=== PATIENT | male | born 1945 | race Caucasian/White ===

== ENCOUNTER 2017-06-06 18:05 | Inpatient (IN) | payer OTHER, MEDICARE ==
[~2017-06-06] VITALS: Ht 177.8 cm; Wt 64.0 kg
[2017-06-06 18:06] VITALS: BP 140/82; PULSE 131; RESP 16; TEMP 97.4; O2SAT 94
[2017-06-06] MEDS ORDERED: SODIUM CHLOR 0.9% 1000 ML INJ 1,000 ML IV SCH (19:36)
--- NOTE | 2017-06-06 19:38 | PD ---
HPI Chief Complaint: Abdominal Pain Time Seen by Provider: 19:36 Travel History International Travel<30 days: No Contact w/Intl Traveler<30days: No Traveled to known affect area: No History of Present Illness HPI 71 year old male with history of diabetes, htn, afib on coumadin, SC with stent placement presents to the ED for evaluation of RUQ and R flank pain worsening since yesterday with associated nausea, intermittent shortness of breath only associated with nausea, and cough productive of a white frothy sputum. He denies fever or chills. No definite chest pain. His pain does not radiate anywhere. It is constant, 8/10. Denies any injury. He has history of cholecystectomy. His primary care is Dr. Vázquez. He has no other symptoms to report. PFSH Past Medical History Hx Anticoagulant Therapy: Yes Diabetes: Yes Social History Tobacco Use: No Allergies-Medications (Allergen,Severity, Reaction): Coded Allergies: No Known Allergies (Unverified , 06/06/17) Reported Meds & Prescriptions Reported Meds & Active Scripts Active Reported Lisinopril 40 Mg Tab 40 Mg PO DAILY Atorvastatin (Atorvastatin Calcium) 40 Mg Tab 40 Mg PO HS Potassium Chloride ER (Potassium Chloride) 10 Meq Cap 10 Meq PO BID Isosorbide Mononitrate 20 Mg Tab 30 Mg PO DAILY Take 2 doses 7 hours apart. Glipizide 10 Mg Tab 10 Mg PO DAILY Take 30 minutes before a meal Pioglitazone (Pioglitazone HCl) 45 Mg Tab 45 Mg PO DAILY Hydrochlorothiazide 25 Mg Tab 25 Mg PO DAILY Metoprolol Tartrate 100 Mg Tab 100 Mg PO BID Hydralazine HCl 25 Mg Tablet 50 Mg PO TID Vitamin B-12 (Cyanocobalamin) 500 Mcg Tab 500 Mcg PO DAILY Warfarin 2.5 Mg Tab 2.5 Mg PO DAILY Ferrous Sulfate 325 Mg (65 Mg Iron) Tablet 325 Mg PO DAILY Terazosin (Terazosin HCl) 1 Mg Cap 1 Mg PO HS Amlodipine (Amlodipine Besylate) 10 Mg Tab 10 Mg PO DAILY Review of Systems Except as stated in HPI: all other systems reviewed are Neg Physical Exam Narrative GENERAL: Well-nourished male patient, in no acute distress SKIN: Focused skin assessment warm/dry. HEAD: Atraumatic. Normocephalic. EYES: Pupils equal and round. No scleral icterus. No injection or drainage. ENT: No nasal bleeding or discharge. Mucous membranes pink and moist. NECK: Trachea midline. No JVD. CARDIOVASCULAR: Tachycardic rate with irregular rhythm. RESPIRATORY: No accessory muscle use. Diminished throughout. Breath sounds equal bilaterally. GASTROINTESTINAL: Abdomen soft, nondistended. Epigastric and right upper quadrant tenderness to deep palpation. No guarding or rebound tenderness.. Hepatic and splenic margins not palpable. MUSCULOSKELETAL: No obvious deformities. No clubbing. No cyanosis. No edema. NEUROLOGICAL: Awake and alert. No obvious cranial nerve deficits. Motor grossly within normal limits. Normal speech. PSYCHIATRIC: Appropriate mood and affect; insight and judgment normal. Data Data Last Documented VS Vital Signs Date Time Temp Pulse Resp B/P (MAP) Pulse Ox O2 Delivery O2 Flow Rate FiO2 06/06/17 20:50 91 20 142/81 (101) 97 Nasal Cannula 2.00 06/06/17 18:06 97.4 Orders Orders Complete Blood Count With Diff (06/06/17 19:36) Comprehensive Metabolic Panel (06/06/17 19:36) Lipase (06/06/17 19:36) Lactic Acid (06/06/17 19:36) Prothrombin Time / Inr (Pt) (06/06/17 19:36) Act Partial Throm Time (Ptt) (06/06/17 19:36) Urinalysis - C+S If Indicated (06/06/17 19:36) Ct Abd/Pel W Iv Contrast(Rout) (06/06/17 19:36) Iv Access Insert/Monitor (06/06/17 19:36) Ecg Monitoring (06/06/17 19:36) Oximetry (06/06/17 19:36) Morphine Inj (Morphine Inj) (06/06/17 19:45) Ondansetron Inj (Zofran Inj) (06/06/17 19:45) Sodium Chlor 0.9% 1000 Ml Inj (Ns 1000 M (06/06/17 19:36) Sodium Chloride 0.9% Flush (Ns Flush) (06/06/17 19:45) Electrocardiogram (06/06/17 19:36) Abdomen, Upright Only (06/06/17 19:36) B-Type Natriuretic Peptide (06/06/17 19:36) Ckmb (Isoenzyme) Profile (06/06/17 19:36) Troponin I (06/06/17 19:36) Diltiazem Inj (Cardizem Inj) (06/06/17 19:45) Chest, Single Ap (06/06/17 ) Iodixanol 320 Inj (Rad Ct) (Visipaque 32 (06/06/17 21:20) Lactic Acid (06/06/17 21:30) Furosemide Inj (Lasix Inj) (06/06/17 22:30) Labs Laboratory Tests Test 06/06/17 19:45 White Blood Count 10.0 TH/MM3 Red Blood Count 3.59 MIL/MM3 Hemoglobin 10.5 GM/DL Hematocrit 33.5 % Mean Corpuscular Volume 93.4 FL Mean Corpuscular Hemoglobin 29.3 PG Mean Corpuscular Hemoglobin Concent 31.3 % Red Cell Distribution Width 16.7 % Platelet Count 188 TH/MM3 Mean Platelet Volume 9.3 FL Neutrophils (%) (Auto) 82.8 % Lymphocytes (%) (Auto) 10.3 % Monocytes (%) (Auto) 6.1 % Eosinophils (%) (Auto) 0.2 % Basophils (%) (Auto) 0.6 % Neutrophils # (Auto) 8.3 TH/MM3 Lymphocytes # (Auto) 1.0 TH/MM3 Monocytes # (Auto) 0.6 TH/MM3 Eosinophils # (Auto) 0.0 TH/MM3 Basophils # (Auto) 0.1 TH/MM3 CBC Comment DIFF FINAL Differential Comment Prothrombin Time 22.8 SEC Prothromb Time International Ratio 2.0 RATIO Activated Partial Thromboplast Time 27.5 SEC Urine Color YELLOW Urine Turbidity CLEAR Urine pH 5.5 Urine Specific [place] 1.019 Urine Protein 30 mg/dL Urine Glucose (UA) NEG mg/dL Urine Ketones TRACE mg/dL Urine Occult Blood TRACE Urine Nitrite NEG Urine Bilirubin NEG Urine Urobilinogen LESS THAN 2.0 MG/DL Urine Leukocyte Esterase NEG Urine RBC 2 /hpf Urine WBC 2 /hpf Urine Hyaline Casts 7 /lpf Urine Mucus FEW /lpf Microscopic Urinalysis Comment CULT NOT INDICATED Blood Urea Nitrogen 30 MG/DL Creatinine 1.66 MG/DL Random Glucose 170 MG/DL Total Protein 7.6 GM/DL Albumin 4.1 GM/DL Calcium Level 9.6 MG/DL Alkaline Phosphatase 155 U/L Aspartate Amino Transf (AST/SGOT) 57 U/L Alanine Aminotransferase (ALT/SGPT) 61 U/L Total Bilirubin 0.7 MG/DL Sodium Level 139 MEQ/L Potassium Level 4.9 MEQ/L Chloride Level 108 MEQ/L Carbon Dioxide Level 19.8 MEQ/L Anion Gap 11 MEQ/L Estimat Glomerular Filtration Rate 41 ML/MIN Lactic Acid Level 4.2 mmol/L Total Creatine Kinase 69 U/L Troponin I 0.14 NG/ML B-Type Natriuretic Peptide 1446 PG/ML Lipase 108 U/L MDM Medical Decision Making Medical Screen Exam Complete: Yes Emergency Medical Condition: Yes Medical Record Reviewed: Yes Differential Diagnosis biliary colic versus renal calculi vs uti vs cardiac etiology vs pneumonia vs gastritis vs neoplasm vs sepsis Narrative Course 71-year-old male presents to the emergency department for evaluation. Patient appears distressed. However upon arrival in the ER he is in A. fib with RVR. He is given Cardizem 10 mg IV which normalizes his rate, he remains in A. fib. Patient does have a history of this. Abdominal exam reveals some epigastric and right upper quadrant tenderness with deep palpation. Patient lung sounds are diminished in the bases. His oxygen saturations 94% on room air and he is placed on 2 L nasal cannula. Laboratory Tests Test 06/06/17 19:45 White Blood Count 10.0 TH/MM3 Red Blood Count 3.59 MIL/MM3 Hemoglobin 10.5 GM/DL Hematocrit 33.5 % Mean Corpuscular Volume 93.4 FL Mean Corpuscular Hemoglobin 29.3 PG Mean Corpuscular Hemoglobin Concent 31.3 % Red Cell Distribution Width 16.7 % Platelet Count 188 TH/MM3 Mean Platelet Volume 9.3 FL Neutrophils (%) (Auto) 82.8 % Lymphocytes (%) (Auto) 10.3 % Monocytes (%) (Auto) 6.1 % Eosinophils (%) (Auto) 0.2 % Basophils (%) (Auto) 0.6 % Neutrophils # (Auto) 8.3 TH/MM3 Lymphocytes # (Auto) 1.0 TH/MM3 Monocytes # (Auto) 0.6 TH/MM3 Eosinophils # (Auto) 0.0 TH/MM3 Basophils # (Auto) 0.1 TH/MM3 CBC Comment DIFF FINAL Differential Comment Prothrombin Time 22.8 SEC Prothromb Time International Ratio 2.0 RATIO Activated Partial Thromboplast Time 27.5 SEC Urine Color YELLOW Urine Turbidity CLEAR Urine pH 5.5 Urine Specific [place] 1.019 Urine Protein 30 mg/dL Urine Glucose (UA) NEG mg/dL Urine Ketones TRACE mg/dL Urine Occult Blood TRACE Urine Nitrite NEG Urine Bilirubin NEG Urine Urobilinogen LESS THAN 2.0 MG/DL Urine Leukocyte Esterase NEG Urine RBC 2 /hpf Urine WBC 2 /hpf Urine Hyaline Casts 7 /lpf Urine Mucus FEW /lpf Microscopic Urinalysis Comment CULT NOT INDICATED Blood Urea Nitrogen 30 MG/DL Creatinine 1.66 MG/DL Random Glucose 170 MG/DL Total Protein 7.6 GM/DL Albumin 4.1 GM/DL Calcium Level 9.6 MG/DL Alkaline Phosphatase 155 U/L Aspartate Amino Transf (AST/SGOT) 57 U/L Alanine Aminotransferase (ALT/SGPT) 61 U/L Total Bilirubin 0.7 MG/DL Sodium Level 139 MEQ/L Potassium Level 4.9 MEQ/L Chloride Level 108 MEQ/L Carbon Dioxide Level 19.8 MEQ/L Anion Gap 11 MEQ/L Estimat Glomerular Filtration Rate 41 ML/MIN Lactic Acid Level 4.2 mmol/L Total Creatine Kinase 69 U/L Troponin I 0.14 NG/ML B-Type Natriuretic Peptide 1446 PG/ML Lipase 108 U/L Patient has renal insufficiency. I have nothing to compare this to the past. BNP is 1446. Patient denies any history of CHF. Troponin is elevated at 0.14. Patient's lactic acid is 4.2. Last Impressions Abdomen/Pelvis CT 06/06/171935 Signed Impressions: Service Date/Time: Tuesday, June 06, 2017 21:13 - CONCLUSION: 1. Trace ascites, nonspecific but there are bilateral pleural effusions and pain chamber enlargement of the heart also noted. Also mild body wall edema/anasarca. 2. No stones or obstruction of either kidney. Normal appendix. 3. Atherosclerotic abdominal aorta. No aneurysm. 4. Possible mild cystitis in the proper clinical setting. Mild enlargement of the prostate. John Gallagher MD Abdomen X-Ray 06/06/171935 Signed Impressions: Service Date/Time: Tuesday, June 06, 2017 20:04 - CONCLUSION: Benign-appearing abdomen. John Gallagher MD Chest X-Ray 06/06/17 0000 Signed Impressions: Service Date/Time: Tuesday, June 06, 2017 20:02 - CONCLUSION: Mild bibasilar consolidation and small effusions. John Gallagher MD I have discussed the patient with my attending physician who has also reviewed the findings and assess the patient. Patient will be admitted for further evaluation and observation. At this time with no white count or fever, this is likely infectious in the patient has not been given any IV antibiotic. He has been given 1 dose of IV Lasix. Findings are discussed with the patient and his at bedside. They are in agreement with this plan of care. Diagnosis Primary Impression: RUQ abdominal pain Additional Impressions: Pleural effusion Elevated troponin New onset of congestive heart failure Renal insufficiency Atrial fibrillation with RVR Admitting Information Admitting Physician Requests: Observation Condition: Stable Neha Rosales Jun 06, 2017 19:38
[2017-06-06 19:45] VITALS: BP 150/78
[2017-06-06] MEDS ORDERED: DILTIAZEM HCL 25 MG/5 ML VIAL IV ONE (19:45)
[2017-06-06] MEDS ORDERED: SODIUM CHLORIDE 0.9% FLUSH 10 ML FLUSH IV FLUSH PRN ×2 (19:45→22:45)
[2017-06-06] MEDS ORDERED: ONDANSETRON HCL 4 MG/2 ML VIAL IVP ONE (19:45)
[2017-06-06] MEDS ORDERED: MORPHINE SULFATE 4 MG/ML INJ IV PUSH ONE (19:45)
[2017-06-06 20:03] VITALS: BP 132/72; PULSE 90; RESP 20; O2SAT 98
[2017-06-06 20:04] VITALS: RESP 20
[2017-06-06 20:06] LABS: BLOOD, URINE TRACE (NEG); COMMENT (UR) CULT NOT INDICATED; CULTURE IF INDICATED CULT NOT INDICATED; GLUCOSE,URINE NEG (NEG); HYALINE CAST, URINE 7 /lpf (RARE); KETONE, URINE TRACE mg/dL (NEG); MUCUS URINE FEW /lpf (OCC); NITRITE,URINE NEG (NEG); PH, URINE 5.5 (5.0-8.5); URINE COLOR YELLOW (YELLW/STRAW)
[2017-06-06 20:09] LABS: AUTOMATED NEUTROPHIL # 8.3 TH/MM3 (1.8-7.7); BASOPHIL # 0.1 TH/MM3 (0-0.2); BASOPHIL % 0.6 % (0.0-2.0); EOSINOPHIL % 0.2 % (0.0-4.0); HEMATOCRIT 33.5 % (39.0-51.0); HEMO FLAGS DIFF FINAL; LYMPH % 10.3 % (9.0-44.0); MEAN CELL VOLUME 93.4 FL (80.0-100.0); MEAN CORPUSCULAR HEMOGLOBIN 29.3 PG (27.0-34.0); MEAN CORPUSCULAR HGB CONC 31.3 % (32.0-36.0); MONO % 6.1 % (0.0-8.0); NEUT % 82.8 % (16.0-70.0); PLATELET COUNT 188 TH/MM3 (150-450); RED BLOOD COUNT 3.59 MIL/MM3 (4.50-5.90); RED CELL DISTRIBUTION WIDTH 16.7 % (11.6-17.2)
[2017-06-06 20:20] LABS: ANION GAP 11 MEQ/L (5-15); APTT (PATIENT) 27.5 SEC (24.3-30.1); AST (GOT) 57 U/L (15-37); BICARBONATE 19.8 MEQ/L (21.0-32.0); BLOOD UREA NITROGEN 30 MG/DL (7-18); CHLORIDE 108 MEQ/L (98-107); GLOMERULAR FILTRATION RATE 41 ML/MIN (>89); POTASSIUM 4.9 MEQ/L (3.5-5.1); PROTHROMBIN TIME - PATIENT 22.8 SEC (9.8-11.6); SODIUM (NA) 139 MEQ/L (136-145)
[2017-06-06 20:21] LABS: ALT (GPT) 61 U/L (12-78)
[2017-06-06 20:25] LABS: ALKALINE PHOSPHATASE 155 U/L (45-117); TOTAL BILIRUBIN ADULT 0.7 MG/DL (0.2-1.0)
[2017-06-06 20:26] LABS: CREATINE KINASE 69 U/L (39-308)
--- NOTE | 2017-06-06 20:37 | RADRPT ---
EXAM DATE/TIME: 06/06/2017 20:04 [facility] COMPARISON: No previous studies available for comparison. INDICATIONS : Pain MEDICAL HISTORY : None. SURGICAL HISTORY : None. ENCOUNTER: Initial ACUITY: 1 day PAIN SCORE: 3/10 LOCATION: Bilateral Abdomen FINDINGS: No free air seen. Visualized portions of the bowel gas pattern are nonobstructive. CONCLUSION: Benign-appearing abdomen. John Gallagher MD on June 06, 2017 at 20:35 Board Certified Radiologist. This report was verified electronically.
[2017-06-06] MEDS ORDERED: WARF-18 PO (20:38)
[2017-06-06] MEDS ORDERED: GLIP10TA6 PO (20:38)
[2017-06-06] MEDS ORDERED: LISI40TA PO (20:38)
[2017-06-06] MEDS ORDERED: HYDR25TA5 PO (20:38)
[2017-06-06] MEDS ORDERED: TERA1CAP3 PO (20:38)
[2017-06-06] MEDS ORDERED: POTA10CA PO (20:38)
[2017-06-06] MEDS ORDERED: AMLO10TA2 PO (20:38)
[2017-06-06] MEDS ORDERED: ATOR40TA16 PO (20:38)
[2017-06-06] MEDS ORDERED: ISOS20TA PO (20:38)
[2017-06-06] MEDS ORDERED: HYDR-3799 PO (20:38)
[2017-06-06] MEDS ORDERED: METO100T PO (20:38)
[2017-06-06] MEDS ORDERED: FERR325T8 PO (20:38)
[2017-06-06] MEDS ORDERED: PIOG45TA3 PO (20:38)
[2017-06-06] MEDS ORDERED: VITA500T4 PO (20:38)
--- NOTE | 2017-06-06 20:39 | RADRPT ---
EXAM DATE/TIME: 06/06/2017 20:02 [facility] COMPARISON: No previous studies available for comparison. INDICATIONS : Abdominal pain. MEDICAL HISTORY : None. SURGICAL HISTORY : None. ENCOUNTER: Initial ACUITY: 1 day PAIN SCORE: 0/10 LOCATION: Bilateral chest FINDINGS: Mild bibasilar atelectasis and small pleural effusions are noted. Mild cardiomegaly. No acute failure seen. No pneumothorax. CONCLUSION: Mild bibasilar consolidation and small effusions. John Gallagher MD on June 06, 2017 at 20:37 Board Certified Radiologist. This report was verified electronically.
[2017-06-06 20:50] VITALS: BP 142/81; PULSE 91; RESP 20; O2SAT 97
[2017-06-06] MEDS ORDERED: IODIXANOL 320 MG/ML 10 ML VIAL (for Rad CT) IV ONE (21:20)
--- NOTE | 2017-06-06 21:40 | RADRPT ---
EXAM DATE/TIME: 06/06/2017 21:13 [facility] COMPARISON: No previous studies available for comparison. INDICATIONS : Right lower quadrant and right flank pain. IV CONTRAST: 45 cc Visipaque (iodixanol) IV ORAL CONTRAST: No oral contrast ingested. RADIATION DOSE: 8.35 CTDIvol (mGy) MEDICAL HISTORY : Diabetes mellitus type 2. Cardiovascular disease cardiac stent SURGICAL HISTORY : None. ENCOUNTER: Initial ACUITY: 1 day PAIN SCALE: 7/10 LOCATION: abdomen TECHNIQUE: Volumetric scanning of the abdomen and pelvis was performed. Using automated exposure control and ad justment of the mA and/or kV according to patient size, radiation dose was kept as low as reasonably achievable to obtain optimal diagnostic quality images. DICOM format image data is available electro nically for review and comparison. FINDINGS: Small ascites present within the pelvic cavity. There is slight, diffuse mesenteric edema. No organiz ed or drainable fluid. Nonobstructed bowel. No acute inflammatory changes are seen. The appendix is n ormal. Liver is within normal limits. Scattered tiny calcified granulomata seen in the spleen. No acute sple en abnormality. Pancreas and adrenal glands are within normal limits. No stones or obstruction seen o f either kidney. Mild prostate enlargement. There is associated mild impression on the bladder base. Bladder wall appe ars slightly thickened. There is atherosclerosis and tortuosity of the abdominal aorta and branch vessels. No aneurysm. Moderate right and small left pleural effusions are noted. There is also rede chamber enlargement of t he heart, especially the right atrium. Mild body wall edema/anasarca. Previous cholecystectomy. CONCLUSION: 1. Trace ascites, nonspecific but there are bilateral pleural effusions and pain chamber enlargement of the heart also noted. Also mild body wall edema/anasarca. 2. No stones or obstruction of either kidney. Normal appendix. 3. Atherosclerotic abdominal aorta. No aneurysm. 4. Possible mild cystitis in the proper clinical setting. Mild enlargement of the prostate. John Gallagher MD on June 06, 2017 at 21:32 Board Certified Radiologist. This report was verified electronically.
--- NOTE | 2017-06-06 21:41 | EKG ---
Date Performed: 06/06/2017 Time Performed: 19:35:47 PTAGE: 71 years EKG: ATRIAL FIBRILLATION WITH RAPID VENTRICULAR RESPONSE BORDERLINE RIGHT AXIS DEVIATION NONSPEC IFIC INTRAVENTRICULAR CONDUCTION DELAY ST /T-WAVE ABNORMALITY, CONSIDER LATERAL ISCHEMIA ABNORMAL ECG NO PREVIOUS TRACING DOCTOR: Vijay Tapia Interpretating Date/Time 06/06/2017 21:40:54
[2017-06-06] MEDS ORDERED: FUROSEMIDE 20 MG/2 ML VIAL IV PUSH ONE (22:30)
[2017-06-06] MEDS ORDERED: SENNOSIDES 8.6 MG TAB PO PRN (22:45)
[2017-06-06] MEDS ORDERED: ONDANSETRON HCL 4 MG/2 ML VIAL IVP PRN (22:45)
[2017-06-06] MEDS ORDERED: MORPHINE SULFATE 4 MG/ML INJ IV PUSH PRN (22:45)
[2017-06-06] MEDS ORDERED: DEXTROSE 50% IN WATER 50 ML VIAL(D50) IV PRN (22:45)
[2017-06-06] MEDS ORDERED: ACETAMINOPHEN 325 MG TAB PO PRN (22:45)
[2017-06-06] MEDS ORDERED: BISACODYL 10 MG SUPP RECTAL PRN (22:45)
[2017-06-06] MEDS ORDERED: GLUCAGON 1 MG/ML VIAL OTHER PRN (22:45)
[2017-06-07] VITALS (24 sets, daily range): BP systolic 114–140; BP diastolic 59–100; PULSE 61–130; RESP 18–22; TEMP 97.6–98.4; O2SAT 90–98
--- NOTE | 2017-06-07 01:44 | HHI.HP ---
[facility] Rayshawn Vázquez MD Admission Diagnosis RUQ pain; pleural effusions; elevated trop; renal insufficiency; CHF Diagnoses: (1) CHF (congestive heart failure) Diagnosis: Principal (2) Elevated troponin Diagnosis: Principal (3) Renal insufficiency Diagnosis: Principal (4) A-fib Diagnosis: Principal (5) Lactic acidosis Diagnosis: Principal (6) RUQ abdominal pain Diagnosis: Principal (7) DM (diabetes mellitus) Diagnosis: Principal Travel History International Travel<30 Days: No Contact w/Intl Traveler <30 Da: No Traveled to Known Affected Are: No History of Present Illness This is a 71-year-old male with a PMH of HTN, A. fib on Coumadin and DM who presented to the ER with complaints of abdominal pain with associated nausea and vomiting x1 day. Denies fever or chills. Does note episodes of SOB and intermittent cough. No c/o chest pain. On arrival, found to be in A. fib with RVR, BP 140/82, HR 131, O2 sat 94% on RA, Afebrile. S/p Cardizem x1 in ER, HR now 90's. Hemoglobin 10.5. Creatinine 1.66, no previous labs for comparison. Lactic Acid 4.2, repeat 2.6. Troponin 0.14. BNP 1446. INR 2.0. UA negative. CXR with mild basilar consolidation and small effusions. Abdomen X-ray essentially negative. CT Abd/Pelvis w/ trace ascites, bilateral pleural effusions, mild edema/anasarca. No h/o CHF per patient. S/p Lasix in ER. Review of Systems Except as stated in HPI: all other systems reviewed are Neg ROS: 14 point review of systems otherwise negative. Past Family Social History Past Medical History PMH: HTN, A. fib on Coumadin and DM Past Surgical History PAST SURGICAL HISTORY: Cardiac Stent Allergies: Coded Allergies: No Known Allergies (Unverified , 06/06/17) Family History PAST FAMILY HISTORY: Reviewed. No h/o DM or CAD Social History PAST SOCIAL HISTORY: Negative for alcohol, tobacco or drugs. Physical Exam Vital Signs Vital Signs Date Time Temp Pulse Resp B/P (MAP) Pulse Ox O2 Delivery O2 Flow Rate FiO2 06/06/17 23:09 06/06/17 20:50 91 20 142/81 (101) 97 Nasal Cannula 2.00 06/06/17 20:12 20 06/06/17 20:04 20 06/06/17 20:03 90 20 132/72 (92) 98 Nasal Cannula 2.00 06/06/17 19:45 150/78 (102) 06/06/17 18:06 97.4 131 16 140/82 (101) 94 Physical Exam PE: GENERAL: Elderly male in no acute distress. HEENT: PERRLA, EOMI. No scleral icterus or conjunctival pallor. No lid lag or facial droop. CARDIOVASCULAR: Regular rate and rhythm. No obvious murmurs to auscultation. No chest tenderness to palpation. RESPIRATORY: No obvious rhonchi or wheezing. Clear to auscultation. Breath sounds equal bilaterally. GASTROINTESTINAL: Abdomen soft, mild tenderness to palpation RUQ, nondistended. BS normal. MUSCULOSKELETAL: Extremities without clubbing, cyanosis, or edema. No obvious deformities. NEUROLOGICAL: Awake, alert and oriented x4. No focal neurologic deficits. Moving both upper and lower extremities spontaneously. Laboratory Laboratory Tests Test 06/06/17 19:45 06/06/17 22:30 White Blood Count 10.0 Red Blood Count 3.59 Hemoglobin 10.5 Hematocrit 33.5 Mean Corpuscular Volume 93.4 Mean Corpuscular Hemoglobin 29.3 Mean Corpuscular Hemoglobin Concent 31.3 Red Cell Distribution Width 16.7 Platelet Count 188 Mean Platelet Volume 9.3 Neutrophils (%) (Auto) 82.8 Lymphocytes (%) (Auto) 10.3 Monocytes (%) (Auto) 6.1 Eosinophils (%) (Auto) 0.2 Basophils (%) (Auto) 0.6 Neutrophils # (Auto) 8.3 Lymphocytes # (Auto) 1.0 Monocytes # (Auto) 0.6 Eosinophils # (Auto) 0.0 Basophils # (Auto) 0.1 CBC Comment DIFF FINAL Differential Comment Prothrombin Time 22.8 Prothromb Time International Ratio 2.0 Activated Partial Thromboplast Time 27.5 Urine Color YELLOW Urine Turbidity CLEAR Urine pH 5.5 Urine Specific [place] 1.019 Urine Protein 30 Urine Glucose (UA) NEG Urine Ketones TRACE Urine Occult Blood TRACE Urine Nitrite NEG Urine Bilirubin NEG Urine Urobilinogen LESS THAN 2.0 Urine Leukocyte Esterase NEG Urine RBC 2 Urine WBC 2 Urine Hyaline Casts 7 Urine Mucus FEW Microscopic Urinalysis Comment CULT NOT INDICATED Blood Urea Nitrogen 30 Creatinine 1.66 Random Glucose 170 Total Protein 7.6 Albumin 4.1 Calcium Level 9.6 Alkaline Phosphatase 155 Aspartate Amino Transf (AST/SGOT) 57 Alanine Aminotransferase (ALT/SGPT) 61 Total Bilirubin 0.7 Sodium Level 139 Potassium Level 4.9 Chloride Level 108 Carbon Dioxide Level 19.8 Anion Gap 11 Estimat Glomerular Filtration Rate 41 Lactic Acid Level 4.2 2.6 Total Creatine Kinase 69 Troponin I 0.14 B-Type Natriuretic Peptide 1446 Lipase 108 Result Diagram: 06/06/17194406/06/171944 Sara VTE Risk Assessment Sara VTE Risk Assessment: Mod/High Risk (score >= 2) Silvianorini Risk Assessment Model Point Value = 1 Point Value = 2 Point Value = 3 Point Value = 5 Age 41-60 Minor surgery BMI > 25 kg/m2 Swollen legs Varicose veins or History of unexplained or recurrent spontaneous Oral contraceptives or hormone replacement Sepsis (< 1 month) Serious lung disease, including pneumonia (< 1 month) Abnormal pulmonary function Acute myocardial infarction Congestive heart failure (< 1 month) History of inflammatory bowel disease Medical patient at bed rest Age 61-74 Arthroscopic surgery Major open surgery (> 45 min) Laparoscopic surgery (> 45 min) Malignancy Confined to bed (> 72 hours) Immobilizing plaster cast Central venous access Age >= 75 History of VTE Family history of VTE Factor V Leiden Prothrombin [id number] Lupus anticoagulant Anticardiolipin antibodies Elevated serum homocysteine Heparin-induced thrombocytopenia Other congenital or acquired thrombophilia Stroke (< 1 month) Elective arthroplasty Hip, pelvis, or leg fracture Acute spinal cord injury (< 1 month) Prophylaxis Regimen Total Risk Factor Score Risk Level Prophylaxis Regimen 0-1 Low Early ambulation 2 Moderate Order ONE of the following: *Sequential Compression Device (SCD) *Heparin 5000 units SQ BID 3-4 Higher Order ONE of the following medications: *Heparin 5000 units SQ TID *Enoxaparin/Lovenox 40 mg SQ daily (WT < 150 kg, CrCl > 30 mL/min) *Enoxaparin/Lovenox 30 mg SQ daily (WT < 150 kg, CrCl > 10-29 mL/min) *Enoxaparin/Lovenox 30 mg SQ BID (WT < 150 kg, CrCl > 30 mL/min) AND/OR *Sequential Compression Device (SCD) 5 or more Highest Order ONE of the following medications: *Heparin 5000 units SQ TID (Preferred with Epidurals) *Enoxaparin/Lovenox 40 mg SQ daily (WT < 150 kg, CrCl > 30 mL/min) *Enoxaparin/Lovenox 30 mg SQ daily (WT < 150 kg, CrCl > 10-29 mL/min) *Enoxaparin/Lovenox 30 mg SQ BID (WT < 150 kg, CrCl > 30 mL/min) AND *Sequential Compression Device (SCD) Assessment and Plan Problem List: (1) CHF (congestive heart failure) ICD Code: I50.9 - Heart failure, unspecified (2) A-fib ICD Code: I48.91 - Unspecified atrial fibrillation (3) RUQ abdominal pain ICD Code: R10.11 - Right upper quadrant pain Status: Acute (4) Elevated troponin ICD Code: R74.8 - Abnormal levels of other serum enzymes Status: Acute (5) Lactic acidosis ICD Code: E87.2 - Acidosis (6) Renal insufficiency ICD Code: N28.9 - Disorder of kidney and ureter, unspecified Status: Acute (7) DM (diabetes mellitus) ICD Code: E11.9 - Type 2 diabetes mellitus without complications Assessment and Plan A/P: 1. CHF: New Onset. BNP 1446, CXR w/ pleural effusions, also noted on CT Abd/ Pelvis, s/p Lasix IV in ER. Continue w/ diuresis, Monitor I/O, check Echo. Hold CHERIE in light of renal insufficiency. 2. Elevated Trop: 0.14, possibly secondary to episode of A-fib w/ RVR and new onset CHF. No c/o chest pain. Check serial cardiac enzymes, ASA, B-syed, resume home Statin. NTG/Morphine prn. Cardiology consult for further evaluation. 3. A-fib: on Coumadin. Episode of A-fib w/ RVR, HR 130's upon arrival, s/p Cardizem x1 IV, now resolved. Resume home medications. 4. RUQ Pain: c/o abdominal pain w/ intermittent nausea/vomiting, now resolved. LFTs mildly elevated, check Gallbladder US, analgesics as needed. 5. Renal Insufficiency: Creatinine 1.66, no previous labs for comparison, U/a negative for UTI. IVF-caution w/ CHF, repeat labs in am. 6. Lactic Acidosis: Lactate 4.2, repeat 2.6, unclear etiology, no evidence of sepsis, possibly related to dehydration. Caution w/ IVF in light of acute CHF. Repeat Lactate in am. 7. DM: Sliding scale w/ Accu-Cheks. Hold antihyperglycemics in light of decreased PO intake from nausea/vomiting. Monitor BS. 8. DVT Prophylaxis: On Coumadin. Therapeutic INR at 2.0. 9. Social work for d/c planning as needed. 10. Case discussed w/ ER physician at length. Tania Parker MD Jun 07, 2017 01:44
[2017-06-07] MEDS ORDERED: DEXTROSE 5% IN WATE 500 ML INJ 500 ML IV ONE (01:45)
[2017-06-07 02:45] LABS: ALKALINE PHOSPHATASE 134 U/L (45-117); ALT (GPT) 125 U/L (12-78); ANION GAP 11 MEQ/L (5-15); AST (GOT) 112 U/L (15-37); BICARBONATE 21.7 MEQ/L (21.0-32.0); BLOOD UREA NITROGEN 30 MG/DL (7-18); CHLORIDE 111 MEQ/L (98-107); GLOMERULAR FILTRATION RATE 46 ML/MIN (>89); POTASSIUM 5.1 MEQ/L (3.5-5.1); SODIUM (NA) 144 MEQ/L (136-145); TOTAL BILIRUBIN ADULT 0.6 MG/DL (0.2-1.0)
[2017-06-07] MEDS: ACETAMINOPHEN/HYDROcodone 325 MG/5 MG TAB PO PRN ×2 (02:47→22:49)
[2017-06-07] MEDS: INSULIN ASPART SUPPLEMENTAL SCALE SQ SCH ×4 (08:00→21:00)
--- NOTE | 2017-06-07 08:18 | RADRPT ---
EXAM DATE/TIME: 06/07/2017 07:36 [facility] COMPARISON: CT ABDOMEN & PELVIS W CONTRAST, June 06, 2017, 21:13. INDICATIONS : Right upper quadrant pain. MEDICAL HISTORY : Myocardial infarction. Hypercholesterolemia. Cardiovascular disease Diabetes. Skin cancer. Anticoagul ant therapy. Afib SURGICAL HISTORY : Cholecystectomy. Coronary artery stent. ENCOUNTER: Initial ACUITY: 2 days PAIN SCORE: 3/10 LOCATION: Right upper quadrant MEASUREMENTS: LIVER: 18.3 cm length COMMON DUCT: 8 mm RIGHT KIDNEY: 11.3 x 5.1 x 5.4 cm FINDINGS: LIVER: There is heterogeneous, increased echotexture of liver suggesting fatty infiltration. No focal masses seen. No intrahepatic biliary ductal dilation is present. COMMON DUCT: No intraluminal mass or stone visualized. GALLBLADDER: Surgically absent. PANCREAS: The pancreas is quite difficult to visualize. There are questionable edematous changes within the reed creas the RIGHT KIDNEY: No evidence of hydronephrosis, stone, or mass. There is mild cortical thinning. Incidental note is made of a large right pleural effusion. CONCLUSION: 1. Heterogeneous echotexture of the liver suggesting fatty infiltration. 2. Questionable edematous changes within the pancreas. The pancreas was difficult to visualize. 3. The patient is post cholecystectomy. 4. Large right pleural effusion. Shalom Salinas MD on June 07, 2017 at 8:13 Board Certified Radiologist. This report was verified electronically.
[2017-06-07] MEDS ORDERED: METOPROLOL TARTRATE 25 MG TAB PO SCH (09:00)
[2017-06-07] MEDS ORDERED: FUROSEMIDE 40 MG TAB PO SCH (09:00)
[2017-06-07] MEDS: DOCUSATE SODIUM 50 MG/SENNA 8.6 MG TAB PO SCH ×2 (09:00→21:25)
[2017-06-07 09:13] LABS: AUTOMATED NEUTROPHIL # 6.4 TH/MM3 (1.8-7.7); BASOPHIL # 0.1 TH/MM3 (0-0.2); BASOPHIL % 0.6 % (0.0-2.0); EOSINOPHIL % 0.1 % (0.0-4.0); HEMO FLAGS DIFF FINAL; LYMPH % 16.3 % (9.0-44.0); LYMPHOCYTE # 1.5 TH/MM3 (1.0-4.8); MEAN CELL VOLUME 92.1 FL (80.0-100.0); MEAN CORPUSCULAR HEMOGLOBIN 29.8 PG (27.0-34.0); MEAN CORPUSCULAR HGB CONC 32.3 % (32.0-36.0); MONO % 11.9 % (0.0-8.0); NEUT % 71.1 % (16.0-70.0); PLATELET COUNT 149 TH/MM3 (150-450); RED BLOOD COUNT 3.04 MIL/MM3 (4.50-5.90); RED CELL DISTRIBUTION WIDTH 16.1 % (11.6-17.2)
[2017-06-07] MEDS: ASPIRIN EC 81 MG TABEC PO SCH (09:13)
[2017-06-07] MEDS: SODIUM CHLORIDE 0.9% FLUSH 10 ML FLUSH IV FLUSH SCH ×2 (09:13→21:26)
[2017-06-07 09:17] LABS: INTERNATIONAL NORMALIZED RATIO 2.2 RATIO
[2017-06-07] MEDS ORDERED: DILTIAZEM HCL 25 MG/5 ML VIAL IV PUSH ONE (10:30)
[2017-06-07] MEDS ORDERED: DILTIAZEM INJ 125 MG in SODIUM CHLORIDE 0.9% INJ 100 ML IV PRN (11:00)
[2017-06-07] MEDS ORDERED: DILTIAZEM HCL 25 MG/5 ML VIAL IV PUSH PRN (11:00)
[2017-06-07] MEDS: FUROSEMIDE 40 MG/4 ML VIAL IV PUSH SCH ×2 (11:16→17:09)
[2017-06-07] MEDS: METOPROLOL TARTRATE 25 MG TAB PO SCH ×3 (11:16→21:26)
[2017-06-08] VITALS (28 sets, daily range): BP systolic 119–135; BP diastolic 66–90; PULSE 76–142; RESP 17–18; TEMP 97.9–98.4; O2SAT 91–97
[2017-06-08] MEDS: METOPROLOL TARTRATE 25 MG TAB PO SCH ×3 (05:42→20:48)
[2017-06-08] MEDS: ACETAMINOPHEN/HYDROcodone 325 MG/5 MG TAB PO PRN ×4 (05:48→22:39)
[2017-06-08 06:55] LABS: PROTHROMBIN TIME - PATIENT 22.4 SEC (9.8-11.6)
[2017-06-08 07:09] LABS: ALKALINE PHOSPHATASE 129 U/L (45-117); ALT (GPT) 657 U/L (12-78); ANION GAP 10 MEQ/L (5-15); AST (GOT) 654 U/L (15-37); BLOOD UREA NITROGEN 31 MG/DL (7-18); CHLORIDE 105 MEQ/L (98-107); GLOMERULAR FILTRATION RATE 41 ML/MIN (>89); MAGNESIUM 1.7 MG/DL (1.5-2.5); POTASSIUM 3.5 MEQ/L (3.5-5.1); SODIUM (NA) 141 MEQ/L (136-145); TOTAL BILIRUBIN ADULT 0.8 MG/DL (0.2-1.0)
[2017-06-08] MEDS: INSULIN ASPART SUPPLEMENTAL SCALE SQ SCH ×4 (08:00→20:49)
[2017-06-08] MEDS: DOCUSATE SODIUM 50 MG/SENNA 8.6 MG TAB PO SCH ×2 (09:00→20:48)
[2017-06-08] MEDS ORDERED: DIGOXIN 0.5 MG/2 ML VIAL IV PUSH ONE ×3 (09:00→23:00)
--- NOTE | 2017-06-08 09:05 | PD.CARD.PN ---
Subjective Subjective Remarks Still SOB. No angina Objective Medications Current Medications Medications (Trade) Dose Ordered Sig/Trinity Route Start Time Stop Time Status Last Admin (D50w (Vial) Inj) 50 ml UNSCH PRN IV 06/06/17 22:45 (Glucagon Inj) 1 mg UNSCH PRN OTHER 06/06/17 22:45 (NovoLOG SUPPLEMENTAL SCALE) 1 ACHS SLIDING SCALE SQ 06/07/17 08:00 06/07/17 21:00 (NS Flush) 2 ml UNSCH PRN IV FLUSH 06/06/17 22:45 (NS Flush) 2 ml BID IV FLUSH 06/07/17 09:00 06/07/17 21:26 (Zofran Inj) 4 mg Q6H PRN IVP 06/06/17 22:45 (Tylenol) 650 mg Q6H PRN PO 06/06/17 22:45 ([place]on 5-325 Mg) 1 tab Q4H PRN PO 06/06/17 22:45 06/08/17 05:48 (Morphine Inj) 2 mg Q3H PRN IV PUSH 06/06/17 22:45 06/07/17 21:26 (Maria Ines-Colace) 1 tab BID PO 06/07/17 09:00 06/07/17 21:25 (Milk Of Magnesia Liq) 30 ml Q12H PRN PO 06/06/17 22:45 (Senokot) 17.2 mg Q12H PRN PO 06/06/17 22:45 (Dulcolax Supp) 10 mg DAILY PRN RECTAL 06/06/17 22:45 (Lactulose Liq) 30 ml DAILY PRN PO 06/06/17 22:45 (Ecotrin Ec) 81 mg DAILY PO 06/07/17 09:00 06/07/17 09:13 (Lopressor) 50 mg Q8HR PO 06/07/17 11:00 06/08/17 05:42 Diltiazem HCl 125 mg/Sodium Chloride 125 ml @ 10 mls/hr TITRATE PRN IV 06/07/17 11:00 06/07/17 10:52 (Lasix Inj) 40 mg BID@,18 IV PUSH 06/07/17 11:00 06/07/17 17:09 (Lanoxin Inj) 0.25 mg ONCE ONCE IV PUSH 06/08/17 09:00 06/08/17 09:01 (Lanoxin Inj) 0.25 mg ONCE ONCE IV PUSH 06/08/17 15:00 06/08/17 15:01 (Lanoxin Inj) 0.25 mg ONCE ONCE IV PUSH 06/08/17 23:00 06/08/17 23:01 (Lanoxin) 0.25 mg ONCE ONCE PO 06/09/17 09:00 06/09/17 09:01 (KCl) 20 meq TID PO 06/08/17 09:00 Magnesium Sulfate/ Dextrose 100 ml @ 100 mls/hr Q1H IV 06/08/17 09:00 06/08/17 10:59 UNV Vital Signs / I&O Vital Signs Date Time Temp Pulse Resp B/P (MAP) Pulse Ox O2 Delivery O2 Flow Rate FiO2 06/08/17 07:00 106 06/08/17 06:00 114 06/08/17 05:00 96 06/08/17 04:38 110 06/08/17 04:00 112 06/08/17 03:00 100 06/08/17 03:00 98.1 110 18 127/83 (98) 91 06/08/17 02:00 96 06/08/17 01:00 92 06/08/17 00:00 98 06/07/17 23:00 126 06/07/17 23:00 98.3 118 18 125/82 (96) 90 06/07/17 22:00 122 06/07/17 21:00 118 06/07/17 20:00 114 06/07/17 19:00 97.6 124 20 131/94 (106) 95 06/07/17 19:00 90 06/07/17 18:00 114 06/07/17 17:48 115 06/07/17 16:03 109 06/07/17 15:28 98.2 77 18 127/75 (92) 94 06/07/17 15:28 71 06/07/17 14:01 72 06/07/17 13:13 61 114/65 06/07/17 13:00 61 06/07/17 12:02 69 06/07/17 11:00 98.0 81 18 114/63 (80) 98 06/07/17 11:00 72 06/07/17 10:52 73 125/70 06/07/17 10:00 130 9/18/17 09:00 104 I/O 06/07/17 06/07/17 06/07/17 06/08/17 06/08/17 06/08/17 07:00 15:00 23:00 07:00 15:00 23:00 Intake Total 740 ml 495 ml 480 ml Output Total 300 ml 900 ml 1825 ml Balance 440 ml -405 ml -1345 ml Intake Oral 240 ml 480 ml 480 ml IV Total 500 ml 15 ml Output Urine Total 300 ml 900 ml 1825 ml # Bowel Movements 0 0 Physical Exam Alert +JVD Chest: absent BS at bases (effusions) CV: S1S2 irreg irreg, tachy No edema Echo: prelim severe reduced LV fn with inferoposterior scar (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) Laboratory Laboratory Tests Test 06/07/17 10:20 06/08/17 06:00 Lactic Acid Level 2.0 mmol/L Prothrombin Time 22.4 SEC Prothromb Time International Ratio 2.0 RATIO Blood Urea Nitrogen 31 MG/DL Creatinine 1.67 MG/DL Random Glucose 106 MG/DL Total Protein 7.2 GM/DL Albumin 3.9 GM/DL Calcium Level 9.0 MG/DL Magnesium Level 1.7 MG/DL Alkaline Phosphatase 129 U/L Aspartate Amino Transf (AST/SGOT) 654 U/L Alanine Aminotransferase (ALT/SGPT) 657 U/L Total Bilirubin 0.8 MG/DL Sodium Level 141 MEQ/L Potassium Level 3.5 MEQ/L Chloride Level 105 MEQ/L Carbon Dioxide Level 26.0 MEQ/L Anion Gap 10 MEQ/L Estimat Glomerular Filtration Rate 41 ML/MIN Troponin I 0.37 NG/ML Imaging Last 48 hours Impressions Gall Bladder Ultrasound 06/07/17 0000 Signed Impressions: Service Date/Time: Wednesday, June 07, 2017 07:36 - CONCLUSION: 1. Heterogeneous echotexture of the liver suggesting fatty infiltration. 2. Questionable edematous changes within the pancreas. The pancreas was difficult to visualize. 3. The patient is post cholecystectomy. 4. Large right pleural effusion. Shalom Salinas MD Abdomen/Pelvis CT 06/06/17 1936 Signed Impressions: Service Date/Time: Tuesday, June 06, 2017 21:13 - CONCLUSION: 1. Trace ascites, nonspecific but there are bilateral pleural effusions and pain chamber enlargement of the heart also noted. Also mild body wall edema/anasarca. 2. No stones or obstruction of either kidney. Normal appendix. 3. Atherosclerotic abdominal aorta. No aneurysm. 4. Possible mild cystitis in the proper clinical setting. Mild enlargement of the prostate. John Gallagher MD Abdomen X-Ray 06/06/171935 Signed Impressions: Service Date/Time: Tuesday, June 06, 2017 20:04 - CONCLUSION: Benign-appearing abdomen. John Gallagher MD Assessment and Plan Problem List: (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 ICD Codes: I25.2 - Old myocardial infarction (2) Acute systolic CHF (congestive heart failure) ICD Codes: I50.21 - Acute systolic (congestive) heart failure Plan: Cont IV lasix (3) Elevated troponin ICD Codes: R74.8 - Abnormal levels of other serum enzymes Status: Acute Plan: no angina. No sx's of recent MA (4) Atrial fibrillation with RVR ICD Codes: I48.91 - Unspecified atrial fibrillation Status: Acute Plan: add digoxin. Might need to up metoprolol to 100mg bid (5) Pleural effusion ICD Codes: J90 - Pleural effusion, not elsewhere classified Status: Acute Plan: cont Lasix. Might need tap (6) Elevated liver enzymes ICD Codes: R74.8 - Abnormal levels of other serum enzymes Plan: suspect due to CHF/ poor output (7) Renal insufficiency ICD Codes: N28.9 - Disorder of kidney and ureter, unspecified Status: Acute Plan: needs ACEI but will wait to make sure creat stabilizes Assessment and Plan I will be out of state - one of my partners will cover in my absence Discussed Condition With Polo Bullock MD Jun 08, 2017 09:05
[2017-06-08] MEDS: SODIUM CHLORIDE 0.9% FLUSH 10 ML FLUSH IV FLUSH SCH ×2 (09:25→20:49)
[2017-06-08] MEDS: MAGNESIUM SULFATE 1 GM PREMIX 100 ML IV SCH ×2 (09:25→11:43)
[2017-06-08] MEDS: ASPIRIN EC 81 MG TABEC PO SCH (09:26)
[2017-06-08] MEDS: POTASSIUM CHLORIDE 20 MEQ CONTROLLED RELEASE TAB PO SCH ×3 (09:26→17:30)
[2017-06-08] MEDS: FUROSEMIDE 40 MG/4 ML VIAL IV PUSH SCH ×2 (09:27→17:30)
--- NOTE | 2017-06-08 12:12 | ECHRPT ---
Indication: CARDIOMYOPATHY CONCLUSIONS Moderately dilated left ventricle. Wall thickness is normal. The left ventricular systolic function is severely reduced with an estimated ejection fraction in th e range of 20%. There is diffuse global hypokinesis with distinct regional wall motion abnormalities. This study was not technically sufficient to allow for evaluation of left ventricular diastolic func tion. The right ventricle is moderately dilated. The right ventricular systoilc function is severely decreased. The left atrial size is qsvfssuo-vw-rlcbfuor dilated. The right atrial size is moderately dilated. No atrial level shunt is demonstrated by color flow Doppler interrogation. Moderate mitral valve regurgitation. Mild thickening of the mitral valve leaflets. No aortic valve regurgitation. No aortic valve stenosis. Annular dilatation of the tricuspid valve. There is moderate tricuspid regurgitation. There is estimated bobhbhao-jh-rniqhd pulmonary hypertension present (range 60-70 mmHg). Trivial pulmonary valve regurgitation. The inferior vena cava is dilated. There is less than 50% respiratory change in dimension of the inferior vena cava (abnormal). A large left sided pleural effusion is noted. BP: 115 / 59 HR: Rhythm: Atrial fibrillation, Atrial flut ter, PVCs MEASUREMENTS (Male / Female) Normal Values Technical Quality:Fair 2D ECHO LV Diastolic Diameter PLAX 6.4 cm 4.2 - 5.9 / 3.9 - 5.3 cm LV Systolic Diameter PLAX 5.9 cm IVS Diastolic Thickness 0.8 cm 0.6 - 1.0 / 0.6 - 0.9 cm LVPW Diastolic Thickness 0.8 cm 0.6 - 1.0 / 0.6 - 0.9 cm LV Relative Wall Thickness 0.2 LVOT Diameter 2.0 cm Aortic Root Diameter 2.7 cm LA Systolic Diameter LX 4.1 cm 3.0 - 4.0 / 2.7 - 3.8 cm M-MODE AV Cusp Separation MM 1.7 cm DOPPLER AV Peak Velocity 105.2 cm/s AV Peak Gradient 4.4 mmHg AV Mean Gradient 2.0 mmHg AV Velocity Time Integral 14.3 cm LVOT Peak Velocity 41.6 cm/s LVOT Peak Gradient 0.7 mmHg LVOT Velocity Time Integral 7.1 cm AV Area Cont Eq vti 1.6 cm AV Area Cont Eq pk 1.2 cm Mitral E Point Velocity 107.7 cm/s LV E' Lateral Velocity 6.9 cm/s Mitral E to LV E' Lateral Ratio 15.7 LV E' Septal Velocity 7.7 cm/s Mitral E to LV E' Septal Ratio 13.9 TR Peak Velocity 366.0 cm/s TR Peak Gradient 53.6 mmHg Right Atrial Pressure 10.0 mmHg Pulmonary Artery Systolic Pressu 63.6 mmHg Right Ventricular Systolic Press 63.6 mmHg PV Peak Velocity 52.9 cm/s PV Peak Gradient 1.1 mmHg FINDINGS LEFT VENTRICLE Moderately dilated left ventricle. Wall thickness is normal. The left ventricular systolic function is severely reduced with an estimated ejection fraction in th e range of 20-25%. There is diffuse global hypokinesis with distinct regional wall motion abnormalities. This study was not technically sufficient to allow for evaluation of left ventricular diastolic func tion. RIGHT VENTRICLE The right ventricle is moderately dilated. The right ventricular systoilc function is severely decreased. LEFT ATRIUM The left atrial size is ilkemxcu-lr-jcsiownu dilated. RIGHT ATRIUM The right atrial size is moderately dilated. ATRIAL SEPTUM No atrial level shunt is demonstrated by color flow Doppler interrogation. AORTA The aortic root and proximal ascending aorta are normal in size on limited imaging. MITRAL VALVE Moderate mitral valve regurgitation. Mild thickening of the mitral valve leaflets. AORTIC VALVE Trileaflet aortic valve. No aortic valve regurgitation. No aortic valve stenosis. TRICUSPID VALVE Annular dilatation of the tricuspid valve. There is moderate tricuspid regurgitation. There is estimated yrmafinu-za-nezbsc pulmonary hypertension present (range 60-70 mmHg). PULMONARY VALVE Trivial pulmonary valve regurgitation. VESSELS The inferior vena cava is dilated. There is less than 50% respiratory change in dimension of the inferior vena cava (abnormal). PERICARDIUM No pericardial effusion. A large left sided pleural effusion is noted. Olayinka Cox MD (Electronically Signed) Final Date:08 June 2017 12:11
[2017-06-08] MEDS: MAGNESIUM HYDROXIDE SUSP 30 ML CUP PO PRN (12:45)
--- NOTE | 2017-06-08 14:02 | HHI.PR ---
Subjective Remarks Patient reports shortness of breath is about the same. No chest pain. States he is urinating a lot. Objective Vitals Vital Signs Date Time Temp Pulse Resp B/P (MAP) Pulse Ox O2 Delivery O2 Flow Rate FiO2 06/08/17 13:06 142 06/08/17 12:16 137 06/08/17 11:40 18 06/08/17 11:37 98.2 121 18 120/90 (100) 93 06/08/17 11:00 111 06/08/17 10:00 110 06/08/17 09:00 110 06/08/17 08:00 98 06/08/17 07:00 98.2 96 17 119/70 (86) 93 06/08/17 07:00 106 06/08/17 06:00 114 06/08/17 05:00 96 06/08/17 04:38 110 06/08/17 04:00 112 06/08/17 03:00 100 06/08/17 03:00 98.1 110 18 127/83 (98) 91 06/08/17 02:00 96 06/08/17 01:00 92 06/08/17 00:00 98 06/07/17 23:00 126 06/07/17 23:00 98.3 118 18 125/82 (96) 90 06/07/17 22:00 122 06/07/17 21:00 118 06/07/17 20:00 114 06/07/17 19:00 97.6 124 20 131/94 (106) 95 06/07/17 19:00 90 06/07/17 18:00 114 06/07/17 17:48 115 06/07/17 16:03 109 06/07/17 15:28 98.2 77 18 127/75 (92) 94 06/07/17 15:28 71 I/O 06/07/17 06/07/17 06/07/17 06/08/17 06/08/17 06/08/17 07:00 15:00 23:00 07:00 15:00 23:00 Intake Total 740 ml 495 ml 480 ml 220 ml Output Total 300 ml 900 ml 1825 ml 120 ml Balance 440 ml -405 ml -1345 ml 100 ml Intake Oral 240 ml 480 ml 480 ml 120 ml IV Total 500 ml 15 ml 100 ml Output Urine Total 300 ml 900 ml 1825 ml 120 ml # Voids 2 # Bowel Movements 0 0 0 Result Diagram: 06/07/17 0807 06/08/17 0600 Imaging Last Impressions Gall Bladder Ultrasound 06/07/17 0000 Signed Impressions: Service Date/Time: Wednesday, June 07, 2017 07:36 - CONCLUSION: 1. Heterogeneous echotexture of the liver suggesting fatty infiltration. 2. Questionable edematous changes within the pancreas. The pancreas was difficult to visualize. 3. The patient is post cholecystectomy. 4. Large right pleural effusion. Shalom Salinas MD Abdomen/Pelvis CT 06/06/171935 Signed Impressions: Service Date/Time: Tuesday, June 06, 2017 21:13 - CONCLUSION: 1. Trace ascites, nonspecific but there are bilateral pleural effusions and pain chamber enlargement of the heart also noted. Also mild body wall edema/anasarca. 2. No stones or obstruction of either kidney. Normal appendix. 3. Atherosclerotic abdominal aorta. No aneurysm. 4. Possible mild cystitis in the proper clinical setting. Mild enlargement of the prostate. John Gallagher MD Abdomen X-Ray 06/06/171935 Signed Impressions: Service Date/Time: Tuesday, June 06, 2017 20:04 - CONCLUSION: Benign-appearing abdomen. John Gallagher MD Chest X-Ray 06/06/17 0000 Signed Impressions: Service Date/Time: Tuesday, June 06, 2017 20:02 - CONCLUSION: Mild bibasilar consolidation and small effusions. John Gallagher MD Objective Remarks GENERAL: This is a well-nourished, well-developed patient, in no apparent distress. CARDIOVASCULAR: Normal rate and regular rhythm without murmurs, gallops, or rubs. RESPIRATORY: Air movement is fair. Markedly diminished breath sounds on the left base. Otherwise clear to auscultation. No wheezing. GASTROINTESTINAL: Abdomen soft, non-tender, non-distended. Normal active bowel sounds MUSCULOSKELETAL: Extremities without cyanosis, or edema. NEURO: Alert & Oriented x4 to person, place, time, situation. Moves all ext x4 PSYCH: Appropriate mood and affect. A/P Problem List: (1) CHF (congestive heart failure) ICD Code: I50.9 - Heart failure, unspecified (2) A-fib ICD Code: I48.91 - Unspecified atrial fibrillation (3) RUQ abdominal pain ICD Code: R10.11 - Right upper quadrant pain Status: Acute (4) Elevated troponin ICD Code: R74.8 - Abnormal levels of other serum enzymes Status: Acute (5) Lactic acidosis ICD Code: E87.2 - Acidosis (6) Renal insufficiency ICD Code: N28.9 - Disorder of kidney and ureter, unspecified Status: Acute (7) DM (diabetes mellitus) ICD Code: E11.9 - Type 2 diabetes mellitus without complications Assessment and Plan In summary, this is a 71-year-old male admitted with acute onset congestive heart failure. The patient also has a history of A. fib which was uncontrolled on presentation, likely contributed to his heart failure. CHF: Acute systolic CHF, new onset. BNP 1400 on admission with pleural effusions. 2-D echocardiogram revealed LVEF of 20% - Cardiology following. Continue metoprolol, digoxin, Lasix. CHERIE inhibitor when renal function stabilized. - Patient has pleural effusions, may need thoracentesis if no significant improvement in the next couple of days. Atrial fibrillation with RVR on presentation/elevated cardiac enzymes. - Patient is status post Cardizem drip per cardiology. - Digoxin added. Continue metoprolol. May need to increase metoprolol to 100 mg twice a day. Continue to monitor. Resume Coumadin. Follow INR Elevated LFT: Likely shock liver from CHF. Continue to monitor. DM: Sliding scale w/ Accu-Cheks. Hold oral hypoglycemic agents. Monitor BS. DVT Prophylaxis: On Coumadin. Therapeutic INR at 2.0. Piotr Meyers MD Jun 08, 2017 14:02
[2017-06-08] MEDS: WARFARIN SOD 2.5 MG TAB PO SCH (17:30)
[2017-06-08] MEDS: TERAZOSIN HCL 1 MG CAP PO SCH (20:48)
[2017-06-08] MEDS: ATORVASTATIN 40 MG TAB PO SCH (20:48)
[2017-06-09] VITALS (29 sets, daily range): BP systolic 124–150; BP diastolic 71–85; PULSE 67–115; RESP 18; TEMP 98–98.2; O2SAT 93–97
[2017-06-09] MEDS: ACETAMINOPHEN/HYDROcodone 325 MG/5 MG TAB PO PRN ×3 (03:22→20:42)
[2017-06-09 07:46] LABS: HEMATOCRIT 31.1 % (39.0-51.0); MEAN CELL VOLUME 91.7 FL (80.0-100.0); MEAN CORPUSCULAR HEMOGLOBIN 30.3 PG (27.0-34.0); MEAN CORPUSCULAR HGB CONC 33.1 % (32.0-36.0); PLATELET COUNT 175 TH/MM3 (150-450); RED BLOOD COUNT 3.39 MIL/MM3 (4.50-5.90); RED CELL DISTRIBUTION WIDTH 16.5 % (11.6-17.2); REVIEW FLAG FINAL; WHITE BLOOD COUNT 7.8 TH/MM3 (4.0-11.0)
[2017-06-09 07:57] LABS: INTERNATIONAL NORMALIZED RATIO 1.6 RATIO; PROTHROMBIN TIME - PATIENT 17.9 SEC (9.8-11.6)
[2017-06-09] MEDS: INSULIN ASPART SUPPLEMENTAL SCALE SQ SCH ×4 (08:00→20:43)
[2017-06-09 08:13] LABS: BICARBONATE 28.7 MEQ/L (21.0-32.0); MAGNESIUM 2.1 MG/DL (1.5-2.5); POTASSIUM 3.8 MEQ/L (3.5-5.1)
[2017-06-09 08:15] LABS: INDIRECT BILIRUBIN 0.5 MG/DL (0.0-0.8); TOTAL BILIRUBIN ADULT 0.7 MG/DL (0.2-1.0)
[2017-06-09] MEDS: ASPIRIN EC 81 MG TABEC PO SCH (08:36)
[2017-06-09] MEDS: LACTULOSE SYRUP 20 GM/30 ML CUP PO PRN (08:36)
[2017-06-09] MEDS: POTASSIUM CHLORIDE 20 MEQ CONTROLLED RELEASE TAB PO SCH ×3 (08:37→16:56)
[2017-06-09] MEDS: DOCUSATE SODIUM 50 MG/SENNA 8.6 MG TAB PO SCH ×2 (08:37→20:43)
[2017-06-09] MEDS: FERROUS SULFATE 325 MG (65 MG ELEMENTAL IRON) TAB PO SCH (08:37)
[2017-06-09] MEDS: FUROSEMIDE 40 MG/4 ML VIAL IV PUSH SCH ×2 (08:38→16:56)
[2017-06-09] MEDS: METOPROLOL TARTRATE 25 MG TAB PO SCH ×2 (08:39→20:42)
[2017-06-09] MEDS: CYANOCOBALAMIN 1,000 MCG TAB PO SCH (08:39)
[2017-06-09] MEDS: SODIUM CHLORIDE 0.9% FLUSH 10 ML FLUSH IV FLUSH SCH ×2 (08:40→20:43)
[2017-06-09] MEDS ORDERED: DIGOXIN 0.25 MG TAB PO ONE (09:00)
--- NOTE | 2017-06-09 15:41 | HHI.PR ---
Subjective Remarks Patient still feels short of breath but this slightly better compared to previous days denies fevers or chills Objective Vitals Vital Signs Date Time Temp Pulse Resp B/P (MAP) Pulse Ox O2 Delivery O2 Flow Rate FiO2 06/09/17 14:10 71 06/09/17 13:13 89 06/09/17 12:01 81 06/09/17 11:09 98.2 80 18 150/85 (106) 97 06/09/17 11:00 101 06/09/17 10:10 75 06/09/17 09:49 18 06/09/17 09:00 84 06/09/17 08:05 98.0 81 18 145/76 (99) 95 06/09/17 08:00 67 06/09/17 07:00 71 06/09/17 06:00 78 06/09/17 05:00 69 06/09/17 04:00 81 06/09/17 03:20 98.0 71 18 134/71 (92) 93 06/09/17 03:00 80 06/09/17 02:00 80 06/09/17 01:00 88 06/09/17 00:00 91 06/08/17 23:00 77 06/08/17 23:00 98.1 90 18 135/78 (97) 97 06/08/17 22:00 76 06/08/17 21:00 88 06/08/17 20:20 97.9 81 18 129/66 (87) 96 06/08/17 20:00 86 06/08/17 19:00 123 06/08/17 18:00 121 06/08/17 17:09 110 06/08/17 16:40 114 I/O 06/08/17 06/08/17 06/08/17 06/09/17 06/09/17 06/09/17 07:00 15:00 23:00 07:00 15:00 23:00 Intake Total 480 ml 320 ml 620 ml 720 ml Output Total 1825 ml 120 ml 1100 ml 950 ml Balance -1345 ml 200 ml -480 ml -230 ml Intake Oral 480 ml 120 ml 620 ml 720 ml IV Total 200 ml Output Urine Total 1825 ml 120 ml 1100 ml 950 ml # Voids 2 # Bowel Movements 0 0 Result Diagram: 06/09/17 0706/09/17 0706 Imaging Last Impressions Gall Bladder Ultrasound 06/07/17 0000 Signed Impressions: Service Date/Time: Wednesday, June 07, 2017 07:36 - CONCLUSION: 1. Heterogeneous echotexture of the liver suggesting fatty infiltration. 2. Questionable edematous changes within the pancreas. The pancreas was difficult to visualize. 3. The patient is post cholecystectomy. 4. Large right pleural effusion. Shalom Salinas MD Abdomen/Pelvis CT 06/06/17 1936 Signed Impressions: Service Date/Time: Tuesday, June 06, 2017 21:13 - CONCLUSION: 1. Trace ascites, nonspecific but there are bilateral pleural effusions and pain chamber enlargement of the heart also noted. Also mild body wall edema/anasarca. 2. No stones or obstruction of either kidney. Normal appendix. 3. Atherosclerotic abdominal aorta. No aneurysm. 4. Possible mild cystitis in the proper clinical setting. Mild enlargement of the prostate. John Gallagher MD Abdomen X-Ray 06/06/17 1936 Signed Impressions: Service Date/Time: Tuesday, June 06, 2017 20:04 - CONCLUSION: Benign-appearing abdomen. John Gallagher MD Chest X-Ray 06/06/17 0000 Signed Impressions: Service Date/Time: Tuesday, June 06, 2017 20:02 - CONCLUSION: Mild bibasilar consolidation and small effusions. John Gallagher MD Objective Remarks GENERAL: Elderly male in no acute distress. HEENT: PERRLA, EOMI. No scleral icterus or conjunctival pallor. No lid lag or facial droop. CARDIOVASCULAR: Regular rate and rhythm. No obvious murmurs to auscultation. No chest tenderness to palpation. RESPIRATORY: No obvious rhonchi or wheezing. Clear to auscultation. Decreased breath sounds in right lower lung field. GASTROINTESTINAL: Abdomen soft, mild tenderness to palpation RUQ, nondistended. BS normal. MUSCULOSKELETAL: Extremities without clubbing, cyanosis, or edema. No obvious deformities. NEUROLOGICAL: Awake, alert and oriented x4. No focal neurologic deficits. Moving both upper and lower extremities spontaneously. Medications and IVs Current Medications Medications (Trade) Dose Ordered Sig/Trinity Route Start Time Stop Time Status Last Admin (D50w (Vial) Inj) 50 ml UNSCH PRN IV 06/06/17 22:45 (Glucagon Inj) 1 mg UNSCH PRN OTHER 06/06/17 22:45 (NovoLOG SUPPLEMENTAL SCALE) 1 ACHS SLIDING SCALE SQ 06/07/17 08:00 06/09/17 12:00 (NS Flush) 2 ml UNSCH PRN IV FLUSH 06/06/17 22:45 (NS Flush) 2 ml BID IV FLUSH 06/07/17 09:00 06/09/17 08:40 (Zofran Inj) 4 mg Q6H PRN IVP 06/06/17 22:45 (Tylenol) 650 mg Q6H PRN PO 06/06/17 22:45 ([place] 5-325 Mg) 1 tab Q4H PRN PO 06/06/17 22:45 06/09/17 08:37 (Morphine Inj) 2 mg Q3H PRN IV PUSH 06/06/17 22:45 06/07/17 21:26 (Maria Ines-Colace) 1 tab BID PO 06/07/17 09:00 06/09/17 08:37 (Milk Of Magnesia Liq) 30 ml Q12H PRN PO 06/06/17 22:45 06/08/17 12:45 (Senokot) 17.2 mg Q12H PRN PO 06/06/17 22:45 06/09/17 12:11 (Dulcolax Supp) 10 mg DAILY PRN RECTAL 06/06/17 22:45 (Lactulose Liq) 30 ml DAILY PRN PO 06/06/17 22:45 06/09/17 08:36 (Ecotrin Ec) 81 mg DAILY PO 06/07/17 09:00 06/09/17 08:36 (Lasix Inj) 40 mg BID@ IV PUSH 06/07/17 11:00 06/09/17 08:38 (KCl) 20 meq TID PO 06/08/17 09:00 06/09/17 12:11 (Lipitor) 40 mg HS PO 06/08/17 21:00 06/08/17 20:48 (Vitamin B12) 500 mcg DAILY PO 06/09/17 09:00 06/09/17 08:39 (Ferrous Sulfate) 325 mg DAILY PO 06/09/17 09:00 06/09/17 08:37 (Hytrin) 1 mg HS PO 06/08/17 21:00 06/08/17 20:48 (Coumadin) 2.5 mg DAILY@1600 PO 06/08/17 18:00 06/08/17 17:30 Pharmacy Profile Note 0 ml @ 0 mls/hr UNSCH OTHER 06/08/17 15:30 (Lopressor) 100 mg BID PO 06/08/17 21:00 06/09/17 08:39 A/P Problem List: (1) CHF (congestive heart failure) ICD Code: I50.9 - Heart failure, unspecified (2) A-fib ICD Code: I48.91 - Unspecified atrial fibrillation (3) RUQ abdominal pain ICD Code: R10.11 - Right upper quadrant pain Status: Acute (4) Elevated troponin ICD Code: R74.8 - Abnormal levels of other serum enzymes Status: Acute (5) Lactic acidosis ICD Code: E87.2 - Acidosis (6) Renal insufficiency ICD Code: N28.9 - Disorder of kidney and ureter, unspecified Status: Acute (7) DM (diabetes mellitus) ICD Code: E11.9 - Type 2 diabetes mellitus without complications Assessment and Plan In summary, this is a 71-year-old male admitted with acute onset congestive heart failure. The patient also has a history of A. fib which was uncontrolled on presentation, likely contributed to his heart failure. CHF: Acute systolic CHF, new onset. BNP 1400 on admission with pleural effusions. 2-D echocardiogram revealed LVEF of 20% - Cardiology following. Continue metoprolol, digoxin, Lasix. CHERIE inhibitor when renal function stabilized. 06/09 CT abdomen and pelvis showed trace ascites, bilateral pleural effusions and cardiomegaly. Anasarca. Gallbladder Us Atrial fibrillation with RVR on presentation/elevated cardiac enzymes. - Patient is status post Cardizem drip per cardiology. - Digoxin added. Continue metoprolol. May need to increase metoprolol to 100 mg twice a day. Continue to monitor. Resume Coumadin. Follow IN 06/09 INR subtherapeutic at 1.6. Hold Coumadin for now and start on IV heparin while awaiting for US guided thoracentesis. Elevated LFT: Likely due to CHF. LFT's trending down. AST 654 ---> 289; ALT 657 ---> 549. Continue to monitor LFT's DM: Sliding scale w/ Accu-Cheks. Hold oral hypoglycemic agents. Monitor BS. 06/09 Blood sugars with good control. KATHY: Creatinine 1.66 on admission, no previous labs for comparison, Creatinine slowly trending down. Today 1.5. Elevated troponin: Likely demand ischemia. Cardiology following. Troponin level peaked at 0.4, now trending down at 0.37. DVT Prophylaxis: Hold Coumadin, Start heparin drip. Zuhair Agudelo MD Jun 09, 2017 15:41
[2017-06-09 16:32] LABS: HEMATOCRIT 33.2 % (39.0-51.0); MEAN CORPUSCULAR HEMOGLOBIN 29.4 PG (27.0-34.0); MEAN CORPUSCULAR HGB CONC 31.9 % (32.0-36.0); PLATELET COUNT 190 TH/MM3 (150-450); RED BLOOD COUNT 3.61 MIL/MM3 (4.50-5.90); RED CELL DISTRIBUTION WIDTH 16.1 % (11.6-17.2); REVIEW FLAG FINAL; WHITE BLOOD COUNT 7.9 TH/MM3 (4.0-11.0)
[2017-06-09 16:46] LABS: APTT (PATIENT) 26.4 SEC (24.3-30.1); INTERNATIONAL NORMALIZED RATIO 1.6 RATIO; PROTHROMBIN TIME - PATIENT 18.4 SEC (9.8-11.6)
[2017-06-09] MEDS: HEPARIN-D5W 25,000 U/250 ML 250 ML IV PRN (17:13)
[2017-06-09] MEDS: ATORVASTATIN 40 MG TAB PO SCH (20:42)
[2017-06-09] MEDS: TERAZOSIN HCL 1 MG CAP PO SCH (20:43)
--- NOTE | 2017-06-09 21:32 | PD.CARD.PN ---
Subjective Subjective Remarks No events overnight Patient sitting up in the chair Mild SOB, no chest pain Objective Medications Current Medications Medications (Trade) Dose Ordered Sig/Trinity Route Start Time Stop Time Status Last Admin (D50w (Vial) Inj) 50 ml UNSCH PRN IV 06/06/17 22:45 (Glucagon Inj) 1 mg UNSCH PRN OTHER 06/06/17 22:45 (NovoLOG SUPPLEMENTAL SCALE) 1 ACHS SLIDING SCALE SQ 06/07/17 08:00 06/09/17 20:43 (NS Flush) 2 ml UNSCH PRN IV FLUSH 06/06/17 22:45 (NS Flush) 2 ml BID IV FLUSH 06/07/17 09:00 06/09/17 08:40 (Zofran Inj) 4 mg Q6H PRN IVP 06/06/17 22:45 (Tylenol) 650 mg Q6H PRN PO 06/06/17 22:45 ([place] 5-325 Mg) 1 tab Q4H PRN PO 06/06/17 22:45 06/09/17 20:42 (Morphine Inj) 2 mg Q3H PRN IV PUSH 06/06/17 22:45 06/07/17 21:26 (Maria Ines-Colace) 1 tab BID PO 06/07/17 09:00 06/09/17 08:37 (Milk Of Magnesia Liq) 30 ml Q12H PRN PO 06/06/17 22:45 06/08/17 12:45 (Senokot) 17.2 mg Q12H PRN PO 06/06/17 22:45 06/09/17 12:11 (Dulcolax Supp) 10 mg DAILY PRN RECTAL 06/06/17 22:45 (Lactulose Liq) 30 ml DAILY PRN PO 06/06/17 22:45 06/09/17 08:36 (Ecotrin Ec) 81 mg DAILY PO 06/07/17 09:00 06/09/17 08:36 (Lasix Inj) 40 mg BID@18 IV PUSH 06/07/17 11:00 06/09/17 16:56 (KCl) 20 meq TID PO 06/08/17 09:00 06/09/17 16:56 (Lipitor) 40 mg HS PO 06/08/17 21:00 06/09/17 20:42 (Vitamin B12) 500 mcg DAILY PO 06/09/17 09:00 06/09/17 08:39 (Ferrous Sulfate) 325 mg DAILY PO 06/09/17 09:00 06/09/17 08:37 (Hytrin) 1 mg HS PO 06/08/17 21:00 06/09/17 20:43 (Coumadin) 2.5 mg DAILY@1600 PO 06/08/17 18:00 Future Hold 06/08/17 17:30 Pharmacy Profile Note 0 ml @ 0 mls/hr UNSCH OTHER 06/08/17 15:30 (Lopressor) 100 mg BID PO 06/08/17 21:00 06/09/17 20:42 Heparin Sodium/ Dextrose 250 ml @ 8.28 mls/hr TITRATE PRN IV 06/09/17 16:15 06/09/17 17:13 Vital Signs / I&O Vital Signs Date Time Temp Pulse Resp B/P (MAP) Pulse Ox O2 Delivery O2 Flow Rate FiO2 06/09/17 18:00 80 06/09/17 17:00 115 06/09/17 16:00 98 06/09/17 15:00 98.2 79 18 147/73 (97) 97 06/09/17 15:00 97 06/09/17 14:10 71 06/09/17 13:13 89 06/09/17 12:01 81 06/09/17 11:09 98.2 80 18 150/85 (106) 97 06/09/17 11:00 101 06/09/17 10:10 75 06/09/17 09:49 18 06/09/17 09:00 84 06/09/17 08:05 98.0 81 18 145/76 (99) 95 06/09/17 08:00 67 06/09/17 07:00 71 06/09/17 06:00 78 06/09/17 05:00 69 06/09/17 04:00 81 06/09/17 03:20 98.0 71 18 134/71 (92) 93 06/09/17 03:00 80 06/09/17 02:00 80 06/09/17 01:00 88 06/09/17 00:00 91 06/08/17 23:00 77 06/08/17 23:00 98.1 90 18 135/78 (97) 97 06/08/17 22:00 76 I/O 06/08/17 06/08/17 06/08/17 06/09/17 06/09/17 06/09/17 07:00 15:00 23:00 07:00 15:00 23:00 Intake Total 480 ml 320 ml 620 ml 720 ml 240 ml Output Total 1825 ml 120 ml 1100 ml 950 ml 1100 ml Balance -1345 ml 200 ml -480 ml -230 ml -860 ml Intake Oral 480 ml 120 ml 620 ml 720 ml 240 ml IV Total 200 ml Output Urine Total 1825 ml 120 ml 1100 ml 950 ml 1100 ml # Voids 2 # Bowel Movements 0 0 Physical Exam GENERAL: NAD, AAOx3 SKIN: Warm and dry. HEAD: Atraumatic. Normocephalic. EYES: Pupils equal and round. No scleral icterus. No injection or drainage. ENT: No nasal bleeding or discharge. Mucous membranes pink and moist. NECK: Trachea midline. No JVD. CARDIOVASCULAR: Irregularly irregular RESPIRATORY: No accessory muscle use. Decreased breath sounds bilaterally GASTROINTESTINAL: Abdomen soft, non-tender, nondistended. Hepatic and splenic margins not palpable. MUSCULOSKELETAL: Extremities without clubbing, cyanosis, or edema. No obvious deformities. NEUROLOGICAL: Awake and alert. No obvious cranial nerve deficits. Motor grossly within normal limits. Five out of 5 muscle strength in the arms and legs. Normal speech. PSYCHIATRIC: Appropriate mood and affect; insight and judgment normal. Laboratory Laboratory Tests Test 06/09/17 07:06 06/09/17 16:15 White Blood Count 7.8 TH/MM3 7.9 TH/MM3 Red Blood Count 3.39 MIL/MM3 3.61 MIL/MM3 Hemoglobin 10.3 GM/DL 10.6 GM/DL Hematocrit 31.1 % 33.2 % Mean Corpuscular Volume 91.7 FL 92.0 FL Mean Corpuscular Hemoglobin 30.3 PG 29.4 PG Mean Corpuscular Hemoglobin Concent 33.1 % 31.9 % Red Cell Distribution Width 16.5 % 16.1 % Platelet Count 175 TH/MM3 190 TH/MM3 Mean Platelet Volume 8.8 FL 8.5 FL Prothrombin Time 17.9 SEC 18.4 SEC Prothromb Time International Ratio 1.6 RATIO 1.6 RATIO Blood Urea Nitrogen 33 MG/DL Creatinine 1.52 MG/DL Random Glucose 122 MG/DL Total Protein 7.0 GM/DL Albumin 3.8 GM/DL Calcium Level 9.6 MG/DL Magnesium Level 2.1 MG/DL Alkaline Phosphatase 132 U/L Aspartate Amino Transf (AST/SGOT) 289 U/L Alanine Aminotransferase (ALT/SGPT) 549 U/L Total Bilirubin 0.7 MG/DL Direct Bilirubin 0.2 MG/DL Sodium Level 138 MEQ/L Potassium Level 3.8 MEQ/L Chloride Level 102 MEQ/L Carbon Dioxide Level 28.7 MEQ/L Anion Gap 7 MEQ/L Estimat Glomerular Filtration Rate 45 ML/MIN Indirect Bilirubin 0.5 MG/DL Activated Partial Thromboplast Time 26.4 SEC Assessment and Plan Problem List: (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 ICD Codes: I25.2 - Old myocardial infarction (2) Acute systolic CHF (congestive heart failure) ICD Codes: I50.21 - Acute systolic (congestive) heart failure (3) Elevated troponin ICD Codes: R74.8 - Abnormal levels of other serum enzymes Status: Acute (4) Atrial fibrillation with RVR ICD Codes: I48.91 - Unspecified atrial fibrillation Status: Acute (5) Pleural effusion ICD Codes: J90 - Pleural effusion, not elsewhere classified Status: Acute (6) Elevated liver enzymes ICD Codes: R74.8 - Abnormal levels of other serum enzymes (7) Renal insufficiency ICD Codes: N28.9 - Disorder of kidney and ureter, unspecified Status: Acute Assessment and Plan 1) New onset CHF EF 20-25%, moderate MR/TR 2) Elevated troponin Possible Type 1 vs Type 2, no angina noted 3) AFib with RVR on presentation Loaded with digoxin Con't Lopressor 4) Plan for thoracentesis tomorrow 5) Would consider ischemic evaluation before discharge Will discuss with the patient further before deciding on stress test vs. catheterization Kar Gillis DO Jun 09, 2017 21:32
[2017-06-10] VITALS (27 sets, daily range): BP systolic 114–152; BP diastolic 69–79; PULSE 65–134; RESP 14–18; TEMP 97.9–98.1; O2SAT 95–98
[2017-06-10] MEDS: ACETAMINOPHEN/HYDROcodone 325 MG/5 MG TAB PO PRN (02:53)
[2017-06-10 06:04] LABS: AUTOMATED NEUTROPHIL # 4.5 TH/MM3 (1.8-7.7); BASOPHIL # 0.1 TH/MM3 (0-0.2); EOSINOPHIL # 0.2 TH/MM3 (0-0.4); EOSINOPHIL % 3.4 % (0.0-4.0); HEMATOCRIT 32.4 % (39.0-51.0); HEMO FLAGS DIFF FINAL; LYMPH % 15.7 % (9.0-44.0); LYMPHOCYTE # 1.1 TH/MM3 (1.0-4.8); MEAN CELL VOLUME 91.5 FL (80.0-100.0); MEAN CORPUSCULAR HEMOGLOBIN 29.6 PG (27.0-34.0); MEAN CORPUSCULAR HGB CONC 32.3 % (32.0-36.0); MONO % 12.5 % (0.0-8.0); NEUT % 67.4 % (16.0-70.0); PLATELET COUNT 192 TH/MM3 (150-450); RED BLOOD COUNT 3.54 MIL/MM3 (4.50-5.90); RED CELL DISTRIBUTION WIDTH 16.7 % (11.6-17.2); WHITE BLOOD COUNT 6.7 TH/MM3 (4.0-11.0)
[2017-06-10 06:14] LABS: APTT (PATIENT) 42.1 SEC (24.3-30.1); INTERNATIONAL NORMALIZED RATIO 1.5 RATIO; PROTHROMBIN TIME - PATIENT 17.1 SEC (9.8-11.6)
[2017-06-10 06:35] LABS: ANION GAP 8 MEQ/L (5-15); AST (GOT) 272 U/L (15-37); BICARBONATE 27.8 MEQ/L (21.0-32.0); BLOOD UREA NITROGEN 38 MG/DL (7-18); CHLORIDE 102 MEQ/L (98-107); GLOMERULAR FILTRATION RATE 40 ML/MIN (>89); MAGNESIUM 2.1 MG/DL (1.5-2.5); POTASSIUM 4.2 MEQ/L (3.5-5.1); SODIUM (NA) 138 MEQ/L (136-145)
[2017-06-10 06:38] LABS: ALKALINE PHOSPHATASE 129 U/L (45-117); ALT (GPT) 610 U/L (12-78); TOTAL BILIRUBIN ADULT 0.6 MG/DL (0.2-1.0)
[2017-06-10] MEDS: INSULIN ASPART SUPPLEMENTAL SCALE SQ SCH ×4 (08:00→21:15)
[2017-06-10] MEDS: ASPIRIN EC 81 MG TABEC PO SCH (08:42)
[2017-06-10] MEDS: CYANOCOBALAMIN 1,000 MCG TAB PO SCH (08:42)
[2017-06-10] MEDS: FERROUS SULFATE 325 MG (65 MG ELEMENTAL IRON) TAB PO SCH (08:42)
[2017-06-10] MEDS: DOCUSATE SODIUM 50 MG/SENNA 8.6 MG TAB PO SCH ×2 (08:42→21:05)
[2017-06-10] MEDS: POTASSIUM CHLORIDE 20 MEQ CONTROLLED RELEASE TAB PO SCH ×3 (08:42→17:25)
[2017-06-10] MEDS: METOPROLOL TARTRATE 25 MG TAB PO SCH ×2 (08:42→21:05)
[2017-06-10] MEDS: SODIUM CHLORIDE 0.9% FLUSH 10 ML FLUSH IV FLUSH SCH ×2 (08:43→21:16)
[2017-06-10] MEDS: FUROSEMIDE 40 MG/4 ML VIAL IV PUSH SCH ×2 (08:43→17:25)
[2017-06-10 14:40] LABS: APTT (PATIENT) 40.8 SEC (24.3-30.1)
--- NOTE | 2017-06-10 16:23 | HHI.PR ---
Subjective Remarks Patient states breathing is the same, he still feels short of breath which gets worst upon lying down. denies fevers or chills c/o some pain in the back of the right lower chest. Objective Vitals Vital Signs Date Time Temp Pulse Resp B/P (MAP) Pulse Ox O2 Delivery O2 Flow Rate FiO2 06/10/17 11:45 98.1 83 16 152/74 (100) 96 06/10/17 07:20 98.0 77 16 145/79 (101) 96 06/10/17 06:00 70 06/10/17 05:00 65 06/10/17 04:03 72 06/10/17 04:00 86 06/10/17 03:00 98.0 86 18 124/71 (88) 95 06/10/17 03:00 73 06/10/17 02:00 86 06/10/17 01:00 81 06/10/17 00:00 95 06/09/17 23:20 98.2 79 18 124/71 (88) 95 06/09/17 23:00 98 06/09/17 22:00 85 06/09/17 21:00 78 06/09/17 20:30 98.0 68 18 138/75 (96) 96 06/09/17 20:00 88 06/09/17 19:00 97 06/09/17 18:00 80 06/09/17 17:00 115 I/O 06/09/17 06/09/17 06/09/17 06/10/17 06/10/17 06/10/17 07:00 15:00 23:00 07:00 15:00 23:00 Intake Total 720 ml 240 ml 336 ml Output Total 950 ml 1100 ml 600 ml Balance -230 ml -860 ml -264 ml Intake Oral 720 ml 240 ml 240 ml IV Total 96 ml Output Urine Total 950 ml 1100 ml 600 ml # Voids 1 # Bowel Movements 0 0 Result Diagram: 06/10/17 0435 06/10/17 0435 Imaging Last Impressions Gall Bladder Ultrasound 06/07/17 0000 Signed Impressions: Service Date/Time: Wednesday, June 07, 2017 07:36 - CONCLUSION: 1. Heterogeneous echotexture of the liver suggesting fatty infiltration. 2. Questionable edematous changes within the pancreas. The pancreas was difficult to visualize. 3. The patient is post cholecystectomy. 4. Large right pleural effusion. Shalom Salinas MD Abdomen/Pelvis CT 06/06/171935 Signed Impressions: Service Date/Time: Tuesday, June 06, 2017 21:13 - CONCLUSION: 1. Trace ascites, nonspecific but there are bilateral pleural effusions and pain chamber enlargement of the heart also noted. Also mild body wall edema/anasarca. 2. No stones or obstruction of either kidney. Normal appendix. 3. Atherosclerotic abdominal aorta. No aneurysm. 4. Possible mild cystitis in the proper clinical setting. Mild enlargement of the prostate. John Gallagher MD Abdomen X-Ray 06/06/171935 Signed Impressions: Service Date/Time: Tuesday, June 06, 2017 20:04 - CONCLUSION: Benign-appearing abdomen. John Gallagher MD Chest X-Ray 06/06/17 0000 Signed Impressions: Service Date/Time: Tuesday, June 06, 2017 20:02 - CONCLUSION: Mild bibasilar consolidation and small effusions. John Gallagher MD Objective Remarks GENERAL: Elderly male in no acute distress. HEENT: PERRLA, EOMI. No scleral icterus or conjunctival pallor. No lid lag or facial droop. CARDIOVASCULAR: Regular rate and rhythm. No obvious murmurs to auscultation. No chest tenderness to palpation. RESPIRATORY: No obvious rhonchi or wheezing. Clear to auscultation. Decreased breath sounds in right lower lung field. GASTROINTESTINAL: Abdomen soft, mild tenderness to palpation RUQ, nondistended. BS normal. MUSCULOSKELETAL: Extremities without clubbing, cyanosis, or edema. No obvious deformities. NEUROLOGICAL: Awake, alert and oriented x4. No focal neurologic deficits. Moving both upper and lower extremities spontaneously. Medications and IVs Current Medications Medications (Trade) Dose Ordered Sig/Trinity Route Start Time Stop Time Status Last Admin (D50w (Vial) Inj) 50 ml UNSCH PRN IV 06/06/17 22:45 (Glucagon Inj) 1 mg UNSCH PRN OTHER 06/06/17 22:45 (NovoLOG SUPPLEMENTAL SCALE) 1 ACHS SLIDING SCALE SQ 06/07/17 08:00 06/10/17 11:58 (NS Flush) 2 ml UNSCH PRN IV FLUSH 06/06/17 22:45 (NS Flush) 2 ml BID IV FLUSH 06/07/17 09:00 06/10/17 08:43 (Zofran Inj) 4 mg Q6H PRN IVP 06/06/17 22:45 (Tylenol) 650 mg Q6H PRN PO 06/06/17 22:45 ([place] 5-325 Mg) 1 tab Q4H PRN PO 06/06/17 22:45 06/10/17 02:53 (Morphine Inj) 2 mg Q3H PRN IV PUSH 06/06/17 22:45 06/07/17 21:26 (Maria Ines-Colace) 1 tab BID PO 06/07/17 09:00 06/10/17 08:42 (Milk Of Magnesia Liq) 30 ml Q12H PRN PO 06/06/17 22:45 06/08/17 12:45 (Senokot) 17.2 mg Q12H PRN PO 06/06/17 22:45 06/09/17 12:11 (Dulcolax Supp) 10 mg DAILY PRN RECTAL 06/06/17 22:45 (Lactulose Liq) 30 ml DAILY PRN PO 06/06/17 22:45 06/09/17 08:36 (Ecotrin Ec) 81 mg DAILY PO 06/07/17 09:00 06/10/17 08:42 (Lasix Inj) 40 mg BID@,18 IV PUSH 06/07/17 11:00 06/10/17 08:43 (KCl) 20 meq TID PO 06/08/17 09:00 06/10/17 11:58 (Lipitor) 40 mg HS PO 06/08/17 21:00 06/09/17 20:42 (Vitamin B12) 500 mcg DAILY PO 06/09/17 09:00 06/10/17 08:42 (Ferrous Sulfate) 325 mg DAILY PO 06/09/17 09:00 06/10/17 08:42 (Hytrin) 1 mg HS PO 06/08/17 21:00 06/09/17 20:43 (Coumadin) 2.5 mg DAILY@1600 PO 06/08/17 18:00 Future Hold 06/08/17 17:30 Pharmacy Profile Note 0 ml @ 0 mls/hr UNSCH OTHER 06/08/17 15:30 (Lopressor) 100 mg BID PO 06/08/17 21:00 06/10/17 08:42 Heparin Sodium/ Dextrose 250 ml @ 8.28 mls/hr TITRATE PRN IV 06/09/17 16:15 06/09/17 17:13 (Xanax) 0.25 mg Q8H PRN PO 06/10/17 16:00 Urinary Catheter: No Vascular Central Line Catheter: No A/P Problem List: (1) CHF (congestive heart failure) ICD Code: I50.9 - Heart failure, unspecified (2) A-fib ICD Code: I48.91 - Unspecified atrial fibrillation (3) RUQ abdominal pain ICD Code: R10.11 - Right upper quadrant pain Status: Acute (4) Elevated troponin ICD Code: R74.8 - Abnormal levels of other serum enzymes Status: Acute (5) Lactic acidosis ICD Code: E87.2 - Acidosis (6) Renal insufficiency ICD Code: N28.9 - Disorder of kidney and ureter, unspecified Status: Acute (7) DM (diabetes mellitus) ICD Code: E11.9 - Type 2 diabetes mellitus without complications Assessment and Plan In summary, this is a 71-year-old male admitted with acute onset congestive heart failure. The patient also has a history of A. fib which was uncontrolled on presentation, likely contributed to his heart failure. CHF: Acute systolic CHF, new onset. BNP 1400 on admission with pleural effusions. 2-D echocardiogram revealed LVEF of 20% - Cardiology following. Continue metoprolol, digoxin, Lasix. CHERIE inhibitor when renal function stabilized. CT abdomen and pelvis showed trace ascites, bilateral pleural effusions and cardiomegaly. Anasarca. Gallbladder Us Atrial fibrillation with RVR on presentation/elevated cardiac enzymes. - Patient is status post Cardizem drip per cardiology. - Digoxin added. Continue metoprolol. May need to increase metoprolol to 100 mg twice a day. Continue to monitor. Resume Coumadin. Follow IN 06/09 INR subtherapeutic at 1.6. Hold Coumadin for now and start on IV heparin while awaiting for US guided thoracentesis. 06/10 Rate controlled. Continue heparin bridge for thoracentesis. INR 1.5 today. Thoracentesis will be performed in am due to elevated INR. check TSH. Elevated LFT: Likely due to CHF. LFT's trending down. AST 654 ---> 289 ; ALT 657 ---> 549. Continue to monitor LFT's 06/10 AST is slightly lower at 272, 8 LT slightly elevated at 610. Continue to monitor. DM: Sliding scale w/ Accu-Cheks. Hold oral hypoglycemic agents. Monitor BS. Blood sugars stable. KATHY: Creatinine 1.66 on admission, no previous labs for comparison, Creatinine slowly trending down. Today 1.5. Elevated troponin: Likely demand ischemia. Cardiology following. Troponin level peaked at 0.4, now trending down at 0.37. 06/10 Continue to monitor cardiac enzymes. DVT Prophylaxis: Hold Coumadin, Start heparin drip. Zuhair Agudelo MD Jun 10, 2017 16:23
[2017-06-10] MEDS: ALPRAZolam 0.25 MG TAB PO PRN (16:47)
--- NOTE | 2017-06-10 17:42 | PD.CARD.PN ---
Subjective Subjective Remarks No events overnight No chest pain Still with some shortness of breath Objective Medications Current Medications Medications (Trade) Dose Ordered Sig/Trinity Route Start Time Stop Time Status Last Admin (D50w (Vial) Inj) 50 ml UNSCH PRN IV 06/06/17 22:45 (Glucagon Inj) 1 mg UNSCH PRN OTHER 06/06/17 22:45 (NovoLOG SUPPLEMENTAL SCALE) 1 ACHS SLIDING SCALE SQ 06/07/17 08:00 06/10/17 17:00 (NS Flush) 2 ml UNSCH PRN IV FLUSH 06/06/17 22:45 (NS Flush) 2 ml BID IV FLUSH 06/07/17 09:00 06/10/17 08:43 (Zofran Inj) 4 mg Q6H PRN IVP 06/06/17 22:45 (Tylenol) 650 mg Q6H PRN PO 06/06/17 22:45 ([place] 5-325 Mg) 1 tab Q4H PRN PO 06/06/17 22:45 06/10/17 02:53 (Morphine Inj) 2 mg Q3H PRN IV PUSH 06/06/17 22:45 06/07/17 21:26 (Maria Ines-Colace) 1 tab BID PO 06/07/17 09:00 06/10/17 08:42 (Milk Of Magnesia Liq) 30 ml Q12H PRN PO 06/06/17 22:45 06/08/17 12:45 (Senokot) 17.2 mg Q12H PRN PO 06/06/17 22:45 06/09/17 12:11 (Dulcolax Supp) 10 mg DAILY PRN RECTAL 06/06/17 22:45 (Lactulose Liq) 30 ml DAILY PRN PO 06/06/17 22:45 06/09/17 08:36 (Ecotrin Ec) 81 mg DAILY PO 06/07/17 09:00 06/10/17 08:42 (Lasix Inj) 40 mg BID@18 IV PUSH 06/07/17 11:00 06/10/17 17:25 (KCl) 20 meq TID PO 06/08/17 09:00 06/10/17 17:25 (Lipitor) 40 mg HS PO 06/08/17 21:00 06/09/17 20:42 (Vitamin B12) 500 mcg DAILY PO 06/09/17 09:00 06/10/17 08:42 (Ferrous Sulfate) 325 mg DAILY PO 06/09/17 09:00 06/10/17 08:42 (Hytrin) 1 mg HS PO 06/08/17 21:00 06/09/17 20:43 (Coumadin) 2.5 mg DAILY@1600 PO 06/08/17 18:00 Future Hold 06/08/17 17:30 Pharmacy Profile Note 0 ml @ 0 mls/hr UNSCH OTHER 06/08/17 15:30 (Lopressor) 100 mg BID PO 06/08/17 21:00 06/10/17 08:42 Heparin Sodium/ Dextrose 250 ml @ 8.28 mls/hr TITRATE PRN IV 06/09/17 16:15 06/09/17 17:13 (Xanax) 0.25 mg Q8H PRN PO 06/10/17 16:00 06/10/17 16:47 Vital Signs / I&O Vital Signs Date Time Temp Pulse Resp B/P (MAP) Pulse Ox O2 Delivery O2 Flow Rate FiO2 06/10/17 16:00 86 06/10/17 15:00 82 06/10/17 15:00 98.0 80 18 133/69 (90) 98 06/10/17 14:00 90 06/10/17 13:00 104 06/10/17 12:00 80 06/10/17 11:45 98.1 83 16 152/74 (100) 96 06/10/17 11:00 68 06/10/17 10:00 96 06/10/17 09:00 76 06/10/17 08:00 80 06/10/17 07:20 98.0 77 16 145/79 (101) 96 06/10/17 07:00 71 06/10/17 06:00 70 06/10/17 05:00 65 06/10/17 04:03 72 06/10/17 04:00 86 06/10/17 03:00 98.0 86 18 124/71 (88) 95 06/10/17 03:00 73 06/10/17 02:00 86 06/10/17 01:00 81 06/10/17 00:00 95 06/09/17 23:20 98.2 79 18 124/71 (88) 95 06/09/17 23:00 98 06/09/17 22:00 85 06/09/17 21:00 78 06/09/17 20:30 98.0 68 18 138/75 (96) 96 06/09/17 20:00 88 06/09/17 19:00 97 06/09/17 18:00 80 I/O 06/09/17 06/09/17 06/09/17 06/10/17 06/10/17 06/10/17 07:00 15:00 23:00 07:00 15:00 23:00 Intake Total 720 ml 240 ml 336 ml Output Total 950 ml 1100 ml 600 ml Balance -230 ml -860 ml -264 ml Intake Oral 720 ml 240 ml 240 ml IV Total 96 ml Output Urine Total 950 ml 1100 ml 600 ml # Voids 1 # Bowel Movements 0 0 Physical Exam GENERAL: NAD, AAOx3 SKIN: Warm and dry. HEAD: Atraumatic. Normocephalic. EYES: Pupils equal and round. No scleral icterus. No injection or drainage. ENT: No nasal bleeding or discharge. Mucous membranes pink and moist. NECK: Trachea midline. No JVD. CARDIOVASCULAR: Irregularly irregular RESPIRATORY: No accessory muscle use. Decreased breath sounds bilaterally GASTROINTESTINAL: Abdomen soft, non-tender, nondistended. Hepatic and splenic margins not palpable. MUSCULOSKELETAL: Extremities without clubbing, cyanosis, or edema. No obvious deformities. NEUROLOGICAL: Awake and alert. No obvious cranial nerve deficits. Motor grossly within normal limits. Five out of 5 muscle strength in the arms and legs. Normal speech. PSYCHIATRIC: Appropriate mood and affect; insight and judgment normal. Laboratory Laboratory Tests Test 06/09/17 23:14 06/10/17 04:35 06/10/17 14:13 Activated Partial Thromboplast Time 33.0 SEC 42.1 SEC 40.8 SEC White Blood Count 6.7 TH/MM3 Red Blood Count 3.54 MIL/MM3 Hemoglobin 10.5 GM/DL Hematocrit 32.4 % Mean Corpuscular Volume 91.5 FL Mean Corpuscular Hemoglobin 29.6 PG Mean Corpuscular Hemoglobin Concent 32.3 % Red Cell Distribution Width 16.7 % Platelet Count 192 TH/MM3 Mean Platelet Volume 9.0 FL Neutrophils (%) (Auto) 67.4 % Lymphocytes (%) (Auto) 15.7 % Monocytes (%) (Auto) 12.5 % Eosinophils (%) (Auto) 3.4 % Basophils (%) (Auto) 1.0 % Neutrophils # (Auto) 4.5 TH/MM3 Lymphocytes # (Auto) 1.1 TH/MM3 Monocytes # (Auto) 0.8 TH/MM3 Eosinophils # (Auto) 0.2 TH/MM3 Basophils # (Auto) 0.1 TH/MM3 CBC Comment DIFF FINAL Differential Comment Prothrombin Time 17.1 SEC Prothromb Time International Ratio 1.5 RATIO Blood Urea Nitrogen 38 MG/DL Creatinine 1.69 MG/DL Random Glucose 152 MG/DL Total Protein 7.3 GM/DL Albumin 3.8 GM/DL Calcium Level 9.3 MG/DL Phosphorus Level 3.8 MG/DL Magnesium Level 2.1 MG/DL Alkaline Phosphatase 129 U/L Aspartate Amino Transf (AST/SGOT) 272 U/L Alanine Aminotransferase (ALT/SGPT) 610 U/L Total Bilirubin 0.6 MG/DL Sodium Level 138 MEQ/L Potassium Level 4.2 MEQ/L Chloride Level 102 MEQ/L Carbon Dioxide Level 27.8 MEQ/L Anion Gap 8 MEQ/L Estimat Glomerular Filtration Rate 40 ML/MIN Assessment and Plan Problem List: (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 ICD Codes: I25.2 - Old myocardial infarction (2) Acute systolic CHF (congestive heart failure) ICD Codes: I50.21 - Acute systolic (congestive) heart failure (3) Elevated troponin ICD Codes: R74.8 - Abnormal levels of other serum enzymes Status: Acute (4) Atrial fibrillation with RVR ICD Codes: I48.91 - Unspecified atrial fibrillation Status: Acute (5) Pleural effusion ICD Codes: J90 - Pleural effusion, not elsewhere classified Status: Acute (6) Elevated liver enzymes ICD Codes: R74.8 - Abnormal levels of other serum enzymes (7) Renal insufficiency ICD Codes: N28.9 - Disorder of kidney and ureter, unspecified Status: Acute Assessment and Plan 1) New onset CHF EF 20-25%, moderate MR/TR Discussed with the patient, appears he knew his EF was low before, but unsure of true number 2) Elevated troponin Possible Type 1 vs Type 2, no angina noted 3) AFib with RVR on presentation Loaded with digoxin Con't Lopressor 4) Plan for thoracentesis tomorrow Unable to do today due to INR 5) Would consider ischemic evaluation before discharge Will discuss with the patient further before deciding on stress test vs. catheterization Most likely stress testing will be planned this weekend Kar Gillis DO Jun 10, 2017 17:42
[2017-06-10] MEDS: TERAZOSIN HCL 1 MG CAP PO SCH (21:05)
[2017-06-10] MEDS: ATORVASTATIN 40 MG TAB PO SCH (21:05)
[2017-06-11] VITALS (28 sets, daily range): BP systolic 110–142; BP diastolic 74–93; PULSE 75–134; RESP 16–18; TEMP 97.7–98.5; O2SAT 94–99
[2017-06-11] MEDS: ACETAMINOPHEN/HYDROcodone 325 MG/5 MG TAB PO PRN ×2 (00:18→23:51)
[2017-06-11] MEDS ORDERED: METOPROLOL TARTRATE 5 MG/5 ML VIAL IV PUSH PRN (04:00)
[2017-06-11 06:25] LABS: AUTOMATED NEUTROPHIL # 5.4 TH/MM3 (1.8-7.7); BASOPHIL # 0.1 TH/MM3 (0-0.2); BASOPHIL % 0.7 % (0.0-2.0); EOSINOPHIL # 0.2 TH/MM3 (0-0.4); EOSINOPHIL % 2.6 % (0.0-4.0); HEMATOCRIT 32.3 % (39.0-51.0); HEMO FLAGS DIFF FINAL; LYMPH % 16.3 % (9.0-44.0); LYMPHOCYTE # 1.3 TH/MM3 (1.0-4.8); MEAN CORPUSCULAR HEMOGLOBIN 30.3 PG (27.0-34.0); MEAN CORPUSCULAR HGB CONC 33.3 % (32.0-36.0); MONO % 12.5 % (0.0-8.0); NEUT % 67.9 % (16.0-70.0); PLATELET COUNT 206 TH/MM3 (150-450); RED BLOOD COUNT 3.55 MIL/MM3 (4.50-5.90); RED CELL DISTRIBUTION WIDTH 16.6 % (11.6-17.2)
[2017-06-11 06:37] LABS: APTT (PATIENT) 45.8 SEC (24.3-30.1); INTERNATIONAL NORMALIZED RATIO 1.2 RATIO; PROTHROMBIN TIME - PATIENT 13.7 SEC (9.8-11.6)
[2017-06-11 06:59] LABS: ALKALINE PHOSPHATASE 132 U/L (45-117); ALT (GPT) 660 U/L (12-78); ANION GAP 9 MEQ/L (5-15); AST (GOT) 265 U/L (15-37); BICARBONATE 28.1 MEQ/L (21.0-32.0); BLOOD UREA NITROGEN 51 MG/DL (7-18); CHLORIDE 101 MEQ/L (98-107); GLOMERULAR FILTRATION RATE 36 ML/MIN (>89); MAGNESIUM 2.2 MG/DL (1.5-2.5); POTASSIUM 4.2 MEQ/L (3.5-5.1); SODIUM (NA) 138 MEQ/L (136-145); TOTAL BILIRUBIN ADULT 0.6 MG/DL (0.2-1.0)
[2017-06-11] MEDS: INSULIN ASPART SUPPLEMENTAL SCALE SQ SCH ×4 (08:00→21:26)
[2017-06-11] MEDS: POTASSIUM CHLORIDE 20 MEQ CONTROLLED RELEASE TAB PO SCH ×3 (08:25→17:15)
[2017-06-11] MEDS: FERROUS SULFATE 325 MG (65 MG ELEMENTAL IRON) TAB PO SCH (08:25)
[2017-06-11] MEDS: DOCUSATE SODIUM 50 MG/SENNA 8.6 MG TAB PO SCH ×2 (08:25→21:21)
[2017-06-11] MEDS: SODIUM CHLORIDE 0.9% FLUSH 10 ML FLUSH IV FLUSH SCH ×2 (08:26→21:00)
[2017-06-11] MEDS: ASPIRIN EC 81 MG TABEC PO SCH (08:26)
[2017-06-11] MEDS: METOPROLOL TARTRATE 25 MG TAB PO SCH ×2 (08:26→21:22)
[2017-06-11] MEDS: CYANOCOBALAMIN 1,000 MCG TAB PO SCH (08:26)
[2017-06-11] MEDS: FUROSEMIDE 40 MG/4 ML VIAL IV PUSH SCH ×2 (08:26→17:16)
[2017-06-11] MEDS ORDERED: ATROPINE SULFATE 1 MG/10 ML SYRINGE ONE (10:52)
[2017-06-11] MEDS ORDERED: EPINEPHrine HCL (1:10,000) 1 MG/10 ML SYRINGE ONE (10:53)
[2017-06-11] MEDS ORDERED: LIDOCAINE HCL 2% 100 MG/5 ML SYRINGE ONE (10:53)
[2017-06-11] MEDS ORDERED: REGADENOSON INJ 0.4 MG/5 ML SYR ONE (14:11)
--- NOTE | 2017-06-11 14:33 | PD.CARD.PN ---
Subjective Subjective Remarks No events overnight SOB mildly better Objective Medications Current Medications Medications (Trade) Dose Ordered Sig/Trinity Route Start Time Stop Time Status Last Admin (D50w (Vial) Inj) 50 ml UNSCH PRN IV 06/06/17 22:45 (Glucagon Inj) 1 mg UNSCH PRN OTHER 06/06/17 22:45 (NovoLOG SUPPLEMENTAL SCALE) 1 ACHS SLIDING SCALE SQ 06/07/17 08:00 06/11/17 08:00 (NS Flush) 2 ml UNSCH PRN IV FLUSH 06/06/17 22:45 (NS Flush) 2 ml BID IV FLUSH 06/07/17 09:00 06/11/17 08:26 (Zofran Inj) 4 mg Q6H PRN IVP 06/06/17 22:45 (Tylenol) 650 mg Q6H PRN PO 06/06/17 22:45 ([place] 5-325 Mg) 1 tab Q4H PRN PO 06/06/17 22:45 06/11/17 00:18 (Morphine Inj) 2 mg Q3H PRN IV PUSH 06/06/17 22:45 06/07/17 21:26 (Maria Ines-Colace) 1 tab BID PO 06/07/17 09:00 06/11/17 08:25 (Milk Of Magnesia Liq) 30 ml Q12H PRN PO 06/06/17 22:45 06/08/17 12:45 (Senokot) 17.2 mg Q12H PRN PO 06/06/17 22:45 06/09/17 12:11 (Dulcolax Supp) 10 mg DAILY PRN RECTAL 06/06/17 22:45 (Lactulose Liq) 30 ml DAILY PRN PO 06/06/17 22:45 06/09/17 08:36 (Ecotrin Ec) 81 mg DAILY PO 06/07/17 09:00 06/11/17 08:26 (Lasix Inj) 40 mg BID@18 IV PUSH 06/07/17 11:00 06/11/17 08:26 (KCl) 20 meq TID PO 06/08/17 09:00 06/11/17 08:25 (Lipitor) 40 mg HS PO 06/08/17 21:00 06/10/17 21:05 (Vitamin B12) 500 mcg DAILY PO 06/09/17 09:00 06/11/17 08:26 (Ferrous Sulfate) 325 mg DAILY PO 06/09/17 09:00 06/11/17 08:25 (Hytrin) 1 mg HS PO 06/08/17 21:00 06/10/17 21:05 (Coumadin) 2.5 mg DAILY@1600 PO 06/08/17 18:00 Future Hold 06/08/17 17:30 Pharmacy Profile Note 0 ml @ 0 mls/hr UNSCH OTHER 06/08/17 15:30 (Lopressor) 100 mg BID PO 06/08/17 21:00 06/11/17 08:26 Heparin Sodium/ Dextrose 250 ml @ 8.28 mls/hr TITRATE PRN IV 06/09/17 16:15 06/09/17 17:13 (Xanax) 0.25 mg Q8H PRN PO 06/10/17 16:00 06/10/17 16:47 (Lopressor Inj) 2.5 mg Q5M PRN IV PUSH 06/11/17 04:00 Vital Signs / I&O Vital Signs Date Time Temp Pulse Resp B/P (MAP) Pulse Ox O2 Delivery O2 Flow Rate FiO2 06/11/17 11:39 97.8 89 16 116/74 (88) 98 06/11/17 10:00 92 06/11/17 09:00 90 06/11/17 08:00 86 06/11/17 07:44 98.5 82 16 142/80 (100) 94 06/11/17 07:00 75 06/11/17 06:00 84 06/11/17 05:00 88 06/11/17 04:00 100 06/11/17 03:00 97.8 83 16 115/74 (88) 95 06/11/17 03:00 88 06/11/17 02:00 88 06/11/17 01:30 14 06/11/17 01:00 94 06/11/17 00:00 96 06/10/17 23:00 94 14 114/78 (90) 97 06/10/17 23:00 96 06/10/17 22:00 92 06/10/17 21:00 116 06/10/17 20:00 134 06/10/17 20:00 97.9 120 16 119/79 (92) 98 06/10/17 19:00 106 06/10/17 18:17 98 06/10/17 17:00 98 06/10/17 16:00 86 06/10/17 15:00 82 06/10/17 15:00 98.0 80 18 133/69 (90) 98 I/O 06/10/17 06/10/17 06/10/17 06/11/17 06/11/17 06/11/17 07:00 15:00 23:00 07:00 15:00 23:00 Intake Total 336 ml 720 ml 240 ml Output Total 600 ml 350 ml 900 ml Balance -264 ml 370 ml -660 ml Intake Oral 240 ml 720 ml 240 ml IV Total 96 ml Output Urine Total 600 ml 350 ml 900 ml # Voids 1 3 # Bowel Movements 0 Physical Exam GENERAL: NAD, AAOx3 SKIN: Warm and dry. HEAD: Atraumatic. Normocephalic. EYES: Pupils equal and round. No scleral icterus. No injection or drainage. ENT: No nasal bleeding or discharge. Mucous membranes pink and moist. NECK: Trachea midline. No JVD. CARDIOVASCULAR: Irregularly irregular RESPIRATORY: No accessory muscle use. Decreased breath sounds bilaterally GASTROINTESTINAL: Abdomen soft, non-tender, nondistended. Hepatic and splenic margins not palpable. MUSCULOSKELETAL: Extremities without clubbing, cyanosis, or edema. No obvious deformities. NEUROLOGICAL: Awake and alert. No obvious cranial nerve deficits. Motor grossly within normal limits. Five out of 5 muscle strength in the arms and legs. Normal speech. PSYCHIATRIC: Appropriate mood and affect; insight and judgment normal. Laboratory Laboratory Tests Test 06/11/17 04:40 White Blood Count 8.0 TH/MM3 Red Blood Count 3.55 MIL/MM3 Hemoglobin 10.7 GM/DL Hematocrit 32.3 % Mean Corpuscular Volume 91.0 FL Mean Corpuscular Hemoglobin 30.3 PG Mean Corpuscular Hemoglobin Concent 33.3 % Red Cell Distribution Width 16.6 % Platelet Count 206 TH/MM3 Mean Platelet Volume 9.2 FL Neutrophils (%) (Auto) 67.9 % Lymphocytes (%) (Auto) 16.3 % Monocytes (%) (Auto) 12.5 % Eosinophils (%) (Auto) 2.6 % Basophils (%) (Auto) 0.7 % Neutrophils # (Auto) 5.4 TH/MM3 Lymphocytes # (Auto) 1.3 TH/MM3 Monocytes # (Auto) 1.0 TH/MM3 Eosinophils # (Auto) 0.2 TH/MM3 Basophils # (Auto) 0.1 TH/MM3 CBC Comment DIFF FINAL Differential Comment Prothrombin Time 13.7 SEC Prothromb Time International Ratio 1.2 RATIO Activated Partial Thromboplast Time 45.8 SEC Blood Urea Nitrogen 51 MG/DL Creatinine 1.83 MG/DL Random Glucose 176 MG/DL Total Protein 7.6 GM/DL Albumin 4.1 GM/DL Calcium Level 9.8 MG/DL Phosphorus Level 4.2 MG/DL Magnesium Level 2.2 MG/DL Alkaline Phosphatase 132 U/L Aspartate Amino Transf (AST/SGOT) 265 U/L Alanine Aminotransferase (ALT/SGPT) 660 U/L Total Bilirubin 0.6 MG/DL Sodium Level 138 MEQ/L Potassium Level 4.2 MEQ/L Chloride Level 101 MEQ/L Carbon Dioxide Level 28.1 MEQ/L Anion Gap 9 MEQ/L Estimat Glomerular Filtration Rate 36 ML/MIN Thyroid Stimulating Hormone 3rd Gen 0.891 uIU/ML Assessment and Plan Problem List: (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 ICD Codes: I25.2 - Old myocardial infarction (2) Acute systolic CHF (congestive heart failure) ICD Codes: I50.21 - Acute systolic (congestive) heart failure (3) Elevated troponin ICD Codes: R74.8 - Abnormal levels of other serum enzymes Status: Acute (4) Atrial fibrillation with RVR ICD Codes: I48.91 - Unspecified atrial fibrillation Status: Acute (5) Pleural effusion ICD Codes: J90 - Pleural effusion, not elsewhere classified Status: Acute (6) Elevated liver enzymes ICD Codes: R74.8 - Abnormal levels of other serum enzymes (7) Renal insufficiency ICD Codes: N28.9 - Disorder of kidney and ureter, unspecified Status: Acute Assessment and Plan 1) New onset CHF EF 20-25%, moderate MR/TR Discussed with the patient, appears he knew his EF was low before, but unsure of true number 2) Elevated troponin Possible Type 1 vs Type 2, no angina noted 3) AFib with RVR on presentation Loaded with digoxin Con't Lopressor 4) Unable to do thoracentesis, not enough fluid 5) Since no thoracentesis, will plan for nuclear stress test today If positive then will plan on cardiac cath on Wednesday 6) Eventually will need to be placed back on anti-coagulation for his Afib Kar Gillis DO Jun 11, 2017 14:33
--- NOTE | 2017-06-11 15:37 | HHI.PR ---
Subjective Remarks HAD NUCLEAR STRESS TEST DONE TODAY DW PT AND CARDIOLOGY Discussed with patient and RN and . A.m. labs Objective Vitals Vital Signs Date Time Temp Pulse Resp B/P (MAP) Pulse Ox O2 Delivery O2 Flow Rate FiO2 06/11/17 11:39 97.8 89 16 116/74 (88) 98 06/11/17 10:00 92 06/11/17 09:00 90 06/11/17 08:00 86 06/11/17 07:44 98.5 82 16 142/80 (100) 94 06/11/17 07:00 75 06/11/17 06:00 84 06/11/17 05:00 88 06/11/17 04:00 100 06/11/17 03:00 97.8 83 16 115/74 (88) 95 06/11/17 03:00 88 06/11/17 02:00 88 06/11/17 01:30 14 06/11/17 01:00 94 06/11/17 00:00 96 06/10/17 23:00 94 14 114/78 (90) 97 06/10/17 23:00 96 06/10/17 22:00 92 06/10/17 21:00 116 06/10/17 20:00 134 06/10/17 20:00 97.9 120 16 119/79 (92) 98 06/10/17 19:00 106 06/10/17 18:17 98 06/10/17 17:00 98 06/10/17 16:00 86 I/O 06/10/17 06/10/17 06/10/17 06/11/17 06/11/17 06/11/17 07:00 15:00 23:00 07:00 15:00 23:00 Intake Total 336 ml 720 ml 240 ml Output Total 600 ml 350 ml 900 ml Balance -264 ml 370 ml -660 ml Intake Oral 240 ml 720 ml 240 ml IV Total 96 ml Output Urine Total 600 ml 350 ml 900 ml # Voids 1 3 # Bowel Movements 0 Result Diagram: 06/11/17 0440 06/11/17 0440 Other Results Laboratory Tests Test 06/09/17 07:06 06/09/17 16:15 06/09/17 23:14 06/10/17 04:35 White Blood Count 7.8 TH/MM3 7.9 TH/MM3 6.7 TH/MM3 Red Blood Count 3.39 MIL/MM3 3.61 MIL/MM3 3.54 MIL/MM3 Hemoglobin 10.3 GM/DL 10.6 GM/DL 10.5 GM/DL Hematocrit 31.1 % 33.2 % 32.4 % Mean Corpuscular Volume 91.7 FL 92.0 FL 91.5 FL Mean Corpuscular Hemoglobin 30.3 PG 29.4 PG 29.6 PG Mean Corpuscular Hemoglobin Concent 33.1 % 31.9 % 32.3 % Red Cell Distribution Width 16.5 % 16.1 % 16.7 % Platelet Count 175 TH/MM3 190 TH/MM3 192 TH/MM3 Mean Platelet Volume 8.8 FL 8.5 FL 9.0 FL Prothrombin Time 17.9 SEC 18.4 SEC 17.1 SEC Prothromb Time International Ratio 1.6 RATIO 1.6 RATIO 1.5 RATIO Blood Urea Nitrogen 33 MG/DL 38 MG/DL Creatinine 1.52 MG/DL 1.69 MG/DL Random Glucose 122 MG/DL 152 MG/DL Total Protein 7.0 GM/DL 7.3 GM/DL Albumin 3.8 GM/DL 3.8 GM/DL Calcium Level 9.6 MG/DL 9.3 MG/DL Magnesium Level 2.1 MG/DL 2.1 MG/DL Alkaline Phosphatase 132 U/L 129 U/L Aspartate Amino Transf (AST/SGOT) 289 U/L 272 U/L Alanine Aminotransferase (ALT/SGPT) 549 U/L 610 U/L Total Bilirubin 0.7 MG/DL 0.6 MG/DL Direct Bilirubin 0.2 MG/DL Sodium Level 138 MEQ/L 138 MEQ/L Potassium Level 3.8 MEQ/L 4.2 MEQ/L Chloride Level 102 MEQ/L 102 MEQ/L Carbon Dioxide Level 28.7 MEQ/L 27.8 MEQ/L Anion Gap 7 MEQ/L 8 MEQ/L Estimat Glomerular Filtration Rate 45 ML/MIN 40 ML/MIN Indirect Bilirubin 0.5 MG/DL Activated Partial Thromboplast Time 26.4 SEC 33.0 SEC 42.1 SEC Neutrophils (%) (Auto) 67.4 % Lymphocytes (%) (Auto) 15.7 % Monocytes (%) (Auto) 12.5 % Eosinophils (%) (Auto) 3.4 % Basophils (%) (Auto) 1.0 % Neutrophils # (Auto) 4.5 TH/MM3 Lymphocytes # (Auto) 1.1 TH/MM3 Monocytes # (Auto) 0.8 TH/MM3 Eosinophils # (Auto) 0.2 TH/MM3 Basophils # (Auto) 0.1 TH/MM3 CBC Comment DIFF FINAL Differential Comment Phosphorus Level 3.8 MG/DL Test 06/10/17 14:13 06/11/17 04:40 Activated Partial Thromboplast Time 40.8 SEC 45.8 SEC White Blood Count 8.0 TH/MM3 Red Blood Count 3.55 MIL/MM3 Hemoglobin 10.7 GM/DL Hematocrit 32.3 % Mean Corpuscular Volume 91.0 FL Mean Corpuscular Hemoglobin 30.3 PG Mean Corpuscular Hemoglobin Concent 33.3 % Red Cell Distribution Width 16.6 % Platelet Count 206 TH/MM3 Mean Platelet Volume 9.2 FL Neutrophils (%) (Auto) 67.9 % Lymphocytes (%) (Auto) 16.3 % Monocytes (%) (Auto) 12.5 % Eosinophils (%) (Auto) 2.6 % Basophils (%) (Auto) 0.7 % Neutrophils # (Auto) 5.4 TH/MM3 Lymphocytes # (Auto) 1.3 TH/MM3 Monocytes # (Auto) 1.0 TH/MM3 Eosinophils # (Auto) 0.2 TH/MM3 Basophils # (Auto) 0.1 TH/MM3 CBC Comment DIFF FINAL Differential Comment Prothrombin Time 13.7 SEC Prothromb Time International Ratio 1.2 RATIO Blood Urea Nitrogen 51 MG/DL Creatinine 1.83 MG/DL Random Glucose 176 MG/DL Total Protein 7.6 GM/DL Albumin 4.1 GM/DL Calcium Level 9.8 MG/DL Phosphorus Level 4.2 MG/DL Magnesium Level 2.2 MG/DL Alkaline Phosphatase 132 U/L Aspartate Amino Transf (AST/SGOT) 265 U/L Alanine Aminotransferase (ALT/SGPT) 660 U/L Total Bilirubin 0.6 MG/DL Sodium Level 138 MEQ/L Potassium Level 4.2 MEQ/L Chloride Level 101 MEQ/L Carbon Dioxide Level 28.1 MEQ/L Anion Gap 9 MEQ/L Estimat Glomerular Filtration Rate 36 ML/MIN Thyroid Stimulating Hormone 3rd Gen 0.891 uIU/ML Imaging Last Impressions Gall Bladder Ultrasound 06/07/17 0000 Signed Impressions: Service Date/Time: Wednesday, June 07, 2017 07:36 - CONCLUSION: 1. Heterogeneous echotexture of the liver suggesting fatty infiltration. 2. Questionable edematous changes within the pancreas. The pancreas was difficult to visualize. 3. The patient is post cholecystectomy. 4. Large right pleural effusion. Shalom Salinas MD Abdomen/Pelvis CT [id number]/06/[id number] Signed Impressions: Service Date/Time: Tuesday, June 06, 2017 21:13 - CONCLUSION: 1. Trace ascites, nonspecific but there are bilateral pleural effusions and pain chamber enlargement of the heart also noted. Also mild body wall edema/anasarca. 2. No stones or obstruction of either kidney. Normal appendix. 3. Atherosclerotic abdominal aorta. No aneurysm. 4. Possible mild cystitis in the proper clinical setting. Mild enlargement of the prostate. John Gallagher MD Abdomen X-Ray [id number]/06/[id number] Signed Impressions: Service Date/Time: Tuesday, June 06, 2017 20:04 - CONCLUSION: Benign-appearing abdomen. John Gallagher MD Chest X-Ray 06/06/17 0000 Signed Impressions: Service Date/Time: Tuesday, June 06, 2017 20:02 - CONCLUSION: Mild bibasilar consolidation and small effusions. John Gallagher MD Objective Remarks GENERAL: Alert oriented talkative and cooperative SKIN: Warm and dry. HEAD: Atraumatic. Normocephalic. EYES: Pupils equal and round. No scleral icterus. No injection or drainage. Extraocular muscles are intact ENT: No nasal bleeding or discharge. Mucous membranes pink and moist. Tongue is midline NECK: Trachea midline. No JVD. Supple CARDIOVASCULAR: Regular rate and rhythm. S1-S2 no S3 or S4 no heave or thrill or rub RESPIRATORY: No accessory muscle use. Clear to auscultation. Breath sounds equal bilaterally. Decreased breath sounds bilaterally GASTROINTESTINAL: Abdomen soft, non-tender, nondistended. Hepatic and splenic margins not palpable. MUSCULOSKELETAL: Extremities without clubbing, cyanosis, or edema. No obvious deformities. NEUROLOGICAL: Awake and alert. No obvious cranial nerve deficits. Motor grossly within normal limits. 4 out of 5 muscle strength in the arms and legs. Normal speech. PSYCHIATRIC: Appropriate mood and affect; insight and judgment normal. Procedures STRESS TEST 06-11 Medications and IVs Current Medications Morphine Sulfate (Morphine Inj) 2 mg ONCE ONCE IV PUSH Last administered on 20:02; Start 06/06/17 at 19:45; Stop 06/06/17 at 19:46; Status DC Ondansetron HCl (Zofran Inj) 4 mg ONCE ONCE IVP Last administered on 20:00; Start 06/06/17 at 19:45; Stop 06/06/17 at 19:46; Status DC Sodium Chloride 1,000 ml @ 1,000 mls/hr Q1H IV Last administered on 06/06/17 20:01; Start 06/06/17 at 19:36; Stop 06/06/17 at 20:35; Status DC Sodium Chloride (NS Flush) 2 ml UNSCH PRN IV FLUSH FLUSH AFTER USING IV ACCESS ; Start 06/06/17 at 19:45; Status Cancel Diltiazem HCl (Cardizem Inj) 10 mg ONCE ONCE IV Last administered on 20:01; Start 06/06/17 at 19:45; Stop 06/06/17 at 19:46; Status DC Iodixanol (VISIPAQUE 320 INJ (Rad CT)) 45 ml STK-MED ONCE IV Last administered on 06/06/17 21:20; Start 06/06/17 at 21:20; Stop 06/06/17 at 21:21; Status DC Furosemide (Lasix Inj) 20 mg ONCE ONCE IV PUSH Last administered on 06/06/17 22:42; Start 06/06/17 at 22:30; Stop 06/06/17 at 22:31; Status DC Dextrose (D50w (Vial) Inj) 50 ml UNSCH PRN IV HYPOGLYCEMIA-SEE COMMENTS; Start 06/06/17 at 22:45 Glucagon (Glucagon Inj) 1 mg UNSCH PRN OTHER HYPOGLYCEMIA-SEE COMMENTS; Start 06/06/17 at 22:45 Insulin Aspart (NovoLOG SUPPLEMENTAL SCALE) 1 ACHS SLIDING SCALE SQ Last administered on 06/11/17 08:00; Start 06/07/17 at 08:00 Sodium Chloride (NS Flush) 2 ml UNSCH PRN IV FLUSH FLUSH AFTER USING IV ACCESS ; Start 06/06/17 at 22:45 Sodium Chloride (NS Flush) 2 ml BID IV FLUSH Last administered on 06/11/17 08: 26; Start 06/07/17 at 09:00 Ondansetron HCl (Zofran Inj) 4 mg Q6H PRN IVP NAUSEA OR VOMITING; Start at 22:45 Acetaminophen (Tylenol) 650 mg Q6H PRN PO FEVER/PAIN SCALE 1 TO 2; Start at 22:45 Acetaminophen/ Hydrocodone Bitart ([place] 5-325 Mg) 1 tab Q4H PRN PO PAIN SCALE 3 TO 5 Last administered on 06/11/17 00:18; Start 06/06/17 at 22:45 Morphine Sulfate (Morphine Inj) 2 mg Q3H PRN IV PUSH Pain 6-10 Last administered on 06/07/17 21:26; Start 06/06/17 at 22:45 Senna/Docusate Sodium (Maria Ines-Colace) 1 tab BID PO Last administered on 08:25; Start 06/07/17 at 09:00 Magnesium Hydroxide (Milk Of Magnesia Liq) 30 ml Q12H PRN PO MILD - MODERATE CONSTIPATION Last administered on 06/08/17 12:45; Start 06/06/17 at 22:45 Sennosides (Senokot) 17.2 mg Q12H PRN PO MODERATE - SEVERE CONSTIPATION Last administered on 06/09/17 12:11; Start 06/06/17 at 22:45 Bisacodyl (Dulcolax Supp) 10 mg DAILY PRN RECTAL SEVERE CONSITIPATION; Start at 22:45 Lactulose (Lactulose Liq) 30 ml DAILY PRN PO SEVERE CONSITIPATION Last administered on 06/09/17 08:36; Start 06/06/17 at 22:45 Furosemide (Lasix) 40 mg BID@,18 PO Last administered on 06/07/17 09:13; Start 06/07/17 at 09:00; Stop 06/07/17 at 10:16; Status DC Aspirin (Ecotrin Ec) 81 mg DAILY PO Last administered on 06/11/17 08:26; Start 06/07/17 at 09:00 Metoprolol Tartrate (Lopressor) 12.5 mg Q12HR PO Last administered on 09:13; Start 06/07/17 at 09:00; Stop 06/07/17 at 10:16; Status DC Dextrose 500 ml @ 500 mls/hr BOLUS ONCE IV Last administered on 06/07/17 01: 45; Start 06/07/17 at 01:45; Stop 06/07/17 at 02:44; Status DC Metoprolol Tartrate (Lopressor) 50 mg Q8HR PO Last administered on 06/08/17 12 :44; Start 06/07/17 at 11:00; Stop 06/08/17 at 17:59; Status DC Diltiazem HCl (Cardizem Inj) 15 mg ONCE ONCE IV PUSH Last administered on 06/07 10:36; Start 06/07/17 at 10:30; Stop 06/07/17 at 10:31; Status DC Diltiazem HCl 125 mg/Sodium Chloride 125 ml @ 10 mls/hr TITRATE PRN IV Tachycardia Last administered on 06/07/17 10:52; Start 06/07/17 at 11:00; Stop 06/08/17 at 13:58; Status DC Diltiazem HCl (Cardizem Inj) 15 mg UNSCH X1 PRN IV PUSH SEE LABEL COMMENTS; Start 06/07/17 at 11:00; Stop 06/07/17 at 23:59; Status DC Furosemide (Lasix Inj) 40 mg BID@09,18 IV PUSH Last administered on 06/11/17 08:26; Start 06/07/17 at 11:00 Digoxin (Lanoxin Inj) 0.25 mg ONCE ONCE IV PUSH Last administered on 09:28; Start 06/08/17 at 09:00; Stop 06/08/17 at 09:01; Status DC Digoxin (Lanoxin Inj) 0.25 mg ONCE ONCE IV PUSH Last administered on 15:04; Start 06/08/17 at 15:00; Stop 06/08/17 at 15:01; Status DC Digoxin (Lanoxin Inj) 0.25 mg ONCE ONCE IV PUSH Last administered on 22:38; Start 06/08/17 at 23:00; Stop 06/08/17 at 23:01; Status DC Digoxin (Lanoxin) 0.25 mg ONCE ONCE PO Last administered on 06/09/17 08:37; Start 06/09/17 at 09:00; Stop 06/09/17 at 09:01; Status DC Potassium Chloride (KCl) 20 meq TID PO Last administered on 06/11/17 08:25; Start 06/08/17 at 09:00 Magnesium Sulfate/ Dextrose 100 ml @ 100 mls/hr Q1H IV Last administered on 11:43; Start 06/08/17 at 09:00; Stop 06/08/17 at 10:59; Status DC Atorvastatin Calcium (Lipitor) 40 mg HS PO Last administered on 06/10/17 21:05 ; Start 06/08/17 at 21:00 Cyanocobalamin (Vitamin B12) 500 mcg DAILY PO Last administered on 06/11/17 08 :26; Start 06/09/17 at 09:00 Ferrous Sulfate (Ferrous Sulfate) 325 mg DAILY PO Last administered on 08:25; Start 06/09/17 at 09:00 Terazosin HCl (Hytrin) 1 mg HS PO Last administered on 06/10/17 21:05; Start 06/08/17 at 21:00 Warfarin Sodium (Coumadin) 2.5 mg DAILY@1600 PO Last administered on 06/08/17 17:30; Start 06/08/17 at 18:00; Status Future Hold Pharmacy Profile Note 0 ml @ 0 mls/hr UNSCH OTHER ; Start 06/08/17 at 15:30 Patient Medication Teaching (Coumadin Booklet) 1 ONCE ONCE OTHER Last administered on 06/08/17 17:31; Start 06/08/17 at 16:00; Stop 06/08/17 at 17:13 ; Status DC Metoprolol Tartrate (Lopressor) 100 mg BID PO Last administered on 06/11/17 08 :26; Start 06/08/17 at 21:00 Heparin Sodium/ Dextrose 250 ml @ 8.28 mls/hr TITRATE PRN IV Coagulation management Last administered on 06/09/17 17:13; Start 06/09/17 at 16:15 Alprazolam (Xanax) 0.25 mg Q8H PRN PO ANXIETY Last administered on 06/10/17 16 :47; Start 06/10/17 at 16:00 Metoprolol Tartrate (Lopressor Inj) 2.5 mg Q5M PRN IV PUSH SUSTAINED HR > 130'S ; Start 06/11/17 at 04:00 Atropine Sulfate (Atropine Inj) 1 mg STK-MED ONCE .ROUTE ; Start 06/11/17 at 10: 52; Stop 06/11/17 at 10:53; Status DC Lidocaine HCl (Xylocaine 2% Inj) 100 mg STK-MED ONCE .ROUTE ; Start 06/11/17 at 10:53; Stop 06/11/17 at 10:54; Status DC Epinephrine HCl (EPINEPHrine (1:10,000) INJ) 1 mg STK-MED ONCE .ROUTE ; Start at 10:53; Stop 06/11/17 at 10:54; Status DC Regadenoson (Lexiscan Inj) 0.4 mg STK-MED ONCE .ROUTE Last administered on 06/11t 14:11; Start 06/11/17 at 14:11; Stop 06/11/17 at 14:12; Status DC Urinary Catheter: No Vascular Central Line Catheter: No A/P Problem List: (1) CHF (congestive heart failure) ICD Code: I50.9 - Heart failure, unspecified (2) A-fib ICD Code: I48.91 - Unspecified atrial fibrillation (3) RUQ abdominal pain ICD Code: R10.11 - Right upper quadrant pain Status: Acute (4) Elevated troponin ICD Code: R74.8 - Abnormal levels of other serum enzymes Status: Acute (5) Lactic acidosis ICD Code: E87.2 - Acidosis (6) Renal insufficiency ICD Code: N28.9 - Disorder of kidney and ureter, unspecified Status: Acute (7) DM (diabetes mellitus) ICD Code: E11.9 - Type 2 diabetes mellitus without complications Assessment and Plan In summary, this is a 71-year-old male admitted with acute onset congestive heart failure. The patient also has a history of A. fib which was uncontrolled on presentation, likely contributed to his heart failure. CHF: Acute systolic CHF, new onset. BNP 1400 on admission with pleural effusions. 2-D echocardiogram revealed LVEF of 20% - Cardiology following. Continue metoprolol, digoxin, Lasix. CHERIE inhibitor when renal function stabilized. CT abdomen and pelvis showed trace ascites, bilateral pleural effusions and cardiomegaly. Anasarca. Gallbladder Us Atrial fibrillation with RVR on presentation/elevated cardiac enzymes. - Patient is status post Cardizem drip per cardiology. - Digoxin added. Continue metoprolol. May need to increase metoprolol to 100 mg twice a day. Continue to monitor. Resume Coumadin. Follow IN 06/09 INR subtherapeutic at 1.6. Hold Coumadin for now and start on IV heparin while awaiting for US guided thoracentesis. 06/10 Rate controlled. Continue heparin bridge for thoracentesis. INR 1.5 today. Thoracentesis will be performed in am due to elevated INR. check TSH. NOT ENOUGH FLUID FOR THORACENTESIS Elevated LFT: Likely due to CHF. LFT's trending down. AST 654 ---> 289 ; ALT 657 ---> 549. Continue to monitor LFT's 06/10 AST is slightly lower at 272, 8 LT slightly elevated at 610. Continue to monitor. DM: Sliding scale w/ Accu-Cheks. Hold oral hypoglycemic agents. Monitor BS. Blood sugars stable. KATHY: Creatinine 1.66 on admission, no previous labs for comparison, Creatinine slowly trending down. Today 1.5. Elevated troponin: Likely demand ischemia. Cardiology following. Troponin level peaked at 0.4, now trending down at 0.37. 06/10 Continue to monitor cardiac enzymes. DVT Prophylaxis: Hold Coumadin, Start heparin drip. Need to be reloaded on Coumadin prior to discharge HAD STRESS TEST TODAY -RESULTS PENDING IF NEEDS CATH THEN ON WEDNESDAY A.m. labs We'll need to have his Coumadin reloaded prior to discharge Heri Hill DO Jun 11, 2017 15:37
--- NOTE | 2017-06-11 15:39 | RADRPT ---
EXAM DATE/TIME: 06/11/2017 11:17 [facility] COMPARISON: CHEST SINGLE AP, June 06, 2017, 20:02. INDICATIONS : Evaluate for right pleural effusion. MEDICAL HISTORY : AL. Hypercholesterol. Afib. Diabetic. SURGICAL HISTORY : Cardiac stent. ENCOUNTER: Initial ACUITY: 1 day PAIN SCORE: 0/10 LOCATION: Right chest MEASUREMENTS: SKIN TO PARIETAL PLEURA: Inadequate fluid SKIN TO MAX SAFE DEPTH: Inadequate fluid ESTIMATED FLUID VOLUME: FLUID COMPOSITION: Inadequate fluid FINDINGS: No marking was performed. No pleural fluid. CONCLUSION: No pleural fluid seen on the right. Isidoro Cassidy MD on June 11, 2017 at 15:37 Board Certified Radiologist. This report was verified electronically.
--- NOTE | 2017-06-11 16:25 | RADRPT ---
EXAM DATE/TIME: 06/11/2017 13:23 [place] COMPARISON: No previous studies available for comparison. INDICATIONS : Atrial fibrillation. Congestive heart failure. DOSE: 25.4 mCi Tc99m Myoview at stress. 8.2 mCi Tc99m Myoview at rest. 0.4 mg Lexiscan STRESS SYMPTOMS: Lightheaded. EJECTION FRACTION: 21% MEDICAL HISTORY : Myocardial infarction. Diabetes mellitus type 2. Carcinoma, basal cell. SURGICAL HISTORY : Coronary artery stent. ENCOUNTER: Initial ACUITY: 1 day PAIN SCALE: 2/10 LOCATION: Bilateral chest TECHNIQUE: The patient underwent pharmacologic stress with infusion of prescribed dose. Continuous ECG tracing was monitored during stress. Gated SPECT imaging was performed after stress and conventional SPECT i maging was performed at rest. The examination was performed on a SPECT/CT scanner, both attenuation and non-corrected datasets were reviewed. FINDINGS: DISTRIBUTION: The maximum perfused segment at stress is in the septal wall. PERFUSION STUDY: Probably normal with suggestion of possible perfusion defect in the inferior wall without redistribut ion however this may be secondary to marked amount of radionuclide activity is in the stomach GATED STUDY: Left ventricular dilatation with generalized hypokinesia. CONCLUSION: Left ventricular cardiomegaly with hypokinesia and decreased ejection fraction consistent with cardio myopathy. Marked amount of radionuclide in the stomach yielding a possible artifactual finding of inf erior wall perfusion defect. RISK CATEGORY: Intermediate (1-3% Annual Mortality Rate) Edwin Gomez MD on June 11, 2017 at 16:21 Board Certified Radiologist. This report was verified electronically.
[2017-06-11] MEDS: MAGNESIUM HYDROXIDE SUSP 30 ML CUP PO PRN (17:28)
[2017-06-11] MEDS: ALPRAZolam 0.25 MG TAB PO PRN (18:12)
[2017-06-11] MEDS: ATORVASTATIN 40 MG TAB PO SCH (21:22)
[2017-06-11] MEDS: LACTULOSE SYRUP 20 GM/30 ML CUP PO PRN (21:23)
[2017-06-11] MEDS: TERAZOSIN HCL 1 MG CAP PO SCH (21:26)
[2017-06-12] VITALS (26 sets, daily range): BP systolic 110–130; BP diastolic 60–83; PULSE 80–122; RESP 18–22; TEMP 97.9–98.2; O2SAT 96–99
[2017-06-12 01:36] LABS: APTT (PATIENT) 36.7 SEC (24.3-30.1)
[2017-06-12] MEDS: HEPARIN-D5W 25,000 U/250 ML 250 ML IV PRN (05:52)
[2017-06-12 05:56] LABS: INTERNATIONAL NORMALIZED RATIO 1.1 RATIO; PROTHROMBIN TIME - PATIENT 12.7 SEC (9.8-11.6)
[2017-06-12 06:05] LABS: AUTOMATED NEUTROPHIL # 6.3 TH/MM3 (1.8-7.7); BASOPHIL # 0.1 TH/MM3 (0-0.2); BASOPHIL % 0.7 % (0.0-2.0); EOSINOPHIL # 0.2 TH/MM3 (0-0.4); EOSINOPHIL % 1.7 % (0.0-4.0); HEMATOCRIT 33.3 % (39.0-51.0); HEMO FLAGS DIFF FINAL; LYMPH % 15.2 % (9.0-44.0); LYMPHOCYTE # 1.4 TH/MM3 (1.0-4.8); MEAN CORPUSCULAR HEMOGLOBIN 29.7 PG (27.0-34.0); MEAN CORPUSCULAR HGB CONC 32.7 % (32.0-36.0); MONO % 13.4 % (0.0-8.0); PLATELET COUNT 209 TH/MM3 (150-450); RED BLOOD COUNT 3.66 MIL/MM3 (4.50-5.90); RED CELL DISTRIBUTION WIDTH 16.4 % (11.6-17.2); WHITE BLOOD COUNT 9.1 TH/MM3 (4.0-11.0)
[2017-06-12 07:50] LABS: ANION GAP 10 MEQ/L (5-15); AST (GOT) 139 U/L (15-37); BICARBONATE 27.4 MEQ/L (21.0-32.0); BLOOD UREA NITROGEN 50 MG/DL (7-18); CHLORIDE 101 MEQ/L (98-107); GLOMERULAR FILTRATION RATE 33 ML/MIN (>89); MAGNESIUM 2.5 MG/DL (1.5-2.5); POTASSIUM 4.6 MEQ/L (3.5-5.1); SODIUM (NA) 138 MEQ/L (136-145)
[2017-06-12 07:59] LABS: ALKALINE PHOSPHATASE 137 U/L (45-117); ALT (GPT) 538 U/L (12-78); FREE T4 1.38 NG/DL (0.76-1.46); TOTAL BILIRUBIN ADULT 0.6 MG/DL (0.2-1.0)
[2017-06-12] MEDS: INSULIN ASPART SUPPLEMENTAL SCALE SQ SCH ×4 (08:00→20:39)
[2017-06-12] MEDS: DOCUSATE SODIUM 50 MG/SENNA 8.6 MG TAB PO SCH ×2 (08:18→20:35)
[2017-06-12] MEDS: FUROSEMIDE 40 MG/4 ML VIAL IV PUSH SCH ×2 (08:18→18:30)
[2017-06-12] MEDS: ASPIRIN EC 81 MG TABEC PO SCH (08:19)
[2017-06-12] MEDS: CYANOCOBALAMIN 1,000 MCG TAB PO SCH (08:19)
[2017-06-12] MEDS: POTASSIUM CHLORIDE 20 MEQ CONTROLLED RELEASE TAB PO SCH ×3 (08:19→18:30)
[2017-06-12] MEDS: FERROUS SULFATE 325 MG (65 MG ELEMENTAL IRON) TAB PO SCH (08:19)
[2017-06-12] MEDS: SODIUM CHLORIDE 0.9% FLUSH 10 ML FLUSH IV FLUSH SCH ×2 (08:21→20:35)
[2017-06-12] MEDS: METOPROLOL TARTRATE 25 MG TAB PO SCH ×2 (08:21→20:34)
--- NOTE | 2017-06-12 11:01 | PD.CARD.PN ---
Subjective Subjective Remarks No events overnight Feels ok, still feels tired overall No chest pain, still SOB Objective Medications Current Medications Medications (Trade) Dose Ordered Sig/Trinity Route Start Time Stop Time Status Last Admin (D50w (Vial) Inj) 50 ml UNSCH PRN IV 06/06/17 22:45 (Glucagon Inj) 1 mg UNSCH PRN OTHER 06/06/17 22:45 (NovoLOG SUPPLEMENTAL SCALE) 1 ACHS SLIDING SCALE SQ 06/07/17 08:00 06/12/17 08:00 (NS Flush) 2 ml UNSCH PRN IV FLUSH 06/06/17 22:45 (NS Flush) 2 ml BID IV FLUSH 06/07/17 09:00 06/12/17 08:21 (Zofran Inj) 4 mg Q6H PRN IVP 06/06/17 22:45 (Tylenol) 650 mg Q6H PRN PO 06/06/17 22:45 ([place] 5-325 Mg) 1 tab Q4H PRN PO 06/06/17 22:45 06/11/17 23:51 (Morphine Inj) 2 mg Q3H PRN IV PUSH 06/06/17 22:45 06/07/17 21:26 (Maria Ines-Colace) 1 tab BID PO 06/07/17 09:00 06/12/17 08:18 (Milk Of Magnesia Liq) 30 ml Q12H PRN PO 06/06/17 22:45 06/11/17 17:28 (Senokot) 17.2 mg Q12H PRN PO 06/06/17 22:45 06/09/17 12:11 (Dulcolax Supp) 10 mg DAILY PRN RECTAL 06/06/17 22:45 (Lactulose Liq) 30 ml DAILY PRN PO 06/06/17 22:45 06/11/17 21:23 (Ecotrin Ec) 81 mg DAILY PO 06/07/17 09:00 06/12/17 08:19 (Lasix Inj) 40 mg BID@,18 IV PUSH 06/07/17 11:00 06/12/17 08:18 (KCl) 20 meq TID PO 06/08/17 09:00 06/12/17 08:19 (Lipitor) 40 mg HS PO 06/08/17 21:00 06/11/17 21:22 (Vitamin B12) 500 mcg DAILY PO 06/09/17 09:00 06/12/17 08:19 (Ferrous Sulfate) 325 mg DAILY PO 06/09/17 09:00 06/12/17 08:19 (Hytrin) 1 mg HS PO 06/08/17 21:00 06/11/17 21:26 (Coumadin) 2.5 mg DAILY@1600 PO 06/08/17 18:00 Future Hold 06/08/17 17:30 Pharmacy Profile Note 0 ml @ 0 mls/hr UNSCH OTHER 06/08/17 15:30 (Lopressor) 100 mg BID PO 06/08/17 21:00 06/12/17 08:21 Heparin Sodium/ Dextrose 250 ml @ 8.28 mls/hr TITRATE PRN IV 06/09/17 16:15 06/12/17 05:52 (Xanax) 0.25 mg Q8H PRN PO 06/10/17 16:00 06/11/17 18:12 (Lopressor Inj) 2.5 mg Q5M PRN IV PUSH 06/11/17 04:00 Vital Signs / I&O Vital Signs Date Time Temp Pulse Resp B/P (MAP) Pulse Ox O2 Delivery O2 Flow Rate FiO2 06/12/17 06:00 114 06/12/17 05:00 88 06/12/17 04:00 98 06/12/17 03:28 99 18 112/73 (86) 99 06/12/17 03:00 96 06/12/17 02:00 100 06/12/17 01:00 108 06/12/17 00:00 88 06/11/17 23:00 88 18 125/76 (92) 94 06/11/17 23:00 111 06/11/17 22:00 110 06/11/17 21:00 110 06/11/17 20:30 98.3 109 16 134/93 (107) 99 06/11/17 20:00 134 06/11/17 19:00 83 06/11/17 18:00 94 06/11/17 17:03 109 06/11/17 16:00 101 06/11/17 15:45 97.7 98 16 110/76 (87) 96 06/11/17 15:00 133 06/11/17 14:00 86 06/11/17 13:00 80 06/11/17 12:00 90 06/11/17 11:39 97.8 89 16 116/74 (88) 98 06/11/17 11:00 88 I/O 06/11/17 06/11/17 06/11/17 06/12/17 06/12/17 06/12/17 07:00 15:00 23:00 07:00 15:00 23:00 Intake Total 240 ml 720 ml 730 ml Output Total 900 ml 500 ml Balance -660 ml 720 ml 230 ml Intake Oral 240 ml 720 ml 480 ml IV Total 250 ml Output Urine Total 900 ml 500 ml # Voids 4 # Bowel Movements 1 Physical Exam GENERAL: NAD, AAOx3 SKIN: Warm and dry. HEAD: Atraumatic. Normocephalic. EYES: Pupils equal and round. No scleral icterus. No injection or drainage. ENT: No nasal bleeding or discharge. Mucous membranes pink and moist. NECK: Trachea midline. No JVD. CARDIOVASCULAR: Irregularly irregular RESPIRATORY: No accessory muscle use. Decreased breath sounds bilaterally GASTROINTESTINAL: Abdomen soft, non-tender, nondistended. Hepatic and splenic margins not palpable. MUSCULOSKELETAL: Extremities without clubbing, cyanosis, or edema. No obvious deformities. NEUROLOGICAL: Awake and alert. No obvious cranial nerve deficits. Motor grossly within normal limits. Five out of 5 muscle strength in the arms and legs. Normal speech. PSYCHIATRIC: Appropriate mood and affect; insight and judgment normal. Laboratory Laboratory Tests Test 06/12/17 01:02 06/12/17 05:00 Activated Partial Thromboplast Time 36.7 SEC White Blood Count 9.1 TH/MM3 Red Blood Count 3.66 MIL/MM3 Hemoglobin 10.9 GM/DL Hematocrit 33.3 % Mean Corpuscular Volume 91.0 FL Mean Corpuscular Hemoglobin 29.7 PG Mean Corpuscular Hemoglobin Concent 32.7 % Red Cell Distribution Width 16.4 % Platelet Count 209 TH/MM3 Mean Platelet Volume 8.8 FL Neutrophils (%) (Auto) 69.0 % Lymphocytes (%) (Auto) 15.2 % Monocytes (%) (Auto) 13.4 % Eosinophils (%) (Auto) 1.7 % Basophils (%) (Auto) 0.7 % Neutrophils # (Auto) 6.3 TH/MM3 Lymphocytes # (Auto) 1.4 TH/MM3 Monocytes # (Auto) 1.2 TH/MM3 Eosinophils # (Auto) 0.2 TH/MM3 Basophils # (Auto) 0.1 TH/MM3 CBC Comment DIFF FINAL Differential Comment Prothrombin Time 12.7 SEC Prothromb Time International Ratio 1.1 RATIO Blood Urea Nitrogen 50 MG/DL Creatinine 2.02 MG/DL Random Glucose 171 MG/DL Total Protein 7.8 GM/DL Albumin 4.0 GM/DL Calcium Level 9.6 MG/DL Phosphorus Level 4.4 MG/DL Magnesium Level 2.5 MG/DL Alkaline Phosphatase 137 U/L Aspartate Amino Transf (AST/SGOT) 139 U/L Alanine Aminotransferase (ALT/SGPT) 538 U/L Total Bilirubin 0.6 MG/DL Sodium Level 138 MEQ/L Potassium Level 4.6 MEQ/L Chloride Level 101 MEQ/L Carbon Dioxide Level 27.4 MEQ/L Anion Gap 10 MEQ/L Estimat Glomerular Filtration Rate 33 ML/MIN Free Thyroxine 1.38 NG/DL Thyroid Stimulating Hormone 3rd Gen 1.100 uIU/ML Assessment and Plan Problem List: (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 ICD Codes: I25.2 - Old myocardial infarction (2) Acute systolic CHF (congestive heart failure) ICD Codes: I50.21 - Acute systolic (congestive) heart failure (3) Elevated troponin ICD Codes: R74.8 - Abnormal levels of other serum enzymes Status: Acute (4) Atrial fibrillation with RVR ICD Codes: I48.91 - Unspecified atrial fibrillation Status: Acute (5) Pleural effusion ICD Codes: J90 - Pleural effusion, not elsewhere classified Status: Acute (6) Elevated liver enzymes ICD Codes: R74.8 - Abnormal levels of other serum enzymes (7) Renal insufficiency ICD Codes: N28.9 - Disorder of kidney and ureter, unspecified Status: Acute Assessment and Plan 1) Acute on chronic CHF EF 20-25%, moderate MR/TR Discussed with the patient, appears he knew his EF was low before 2) Elevated troponin Possible Type 1 vs Type 2, no angina noted Stress test showing no ischemia, artifact in the inferior wall Con't medical management, if concern with angina or repeat heart failure consider catheterization 3) AFib with RVR on presentation Loaded with digoxin Con't Lopressor CHADSVASc = 4 4) Unable to do thoracentesis, not enough fluid 5) PT/OT evaluation 6) Will stop heparin (not high risk), restart Coumadin 7) Discussed with primary team and nursing Kar Gillis DO Jun 12, 2017 11:01
--- NOTE | 2017-06-12 11:02 | HHI.PR ---
Subjective Remarks HAD NUCLEAR STRESS TEST DONE TODAY [facility] PT AND CARDIOLOGY Discussed with patient and RN and . A.m. labs 06-12 [facility] CARDIOLOGY AND PT AND RN NEEDS NOTE FOR WORK AM LABS NEEDS PT AND OT WATCH LFTS INCREASE ACTIVITY RELOAD COUMADIN Objective Vitals Vital Signs Date Time Temp Pulse Resp B/P (MAP) Pulse Ox O2 Delivery O2 Flow Rate FiO2 06/12/17 06:00 114 06/12/17 05:00 88 06/12/17 04:00 98 06/12/17 03:28 99 18 112/73 (86) 99 06/12/17 03:00 96 06/12/17 02:00 100 06/12/17 01:00 108 06/12/17 00:00 88 06/11/17 23:00 88 18 125/76 (92) 94 06/11/17 23:00 111 06/11/17 22:00 110 06/11/17 21:00 110 06/11/17 20:30 98.3 109 16 134/93 (107) 99 06/11/17 20:00 134 06/11/17 19:00 83 06/11/17 18:00 94 06/11/17 17:03 109 06/11/17 16:00 101 06/11/17 15:45 97.7 98 16 110/76 (87) 96 06/11/17 15:00 133 06/11/17 14:00 86 06/11/17 13:00 80 06/11/17 12:00 90 06/11/17 11:39 97.8 89 16 116/74 (88) 98 06/11/17 11:00 88 I/O 06/11/17 06/11/17 06/11/17 06/12/17 06/12/17 06/12/17 07:00 15:00 23:00 07:00 15:00 23:00 Intake Total 240 ml 720 ml 730 ml Output Total 900 ml 500 ml Balance -660 ml 720 ml 230 ml Intake Oral 240 ml 720 ml 480 ml IV Total 250 ml Output Urine Total 900 ml 500 ml # Voids 4 # Bowel Movements 1 Result Diagram: 06/12/17 0500 06/12/17 0500 Other Results Laboratory Tests Test 06/09/17 16:15 06/09/17 23:14 06/10/17 04:35 06/10/17 14:13 White Blood Count 7.9 TH/MM3 6.7 TH/MM3 Red Blood Count 3.61 MIL/MM3 3.54 MIL/MM3 Hemoglobin 10.6 GM/DL 10.5 GM/DL Hematocrit 33.2 % 32.4 % Mean Corpuscular Volume 92.0 FL 91.5 FL Mean Corpuscular Hemoglobin 29.4 PG 29.6 PG Mean Corpuscular Hemoglobin Concent 31.9 % 32.3 % Red Cell Distribution Width 16.1 % 16.7 % Platelet Count 190 TH/MM3 192 TH/MM3 Mean Platelet Volume 8.5 FL 9.0 FL Prothrombin Time 18.4 SEC 17.1 SEC Prothromb Time International Ratio 1.6 RATIO 1.5 RATIO Activated Partial Thromboplast Time 26.4 SEC 33.0 SEC 42.1 SEC 40.8 SEC Neutrophils (%) (Auto) 67.4 % Lymphocytes (%) (Auto) 15.7 % Monocytes (%) (Auto) 12.5 % Eosinophils (%) (Auto) 3.4 % Basophils (%) (Auto) 1.0 % Neutrophils # (Auto) 4.5 TH/MM3 Lymphocytes # (Auto) 1.1 TH/MM3 Monocytes # (Auto) 0.8 TH/MM3 Eosinophils # (Auto) 0.2 TH/MM3 Basophils # (Auto) 0.1 TH/MM3 CBC Comment DIFF FINAL Differential Comment Blood Urea Nitrogen 38 MG/DL Creatinine 1.69 MG/DL Random Glucose 152 MG/DL Total Protein 7.3 GM/DL Albumin 3.8 GM/DL Calcium Level 9.3 MG/DL Phosphorus Level 3.8 MG/DL Magnesium Level 2.1 MG/DL Alkaline Phosphatase 129 U/L Aspartate Amino Transf (AST/SGOT) 272 U/L Alanine Aminotransferase (ALT/SGPT) 610 U/L Total Bilirubin 0.6 MG/DL Sodium Level 138 MEQ/L Potassium Level 4.2 MEQ/L Chloride Level 102 MEQ/L Carbon Dioxide Level 27.8 MEQ/L Anion Gap 8 MEQ/L Estimat Glomerular Filtration Rate 40 ML/MIN Test 06/11/17 04:40 06/12/17 01:02 06/12/17 05:00 White Blood Count 8.0 TH/MM3 9.1 TH/MM3 Red Blood Count 3.55 MIL/MM3 3.66 MIL/MM3 Hemoglobin 10.7 GM/DL 10.9 GM/DL Hematocrit 32.3 % 33.3 % Mean Corpuscular Volume 91.0 FL 91.0 FL Mean Corpuscular Hemoglobin 30.3 PG 29.7 PG Mean Corpuscular Hemoglobin Concent 33.3 % 32.7 % Red Cell Distribution Width 16.6 % 16.4 % Platelet Count 206 TH/MM3 209 TH/MM3 Mean Platelet Volume 9.2 FL 8.8 FL Neutrophils (%) (Auto) 67.9 % 69.0 % Lymphocytes (%) (Auto) 16.3 % 15.2 % Monocytes (%) (Auto) 12.5 % 13.4 % Eosinophils (%) (Auto) 2.6 % 1.7 % Basophils (%) (Auto) 0.7 % 0.7 % Neutrophils # (Auto) 5.4 TH/MM3 6.3 TH/MM3 Lymphocytes # (Auto) 1.3 TH/MM3 1.4 TH/MM3 Monocytes # (Auto) 1.0 TH/MM3 1.2 TH/MM3 Eosinophils # (Auto) 0.2 TH/MM3 0.2 TH/MM3 Basophils # (Auto) 0.1 TH/MM3 0.1 TH/MM3 CBC Comment DIFF FINAL DIFF FINAL Differential Comment Prothrombin Time 13.7 SEC 12.7 SEC Prothromb Time International Ratio 1.2 RATIO 1.1 RATIO Activated Partial Thromboplast Time 45.8 SEC 36.7 SEC Blood Urea Nitrogen 51 MG/DL 50 MG/DL Creatinine 1.83 MG/DL 2.02 MG/DL Random Glucose 176 MG/DL 171 MG/DL Total Protein 7.6 GM/DL 7.8 GM/DL Albumin 4.1 GM/DL 4.0 GM/DL Calcium Level 9.8 MG/DL 9.6 MG/DL Phosphorus Level 4.2 MG/DL 4.4 MG/DL Magnesium Level 2.2 MG/DL 2.5 MG/DL Alkaline Phosphatase 132 U/L 137 U/L Aspartate Amino Transf (AST/SGOT) 265 U/L 139 U/L Alanine Aminotransferase (ALT/SGPT) 660 U/L 538 U/L Total Bilirubin 0.6 MG/DL 0.6 MG/DL Sodium Level 138 MEQ/L 138 MEQ/L Potassium Level 4.2 MEQ/L 4.6 MEQ/L Chloride Level 101 MEQ/L 101 MEQ/L Carbon Dioxide Level 28.1 MEQ/L 27.4 MEQ/L Anion Gap 9 MEQ/L 10 MEQ/L Estimat Glomerular Filtration Rate 36 ML/MIN 33 ML/MIN Thyroid Stimulating Hormone 3rd Gen 0.891 uIU/ML 1.100 uIU/ML Free Thyroxine 1.38 NG/DL Imaging Last Impressions Myocardial Perfusion Scan Nuc Med 06/11/17 0000 Signed Impressions: Service Date/Time: Sunday, June 11, 2017 13:23 - CONCLUSION: Left ventricular cardiomegaly with hypokinesia and decreased ejection fraction consistent with cardiomyopathy. Marked amount of radionuclide in the stomach yielding a possible artifactual finding of inferior wall perfusion defect. RISK CATEGORY: Intermediate (1-3%% Annual Mortality Rate) Edwin Gomez MD Chest Ultrasound 06/11/17 0000 Signed Impressions: Service Date/Time: Sunday, June 11, 2017 11:17 - CONCLUSION: No pleural fluid seen on the right. Isidoro Cassidy MD Gall Bladder Ultrasound 06/07/17 0000 Signed Impressions: Service Date/Time: Wednesday, June 07, 2017 07:36 - CONCLUSION: 1. Heterogeneous echotexture of the liver suggesting fatty infiltration. 2. Questionable edematous changes within the pancreas. The pancreas was difficult to visualize. 3. The patient is post cholecystectomy. 4. Large right pleural effusion. Shalom Salinas MD Abdomen/Pelvis CT [id number] Signed Impressions: Service Date/Time: Tuesday, June 06, 2017 21:13 - CONCLUSION: 1. Trace ascites, nonspecific but there are bilateral pleural effusions and pain chamber enlargement of the heart also noted. Also mild body wall edema/anasarca. 2. No stones or obstruction of either kidney. Normal appendix. 3. Atherosclerotic abdominal aorta. No aneurysm. 4. Possible mild cystitis in the proper clinical setting. Mild enlargement of the prostate. John Gallagher MD Abdomen X-Ray [id number] Signed Impressions: Service Date/Time: Tuesday, June 06, 2017 20:04 - CONCLUSION: Benign-appearing abdomen. John Gallagher MD Chest X-Ray 06/06/17 0000 Signed Impressions: Service Date/Time: Tuesday, June 06, 2017 20:02 - CONCLUSION: Mild bibasilar consolidation and small effusions. John Gallagher MD Objective Remarks GENERAL: Alert oriented talkative and cooperative SKIN: Warm and dry. HEAD: Atraumatic. Normocephalic. EYES: Pupils equal and round. No scleral icterus. No injection or drainage. Extraocular muscles are intact ENT: No nasal bleeding or discharge. Mucous membranes pink and moist. Tongue is midline NECK: Trachea midline. No JVD. Supple CARDIOVASCULAR: Regular rate and rhythm. S1-S2 no S3 or S4 no heave or thrill or rub RESPIRATORY: No accessory muscle use. Clear to auscultation. Breath sounds equal bilaterally. Decreased breath sounds bilaterally GASTROINTESTINAL: Abdomen soft, non-tender, nondistended. Hepatic and splenic margins not palpable. MUSCULOSKELETAL: Extremities without clubbing, cyanosis, or edema. No obvious deformities. NEUROLOGICAL: Awake and alert. No obvious cranial nerve deficits. Motor grossly within normal limits. 4 out of 5 muscle strength in the arms and legs. Normal speech. PSYCHIATRIC: Appropriate mood and affect; insight and judgment normal. Procedures STRESS TEST 06-11 Medications and IVs Current Medications Morphine Sulfate (Morphine Inj) 2 mg ONCE ONCE IV PUSH Last administered on 20:02; Start 06/06/17 at 19:45; Stop 06/06/17 at 19:46; Status DC Ondansetron HCl (Zofran Inj) 4 mg ONCE ONCE IVP Last administered on 20:00; Start 06/06/17 at 19:45; Stop 06/06/17 at 19:46; Status DC Sodium Chloride 1,000 ml @ 1,000 mls/hr Q1H IV Last administered on 06/06/17 20:01; Start 06/06/17 at 19:36; Stop 06/06/17 at 20:35; Status DC Sodium Chloride (NS Flush) 2 ml UNSCH PRN IV FLUSH FLUSH AFTER USING IV ACCESS ; Start 06/06/17 at 19:45; Status Cancel Diltiazem HCl (Cardizem Inj) 10 mg ONCE ONCE IV Last administered on 20:01; Start 06/06/17 at 19:45; Stop 06/06/17 at 19:46; Status DC Iodixanol (VISIPAQUE 320 INJ (Rad CT)) 45 ml STK-MED ONCE IV Last administered on 06/06/17 21:20; Start 06/06/17 at 21:20; Stop 06/06/17 at 21:21; Status DC Furosemide (Lasix Inj) 20 mg ONCE ONCE IV PUSH Last administered on 06/06/17 22:42; Start 06/06/17 at 22:30; Stop 06/06/17 at 22:31; Status DC Dextrose (D50w (Vial) Inj) 50 ml UNSCH PRN IV HYPOGLYCEMIA-SEE COMMENTS; Start 06/06/17 at 22:45 Glucagon (Glucagon Inj) 1 mg UNSCH PRN OTHER HYPOGLYCEMIA-SEE COMMENTS; Start 06/06/17 at 22:45 Insulin Aspart (NovoLOG SUPPLEMENTAL SCALE) 1 ACHS SLIDING SCALE SQ Last administered on 06/12/17 08:00; Start 06/07/17 at 08:00 Sodium Chloride (NS Flush) 2 ml UNSCH PRN IV FLUSH FLUSH AFTER USING IV ACCESS ; Start 06/06/17 at 22:45 Sodium Chloride (NS Flush) 2 ml BID IV FLUSH Last administered on 06/12/17 08: 21; Start 06/07/17 at 09:00 Ondansetron HCl (Zofran Inj) 4 mg Q6H PRN IVP NAUSEA OR VOMITING; Start at 22:45 Acetaminophen (Tylenol) 650 mg Q6H PRN PO FEVER/PAIN SCALE 1 TO 2; Start at 22:45 Acetaminophen/ Hydrocodone Bitart ([place] 5-325 Mg) 1 tab Q4H PRN PO PAIN SCALE 3 TO 5 Last administered on 06/11/17 23:51; Start 06/06/17 at 22:45 Morphine Sulfate (Morphine Inj) 2 mg Q3H PRN IV PUSH Pain 6-10 Last administered on 06/07/17 21:26; Start 06/06/17 at 22:45 Senna/Docusate Sodium (Maria Ines-Colace) 1 tab BID PO Last administered on 08:18; Start 06/07/17 at 09:00 Magnesium Hydroxide (Milk Of Magnesia Liq) 30 ml Q12H PRN PO MILD - MODERATE CONSTIPATION Last administered on 06/11/17 17:28; Start 06/06/17 at 22:45 Sennosides (Senokot) 17.2 mg Q12H PRN PO MODERATE - SEVERE CONSTIPATION Last administered on 06/09/17 12:11; Start 06/06/17 at 22:45 Bisacodyl (Dulcolax Supp) 10 mg DAILY PRN RECTAL SEVERE CONSITIPATION; Start at 22:45 Lactulose (Lactulose Liq) 30 ml DAILY PRN PO SEVERE CONSITIPATION Last administered on 06/11/17 21:23; Start 06/06/17 at 22:45 Furosemide (Lasix) 40 mg BID@18 PO Last administered on 06/07/17 09:13; Start 06/07/17 at 09:00; Stop 06/07/17 at 10:16; Status DC Aspirin (Ecotrin Ec) 81 mg DAILY PO Last administered on 06/12/17 08:19; Start 06/07/17 at 09:00 Metoprolol Tartrate (Lopressor) 12.5 mg Q12HR PO Last administered on 09:13; Start 06/07/17 at 09:00; Stop 06/07/17 at 10:16; Status DC Dextrose 500 ml @ 500 mls/hr BOLUS ONCE IV Last administered on 06/07/17 01: 45; Start 06/07/17 at 01:45; Stop 06/07/17 at 02:44; Status DC Metoprolol Tartrate (Lopressor) 50 mg Q8HR PO Last administered on 06/08/17 12 :44; Start 06/07/17 at 11:00; Stop 06/08/17 at 17:59; Status DC Diltiazem HCl (Cardizem Inj) 15 mg ONCE ONCE IV PUSH Last administered on 06/07 10:36; Start 06/07/17 at 10:30; Stop 06/07/17 at 10:31; Status DC Diltiazem HCl 125 mg/Sodium Chloride 125 ml @ 10 mls/hr TITRATE PRN IV Tachycardia Last administered on 06/07/17 10:52; Start 06/07/17 at 11:00; Stop 06/08/17 at 13:58; Status DC Diltiazem HCl (Cardizem Inj) 15 mg UNSCH X1 PRN IV PUSH SEE LABEL COMMENTS; Start 06/07/17 at 11:00; Stop 06/07/17 at 23:59; Status DC Furosemide (Lasix Inj) 40 mg BID@18 IV PUSH Last administered on 06/12/17 08:18; Start 06/07/17 at 11:00 Digoxin (Lanoxin Inj) 0.25 mg ONCE ONCE IV PUSH Last administered on 09:28; Start 06/08/17 at 09:00; Stop 06/08/17 at 09:01; Status DC Digoxin (Lanoxin Inj) 0.25 mg ONCE ONCE IV PUSH Last administered on 15:04; Start 06/08/17 at 15:00; Stop 06/08/17 at 15:01; Status DC Digoxin (Lanoxin Inj) 0.25 mg ONCE ONCE IV PUSH Last administered on 22:38; Start 06/08/17 at 23:00; Stop 06/08/17 at 23:01; Status DC Digoxin (Lanoxin) 0.25 mg ONCE ONCE PO Last administered on 06/09/17 08:37; Start 06/09/17 at 09:00; Stop 06/09/17 at 09:01; Status DC Potassium Chloride (KCl) 20 meq TID PO Last administered on 06/12/17 08:19; Start 06/08/17 at 09:00 Magnesium Sulfate/ Dextrose 100 ml @ 100 mls/hr Q1H IV Last administered on 11:43; Start 06/08/17 at 09:00; Stop 06/08/17 at 10:59; Status DC Atorvastatin Calcium (Lipitor) 40 mg HS PO Last administered on 06/11/17 21:22 ; Start 06/08/17 at 21:00 Cyanocobalamin (Vitamin B12) 500 mcg DAILY PO Last administered on 06/12/17 08 :19; Start 06/09/17 at 09:00 Ferrous Sulfate (Ferrous Sulfate) 325 mg DAILY PO Last administered on 08:19; Start 06/09/17 at 09:00 Terazosin HCl (Hytrin) 1 mg HS PO Last administered on 06/11/17 21:26; Start 06/08/17 at 21:00 Warfarin Sodium (Coumadin) 2.5 mg DAILY@1600 PO Last administered on 06/08/17 17:30; Start 06/08/17 at 18:00; Status Future Hold Pharmacy Profile Note 0 ml @ 0 mls/hr UNSCH OTHER ; Start 06/08/17 at 15:30 Patient Medication Teaching (Coumadin Booklet) 1 ONCE ONCE OTHER Last administered on 06/08/17 17:31; Start 06/08/17 at 16:00; Stop 06/08/17 at 17:13 ; Status DC Metoprolol Tartrate (Lopressor) 100 mg BID PO Last administered on 06/12/17 08 :21; Start 06/08/17 at 21:00 Heparin Sodium/ Dextrose 250 ml @ 8.28 mls/hr TITRATE PRN IV Coagulation management Last administered on 06/12/17 05:52; Start 06/09/17 at 16:15 Alprazolam (Xanax) 0.25 mg Q8H PRN PO ANXIETY Last administered on 06/11/17 18 :12; Start 06/10/17 at 16:00 Metoprolol Tartrate (Lopressor Inj) 2.5 mg Q5M PRN IV PUSH SUSTAINED HR > 130'S ; Start 06/11/17 at 04:00 Atropine Sulfate (Atropine Inj) 1 mg STK-MED ONCE .ROUTE Last administered on 09:00; Start 06/11/17 at 10:52; Stop 06/11/17 at 10:53; Status DC Lidocaine HCl (Xylocaine 2% Inj) 100 mg STK-MED ONCE .ROUTE ; Start 06/11/17 at 10:53; Stop 06/11/17 at 10:54; Status DC Epinephrine HCl (EPINEPHrine (1:10,000) INJ) 1 mg STK-MED ONCE .ROUTE ; Start at 10:53; Stop 06/11/17 at 10:54; Status DC Regadenoson (Lexiscan Inj) 0.4 mg STK-MED ONCE .ROUTE Last administered on 06/11 14:11; Start 06/11/17 at 14:11; Stop 06/11/17 at 14:12; Status DC Urinary Catheter: No Vascular Central Line Catheter: No A/P Problem List: (1) CHF (congestive heart failure) ICD Code: I50.9 - Heart failure, unspecified (2) A-fib ICD Code: I48.91 - Unspecified atrial fibrillation (3) RUQ abdominal pain ICD Code: R10.11 - Right upper quadrant pain Status: Acute (4) Elevated troponin ICD Code: R74.8 - Abnormal levels of other serum enzymes Status: Acute (5) Lactic acidosis ICD Code: E87.2 - Acidosis (6) Renal insufficiency ICD Code: N28.9 - Disorder of kidney and ureter, unspecified Status: Acute (7) DM (diabetes mellitus) ICD Code: E11.9 - Type 2 diabetes mellitus without complications Assessment and Plan In summary, this is a 71-year-old male admitted with acute onset congestive heart failure. The patient also has a history of A. fib which was uncontrolled on presentation, likely contributed to his heart failure. CHF: Acute systolic CHF, new onset. BNP 1400 on admission with pleural effusions. 2-D echocardiogram revealed LVEF of 20% - Cardiology following. Continue metoprolol, digoxin, Lasix. CHERIE inhibitor when renal function stabilized. CT abdomen and pelvis showed trace ascites, bilateral pleural effusions and cardiomegaly. Anasarca. Gallbladder Us Atrial fibrillation with RVR on presentation/elevated cardiac enzymes. - Patient is status post Cardizem drip per cardiology. - Digoxin added. Continue metoprolol. May need to increase metoprolol to 100 mg twice a day. Continue to monitor. Resume Coumadin. Follow IN 06/09 INR subtherapeutic at 1.6. Hold Coumadin for now and start on IV heparin while awaiting for US guided thoracentesis. 06/10 Rate controlled. Continue heparin bridge for thoracentesis. INR 1.5 today. Thoracentesis will be performed in am due to elevated INR. check TSH. NOT ENOUGH FLUID FOR THORACENTESIS Elevated LFT: Likely due to CHF. LFT's trending down. AST 654 ---> 289 ; ALT 657 ---> 549. Continue to monitor LFT's 06/10 AST is slightly lower at 272, 8 LT slightly elevated at 610. Continue to monitor. LFTS STILL BORDERLINE DM: Sliding scale w/ Accu-Cheks. Hold oral hypoglycemic agents. Monitor BS. Blood sugars stable. KATHY: Creatinine 1.66 on admission, no previous labs for comparison, Creatinine slowly trending down. Today 1.5. WORSENING RENAL FUNCTIONS AM LABS- ADJUST LASIX Elevated troponin: Likely demand ischemia. Cardiology following. Troponin level peaked at 0.4, now trending down at 0.37. 06/10 Continue to monitor cardiac enzymes. DVT Prophylaxis: Hold Coumadin, STOP HEPARIN DRIP Need to be reloaded on Coumadin prior to discharge- START RELOADING COUMADIN HAD STRESS TEST TODAY -HAS ARTIFACT- NO CATH THIS ADMISSION A.m. labs We'll need to have his Coumadin reloaded prior to discharge Heri Hill DO Jun 12, 2017 11:02
[2017-06-12 11:35] LABS: APTT (PATIENT) 52.5 SEC (24.3-30.1)
[2017-06-12] MEDS: ACETAMINOPHEN/HYDROcodone 325 MG/5 MG TAB PO PRN ×2 (12:14→20:34)
[2017-06-12] MEDS: WARFARIN SOD 2.5 MG TAB PO SCH (16:36)
[2017-06-12] MEDS: TERAZOSIN HCL 1 MG CAP PO SCH (20:35)
[2017-06-12] MEDS: ATORVASTATIN 40 MG TAB PO SCH (20:35)
[2017-06-12] MEDS ORDERED: BACITRACIN OINT 0.9 GM PKT TOPICAL ONE (23:45)
[2017-06-13] VITALS (26 sets, daily range): BP systolic 99–138; BP diastolic 49–92; PULSE 72–115; RESP 16–18; TEMP 97.5–98.2; O2SAT 96–100
[2017-06-13] MEDS: ACETAMINOPHEN/HYDROcodone 325 MG/5 MG TAB PO PRN ×2 (03:31→20:25)
[2017-06-13] MEDS: INSULIN ASPART SUPPLEMENTAL SCALE SQ SCH ×4 (08:00→21:59)
[2017-06-13 08:04] LABS: AUTOMATED NEUTROPHIL # 5.3 TH/MM3 (1.8-7.7); BASOPHIL # 0.1 TH/MM3 (0-0.2); BASOPHIL % 0.9 % (0.0-2.0); EOSINOPHIL # 0.2 TH/MM3 (0-0.4); EOSINOPHIL % 2.8 % (0.0-4.0); HEMATOCRIT 32.7 % (39.0-51.0); HEMO FLAGS DIFF FINAL; LYMPH % 18.8 % (9.0-44.0); LYMPHOCYTE # 1.5 TH/MM3 (1.0-4.8); MEAN CELL VOLUME 91.5 FL (80.0-100.0); MEAN CORPUSCULAR HEMOGLOBIN 30.1 PG (27.0-34.0); MEAN CORPUSCULAR HGB CONC 32.9 % (32.0-36.0); MONO % 13.4 % (0.0-8.0); NEUT % 64.1 % (16.0-70.0); PLATELET COUNT 209 TH/MM3 (150-450); RED BLOOD COUNT 3.57 MIL/MM3 (4.50-5.90); RED CELL DISTRIBUTION WIDTH 16.6 % (11.6-17.2); WHITE BLOOD COUNT 8.2 TH/MM3 (4.0-11.0)
[2017-06-13 08:07] LABS: INTERNATIONAL NORMALIZED RATIO 1.1 RATIO
[2017-06-13 09:00] LABS: ALKALINE PHOSPHATASE 146 U/L (45-117); ALT (GPT) 401 U/L (12-78); ANION GAP 7 MEQ/L (5-15); AST (GOT) 73 U/L (15-37); BICARBONATE 30.5 MEQ/L (21.0-32.0); BLOOD UREA NITROGEN 61 MG/DL (7-18); CHLORIDE 98 MEQ/L (98-107); GLOMERULAR FILTRATION RATE 31 ML/MIN (>89); MAGNESIUM 2.6 MG/DL (1.5-2.5); POTASSIUM 4.9 MEQ/L (3.5-5.1); SODIUM (NA) 135 MEQ/L (136-145); TOTAL BILIRUBIN ADULT 0.7 MG/DL (0.2-1.0)
[2017-06-13] MEDS: FUROSEMIDE 40 MG TAB PO SCH (09:00)
[2017-06-13] MEDS: ASPIRIN EC 81 MG TABEC PO SCH (09:02)
[2017-06-13] MEDS: SODIUM CHLORIDE 0.9% FLUSH 10 ML FLUSH IV FLUSH SCH ×2 (09:03→20:26)
[2017-06-13] MEDS: METOPROLOL TARTRATE 25 MG TAB PO SCH ×2 (09:03→20:26)
[2017-06-13] MEDS: POTASSIUM CHLORIDE 20 MEQ CONTROLLED RELEASE TAB PO SCH ×3 (09:03→16:46)
[2017-06-13] MEDS: CYANOCOBALAMIN 1,000 MCG TAB PO SCH (09:03)
[2017-06-13] MEDS: DOCUSATE SODIUM 50 MG/SENNA 8.6 MG TAB PO SCH ×2 (09:03→20:26)
[2017-06-13] MEDS: FERROUS SULFATE 325 MG (65 MG ELEMENTAL IRON) TAB PO SCH (09:03)
--- NOTE | 2017-06-13 10:44 | PD.CARD.PN ---
Subjective Subjective Remarks No events overnight Feels slightly better SOB stable Telemetry with mostly controlled heart rates Objective Medications Current Medications Medications (Trade) Dose Ordered Sig/Trinity Route Start Time Stop Time Status Last Admin (D50w (Vial) Inj) 50 ml UNSCH PRN IV 06/06/17 22:45 (Glucagon Inj) 1 mg UNSCH PRN OTHER 06/06/17 22:45 (NovoLOG SUPPLEMENTAL SCALE) 1 ACHS SLIDING SCALE SQ 06/07/17 08:00 06/13/17 08:00 (NS Flush) 2 ml UNSCH PRN IV FLUSH 06/06/17 22:45 (NS Flush) 2 ml BID IV FLUSH 06/07/17 09:00 06/13/17 09:03 (Zofran Inj) 4 mg Q6H PRN IVP 06/06/17 22:45 (Tylenol) 650 mg Q6H PRN PO 06/06/17 22:45 ([place] 5-325 Mg) 1 tab Q4H PRN PO 06/06/17 22:45 06/13/17 03:31 (Morphine Inj) 2 mg Q3H PRN IV PUSH 06/06/17 22:45 06/07/17 21:26 (Maria Ines-Colace) 1 tab BID PO 06/07/17 09:00 06/13/17 09:03 (Milk Of Magnesia Liq) 30 ml Q12H PRN PO 06/06/17 22:45 06/11/17 17:28 (Senokot) 17.2 mg Q12H PRN PO 06/06/17 22:45 06/09/17 12:11 (Dulcolax Supp) 10 mg DAILY PRN RECTAL 06/06/17 22:45 (Lactulose Liq) 30 ml DAILY PRN PO 06/06/17 22:45 06/11/17 21:23 (Ecotrin Ec) 81 mg DAILY PO 06/07/17 09:00 06/13/17 09:02 (KCl) 20 meq TID PO 06/08/17 09:00 06/13/17 09:03 (Lipitor) 40 mg HS PO 06/08/17 21:00 06/12/17 20:35 (Vitamin B12) 500 mcg DAILY PO 06/09/17 09:00 06/13/17 09:03 (Ferrous Sulfate) 325 mg DAILY PO 06/09/17 09:00 06/13/17 09:03 (Hytrin) 1 mg HS PO 06/08/17 21:00 06/12/17 20:35 (Coumadin) 2.5 mg DAILY@1600 PO 06/08/17 18:00 Future hold 06/12/17 16:36 Pharmacy Profile Note 0 ml @ 0 mls/hr UNSCH OTHER 06/08/17 15:30 (Lopressor) 100 mg BID PO 06/08/17 21:00 06/13/17 09:03 (Xanax) 0.25 mg Q8H PRN PO 06/10/17 16:00 06/11/17 18:12 (Lopressor Inj) 2.5 mg Q5M PRN IV PUSH 06/11/17 04:00 (Lasix) 40 mg DAILY PO 06/13/17 09:00 06/13/17 09:00 Vital Signs / I&O Vital Signs Date Time Temp Pulse Resp B/P (MAP) Pulse Ox O2 Delivery O2 Flow Rate FiO2 06/13/17 10:22 87 06/13/17 09:00 86 06/13/17 08:50 92 06/13/17 08:50 98.2 114 16 138/92 (107) 98 06/13/17 06:00 72 06/13/17 05:00 87 06/13/17 04:00 98 06/13/17 03:20 97.8 109 18 101/66 (78) 99 06/13/17 03:00 93 06/13/17 02:00 98 06/13/17 01:00 112 06/13/17 00:00 106 06/12/17 23:10 98.2 84 18 130/75 (93) 96 06/12/17 23:00 84 06/12/17 22:00 86 06/12/17 21:00 122 06/12/17 20:00 97.9 115 18 124/82 (96) 98 06/12/17 20:00 114 06/12/17 19:00 109 06/12/17 18:00 104 06/12/17 17:00 86 06/12/17 16:00 92 06/12/17 15:00 98.1 95 22 110/60 (77) 97 06/12/17 15:00 95 06/12/17 14:00 88 06/12/17 13:00 92 06/12/17 12:00 98 06/12/17 11:00 98.2 88 21 130/77 (94) 98 06/12/17 11:00 88 I/O 06/12/17 06/12/17 06/12/17 06/13/17 06/13/17 06/13/17 07:00 15:00 23:00 07:00 15:00 23:00 Intake Total 730 ml 720 ml 480 ml Output Total 500 ml 300 ml Balance 230 ml 720 ml 180 ml Intake Oral 480 ml 720 ml 480 ml IV Total 250 ml Output Urine Total 500 ml 300 ml # Voids 3 2 # Bowel Movements 1 1 Physical Exam GENERAL: NAD, AAOx3 SKIN: Warm and dry. HEAD: Atraumatic. Normocephalic. EYES: Pupils equal and round. No scleral icterus. No injection or drainage. ENT: No nasal bleeding or discharge. Mucous membranes pink and moist. NECK: Trachea midline. No JVD. CARDIOVASCULAR: Irregularly irregular RESPIRATORY: No accessory muscle use. Decreased breath sounds bilaterally GASTROINTESTINAL: Abdomen soft, non-tender, nondistended. Hepatic and splenic margins not palpable. MUSCULOSKELETAL: Extremities without clubbing, cyanosis, or edema. No obvious deformities. NEUROLOGICAL: Awake and alert. No obvious cranial nerve deficits. Motor grossly within normal limits. Five out of 5 muscle strength in the arms and legs. Normal speech. PSYCHIATRIC: Appropriate mood and affect; insight and judgment normal. Laboratory Laboratory Tests Test 06/13/17 06:42 White Blood Count 8.2 TH/MM3 Red Blood Count 3.57 MIL/MM3 Hemoglobin 10.7 GM/DL Hematocrit 32.7 % Mean Corpuscular Volume 91.5 FL Mean Corpuscular Hemoglobin 30.1 PG Mean Corpuscular Hemoglobin Concent 32.9 % Red Cell Distribution Width 16.6 % Platelet Count 209 TH/MM3 Mean Platelet Volume 8.9 FL Neutrophils (%) (Auto) 64.1 % Lymphocytes (%) (Auto) 18.8 % Monocytes (%) (Auto) 13.4 % Eosinophils (%) (Auto) 2.8 % Basophils (%) (Auto) 0.9 % Neutrophils # (Auto) 5.3 TH/MM3 Lymphocytes # (Auto) 1.5 TH/MM3 Monocytes # (Auto) 1.1 TH/MM3 Eosinophils # (Auto) 0.2 TH/MM3 Basophils # (Auto) 0.1 TH/MM3 CBC Comment DIFF FINAL Differential Comment Prothrombin Time 12.0 SEC Prothromb Time International Ratio 1.1 RATIO Blood Urea Nitrogen 61 MG/DL Creatinine 2.09 MG/DL Random Glucose 166 MG/DL Total Protein 7.8 GM/DL Albumin 4.2 GM/DL Calcium Level 10.0 MG/DL Phosphorus Level 4.1 MG/DL Magnesium Level 2.6 MG/DL Alkaline Phosphatase 146 U/L Aspartate Amino Transf (AST/SGOT) 73 U/L Alanine Aminotransferase (ALT/SGPT) 401 U/L Total Bilirubin 0.7 MG/DL Sodium Level 135 MEQ/L Potassium Level 4.9 MEQ/L Chloride Level 98 MEQ/L Carbon Dioxide Level 30.5 MEQ/L Anion Gap 7 MEQ/L Estimat Glomerular Filtration Rate 31 ML/MIN Assessment and Plan Problem List: (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 ICD Codes: I25.2 - Old myocardial infarction (2) Acute systolic CHF (congestive heart failure) ICD Codes: I50.21 - Acute systolic (congestive) heart failure (3) Elevated troponin ICD Codes: R74.8 - Abnormal levels of other serum enzymes Status: Acute (4) Atrial fibrillation with RVR ICD Codes: I48.91 - Unspecified atrial fibrillation Status: Acute (5) Pleural effusion ICD Codes: J90 - Pleural effusion, not elsewhere classified Status: Acute (6) Elevated liver enzymes ICD Codes: R74.8 - Abnormal levels of other serum enzymes (7) Renal insufficiency ICD Codes: N28.9 - Disorder of kidney and ureter, unspecified Status: Acute Assessment and Plan 1) Acute on chronic CHF EF 20-25%, moderate MR/TR Discussed with the patient, appears he knew his EF was low before Lasix changed to PO 2) Elevated troponin Possible Type 1 vs Type 2, no angina noted Stress test showing no ischemia, artifact in the inferior wall Con't medical management, if concern with angina or repeat heart failure consider catheterization 3) AFib with RVR on presentation Loaded with digoxin Con't Lopressor CHADSVASc = 4 4) Unable to do thoracentesis, not enough fluid 5) PT/OT evaluation 6) Will stop heparin (not high risk), restart Coumadin 7) Discussed with primary team and nursing Kar Gillis DO Jun 13, 2017 10:44
--- NOTE | 2017-06-13 10:45 | HHI.PR ---
Subjective Remarks HAD NUCLEAR STRESS TEST DONE TODAY [facility] PT AND CARDIOLOGY Discussed with patient and RN and . A.m. labs 06-12 [facility] CARDIOLOGY AND PT AND RN NEEDS NOTE FOR WORK AM LABS NEEDS PT AND OT WATCH LFTS INCREASE ACTIVITY RELOAD COUMADIN 06-13 MEDS BEING ADJUSTED BY CARDIOLOGY STILL SOB ON ANY REAL ACTIVITY NEEDS PT AND OT MAY NEED SNF DW RN AND PATIENT AND CARDIOLOGY AM LABS Objective Vitals Vital Signs Date Time Temp Pulse Resp B/P (MAP) Pulse Ox O2 Delivery O2 Flow Rate FiO2 06/13/17 10:22 87 06/13/17 09:00 86 06/13/17 08:50 92 06/13/17 08:50 98.2 114 16 138/92 (107) 98 06/13/17 06:00 72 06/13/17 05:00 87 06/13/17 04:00 98 06/13/17 03:20 97.8 109 18 101/66 (78) 99 06/13/17 03:00 93 06/13/17 02:00 98 06/13/17 01:00 112 06/13/17 00:00 106 06/12/17 23:10 98.2 84 18 130/75 (93) 96 06/12/17 23:00 84 06/12/17 22:00 86 06/12/17 21:00 122 06/12/17 20:00 97.9 115 18 124/82 (96) 98 06/12/17 20:00 114 06/12/17 19:00 109 06/12/17 18:00 104 06/12/17 17:00 86 06/12/17 16:00 92 06/12/17 15:00 98.1 95 22 110/60 (77) 97 06/12/17 15:00 95 06/12/17 14:00 88 06/12/17 13:00 92 06/12/17 12:00 98 06/12/17 11:00 98.2 88 21 130/77 (94) 98 06/12/17 11:00 88 I/O 06/12/17 06/12/17 06/12/17 06/13/17 06/13/17 06/13/17 07:00 15:00 23:00 07:00 15:00 23:00 Intake Total 730 ml 720 ml 480 ml Output Total 500 ml 300 ml Balance 230 ml 720 ml 180 ml Intake Oral 480 ml 720 ml 480 ml IV Total 250 ml Output Urine Total 500 ml 300 ml # Voids 3 2 # Bowel Movements 1 1 Result Diagram: 06/13/17 0642 06/13/17 0642 Other Results Laboratory Tests Test 06/10/17 14:13 06/11/17 04:40 06/12/17 01:02 06/12/17 05:00 Activated Partial Thromboplast Time 40.8 SEC 45.8 SEC 36.7 SEC White Blood Count 8.0 TH/MM3 9.1 TH/MM3 Red Blood Count 3.55 MIL/MM3 3.66 MIL/MM3 Hemoglobin 10.7 GM/DL 10.9 GM/DL Hematocrit 32.3 % 33.3 % Mean Corpuscular Volume 91.0 FL 91.0 FL Mean Corpuscular Hemoglobin 30.3 PG 29.7 PG Mean Corpuscular Hemoglobin Concent 33.3 % 32.7 % Red Cell Distribution Width 16.6 % 16.4 % Platelet Count 206 TH/MM3 209 TH/MM3 Mean Platelet Volume 9.2 FL 8.8 FL Neutrophils (%) (Auto) 67.9 % 69.0 % Lymphocytes (%) (Auto) 16.3 % 15.2 % Monocytes (%) (Auto) 12.5 % 13.4 % Eosinophils (%) (Auto) 2.6 % 1.7 % Basophils (%) (Auto) 0.7 % 0.7 % Neutrophils # (Auto) 5.4 TH/MM3 6.3 TH/MM3 Lymphocytes # (Auto) 1.3 TH/MM3 1.4 TH/MM3 Monocytes # (Auto) 1.0 TH/MM3 1.2 TH/MM3 Eosinophils # (Auto) 0.2 TH/MM3 0.2 TH/MM3 Basophils # (Auto) 0.1 TH/MM3 0.1 TH/MM3 CBC Comment DIFF FINAL DIFF FINAL Differential Comment Prothrombin Time 13.7 SEC 12.7 SEC Prothromb Time International Ratio 1.2 RATIO 1.1 RATIO Blood Urea Nitrogen 51 MG/DL 50 MG/DL Creatinine 1.83 MG/DL 2.02 MG/DL Random Glucose 176 MG/DL 171 MG/DL Total Protein 7.6 GM/DL 7.8 GM/DL Albumin 4.1 GM/DL 4.0 GM/DL Calcium Level 9.8 MG/DL 9.6 MG/DL Phosphorus Level 4.2 MG/DL 4.4 MG/DL Magnesium Level 2.2 MG/DL 2.5 MG/DL Alkaline Phosphatase 132 U/L 137 U/L Aspartate Amino Transf (AST/SGOT) 265 U/L 139 U/L Alanine Aminotransferase (ALT/SGPT) 660 U/L 538 U/L Total Bilirubin 0.6 MG/DL 0.6 MG/DL Sodium Level 138 MEQ/L 138 MEQ/L Potassium Level 4.2 MEQ/L 4.6 MEQ/L Chloride Level 101 MEQ/L 101 MEQ/L Carbon Dioxide Level 28.1 MEQ/L 27.4 MEQ/L Anion Gap 9 MEQ/L 10 MEQ/L Estimat Glomerular Filtration Rate 36 ML/MIN 33 ML/MIN Thyroid Stimulating Hormone 3rd Gen 0.891 uIU/ML 1.100 uIU/ML Free Thyroxine 1.38 NG/DL Test 06/12/17 10:05 06/13/17 06:42 Activated Partial Thromboplast Time 52.5 SEC White Blood Count 8.2 TH/MM3 Red Blood Count 3.57 MIL/MM3 Hemoglobin 10.7 GM/DL Hematocrit 32.7 % Mean Corpuscular Volume 91.5 FL Mean Corpuscular Hemoglobin 30.1 PG Mean Corpuscular Hemoglobin Concent 32.9 % Red Cell Distribution Width 16.6 % Platelet Count 209 TH/MM3 Mean Platelet Volume 8.9 FL Neutrophils (%) (Auto) 64.1 % Lymphocytes (%) (Auto) 18.8 % Monocytes (%) (Auto) 13.4 % Eosinophils (%) (Auto) 2.8 % Basophils (%) (Auto) 0.9 % Neutrophils # (Auto) 5.3 TH/MM3 Lymphocytes # (Auto) 1.5 TH/MM3 Monocytes # (Auto) 1.1 TH/MM3 Eosinophils # (Auto) 0.2 TH/MM3 Basophils # (Auto) 0.1 TH/MM3 CBC Comment DIFF FINAL Differential Comment Prothrombin Time 12.0 SEC Prothromb Time International Ratio 1.1 RATIO Blood Urea Nitrogen 61 MG/DL Creatinine 2.09 MG/DL Random Glucose 166 MG/DL Total Protein 7.8 GM/DL Albumin 4.2 GM/DL Calcium Level 10.0 MG/DL Phosphorus Level 4.1 MG/DL Magnesium Level 2.6 MG/DL Alkaline Phosphatase 146 U/L Aspartate Amino Transf (AST/SGOT) 73 U/L Alanine Aminotransferase (ALT/SGPT) 401 U/L Total Bilirubin 0.7 MG/DL Sodium Level 135 MEQ/L Potassium Level 4.9 MEQ/L Chloride Level 98 MEQ/L Carbon Dioxide Level 30.5 MEQ/L Anion Gap 7 MEQ/L Estimat Glomerular Filtration Rate 31 ML/MIN Imaging Last Impressions Myocardial Perfusion Scan Nuc Med 06/11/17 0000 Signed Impressions: Service Date/Time: Sunday, June 11, 2017 13:23 - CONCLUSION: Left ventricular cardiomegaly with hypokinesia and decreased ejection fraction consistent with cardiomyopathy. Marked amount of radionuclide in the stomach yielding a possible artifactual finding of inferior wall perfusion defect. RISK CATEGORY: Intermediate (1-3%% Annual Mortality Rate) Edwin Gomez MD Chest Ultrasound 06/11/17 0000 Signed Impressions: Service Date/Time: Sunday, June 11, 2017 11:17 - CONCLUSION: No pleural fluid seen on the right. Isidoro Cassidy MD Gall Bladder Ultrasound 06/07/17 0000 Signed Impressions: Service Date/Time: Wednesday, June 07, 2017 07:36 - CONCLUSION: 1. Heterogeneous echotexture of the liver suggesting fatty infiltration. 2. Questionable edematous changes within the pancreas. The pancreas was difficult to visualize. 3. The patient is post cholecystectomy. 4. Large right pleural effusion. Shalom Salinas MD Abdomen/Pelvis CT [id number]/06/[id number] Signed Impressions: Service Date/Time: Tuesday, June 06, 2017 21:13 - CONCLUSION: 1. Trace ascites, nonspecific but there are bilateral pleural effusions and pain chamber enlargement of the heart also noted. Also mild body wall edema/anasarca. 2. No stones or obstruction of either kidney. Normal appendix. 3. Atherosclerotic abdominal aorta. No aneurysm. 4. Possible mild cystitis in the proper clinical setting. Mild enlargement of the prostate. John Gallagher MD Abdomen X-Ray [id number] Signed Impressions: Service Date/Time: Tuesday, June 06, 2017 20:04 - CONCLUSION: Benign-appearing abdomen. John Gallagher MD Chest X-Ray 06/06/17 0000 Signed Impressions: Service Date/Time: Tuesday, June 06, 2017 20:02 - CONCLUSION: Mild bibasilar consolidation and small effusions. John Gallagher MD Objective Remarks GENERAL: Alert oriented talkative and cooperative SKIN: Warm and dry. HEAD: Atraumatic. Normocephalic. EYES: Pupils equal and round. No scleral icterus. No injection or drainage. Extraocular muscles are intact ENT: No nasal bleeding or discharge. Mucous membranes pink and moist. Tongue is midline NECK: Trachea midline. No JVD. Supple CARDIOVASCULAR: Regular rate and rhythm. S1-S2 no S3 or S4 no heave or thrill or rub RESPIRATORY: No accessory muscle use. Clear to auscultation. Breath sounds equal bilaterally. Decreased breath sounds bilaterally GASTROINTESTINAL: Abdomen soft, non-tender, nondistended. Hepatic and splenic margins not palpable. MUSCULOSKELETAL: Extremities without clubbing, cyanosis, or edema. No obvious deformities. NEUROLOGICAL: Awake and alert. No obvious cranial nerve deficits. Motor grossly within normal limits. 4 out of 5 muscle strength in the arms and legs. Normal speech. PSYCHIATRIC: Appropriate mood and affect; insight and judgment normal. Procedures STRESS TEST 06-11 Medications and IVs Current Medications Morphine Sulfate (Morphine Inj) 2 mg ONCE ONCE IV PUSH Last administered on 20:02; Start 06/06/17 at 19:45; Stop 06/06/17 at 19:46; Status DC Ondansetron HCl (Zofran Inj) 4 mg ONCE ONCE IVP Last administered on 20:00; Start 06/06/17 at 19:45; Stop 06/06/17 at 19:46; Status DC Sodium Chloride 1,000 ml @ 1,000 mls/hr Q1H IV Last administered on 06/06/17 20:01; Start 06/06/17 at 19:36; Stop 06/06/17 at 20:35; Status DC Sodium Chloride (NS Flush) 2 ml UNSCH PRN IV FLUSH FLUSH AFTER USING IV ACCESS ; Start 06/06/17 at 19:45; Status Cancel Diltiazem HCl (Cardizem Inj) 10 mg ONCE ONCE IV Last administered on 20:01; Start 06/06/17 at 19:45; Stop 06/06/17 at 19:46; Status DC Iodixanol (VISIPAQUE 320 INJ (Rad CT)) 45 ml STK-MED ONCE IV Last administered on 06/06/17 21:20; Start 06/06/17 at 21:20; Stop 06/06/17 at 21:21; Status DC Furosemide (Lasix Inj) 20 mg ONCE ONCE IV PUSH Last administered on 06/06/17 22:42; Start 06/06/17 at 22:30; Stop 06/06/17 at 22:31; Status DC Dextrose (D50w (Vial) Inj) 50 ml UNSCH PRN IV HYPOGLYCEMIA-SEE COMMENTS; Start 06/06/17 at 22:45 Glucagon (Glucagon Inj) 1 mg UNSCH PRN OTHER HYPOGLYCEMIA-SEE COMMENTS; Start 06/06/17 at 22:45 Insulin Aspart (NovoLOG SUPPLEMENTAL SCALE) 1 ACHS SLIDING SCALE SQ Last administered on 06/13/17 08:00; Start 06/07/17 at 08:00 Sodium Chloride (NS Flush) 2 ml UNSCH PRN IV FLUSH FLUSH AFTER USING IV ACCESS ; Start 06/06/17 at 22:45 Sodium Chloride (NS Flush) 2 ml BID IV FLUSH Last administered on 06/13/17 09: 03; Start 06/07/17 at 09:00 Ondansetron HCl (Zofran Inj) 4 mg Q6H PRN IVP NAUSEA OR VOMITING; Start at 22:45 Acetaminophen (Tylenol) 650 mg Q6H PRN PO FEVER/PAIN SCALE 1 TO 2; Start at 22:45 Acetaminophen/ Hydrocodone Bitart ([place] 5-325 Mg) 1 tab Q4H PRN PO PAIN SCALE 3 TO 5 Last administered on 06/13/17 03:31; Start 06/06/17 at 22:45 Morphine Sulfate (Morphine Inj) 2 mg Q3H PRN IV PUSH Pain 6-10 Last administered on 06/07/17 21:26; Start 06/06/17 at 22:45 Senna/Docusate Sodium (Maria Ines-Colace) 1 tab BID PO Last administered on 09:03; Start 06/07/17 at 09:00 Magnesium Hydroxide (Milk Of Magnesia Liq) 30 ml Q12H PRN PO MILD - MODERATE CONSTIPATION Last administered on 06/11/17 17:28; Start 06/06/17 at 22:45 Sennosides (Senokot) 17.2 mg Q12H PRN PO MODERATE - SEVERE CONSTIPATION Last administered on 06/09/17 12:11; Start 06/06/17 at 22:45 Bisacodyl (Dulcolax Supp) 10 mg DAILY PRN RECTAL SEVERE CONSITIPATION; Start at 22:45 Lactulose (Lactulose Liq) 30 ml DAILY PRN PO SEVERE CONSITIPATION Last administered on 06/11/17 21:23; Start 06/06/17 at 22:45 Furosemide (Lasix) 40 mg BID@,18 PO Last administered on 06/07/17 09:13; Start 06/07/17 at 09:00; Stop 06/07/17 at 10:16; Status DC Aspirin (Ecotrin Ec) 81 mg DAILY PO Last administered on 06/13/17 09:02; Start 06/07/17 at 09:00 Metoprolol Tartrate (Lopressor) 12.5 mg Q12HR PO Last administered on 09:13; Start 06/07/17 at 09:00; Stop 06/07/17 at 10:16; Status DC Dextrose 500 ml @ 500 mls/hr BOLUS ONCE IV Last administered on 06/07/17 01: 45; Start 06/07/17 at 01:45; Stop 06/07/17 at 02:44; Status DC Metoprolol Tartrate (Lopressor) 50 mg Q8HR PO Last administered on 06/08/17 12 :44; Start 06/07/17 at 11:00; Stop 06/08/17 at 17:59; Status DC Diltiazem HCl (Cardizem Inj) 15 mg ONCE ONCE IV PUSH Last administered on 06/07 10:36; Start 06/07/17 at 10:30; Stop 06/07/17 at 10:31; Status DC Diltiazem HCl 125 mg/Sodium Chloride 125 ml @ 10 mls/hr TITRATE PRN IV Tachycardia Last administered on 06/07/17 10:52; Start 06/07/17 at 11:00; Stop 06/08/17 at 13:58; Status DC Diltiazem HCl (Cardizem Inj) 15 mg UNSCH X1 PRN IV PUSH SEE LABEL COMMENTS; Start 06/07/17 at 11:00; Stop 06/07/17 at 23:59; Status DC Furosemide (Lasix Inj) 40 mg BID@09,18 IV PUSH Last administered on 06/12/17 18:30; Start 06/07/17 at 11:00; Stop 06/13/17 at 08:54; Status DC Digoxin (Lanoxin Inj) 0.25 mg ONCE ONCE IV PUSH Last administered on 09:28; Start 06/08/17 at 09:00; Stop 06/08/17 at 09:01; Status DC Digoxin (Lanoxin Inj) 0.25 mg ONCE ONCE IV PUSH Last administered on 15:04; Start 06/08/17 at 15:00; Stop 06/08/17 at 15:01; Status DC Digoxin (Lanoxin Inj) 0.25 mg ONCE ONCE IV PUSH Last administered on 22:38; Start 06/08/17 at 23:00; Stop 06/08/17 at 23:01; Status DC Digoxin (Lanoxin) 0.25 mg ONCE ONCE PO Last administered on 06/09/17 08:37; Start 06/09/17 at 09:00; Stop 06/09/17 at 09:01; Status DC Potassium Chloride (KCl) 20 meq TID PO Last administered on 06/13/17 09:03; Start 06/08/17 at 09:00 Magnesium Sulfate/ Dextrose 100 ml @ 100 mls/hr Q1H IV Last administered on 11:43; Start 06/08/17 at 09:00; Stop 06/08/17 at 10:59; Status DC Atorvastatin Calcium (Lipitor) 40 mg HS PO Last administered on 06/12/17 20:35 ; Start 06/08/17 at 21:00 Cyanocobalamin (Vitamin B12) 500 mcg DAILY PO Last administered on 06/13/17 09 :03; Start 06/09/17 at 09:00 Ferrous Sulfate (Ferrous Sulfate) 325 mg DAILY PO Last administered on 09:03; Start 06/09/17 at 09:00 Terazosin HCl (Hytrin) 1 mg HS PO Last administered on 06/12/17 20:35; Start 06/08/17 at 21:00 Warfarin Sodium (Coumadin) 2.5 mg DAILY@1600 PO Last administered on 06/12/17 16:36; Start 06/08/17 at 18:00; Status Future hold Pharmacy Profile Note 0 ml @ 0 mls/hr UNSCH OTHER ; Start 06/08/17 at 15:30 Patient Medication Teaching (Coumadin Booklet) 1 ONCE ONCE OTHER Last administered on 06/08/17 17:31; Start 06/08/17 at 16:00; Stop 06/08/17 at 17:13 ; Status DC Metoprolol Tartrate (Lopressor) 100 mg BID PO Last administered on 06/13/17 09 :03; Start 06/08/17 at 21:00 Heparin Sodium/ Dextrose 250 ml @ 8.28 mls/hr TITRATE PRN IV Coagulation management Last administered on 06/12/17 05:52; Start 06/09/17 at 16:15; Stop 06/12/17 at 11:03; Status DC Alprazolam (Xanax) 0.25 mg Q8H PRN PO ANXIETY Last administered on 06/11/17 18 :12; Start 06/10/17 at 16:00 Metoprolol Tartrate (Lopressor Inj) 2.5 mg Q5M PRN IV PUSH SUSTAINED HR > 130'S ; Start 06/11/17 at 04:00 Atropine Sulfate (Atropine Inj) 1 mg STK-MED ONCE .ROUTE Last administered on 09:00; Start 06/11/17 at 10:52; Stop 06/11/17 at 10:53; Status DC Lidocaine HCl (Xylocaine 2% Inj) 100 mg STK-MED ONCE .ROUTE ; Start 06/11/17 at 10:53; Stop 06/11/17 at 10:54; Status DC Epinephrine HCl (EPINEPHrine (1:10,000) INJ) 1 mg STK-MED ONCE .ROUTE ; Start at 10:53; Stop 06/11/17 at 10:54; Status DC Regadenoson (Lexiscan Inj) 0.4 mg STK-MED ONCE .ROUTE Last administered on 06/11 14:11; Start 06/11/17 at 14:11; Stop 06/11/17 at 14:12; Status DC Bacitracin (Bacitracin Oint Packet) 0.9 gm ONCE ONCE TOPICAL Last administered on 9/23/17at 23:45; Start 06/12/17 at 23:45; Stop 06/12/17 at 23:48 ; Status DC Furosemide (Lasix) 40 mg DAILY PO Last administered on 06/13/17t 09:00; Start 06/13/17 at 09:00 Urinary Catheter: No Vascular Central Line Catheter: No A/P Problem List: (1) CHF (congestive heart failure) ICD Code: I50.9 - Heart failure, unspecified (2) A-fib ICD Code: I48.91 - Unspecified atrial fibrillation (3) RUQ abdominal pain ICD Code: R10.11 - Right upper quadrant pain Status: Acute (4) Elevated troponin ICD Code: R74.8 - Abnormal levels of other serum enzymes Status: Acute (5) Lactic acidosis ICD Code: E87.2 - Acidosis (6) Renal insufficiency ICD Code: N28.9 - Disorder of kidney and ureter, unspecified Status: Acute (7) DM (diabetes mellitus) ICD Code: E11.9 - Type 2 diabetes mellitus without complications Assessment and Plan In summary, this is a 71-year-old male admitted with acute onset congestive heart failure. The patient also has a history of A. fib which was uncontrolled on presentation, likely contributed to his heart failure. CHF: Acute systolic CHF, new onset. BNP 1400 on admission with pleural effusions. 2-D echocardiogram revealed LVEF of 20% - Cardiology following. Continue metoprolol, digoxin, Lasix. CHERIE inhibitor when renal function stabilized. CT abdomen and pelvis showed trace ascites, bilateral pleural effusions and cardiomegaly. Anasarca. Gallbladder Us Atrial fibrillation with RVR on presentation/elevated cardiac enzymes. - Patient is status post Cardizem drip per cardiology. - Digoxin added. Continue metoprolol. May need to increase metoprolol to 100 mg twice a day. Continue to monitor. Resume Coumadin. Follow IN 06/09 INR subtherapeutic at 1.6. Hold Coumadin for now and start on IV heparin while awaiting for US guided thoracentesis. 06/10 Rate controlled. Continue heparin bridge for thoracentesis. . Thoracentesis WAS NOT PERFORMED. check TSH. NOT ENOUGH FLUID FOR THORACENTESIS INR ONLY 1.1 WILL INCREASE WARFARIN TO 5MG PO DAILY Elevated LFT: Likely due to CHF. LFT's trending down. AST 654 ---> 289 ; ALT 657 ---> 549. Continue to monitor LFT's 06/10 AST is slightly lower at 272, 8 LT slightly elevated at 610. Continue to monitor. LFTS STILL BORDERLINE DM: Sliding scale w/ Accu-Cheks. Hold oral hypoglycemic agents. Monitor BS. Blood sugars stable. KATHY: Creatinine 1.66 on admission, no previous labs for comparison, Creatinine slowly trending down. Today 1.5. WORSENING RENAL FUNCTIONS AM LABS- ADJUST LASIX Elevated troponin: Likely demand ischemia. Cardiology following. Troponin level peaked at 0.4, now trending down at 0.37. 06/10 Continue to monitor cardiac enzymes. DVT Prophylaxis: Hold Coumadin, STOP HEPARIN DRIP Need to be reloaded on Coumadin prior to discharge- START RELOADING COUMADIN HAD STRESS TEST 06-11 -HAS ARTIFACT- NO CATH THIS ADMISSION A.m. labs We'll need to have his Coumadin reloaded prior to discharge INCREASE TO 5MG PO DAILY [facility] AND RN Heri Hill DO Jun 13, 2017 10:44
[2017-06-13 11:32] LABS: HEMOGLOBIN A1a 1.4 %; HEMOGLOBIN Ao 82.6 %; HEMOGLOBIN LA1C 2.5 %; HEMOGLOBIN P3 6.1 %
[2017-06-13] MEDS ORDERED: WARFARIN SOD 5 MG TAB PO SCH (16:00)
[2017-06-13] MEDS: TERAZOSIN HCL 1 MG CAP PO SCH (20:25)
[2017-06-13] MEDS: ATORVASTATIN 40 MG TAB PO SCH (20:26)
[2017-06-14] VITALS (24 sets, daily range): BP systolic 114–144; BP diastolic 62–84; PULSE 63–113; RESP 18–20; TEMP 97.4–98.1; O2SAT 97–100
[2017-06-14] MEDS: ACETAMINOPHEN/HYDROcodone 325 MG/5 MG TAB PO PRN ×2 (02:47→21:42)
[2017-06-14] MEDS: ALPRAZolam 0.25 MG TAB PO PRN ×2 (02:52→22:02)
[2017-06-14 06:42] LABS: BASOPHIL # 0.1 TH/MM3 (0-0.2); BASOPHIL % 0.7 % (0.0-2.0); EOSINOPHIL # 0.2 TH/MM3 (0-0.4); EOSINOPHIL % 3.1 % (0.0-4.0); HEMATOCRIT 31.9 % (39.0-51.0); HEMO FLAGS DIFF FINAL; LYMPH % 16.3 % (9.0-44.0); LYMPHOCYTE # 1.2 TH/MM3 (1.0-4.8); MEAN CELL VOLUME 91.7 FL (80.0-100.0); MEAN CORPUSCULAR HGB CONC 32.7 % (32.0-36.0); MONO % 13.9 % (0.0-8.0); PLATELET COUNT 194 TH/MM3 (150-450); RED BLOOD COUNT 3.48 MIL/MM3 (4.50-5.90); RED CELL DISTRIBUTION WIDTH 16.3 % (11.6-17.2); WHITE BLOOD COUNT 7.6 TH/MM3 (4.0-11.0)
[2017-06-14 06:48] LABS: INTERNATIONAL NORMALIZED RATIO 1.1 RATIO; PROTHROMBIN TIME - PATIENT 12.3 SEC (9.8-11.6)
[2017-06-14 08:01] LABS: ALKALINE PHOSPHATASE 135 U/L (45-117); ALT (GPT) 297 U/L (12-78); ANION GAP 6 MEQ/L (5-15); AST (GOT) 41 U/L (15-37); BICARBONATE 28.3 MEQ/L (21.0-32.0); BLOOD UREA NITROGEN 66 MG/DL (7-18); CHLORIDE 100 MEQ/L (98-107); GLOMERULAR FILTRATION RATE 31 ML/MIN (>89); MAGNESIUM 2.8 MG/DL (1.5-2.5); POTASSIUM 6.5 MEQ/L (3.5-5.1); SODIUM (NA) 134 MEQ/L (136-145); TOTAL BILIRUBIN ADULT 0.5 MG/DL (0.2-1.0)
[2017-06-14] MEDS: POTASSIUM CHLORIDE 20 MEQ CONTROLLED RELEASE TAB PO SCH (09:00)
[2017-06-14] MEDS: INSULIN ASPART SUPPLEMENTAL SCALE SQ SCH ×4 (09:49→21:00)
[2017-06-14] MEDS: ASPIRIN EC 81 MG TABEC PO SCH (09:49)
[2017-06-14] MEDS: CYANOCOBALAMIN 1,000 MCG TAB PO SCH (09:50)
[2017-06-14] MEDS: FERROUS SULFATE 325 MG (65 MG ELEMENTAL IRON) TAB PO SCH (09:50)
[2017-06-14] MEDS: DOCUSATE SODIUM 50 MG/SENNA 8.6 MG TAB PO SCH ×2 (09:50→21:42)
[2017-06-14] MEDS: FUROSEMIDE 40 MG TAB PO SCH (09:51)
[2017-06-14] MEDS: METOPROLOL TARTRATE 25 MG TAB PO SCH ×2 (09:51→21:47)
[2017-06-14] MEDS: SODIUM CHLORIDE 0.9% FLUSH 10 ML FLUSH IV FLUSH SCH ×2 (09:53→21:43)
--- NOTE | 2017-06-14 10:20 | HHI.PR ---
Subjective Remarks HAD NUCLEAR STRESS TEST DONE TODAY DW PT AND CARDIOLOGY Discussed with patient and RN and . A.m. labs 06-12 DW CARDIOLOGY AND PT AND RN NEEDS NOTE FOR WORK AM LABS NEEDS PT AND OT WATCH LFTS INCREASE ACTIVITY RELOAD COUMADIN 06-13 MEDS BEING ADJUSTED BY CARDIOLOGY STILL SOB ON ANY REAL ACTIVITY NEEDS PT AND OT MAY NEED SNF DW RN AND PATIENT AND CARDIOLOGY AM LABS 06-14 not very mobile yet ABNORMAL LABS REPEAT TODAY LOAD COUMADIN DW RN AND PT AND CM Objective Vitals Vital Signs Date Time Temp Pulse Resp B/P (MAP) Pulse Ox O2 Delivery O2 Flow Rate FiO2 06/14/17 07:32 97.4 72 18 123/81 (95) 98 06/14/17 07:00 84 06/14/17 06:00 63 06/14/17 05:00 78 06/14/17 04:00 96 06/14/17 03:00 101 06/14/17 03:00 97.8 106 18 114/84 (94) 97 06/14/17 02:00 90 06/14/17 01:00 93 06/14/17 00:00 80 06/13/17 23:10 98.2 97 18 99/49 (66) 96 06/13/17 23:00 89 06/13/17 22:00 100 06/13/17 21:00 100 06/13/17 20:00 114 06/13/17 19:45 97.5 102 18 130/83 (99) 100 06/13/17 19:00 115 06/13/17 18:02 111 06/13/17 17:02 92 06/13/17 16:19 102 06/13/17 15:55 72 06/13/17 15:55 98.0 72 16 130/74 (92) 100 06/13/17 14:06 93 06/13/17 13:02 94 06/13/17 12:01 81 06/13/17 11:51 98.0 79 16 116/65 (82) 98 06/13/17 11:51 72 06/13/17 10:22 87 I/O 06/13/17 06/13/17 06/13/17 06/14/17 06/14/17 06/14/17 07:00 15:00 23:00 07:00 15:00 23:00 Intake Total 480 ml 600 ml 480 ml Output Total 300 ml 425 ml Balance 180 ml 600 ml 55 ml Intake Oral 480 ml 600 ml 480 ml Output Urine Total 300 ml 425 ml # Voids 2 4 # Bowel Movements 1 1 0 Result Diagram: 06/14/175 06/14/175 Other Results Laboratory Tests Test 06/12/17 01:02 06/12/17 05:00 06/12/17 10:05 06/13/17 06:42 Activated Partial Thromboplast Time 36.7 SEC 52.5 SEC White Blood Count 9.1 TH/MM3 8.2 TH/MM3 Red Blood Count 3.66 MIL/MM3 3.57 MIL/MM3 Hemoglobin 10.9 GM/DL 10.7 GM/DL Hematocrit 33.3 % 32.7 % Mean Corpuscular Volume 91.0 FL 91.5 FL Mean Corpuscular Hemoglobin 29.7 PG 30.1 PG Mean Corpuscular Hemoglobin Concent 32.7 % 32.9 % Red Cell Distribution Width 16.4 % 16.6 % Platelet Count 209 TH/MM3 209 TH/MM3 Mean Platelet Volume 8.8 FL 8.9 FL Neutrophils (%) (Auto) 69.0 % 64.1 % Lymphocytes (%) (Auto) 15.2 % 18.8 % Monocytes (%) (Auto) 13.4 % 13.4 % Eosinophils (%) (Auto) 1.7 % 2.8 % Basophils (%) (Auto) 0.7 % 0.9 % Neutrophils # (Auto) 6.3 TH/MM3 5.3 TH/MM3 Lymphocytes # (Auto) 1.4 TH/MM3 1.5 TH/MM3 Monocytes # (Auto) 1.2 TH/MM3 1.1 TH/MM3 Eosinophils # (Auto) 0.2 TH/MM3 0.2 TH/MM3 Basophils # (Auto) 0.1 TH/MM3 0.1 TH/MM3 CBC Comment DIFF FINAL DIFF FINAL Differential Comment Prothrombin Time 12.7 SEC 12.0 SEC Prothromb Time International Ratio 1.1 RATIO 1.1 RATIO Blood Urea Nitrogen 50 MG/DL 61 MG/DL Creatinine 2.02 MG/DL 2.09 MG/DL Random Glucose 171 MG/DL 166 MG/DL Total Protein 7.8 GM/DL 7.8 GM/DL Albumin 4.0 GM/DL 4.2 GM/DL Calcium Level 9.6 MG/DL 10.0 MG/DL Phosphorus Level 4.4 MG/DL 4.1 MG/DL Magnesium Level 2.5 MG/DL 2.6 MG/DL Alkaline Phosphatase 137 U/L 146 U/L Aspartate Amino Transf (AST/SGOT) 139 U/L 73 U/L Alanine Aminotransferase (ALT/SGPT) 538 U/L 401 U/L Total Bilirubin 0.6 MG/DL 0.7 MG/DL Sodium Level 138 MEQ/L 135 MEQ/L Potassium Level 4.6 MEQ/L 4.9 MEQ/L Chloride Level 101 MEQ/L 98 MEQ/L Carbon Dioxide Level 27.4 MEQ/L 30.5 MEQ/L Anion Gap 10 MEQ/L 7 MEQ/L Estimat Glomerular Filtration Rate 33 ML/MIN 31 ML/MIN Hemoglobin A1c 6.5 % Free Thyroxine 1.38 NG/DL Thyroid Stimulating Hormone 3rd Gen 1.100 uIU/ML Test 06/14/17 04:35 White Blood Count 7.6 TH/MM3 Red Blood Count 3.48 MIL/MM3 Hemoglobin 10.4 GM/DL Hematocrit 31.9 % Mean Corpuscular Volume 91.7 FL Mean Corpuscular Hemoglobin 30.0 PG Mean Corpuscular Hemoglobin Concent 32.7 % Red Cell Distribution Width 16.3 % Platelet Count 194 TH/MM3 Mean Platelet Volume 8.8 FL Neutrophils (%) (Auto) 66.0 % Lymphocytes (%) (Auto) 16.3 % Monocytes (%) (Auto) 13.9 % Eosinophils (%) (Auto) 3.1 % Basophils (%) (Auto) 0.7 % Neutrophils # (Auto) 5.0 TH/MM3 Lymphocytes # (Auto) 1.2 TH/MM3 Monocytes # (Auto) 1.1 TH/MM3 Eosinophils # (Auto) 0.2 TH/MM3 Basophils # (Auto) 0.1 TH/MM3 CBC Comment DIFF FINAL Differential Comment Prothrombin Time 12.3 SEC Prothromb Time International Ratio 1.1 RATIO Blood Urea Nitrogen 66 MG/DL Creatinine 2.12 MG/DL Random Glucose 169 MG/DL Total Protein 7.6 GM/DL Albumin 3.9 GM/DL Calcium Level 9.6 MG/DL Phosphorus Level 4.3 MG/DL Magnesium Level 2.8 MG/DL Alkaline Phosphatase 135 U/L Aspartate Amino Transf (AST/SGOT) 41 U/L Alanine Aminotransferase (ALT/SGPT) 297 U/L Total Bilirubin 0.5 MG/DL Sodium Level 134 MEQ/L Potassium Level 6.5 MEQ/L Chloride Level 100 MEQ/L Carbon Dioxide Level 28.3 MEQ/L Anion Gap 6 MEQ/L Estimat Glomerular Filtration Rate 31 ML/MIN Imaging Last Impressions Myocardial Perfusion Scan Nuc Med 06/11/17 0000 Signed Impressions: Service Date/Time: Sunday, June 11, 2017 13:23 - CONCLUSION: Left ventricular cardiomegaly with hypokinesia and decreased ejection fraction consistent with cardiomyopathy. Marked amount of radionuclide in the stomach yielding a possible artifactual finding of inferior wall perfusion defect. RISK CATEGORY: Intermediate (1-3%% Annual Mortality Rate) Edwin Gomez MD Chest Ultrasound 06/11/17 0000 Signed Impressions: Service Date/Time: Sunday, June 11, 2017 11:17 - CONCLUSION: No pleural fluid seen on the right. Isidoro Cassidy MD Gall Bladder Ultrasound 06/07/17 0000 Signed Impressions: Service Date/Time: Wednesday, June 07, 2017 07:36 - CONCLUSION: 1. Heterogeneous echotexture of the liver suggesting fatty infiltration. 2. Questionable edematous changes within the pancreas. The pancreas was difficult to visualize. 3. The patient is post cholecystectomy. 4. Large right pleural effusion. Shalom Salinas MD Abdomen/Pelvis CT [id number]/06/[id number] Signed Impressions: Service Date/Time: Tuesday, June 06, 2017 21:13 - CONCLUSION: 1. Trace ascites, nonspecific but there are bilateral pleural effusions and pain chamber enlargement of the heart also noted. Also mild body wall edema/anasarca. 2. No stones or obstruction of either kidney. Normal appendix. 3. Atherosclerotic abdominal aorta. No aneurysm. 4. Possible mild cystitis in the proper clinical setting. Mild enlargement of the prostate. John Gallagher MD Abdomen X-Ray [id number]/[id number] Signed Impressions: Service Date/Time: Tuesday, June 06, 2017 20:04 - CONCLUSION: Benign-appearing abdomen. John Gallagher MD Chest X-Ray 06/06/17 0000 Signed Impressions: Service Date/Time: Tuesday, June 06, 2017 20:02 - CONCLUSION: Mild bibasilar consolidation and small effusions. John Gallagher MD Objective Remarks GENERAL: Alert oriented talkative and cooperative SKIN: Warm and dry. HEAD: Atraumatic. Normocephalic. EYES: Pupils equal and round. No scleral icterus. No injection or drainage. Extraocular muscles are intact ENT: No nasal bleeding or discharge. Mucous membranes pink and moist. Tongue is midline NECK: Trachea midline. No JVD. Supple CARDIOVASCULAR: Regular rate and rhythm. S1-S2 no S3 or S4 no heave or thrill or rub RESPIRATORY: No accessory muscle use. Clear to auscultation. Breath sounds equal bilaterally. Decreased breath sounds bilaterally GASTROINTESTINAL: Abdomen soft, non-tender, nondistended. Hepatic and splenic margins not palpable. MUSCULOSKELETAL: Extremities without clubbing, cyanosis, or edema. No obvious deformities. NEUROLOGICAL: Awake and alert. No obvious cranial nerve deficits. Motor grossly within normal limits. 4 out of 5 muscle strength in the arms and legs. Normal speech. PSYCHIATRIC: Appropriate mood and affect; insight and judgment normal. Procedures STRESS TEST 06-11 Medications and IVs Current Medications Morphine Sulfate (Morphine Inj) 2 mg ONCE ONCE IV PUSH Last administered on 20:02; Start 06/06/17 at 19:45; Stop 06/06/17 at 19:46; Status DC Ondansetron HCl (Zofran Inj) 4 mg ONCE ONCE IVP Last administered on 20:00; Start 06/06/17 at 19:45; Stop 06/06/17 at 19:46; Status DC Sodium Chloride 1,000 ml @ 1,000 mls/hr Q1H IV Last administered on 06/06/17 20:01; Start 06/06/17 at 19:36; Stop 06/06/17 at 20:35; Status DC Sodium Chloride (NS Flush) 2 ml UNSCH PRN IV FLUSH FLUSH AFTER USING IV ACCESS ; Start 06/06/17 at 19:45; Status Cancel Diltiazem HCl (Cardizem Inj) 10 mg ONCE ONCE IV Last administered on 20:01; Start 06/06/17 at 19:45; Stop 06/06/17 at 19:46; Status DC Iodixanol (VISIPAQUE 320 INJ (Rad CT)) 45 ml STK-MED ONCE IV Last administered on 06/06/17 21:20; Start 06/06/17 at 21:20; Stop 06/06/17 at 21:21; Status DC Furosemide (Lasix Inj) 20 mg ONCE ONCE IV PUSH Last administered on 06/06/17 22:42; Start 06/06/17 at 22:30; Stop 06/06/17 at 22:31; Status DC Dextrose (D50w (Vial) Inj) 50 ml UNSCH PRN IV HYPOGLYCEMIA-SEE COMMENTS; Start 06/06/17 at 22:45 Glucagon (Glucagon Inj) 1 mg UNSCH PRN OTHER HYPOGLYCEMIA-SEE COMMENTS; Start 06/06/17 at 22:45 Insulin Aspart (NovoLOG SUPPLEMENTAL SCALE) 1 ACHS SLIDING SCALE SQ Last administered on 06/14/17 09:49; Start 06/07/17 at 08:00 Sodium Chloride (NS Flush) 2 ml UNSCH PRN IV FLUSH FLUSH AFTER USING IV ACCESS ; Start 06/06/17 at 22:45 Sodium Chloride (NS Flush) 2 ml BID IV FLUSH Last administered on 06/14/17 09: 53; Start 06/07/17 at 09:00 Ondansetron HCl (Zofran Inj) 4 mg Q6H PRN IVP NAUSEA OR VOMITING; Start at 22:45 Acetaminophen (Tylenol) 650 mg Q6H PRN PO FEVER/PAIN SCALE 1 TO 2; Start at 22:45 Acetaminophen/ Hydrocodone Bitart ([place] 5-325 Mg) 1 tab Q4H PRN PO PAIN SCALE 3 TO 5 Last administered on 06/14/17 02:47; Start 06/06/17 at 22:45 Morphine Sulfate (Morphine Inj) 2 mg Q3H PRN IV PUSH Pain 6-10 Last administered on 06/07/17 21:26; Start 06/06/17 at 22:45 Senna/Docusate Sodium (Maria Ines-Colace) 1 tab BID PO Last administered on 09:50; Start 06/07/17 at 09:00 Magnesium Hydroxide (Milk Of Magnesia Liq) 30 ml Q12H PRN PO MILD - MODERATE CONSTIPATION Last administered on 06/11/17 17:28; Start 06/06/17 at 22:45 Sennosides (Senokot) 17.2 mg Q12H PRN PO MODERATE - SEVERE CONSTIPATION Last administered on 9/20/17at 12:11; Start 06/06/17 at 22:45 Bisacodyl (Dulcolax Supp) 10 mg DAILY PRN RECTAL SEVERE CONSITIPATION; Start at 22:45 Lactulose (Lactulose Liq) 30 ml DAILY PRN PO SEVERE CONSITIPATION Last administered on 06/11/17 21:23; Start 06/06/17 at 22:45 Furosemide (Lasix) 40 mg BID@18 PO Last administered on 06/07/17 09:13; Start 06/07/17 at 09:00; Stop 06/07/17 at 10:16; Status DC Aspirin (Ecotrin Ec) 81 mg DAILY PO Last administered on 06/14/17 09:49; Start 06/07/17 at 09:00 Metoprolol Tartrate (Lopressor) 12.5 mg Q12HR PO Last administered on 09:13; Start 06/07/17 at 09:00; Stop 06/07/17 at 10:16; Status DC Dextrose 500 ml @ 500 mls/hr BOLUS ONCE IV Last administered on 06/07/17 01: 45; Start 06/07/17 at 01:45; Stop 06/07/17 at 02:44; Status DC Metoprolol Tartrate (Lopressor) 50 mg Q8HR PO Last administered on 06/08/17 12 :44; Start 06/07/17 at 11:00; Stop 06/08/17 at 17:59; Status DC Diltiazem HCl (Cardizem Inj) 15 mg ONCE ONCE IV PUSH Last administered on 06/07 10:36; Start 06/07/17 at 10:30; Stop 06/07/17 at 10:31; Status DC Diltiazem HCl 125 mg/Sodium Chloride 125 ml @ 10 mls/hr TITRATE PRN IV Tachycardia Last administered on 06/07/17 10:52; Start 06/07/17 at 11:00; Stop 06/08/17 at 13:58; Status DC Diltiazem HCl (Cardizem Inj) 15 mg UNSCH X1 PRN IV PUSH SEE LABEL COMMENTS; Start 06/07/17 at 11:00; Stop 06/07/17 at 23:59; Status DC Furosemide (Lasix Inj) 40 mg BID@18 IV PUSH Last administered on 06/12/17 18:30; Start 06/07/17 at 11:00; Stop 06/13/17 at 08:54; Status DC Digoxin (Lanoxin Inj) 0.25 mg ONCE ONCE IV PUSH Last administered on 09:28; Start 06/08/17 at 09:00; Stop 06/08/17 at 09:01; Status DC Digoxin (Lanoxin Inj) 0.25 mg ONCE ONCE IV PUSH Last administered on 15:04; Start 06/08/17 at 15:00; Stop 06/08/17 at 15:01; Status DC Digoxin (Lanoxin Inj) 0.25 mg ONCE ONCE IV PUSH Last administered on 22:38; Start 06/08/17 at 23:00; Stop 06/08/17 at 23:01; Status DC Digoxin (Lanoxin) 0.25 mg ONCE ONCE PO Last administered on 06/09/17 08:37; Start 06/09/17 at 09:00; Stop 06/09/17 at 09:01; Status DC Potassium Chloride (KCl) 20 meq TID PO Last administered on 06/13/17 16:46; Start 06/08/17 at 09:00 Magnesium Sulfate/ Dextrose 100 ml @ 100 mls/hr Q1H IV Last administered on 11:43; Start 06/08/17 at 09:00; Stop 06/08/17 at 10:59; Status DC Atorvastatin Calcium (Lipitor) 40 mg HS PO Last administered on 06/13/17 20:26 ; Start 06/08/17 at 21:00 Cyanocobalamin (Vitamin B12) 500 mcg DAILY PO Last administered on 06/14/17 09 :50; Start 06/09/17 at 09:00 Ferrous Sulfate (Ferrous Sulfate) 325 mg DAILY PO Last administered on 09:50; Start 06/09/17 at 09:00 Terazosin HCl (Hytrin) 1 mg HS PO Last administered on 06/13/17 20:25; Start 06/08/17 at 21:00 Warfarin Sodium (Coumadin) 2.5 mg DAILY@1600 PO Last administered on 06/12/17 16:36; Start 06/08/17 at 18:00; Stop 06/13/17 at 10:44; Status DC Pharmacy Profile Note 0 ml @ 0 mls/hr UNSCH OTHER ; Start 06/08/17 at 15:30 Patient Medication Teaching (Coumadin Booklet) 1 ONCE ONCE OTHER Last administered on 06/08/17 17:31; Start 06/08/17 at 16:00; Stop 06/08/17 at 17:13 ; Status DC Metoprolol Tartrate (Lopressor) 100 mg BID PO Last administered on 06/14/17 09 :51; Start 06/08/17 at 21:00 Heparin Sodium/ Dextrose 250 ml @ 8.28 mls/hr TITRATE PRN IV Coagulation management Last administered on 06/12/17 05:52; Start 06/09/17 at 16:15; Stop 06/12/17 at 11:03; Status DC Alprazolam (Xanax) 0.25 mg Q8H PRN PO ANXIETY Last administered on 06/14/17 02 :52; Start 06/10/17 at 16:00 Metoprolol Tartrate (Lopressor Inj) 2.5 mg Q5M PRN IV PUSH SUSTAINED HR > 130'S ; Start 06/11/17 at 04:00 Atropine Sulfate (Atropine Inj) 1 mg STK-MED ONCE .ROUTE Last administered on 09:00; Start 06/11/17 at 10:52; Stop 06/11/17 at 10:53; Status DC Lidocaine HCl (Xylocaine 2% Inj) 100 mg STK-MED ONCE .ROUTE ; Start 06/11/17 at 10:53; Stop 06/11/17 at 10:54; Status DC Epinephrine HCl (EPINEPHrine (1:10,000) INJ) 1 mg STK-MED ONCE .ROUTE ; Start at 10:53; Stop 06/11/17 at 10:54; Status DC Regadenoson (Lexiscan Inj) 0.4 mg STK-MED ONCE .ROUTE Last administered on 06/11 14:11; Start 06/11/17 at 14:11; Stop 06/11/17 at 14:12; Status DC Bacitracin (Bacitracin Oint Packet) 0.9 gm ONCE ONCE TOPICAL Last administered on 06/12/17 23:45; Start 06/12/17 at 23:45; Stop 06/12/17 at 23:48 ; Status DC Furosemide (Lasix) 40 mg DAILY PO Last administered on 06/14/17 09:51; Start 06/13/17 at 09:00 Warfarin Sodium (Coumadin) 5 mg DAILY@1600 PO Last administered on 06/13/17 16 :47; Start 06/13/17 at 16:00 Urinary Catheter: No Vascular Central Line Catheter: No A/P Problem List: (1) CHF (congestive heart failure) ICD Code: I50.9 - Heart failure, unspecified (2) A-fib ICD Code: I48.91 - Unspecified atrial fibrillation (3) RUQ abdominal pain ICD Code: R10.11 - Right upper quadrant pain Status: Acute (4) Elevated troponin ICD Code: R74.8 - Abnormal levels of other serum enzymes Status: Acute (5) Lactic acidosis ICD Code: E87.2 - Acidosis (6) Renal insufficiency ICD Code: N28.9 - Disorder of kidney and ureter, unspecified Status: Acute (7) DM (diabetes mellitus) ICD Code: E11.9 - Type 2 diabetes mellitus without complications Assessment and Plan In summary, this is a 71-year-old male admitted with acute onset congestive heart failure. The patient also has a history of A. fib which was uncontrolled on presentation, likely contributed to his heart failure. CHF: Acute systolic CHF, new onset. BNP 1400 on admission with pleural effusions. 2-D echocardiogram revealed LVEF of 20% - Cardiology following. Continue metoprolol, digoxin, Lasix. CHERIE inhibitor when renal function stabilized. CT abdomen and pelvis showed trace ascites, bilateral pleural effusions and cardiomegaly. Anasarca. Gallbladder Us Atrial fibrillation with RVR on presentation/elevated cardiac enzymes. - Patient is status post Cardizem drip per cardiology. - Digoxin added. Continue metoprolol. May need to increase metoprolol to 100 mg twice a day. Continue to monitor. Resume Coumadin. Follow IN 06/09 INR subtherapeutic at 1.6. Hold Coumadin for now and start on IV heparin while awaiting for US guided thoracentesis. 06/10 Rate controlled. Continue heparin bridge for thoracentesis. . Thoracentesis WAS NOT PERFORMED. check TSH. NOT ENOUGH FLUID FOR THORACENTESIS INR ONLY 1.1 WILL INCREASE WARFARIN TO 7.5MG PO DAILY Elevated LFT: Likely due to CHF. LFT's trending down. AST 654 ---> 289 ; ALT 657 ---> 549. Continue to monitor LFT's 06/10 AST is slightly lower at 272, 8 LT slightly elevated at 610. Continue to monitor. LFTS STILL BORDERLINE DM: Sliding scale w/ Accu-Cheks. Hold oral hypoglycemic agents. Monitor BS. Blood sugars stable. KATHY: Creatinine 1.66 on admission, no previous labs for comparison, Creatinine slowly trending down. Today 1.5. WORSENING RENAL FUNCTIONS AM LABS- ADJUST LASIX elevated Elevated troponin: Likely demand ischemia. Cardiology following. Troponin level peaked at 0.4, now trending down at 0.37. 06/10 Continue to monitor cardiac enzymes. DVT Prophylaxis: Hold Coumadin, STOP HEPARIN DRIP Need to be reloaded on Coumadin prior to discharge- START RELOADING COUMADIN HAD STRESS TEST 06-11 -HAS ARTIFACT- NO CATH THIS ADMISSION A.m. labs We'll need to have his Coumadin reloaded prior to discharge INCREASE TO 5MG PO DAILY DW CARDIO AND RN HYPERKALEMIA- TREAT IF STILL ABNORMAL DW RN AND PT MAY NEED SNF Discharge Planning CM FOR SNF Heri Hill DO Jun 14, 2017 10:20
--- NOTE | 2017-06-14 11:11 | PD.CARD.PN ---
Subjective Subjective Remarks No orthopnea. +JOSUE Objective Medications Current Medications Medications (Trade) Dose Ordered Sig/Trinity Route Start Time Stop Time Status Last Admin (D50w (Vial) Inj) 50 ml UNSCH PRN IV 06/06/17 22:45 (Glucagon Inj) 1 mg UNSCH PRN OTHER 06/06/17 22:45 (NovoLOG SUPPLEMENTAL SCALE) 1 ACHS SLIDING SCALE SQ 06/07/17 08:00 06/14/17 09:49 (NS Flush) 2 ml UNSCH PRN IV FLUSH 06/06/17 22:45 (NS Flush) 2 ml BID IV FLUSH 06/07/17 09:00 06/14/17 09:53 (Zofran Inj) 4 mg Q6H PRN IVP 06/06/17 22:45 (Tylenol) 650 mg Q6H PRN PO 06/06/17 22:45 ([place] 5-325 Mg) 1 tab Q4H PRN PO 06/06/17 22:45 06/14/17 02:47 (Morphine Inj) 2 mg Q3H PRN IV PUSH 06/06/17 22:45 06/07/17 21:26 (Maria Ines-Colace) 1 tab BID PO 06/07/17 09:00 06/14/17 09:50 (Milk Of Magnesia Liq) 30 ml Q12H PRN PO 06/06/17 22:45 06/11/17 17:28 (Senokot) 17.2 mg Q12H PRN PO 06/06/17 22:45 06/09/17 12:11 (Dulcolax Supp) 10 mg DAILY PRN RECTAL 06/06/17 22:45 (Lactulose Liq) 30 ml DAILY PRN PO 06/06/17 22:45 06/11/17 21:23 (KCl) 20 meq TID PO 06/08/17 09:00 06/13/17 16:46 (Lipitor) 40 mg HS PO 06/08/17 21:00 06/13/17 20:26 (Vitamin B12) 500 mcg DAILY PO 06/09/17 09:00 06/14/17 09:50 (Ferrous Sulfate) 325 mg DAILY PO 06/09/17 09:00 06/14/17 09:50 (Hytrin) 1 mg HS PO 06/08/17 21:00 06/13/17 20:25 Pharmacy Profile Note 0 ml @ 0 mls/hr UNSCH OTHER 06/08/17 15:30 (Lopressor) 100 mg BID PO 06/08/17 21:00 06/14/17 09:51 (Xanax) 0.25 mg Q8H PRN PO 06/10/17 16:00 06/14/17 02:52 (Lopressor Inj) 2.5 mg Q5M PRN IV PUSH 06/11/17 04:00 (Lasix) 40 mg DAILY PO 06/13/17 09:00 06/14/17 09:51 (Eliquis) 5 mg BID PO 06/14/17 21:00 UNV Vital Signs / I&O Vital Signs Date Time Temp Pulse Resp B/P (MAP) Pulse Ox O2 Delivery O2 Flow Rate FiO2 06/14/17 07:32 97.4 72 18 123/81 (95) 98 06/14/17 07:00 84 06/14/17 06:00 63 06/14/17 05:00 78 06/14/17 04:00 96 06/14/17 03:00 101 06/14/17 03:00 97.8 106 18 114/84 (94) 97 06/14/17 02:00 90 06/14/17 01:00 93 06/14/17 00:00 80 06/13/17 23:10 98.2 97 18 99/49 (66) 96 06/13/17 23:00 89 06/13/17 22:00 100 06/13/17 21:00 100 06/13/17 20:00 114 06/13/17 19:45 97.5 102 18 130/83 (99) 100 06/13/17 19:00 115 06/13/17 18:02 111 06/13/17 17:02 92 06/13/17 16:19 102 06/13/17 15:55 72 06/13/17 15:55 98.0 72 16 130/74 (92) 100 06/13/17 14:06 93 06/13/17 13:02 94 06/13/17 12:01 81 06/13/17 11:51 98.0 79 16 116/65 (82) 98 06/13/17 11:51 72 I/O 9/2406/13/17 06/13/17 06/14/17 06/14/17 06/14/17 07:00 15:00 23:00 07:00 15:00 23:00 Intake Total 480 ml 600 ml 480 ml Output Total 300 ml 425 ml Balance 180 ml 600 ml 55 ml Intake Oral 480 ml 600 ml 480 ml Output Urine Total 300 ml 425 ml # Voids 2 4 # Bowel Movements 1 1 0 Physical Exam Alert No JVD Chest: cdreased left base. Check CXR CV: S1S2 irreg irreg No edema Echo and SPECT c/w old IWMI Laboratory Laboratory Tests Test 06/14/17 04:35 White Blood Count 7.6 TH/MM3 Red Blood Count 3.48 MIL/MM3 Hemoglobin 10.4 GM/DL Hematocrit 31.9 % Mean Corpuscular Volume 91.7 FL Mean Corpuscular Hemoglobin 30.0 PG Mean Corpuscular Hemoglobin Concent 32.7 % Red Cell Distribution Width 16.3 % Platelet Count 194 TH/MM3 Mean Platelet Volume 8.8 FL Neutrophils (%) (Auto) 66.0 % Lymphocytes (%) (Auto) 16.3 % Monocytes (%) (Auto) 13.9 % Eosinophils (%) (Auto) 3.1 % Basophils (%) (Auto) 0.7 % Neutrophils # (Auto) 5.0 TH/MM3 Lymphocytes # (Auto) 1.2 TH/MM3 Monocytes # (Auto) 1.1 TH/MM3 Eosinophils # (Auto) 0.2 TH/MM3 Basophils # (Auto) 0.1 TH/MM3 CBC Comment DIFF FINAL Differential Comment Prothrombin Time 12.3 SEC Prothromb Time International Ratio 1.1 RATIO Blood Urea Nitrogen 66 MG/DL Creatinine 2.12 MG/DL Random Glucose 169 MG/DL Total Protein 7.6 GM/DL Albumin 3.9 GM/DL Calcium Level 9.6 MG/DL Phosphorus Level 4.3 MG/DL Magnesium Level 2.8 MG/DL Alkaline Phosphatase 135 U/L Aspartate Amino Transf (AST/SGOT) 41 U/L Alanine Aminotransferase (ALT/SGPT) 297 U/L Total Bilirubin 0.5 MG/DL Sodium Level 134 MEQ/L Potassium Level 6.5 MEQ/L Chloride Level 100 MEQ/L Carbon Dioxide Level 28.3 MEQ/L Anion Gap 6 MEQ/L Estimat Glomerular Filtration Rate 31 ML/MIN Assessment and Plan Problem List: (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 Stop warfarin, initiate Eliquis 5mg bid (5) Pleural effusion ICD Codes: J90 - Pleural effusion, not elsewhere classified Status: Acute Plan: Check CXR (6) Elevated liver enzymes ICD Codes: R74.8 - Abnormal levels of other serum enzymes Plan: Improving (7) Renal insufficiency ICD Codes: N28.9 - Disorder of kidney and ureter, unspecified Status: Acute Plan: Unable to add ACEI or ARB Assessment and Plan Hopefully can plan discharge 1-2 days Discussed Condition With Polo Bullock MD Jun 14, 2017 11:11
[2017-06-14 12:18] LABS: BICARBONATE 28.6 MEQ/L (21.0-32.0); POTASSIUM 5.3 MEQ/L (3.5-5.1)
[2017-06-14] MEDS: DIGOXIN 0.125 MG TAB PO SCH (13:17)
[2017-06-14] MEDS ORDERED: ATROPINE SULFATE 1 MG/10 ML SYRINGE ONE (13:45)
[2017-06-14] MEDS ORDERED: LIDOCAINE HCL 2% 100 MG/5 ML SYRINGE ONE (13:45)
[2017-06-14] MEDS ORDERED: EPINEPHrine HCL (1:10,000) 1 MG/10 ML SYRINGE ONE (13:45)
--- NOTE | 2017-06-14 14:25 | RADRPT ---
EXAM DATE/TIME: 06/14/2017 13:57 [facility] COMPARISON: CHEST SINGLE AP, June 06, 2017, 20:02. ABDOMEN UPRIGHT ONLY, June 06, 2017, 20:04. INDICATIONS : Short of breath since this morning. MEDICAL HISTORY : Diabetes mellitus type 2. Cardiovascular disease cardiac stent SURGICAL HISTORY : None. ENCOUNTER: Subsequent ACUITY: 1 week PAIN SCORE: 0/10 LOCATION: Bilateral chest FINDINGS: The heart is at the upper limits of normal in size. The lungs are clear. The bony structures are gary sly intact. The chest has improved in appearance compared to previous dated 06/06/17. CONCLUSION: 1. No acute abnormality. 2. Resolution of the patient's pleural effusion since prior of 06/06/17. Shalom Salinas MD on June 14, 2017 at 14:23 Board Certified Radiologist. This report was verified electronically.
[2017-06-14] MEDS ORDERED: WARFARIN SOD 7.5 MG TAB PO SCH (16:00)
[2017-06-14] MEDS: TERAZOSIN HCL 1 MG CAP PO SCH (21:42)
[2017-06-14] MEDS: ATORVASTATIN 40 MG TAB PO SCH (21:43)
[2017-06-14] MEDS: APIXABAN 5 MG TABLET PO SCH (21:43)
[2017-06-15] VITALS (23 sets, daily range): BP systolic 102–143; BP diastolic 49–85; PULSE 66–116; RESP 16–20; TEMP 97.4–98.1; O2SAT 97–100
[2017-06-15 06:27] LABS: AUTOMATED NEUTROPHIL # 4.7 TH/MM3 (1.8-7.7); BASOPHIL # 0.1 TH/MM3 (0-0.2); BASOPHIL % 1.1 % (0.0-2.0); EOSINOPHIL # 0.3 TH/MM3 (0-0.4); EOSINOPHIL % 4.1 % (0.0-4.0); HEMATOCRIT 32.5 % (39.0-51.0); HEMO FLAGS DIFF FINAL; LYMPH % 18.5 % (9.0-44.0); LYMPHOCYTE # 1.4 TH/MM3 (1.0-4.8); MEAN CELL VOLUME 91.5 FL (80.0-100.0); MEAN CORPUSCULAR HEMOGLOBIN 30.4 PG (27.0-34.0); MEAN CORPUSCULAR HGB CONC 33.3 % (32.0-36.0); MONO % 13.3 % (0.0-8.0); PLATELET COUNT 214 TH/MM3 (150-450); RED BLOOD COUNT 3.55 MIL/MM3 (4.50-5.90); RED CELL DISTRIBUTION WIDTH 16.1 % (11.6-17.2); WHITE BLOOD COUNT 7.5 TH/MM3 (4.0-11.0)
[2017-06-15 06:59] LABS: ALT (GPT) 230 U/L (12-78); ANION GAP 7 MEQ/L (5-15); AST (GOT) 29 U/L (15-37); BICARBONATE 27.9 MEQ/L (21.0-32.0); BLOOD UREA NITROGEN 67 MG/DL (7-18); CHLORIDE 101 MEQ/L (98-107); GLOMERULAR FILTRATION RATE 33 ML/MIN (>89); MAGNESIUM 2.7 MG/DL (1.5-2.5); SODIUM (NA) 136 MEQ/L (136-145)
[2017-06-15 07:01] LABS: ALKALINE PHOSPHATASE 143 U/L (45-117); TOTAL BILIRUBIN ADULT 0.5 MG/DL (0.2-1.0)
[2017-06-15] MEDS: INSULIN ASPART SUPPLEMENTAL SCALE SQ SCH ×4 (08:00→21:05)
[2017-06-15] MEDS: DOCUSATE SODIUM 50 MG/SENNA 8.6 MG TAB PO SCH ×2 (08:34→21:05)
[2017-06-15] MEDS: SODIUM CHLORIDE 0.9% FLUSH 10 ML FLUSH IV FLUSH SCH ×2 (08:34→21:00)
[2017-06-15] MEDS: DIGOXIN 0.125 MG TAB PO SCH (08:34)
[2017-06-15] MEDS: FERROUS SULFATE 325 MG (65 MG ELEMENTAL IRON) TAB PO SCH (08:34)
[2017-06-15] MEDS: METOPROLOL TARTRATE 25 MG TAB PO SCH ×2 (08:34→21:04)
[2017-06-15] MEDS: APIXABAN 5 MG TABLET PO SCH ×2 (08:34→21:05)
[2017-06-15] MEDS: CYANOCOBALAMIN 1,000 MCG TAB PO SCH (08:35)
[2017-06-15] MEDS: FUROSEMIDE 40 MG TAB PO SCH (08:35)
[2017-06-15] MEDS ORDERED: FURO40TA PO (09:41)
[2017-06-15] MEDS ORDERED: [UNRECOGNIZED DRUG - OTHER] EXTERNAL (09:41)
[2017-06-15] MEDS ORDERED: ATOR40TA16 PO (09:41)
[2017-06-15] MEDS ORDERED: APIX5TAB PO (09:41)
[2017-06-15] MEDS ORDERED: TERA1CAP3 PO (09:41)
[2017-06-15] MEDS ORDERED: BISA10R RECTAL (09:41)
[2017-06-15] MEDS ORDERED: FERR325T8 PO (09:41)
[2017-06-15] MEDS ORDERED: SENN8.6T15 PO (09:41)
[2017-06-15] MEDS ORDERED: METO100T PO (09:41)
--- NOTE | 2017-06-15 09:43 | HHI.PR ---
Subjective Remarks HAD NUCLEAR STRESS TEST DONE TODAY DW PT AND CARDIOLOGY Discussed with patient and RN and . A.m. labs 06-12 DW CARDIOLOGY AND PT AND RN NEEDS NOTE FOR WORK AM LABS NEEDS PT AND OT WATCH LFTS INCREASE ACTIVITY RELOAD COUMADIN 06-13 MEDS BEING ADJUSTED BY CARDIOLOGY STILL SOB ON ANY REAL ACTIVITY NEEDS PT AND OT MAY NEED SNF DW RN AND PATIENT AND CARDIOLOGY AM LABS 06-14 not very mobile yet ABNORMAL LABS REPEAT TODAY LOAD COUMADIN DW RN AND PT AND CM 06-15 SWITCHED OF COUMADIN TO ELIQUIS BID CAN DC TO HOME WITH [facility] BREATHING BETTER DW RN AND PT NEEDS ZOLL LIFEVEST AT DISCHARGE Objective Vitals Vital Signs Date Time Temp Pulse Resp B/P (MAP) Pulse Ox O2 Delivery O2 Flow Rate FiO2 06/15/17 08:00 100 06/15/17 08:00 97.4 82 20 123/62 (82) 99 06/15/17 07:00 88 06/15/17 06:00 107 06/15/17 05:00 108 06/15/17 04:00 97.4 108 20 143/74 (97) 100 06/15/17 03:00 109 06/15/17 02:00 109 06/15/17 00:00 98.1 98 20 102/69 (80) 100 06/15/17 00:00 98 06/14/17 23:00 06/14/17 23:00 113 06/14/17 20:00 101 06/14/17 19:00 98.1 101 20 144/83 (103) 100 06/14/17 18:00 90 06/14/17 17:00 82 06/14/17 16:00 80 06/14/17 15:00 98.1 80 20 116/66 (83) 100 06/14/17 15:00 94 06/14/17 14:00 84 06/14/17 13:00 88 06/14/17 12:00 90 06/14/17 11:24 97.5 97 20 116/62 (80) 99 06/14/17 11:00 96 06/14/17 10:00 80 I/O 06/14/17 06/14/17 06/14/17 06/15/17 06/15/17 06/15/17 07:00 15:00 23:00 07:00 15:00 23:00 Intake Total 480 ml 480 ml 360 ml Output Total 425 ml 700 ml Balance 55 ml 480 ml -340 ml Intake Oral 480 ml 480 ml 360 ml Output Urine Total 425 ml 700 ml # Voids 3 # Bowel Movements 0 Result Diagram: 06/15/17 0615 06/15/17 0615 Other Results Laboratory Tests Test 06/12/17 10:05 06/13/17 06:42 06/14/17 04:35 06/14/17 11:28 Activated Partial Thromboplast Time 52.5 SEC White Blood Count 8.2 TH/MM3 7.6 TH/MM3 Red Blood Count 3.57 MIL/MM3 3.48 MIL/MM3 Hemoglobin 10.7 GM/DL 10.4 GM/DL Hematocrit 32.7 % 31.9 % Mean Corpuscular Volume 91.5 FL 91.7 FL Mean Corpuscular Hemoglobin 30.1 PG 30.0 PG Mean Corpuscular Hemoglobin Concent 32.9 % 32.7 % Red Cell Distribution Width 16.6 % 16.3 % Platelet Count 209 TH/MM3 194 TH/MM3 Mean Platelet Volume 8.9 FL 8.8 FL Neutrophils (%) (Auto) 64.1 % 66.0 % Lymphocytes (%) (Auto) 18.8 % 16.3 % Monocytes (%) (Auto) 13.4 % 13.9 % Eosinophils (%) (Auto) 2.8 % 3.1 % Basophils (%) (Auto) 0.9 % 0.7 % Neutrophils # (Auto) 5.3 TH/MM3 5.0 TH/MM3 Lymphocytes # (Auto) 1.5 TH/MM3 1.2 TH/MM3 Monocytes # (Auto) 1.1 TH/MM3 1.1 TH/MM3 Eosinophils # (Auto) 0.2 TH/MM3 0.2 TH/MM3 Basophils # (Auto) 0.1 TH/MM3 0.1 TH/MM3 CBC Comment DIFF FINAL DIFF FINAL Differential Comment Prothrombin Time 12.0 SEC 12.3 SEC Prothromb Time International Ratio 1.1 RATIO 1.1 RATIO Blood Urea Nitrogen 61 MG/DL 66 MG/DL 64 MG/DL Creatinine 2.09 MG/DL 2.12 MG/DL 2.02 MG/DL Random Glucose 166 MG/DL 169 MG/DL 227 MG/DL Total Protein 7.8 GM/DL 7.6 GM/DL Albumin 4.2 GM/DL 3.9 GM/DL Calcium Level 10.0 MG/DL 9.6 MG/DL 9.7 MG/DL Phosphorus Level 4.1 MG/DL 4.3 MG/DL Magnesium Level 2.6 MG/DL 2.8 MG/DL Alkaline Phosphatase 146 U/L 135 U/L Aspartate Amino Transf (AST/SGOT) 73 U/L 41 U/L Alanine Aminotransferase (ALT/SGPT) 401 U/L 297 U/L Total Bilirubin 0.7 MG/DL 0.5 MG/DL Sodium Level 135 MEQ/L 134 MEQ/L 134 MEQ/L Potassium Level 4.9 MEQ/L 6.5 MEQ/L 5.3 MEQ/L Chloride Level 98 MEQ/L 100 MEQ/L 100 MEQ/L Carbon Dioxide Level 30.5 MEQ/L 28.3 MEQ/L 28.6 MEQ/L Anion Gap 7 MEQ/L 6 MEQ/L 5 MEQ/L Estimat Glomerular Filtration Rate 31 ML/MIN 31 ML/MIN 33 ML/MIN Test 06/15/17 06:15 White Blood Count 7.5 TH/MM3 Red Blood Count 3.55 MIL/MM3 Hemoglobin 10.8 GM/DL Hematocrit 32.5 % Mean Corpuscular Volume 91.5 FL Mean Corpuscular Hemoglobin 30.4 PG Mean Corpuscular Hemoglobin Concent 33.3 % Red Cell Distribution Width 16.1 % Platelet Count 214 TH/MM3 Mean Platelet Volume 8.6 FL Neutrophils (%) (Auto) 63.0 % Lymphocytes (%) (Auto) 18.5 % Monocytes (%) (Auto) 13.3 % Eosinophils (%) (Auto) 4.1 % Basophils (%) (Auto) 1.1 % Neutrophils # (Auto) 4.7 TH/MM3 Lymphocytes # (Auto) 1.4 TH/MM3 Monocytes # (Auto) 1.0 TH/MM3 Eosinophils # (Auto) 0.3 TH/MM3 Basophils # (Auto) 0.1 TH/MM3 CBC Comment DIFF FINAL Differential Comment Blood Urea Nitrogen 67 MG/DL Creatinine 2.02 MG/DL Random Glucose 189 MG/DL Total Protein 7.9 GM/DL Albumin 4.0 GM/DL Calcium Level 9.9 MG/DL Phosphorus Level 5.0 MG/DL Magnesium Level 2.7 MG/DL Alkaline Phosphatase 143 U/L Aspartate Amino Transf (AST/SGOT) 29 U/L Alanine Aminotransferase (ALT/SGPT) 230 U/L Total Bilirubin 0.5 MG/DL Sodium Level 136 MEQ/L Potassium Level 5.0 MEQ/L Chloride Level 101 MEQ/L Carbon Dioxide Level 27.9 MEQ/L Anion Gap 7 MEQ/L Estimat Glomerular Filtration Rate 33 ML/MIN Imaging Last Impressions Chest X-Ray 06/14/17 0000 Signed Impressions: Service Date/Time: Wednesday, June 14, 2017 13:57 - CONCLUSION: 1. No acute abnormality. 2. Resolution of the patient's pleural effusion since prior of 06/06/17. Shalom Salinas MD Myocardial Perfusion Scan Nuc Med 06/11/17 0000 Signed Impressions: Service Date/Time: Sunday, June 11, 2017 13:23 - CONCLUSION: Left ventricular cardiomegaly with hypokinesia and decreased ejection fraction consistent with cardiomyopathy. Marked amount of radionuclide in the stomach yielding a possible artifactual finding of inferior wall perfusion defect. RISK CATEGORY: Intermediate (1-3%% Annual Mortality Rate) Edwin Gomez MD Chest Ultrasound 06/11/17 0000 Signed Impressions: Service Date/Time: Sunday, June 11, 2017 11:17 - CONCLUSION: No pleural fluid seen on the right. Isidoro Cassidy MD Gall Bladder Ultrasound 06/07/17 0000 Signed Impressions: Service Date/Time: Wednesday, June 07, 2017 07:36 - CONCLUSION: 1. Heterogeneous echotexture of the liver suggesting fatty infiltration. 2. Questionable edematous changes within the pancreas. The pancreas was difficult to visualize. 3. The patient is post cholecystectomy. 4. Large right pleural effusion. Shalom Salinas MD Abdomen/Pelvis CT [id number]/06/[id number] Signed Impressions: Service Date/Time: Tuesday, June 06, 2017 21:13 - CONCLUSION: 1. Trace ascites, nonspecific but there are bilateral pleural effusions and pain chamber enlargement of the heart also noted. Also mild body wall edema/anasarca. 2. No stones or obstruction of either kidney. Normal appendix. 3. Atherosclerotic abdominal aorta. No aneurysm. 4. Possible mild cystitis in the proper clinical setting. Mild enlargement of the prostate. John Gallagher MD Abdomen X-Ray [id number]/06/[id number] Signed Impressions: Service Date/Time: Tuesday, June 06, 2017 20:04 - CONCLUSION: Benign-appearing abdomen. John Gallagher MD Objective Remarks GENERAL: Alert oriented talkative and cooperative SKIN: Warm and dry. HEAD: Atraumatic. Normocephalic. EYES: Pupils equal and round. No scleral icterus. No injection or drainage. Extraocular muscles are intact ENT: No nasal bleeding or discharge. Mucous membranes pink and moist. Tongue is midline NECK: Trachea midline. No JVD. Supple CARDIOVASCULAR: Regular rate and rhythm. S1-S2 no S3 or S4 no heave or thrill or rub RESPIRATORY: No accessory muscle use. Clear to auscultation. Breath sounds equal bilaterally. Decreased breath sounds bilaterally GASTROINTESTINAL: Abdomen soft, non-tender, nondistended. Hepatic and splenic margins not palpable. MUSCULOSKELETAL: Extremities without clubbing, cyanosis, or edema. No obvious deformities. NEUROLOGICAL: Awake and alert. No obvious cranial nerve deficits. Motor grossly within normal limits. 4 out of 5 muscle strength in the arms and legs. Normal speech. PSYCHIATRIC: Appropriate mood and affect; insight and judgment normal. Procedures STRESS TEST 06-11 Medications and IVs Current Medications Morphine Sulfate (Morphine Inj) 2 mg ONCE ONCE IV PUSH Last administered on 20:02; Start 06/06/17 at 19:45; Stop 06/06/17 at 19:46; Status DC Ondansetron HCl (Zofran Inj) 4 mg ONCE ONCE IVP Last administered on 20:00; Start 06/06/17 at 19:45; Stop 06/06/17 at 19:46; Status DC Sodium Chloride 1,000 ml @ 1,000 mls/hr Q1H IV Last administered on 06/06/17 20:01; Start 06/06/17 at 19:36; Stop 06/06/17 at 20:35; Status DC Sodium Chloride (NS Flush) 2 ml UNSCH PRN IV FLUSH FLUSH AFTER USING IV ACCESS ; Start 06/06/17 at 19:45; Status Cancel Diltiazem HCl (Cardizem Inj) 10 mg ONCE ONCE IV Last administered on 20:01; Start 06/06/17 at 19:45; Stop 06/06/17 at 19:46; Status DC Iodixanol (VISIPAQUE 320 INJ (Rad CT)) 45 ml STK-MED ONCE IV Last administered on 06/06/17 21:20; Start 06/06/17 at 21:20; Stop 06/06/17 at 21:21; Status DC Furosemide (Lasix Inj) 20 mg ONCE ONCE IV PUSH Last administered on 06/06/17 22:42; Start 06/06/17 at 22:30; Stop 06/06/17 at 22:31; Status DC Dextrose (D50w (Vial) Inj) 50 ml UNSCH PRN IV HYPOGLYCEMIA-SEE COMMENTS; Start 06/06/17 at 22:45 Glucagon (Glucagon Inj) 1 mg UNSCH PRN OTHER HYPOGLYCEMIA-SEE COMMENTS; Start 06/06/17 at 22:45 Insulin Aspart (NovoLOG SUPPLEMENTAL SCALE) 1 ACHS SLIDING SCALE SQ Last administered on 06/15/17 08:00; Start 06/07/17 at 08:00 Sodium Chloride (NS Flush) 2 ml UNSCH PRN IV FLUSH FLUSH AFTER USING IV ACCESS ; Start 06/06/17 at 22:45 Sodium Chloride (NS Flush) 2 ml BID IV FLUSH Last administered on 06/15/17 08: 34; Start 06/07/17 at 09:00 Ondansetron HCl (Zofran Inj) 4 mg Q6H PRN IVP NAUSEA OR VOMITING; Start at 22:45 Acetaminophen (Tylenol) 650 mg Q6H PRN PO FEVER/PAIN SCALE 1 TO 2; Start at 22:45 Acetaminophen/ Hydrocodone Bitart (Basom 5-325 Mg) 1 tab Q4H PRN PO PAIN SCALE 3 TO 5 Last administered on 06/14/17 21:42; Start 06/06/17 at 22:45 Morphine Sulfate (Morphine Inj) 2 mg Q3H PRN IV PUSH Pain 6-10 Last administered on 06/07/17 21:26; Start 06/06/17 at 22:45 Senna/Docusate Sodium (Maria Ines-Colace) 1 tab BID PO Last administered on 08:34; Start 06/07/17 at 09:00 Magnesium Hydroxide (Milk Of Magnesia Liq) 30 ml Q12H PRN PO MILD - MODERATE CONSTIPATION Last administered on 06/11/17 17:28; Start 06/06/17 at 22:45 Sennosides (Senokot) 17.2 mg Q12H PRN PO MODERATE - SEVERE CONSTIPATION Last administered on 06/09/17 12:11; Start 06/06/17 at 22:45 Bisacodyl (Dulcolax Supp) 10 mg DAILY PRN RECTAL SEVERE CONSITIPATION; Start at 22:45 Lactulose (Lactulose Liq) 30 ml DAILY PRN PO SEVERE CONSITIPATION Last administered on 06/11/17 21:23; Start 06/06/17 at 22:45 Furosemide (Lasix) 40 mg BID@,18 PO Last administered on 06/07/17 09:13; Start 06/07/17 at 09:00; Stop 06/07/17 at 10:16; Status DC Aspirin (Ecotrin Ec) 81 mg DAILY PO Last administered on 06/14/17 09:49; Start 06/07/17 at 09:00; Stop 06/14/17 at 11:06; Status DC Metoprolol Tartrate (Lopressor) 12.5 mg Q12HR PO Last administered on 09:13; Start 06/07/17 at 09:00; Stop 06/07/17 at 10:16; Status DC Dextrose 500 ml @ 500 mls/hr BOLUS ONCE IV Last administered on 06/07/17 01: 45; Start 06/07/17 at 01:45; Stop 06/07/17 at 02:44; Status DC Metoprolol Tartrate (Lopressor) 50 mg Q8HR PO Last administered on 06/08/17 12 :44; Start 06/07/17 at 11:00; Stop 06/08/17 at 17:59; Status DC Diltiazem HCl (Cardizem Inj) 15 mg ONCE ONCE IV PUSH Last administered on 06/07 10:36; Start 06/07/17 at 10:30; Stop 06/07/17 at 10:31; Status DC Diltiazem HCl 125 mg/Sodium Chloride 125 ml @ 10 mls/hr TITRATE PRN IV Tachycardia Last administered on 06/07/17 10:52; Start 06/07/17 at 11:00; Stop 06/08/17 at 13:58; Status DC Diltiazem HCl (Cardizem Inj) 15 mg UNSCH X1 PRN IV PUSH SEE LABEL COMMENTS; Start 06/07/17 at 11:00; Stop 06/07/17 at 23:59; Status DC Furosemide (Lasix Inj) 40 mg BID@09,18 IV PUSH Last administered on 06/12/17 18:30; Start 06/07/17 at 11:00; Stop 06/13/17 at 08:54; Status DC Digoxin (Lanoxin Inj) 0.25 mg ONCE ONCE IV PUSH Last administered on 09:28; Start 06/08/17 at 09:00; Stop 06/08/17 at 09:01; Status DC Digoxin (Lanoxin Inj) 0.25 mg ONCE ONCE IV PUSH Last administered on 15:04; Start 06/08/17 at 15:00; Stop 06/08/17 at 15:01; Status DC Digoxin (Lanoxin Inj) 0.25 mg ONCE ONCE IV PUSH Last administered on 22:38; Start 06/08/17 at 23:00; Stop 06/08/17 at 23:01; Status DC Digoxin (Lanoxin) 0.25 mg ONCE ONCE PO Last administered on 06/09/17 08:37; Start 06/09/17 at 09:00; Stop 06/09/17 at 09:01; Status DC Potassium Chloride (KCl) 20 meq TID PO Last administered on 06/13/17 16:46; Start 06/08/17 at 09:00; Stop 06/14/17 at 13:05; Status DC Magnesium Sulfate/ Dextrose 100 ml @ 100 mls/hr Q1H IV Last administered on 11:43; Start 06/08/17 at 09:00; Stop 06/08/17 at 10:59; Status DC Atorvastatin Calcium (Lipitor) 40 mg HS PO Last administered on 06/14/17 21:43 ; Start 06/08/17 at 21:00 Cyanocobalamin (Vitamin B12) 500 mcg DAILY PO Last administered on 06/15/17 08 :35; Start 06/09/17 at 09:00 Ferrous Sulfate (Ferrous Sulfate) 325 mg DAILY PO Last administered on 08:34; Start 06/09/17 at 09:00 Terazosin HCl (Hytrin) 1 mg HS PO Last administered on 06/14/17 21:42; Start 06/08/17 at 21:00 Warfarin Sodium (Coumadin) 2.5 mg DAILY@1600 PO Last administered on 06/12/17 16:36; Start 06/08/17 at 18:00; Stop 06/13/17 at 10:44; Status DC Pharmacy Profile Note 0 ml @ 0 mls/hr UNSCH OTHER ; Start 06/08/17 at 15:30 Patient Medication Teaching (Coumadin Booklet) 1 ONCE ONCE OTHER Last administered on 06/08/17 17:31; Start 06/08/17 at 16:00; Stop 06/08/17 at 17:13 ; Status DC Metoprolol Tartrate (Lopressor) 100 mg BID PO Last administered on 06/15/17 08 :34; Start 06/08/17 at 21:00 Heparin Sodium/ Dextrose 250 ml @ 8.28 mls/hr TITRATE PRN IV Coagulation management Last administered on 06/12/17 05:52; Start 06/09/17 at 16:15; Stop 06/12/17 at 11:03; Status DC Alprazolam (Xanax) 0.25 mg Q8H PRN PO ANXIETY Last administered on 06/14/17 22 :02; Start 06/10/17 at 16:00 Metoprolol Tartrate (Lopressor Inj) 2.5 mg Q5M PRN IV PUSH SUSTAINED HR > 130'S ; Start 06/11/17 at 04:00 Atropine Sulfate (Atropine Inj) 1 mg STK-MED ONCE .ROUTE Last administered on 09:00; Start 06/11/17 at 10:52; Stop 06/11/17 at 10:53; Status DC Lidocaine HCl (Xylocaine 2% Inj) 100 mg STK-MED ONCE .ROUTE ; Start 06/11/17 at 10:53; Stop 06/11/17 at 10:54; Status DC Epinephrine HCl (EPINEPHrine (1:10,000) INJ) 1 mg STK-MED ONCE .ROUTE ; Start at 10:53; Stop 06/11/17 at 10:54; Status DC Regadenoson (Lexiscan Inj) 0.4 mg STK-MED ONCE .ROUTE Last administered on 06/11 14:11; Start 06/11/17 at 14:11; Stop 06/11/17 at 14:12; Status DC Bacitracin (Bacitracin Oint Packet) 0.9 gm ONCE ONCE TOPICAL Last administered on 06/12/17 23:45; Start 06/12/17 at 23:45; Stop 06/12/17 at 23:48 ; Status DC Furosemide (Lasix) 40 mg DAILY PO Last administered on 06/15/17 08:35; Start 06/13/17 at 09:00 Warfarin Sodium (Coumadin) 5 mg DAILY@1600 PO Last administered on 06/13/17 16 :47; Start 06/13/17 at 16:00; Stop 06/14/17 at 10:21; Status DC Warfarin Sodium (Coumadin) 7.5 mg DAILY@1600 PO ; Start 06/14/17 at 16:00; Stop 06/14/17 at 16:00; Status DC Apixaban (Eliquis) 5 mg BID PO Last administered on 06/15/17 08:34; Start at 21:00 Digoxin (Lanoxin) 0.125 mg DAILY PO Last administered on 06/15/17 08:34; Start 06/14/17 at 11:15 Atropine Sulfate (Atropine Inj) 1 mg STK-MED ONCE .ROUTE ; Start 06/14/17 at 13: 45; Stop 06/14/17 at 13:46; Status DC Lidocaine HCl (Xylocaine 2% Inj) 100 mg STK-MED ONCE .ROUTE ; Start 06/14/17 at 13:45; Stop 06/14/17 at 13:46; Status DC Epinephrine HCl (EPINEPHrine (1:10,000) INJ) 1 mg STK-MED ONCE .ROUTE ; Start at 13:45; Stop 06/14/17 at 13:46; Status DC Urinary Catheter: No Vascular Central Line Catheter: No A/P Problem List: (1) CHF (congestive heart failure) ICD Code: I50.9 - Heart failure, unspecified (2) A-fib ICD Code: I48.91 - Unspecified atrial fibrillation (3) RUQ abdominal pain ICD Code: R10.11 - Right upper quadrant pain Status: Acute (4) Elevated troponin ICD Code: R74.8 - Abnormal levels of other serum enzymes Status: Acute (5) Lactic acidosis ICD Code: E87.2 - Acidosis (6) Renal insufficiency ICD Code: N28.9 - Disorder of kidney and ureter, unspecified Status: Acute (7) DM (diabetes mellitus) ICD Code: E11.9 - Type 2 diabetes mellitus without complications Assessment and Plan In summary, this is a 71-year-old male admitted with acute onset congestive heart failure. The patient also has a history of A. fib which was uncontrolled on presentation, likely contributed to his heart failure. CHF: Acute systolic CHF, new onset. BNP 1400 on admission with pleural effusions. 2-D echocardiogram revealed LVEF of 20% - Cardiology following. Continue metoprolol, digoxin, Lasix. CHERIE inhibitor when renal function stabilized. CT abdomen and pelvis showed trace ascites, bilateral pleural effusions and cardiomegaly. Anasarca. Gallbladder Us Atrial fibrillation with RVR on presentation/elevated cardiac enzymes. - Patient is status post Cardizem drip per cardiology. - Digoxin added. Continue metoprolol. May need to increase metoprolol to 100 mg twice a day. Continue to monitor. Resume Coumadin. Follow IN 06/09 INR subtherapeutic at 1.6. Hold Coumadin for now and start on IV heparin while awaiting for US guided thoracentesis. 06/10 Rate controlled. Continue heparin bridge for thoracentesis. . Thoracentesis WAS NOT PERFORMED. check TSH. NOT ENOUGH FLUID FOR THORACENTESIS INR ONLY 1.1 WILL INCREASE WARFARIN TO 7.5MG PO DAILY Elevated LFT: Likely due to CHF. LFT's trending down. AST 654 ---> 289 ; ALT 657 ---> 549. Continue to monitor LFT's 06/10 AST is slightly lower at 272, 8 LT slightly elevated at 610. Continue to monitor. LFTS STILL BORDERLINE DM: Sliding scale w/ Accu-Cheks. Hold oral hypoglycemic agents. Monitor BS. Blood sugars stable. KATHY: Creatinine 1.66 on admission, no previous labs for comparison, Creatinine slowly trending down. Today 1.5. WORSENING RENAL FUNCTIONS AM LABS- ADJUST LASIX elevated Elevated troponin: Likely demand ischemia. Cardiology following. Troponin level peaked at 0.4, now trending down at 0.37. 06/10 Continue to monitor cardiac enzymes. DVT Prophylaxis: Hold Coumadin, STOP HEPARIN DRIP Need to be reloaded on Coumadin prior to discharge- START RELOADING COUMADIN HAD STRESS TEST 9-22 -HAS ARTIFACT- NO CATH THIS ADMISSION A.m. labs We'll need to have his Coumadin reloaded prior to discharge INCREASE TO 5MG PO DAILY DW CARDIO AND RN HYPERKALEMIA- TREAT IF STILL ABNORMAL SWITCHED TO ELIQUIS 5MG PO BID NEEDS ZOLL LIFEVEST PRIOR TO DISCHARGE Discharge Planning CM FOR ZOLL LIFEVEST AT [facility] [place] DO Jun 15, 2017 09:43
--- NOTE | 2017-06-15 09:45 | HHI.DS ---
Discharge Summary Admission Date Jun 07, 2017 at 08:43 Discharge Date: Jun 15, 2017 Admitting Diagnosis RUQ pain; pleural effusions; elevated trop; renal insufficiency; CHF (1) CHF (congestive heart failure) ICD Code: I50.9 - Heart failure, unspecified Diagnosis: Secondary (2) A-fib ICD Code: I48.91 - Unspecified atrial fibrillation Diagnosis: Principal (3) RUQ abdominal pain ICD Code: R10.11 - Right upper quadrant pain Diagnosis: Secondary Status: Acute (4) Elevated troponin ICD Code: R74.8 - Abnormal levels of other serum enzymes Diagnosis: Principal Status: Acute (5) Lactic acidosis ICD Code: E87.2 - Acidosis Diagnosis: Secondary (6) Renal insufficiency ICD Code: N28.9 - Disorder of kidney and ureter, unspecified Diagnosis: Secondary Status: Acute (7) DM (diabetes mellitus) ICD Code: E11.9 - Type 2 diabetes mellitus without complications Diagnosis: Secondary Procedures STRESS TEST 06-11 Brief History - From Admission This is a 71-year-old male with a PMH of HTN, A. fib on Coumadin and DM who presented to the ER with complaints of abdominal pain with associated nausea and vomiting x1 day. Denies fever or chills. Does note episodes of SOB and intermittent cough. No c/o chest pain. On arrival, found to be in A. fib with RVR, BP 140/82, HR 131, O2 sat 94% on RA, Afebrile. S/p Cardizem x1 in ER, HR now 90's. Hemoglobin 10.5. Creatinine 1.66, no previous labs for comparison. Lactic Acid 4.2, repeat 2.6. Troponin 0.14. BNP 1446. INR 2.0. UA negative. CXR with mild basilar consolidation and small effusions. Abdomen X-ray essentially negative. CT Abd/Pelvis w/ trace ascites, bilateral pleural effusions, mild edema/anasarca. No h/o CHF per patient. S/p Lasix in ER. HAD NUCLEAR STRESS TEST DONE TODAY DW PT AND CARDIOLOGY Discussed with patient and RN and . A.m. labs 06-12 DW CARDIOLOGY AND PT AND RN NEEDS NOTE FOR WORK AM LABS NEEDS PT AND OT WATCH LFTS INCREASE ACTIVITY RELOAD COUMADIN 06-13 MEDS BEING ADJUSTED BY CARDIOLOGY STILL SOB ON ANY REAL ACTIVITY NEEDS PT AND OT MAY NEED SNF DW RN AND PATIENT AND CARDIOLOGY AM LABS 06-14 not very mobile yet ABNORMAL LABS REPEAT TODAY LOAD COUMADIN DW RN AND PT AND CM 06-15 SWITCHED OF COUMADIN TO ELIQUIS BID CAN DC TO HOME WITH HHC BREATHING BETTER DW RN AND PT NEEDS ZOLL LIFEVEST AT DISCHARGE CBC/BMP: 06/15/17 0615 06/15/17 0615 Significant Findings Laboratory Tests Test 06/12/17 10:05 06/13/17 06:42 06/14/17 04:35 06/14/17 11:28 Activated Partial Thromboplast Time 52.5 SEC (24.3-30.1) Red Blood Count 3.57 MIL/MM3 (4.50-5.90) 3.48 MIL/MM3 (4.50-5.90) Hemoglobin 10.7 GM/DL (13.0-17.0) 10.4 GM/DL (13.0-17.0) Hematocrit 32.7 % (39.0-51.0) 31.9 % (39.0-51.0) Monocytes (%) (Auto) 13.4 % (0.0-8.0) 13.9 % (0.0-8.0) Monocytes # (Auto) 1.1 TH/MM3 (0-0.9) 1.1 TH/MM3 (0-0.9) Prothrombin Time 12.0 SEC (9.8-11.6) 12.3 SEC (9.8-11.6) Blood Urea Nitrogen 61 MG/DL (7-18) 66 MG/DL (7-18) 64 MG/DL (7-18) Creatinine 2.09 MG/DL (0.60-1.30) 2.12 MG/DL (0.60-1.30) 2.02 MG/DL (0.60-1.30) Random Glucose 166 MG/DL (74-106) 169 MG/DL (74-106) 227 MG/DL (74-106) Magnesium Level 2.6 MG/DL (1.5-2.5) 2.8 MG/DL (1.5-2.5) Alkaline Phosphatase 146 U/L (45-117) 135 U/L (45-117) Aspartate Amino Transf (AST/SGOT) 73 U/L (15-37) 41 U/L (15-37) Alanine Aminotransferase (ALT/SGPT) 401 U/L (12-78) 297 U/L (12-78) Sodium Level 135 MEQ/L (136-145) 134 MEQ/L (136-145) 134 MEQ/L (136-145) Estimat Glomerular Filtration Rate 31 ML/MIN (>89) 31 ML/MIN (>89) 33 ML/MIN (>89) Potassium Level 6.5 MEQ/L (3.5-5.1) 5.3 MEQ/L (3.5-5.1) Test 06/15/17 06:15 Red Blood Count 3.55 MIL/MM3 (4.50-5.90) Hemoglobin 10.8 GM/DL (13.0-17.0) Hematocrit 32.5 % (39.0-51.0) Monocytes (%) (Auto) 13.3 % (0.0-8.0) Eosinophils (%) (Auto) 4.1 % (0.0-4.0) Monocytes # (Auto) 1.0 TH/MM3 (0-0.9) Blood Urea Nitrogen 67 MG/DL (7-18) Creatinine 2.02 MG/DL (0.60-1.30) Random Glucose 189 MG/DL (74-106) Phosphorus Level 5.0 MG/DL (2.5-4.9) Magnesium Level 2.7 MG/DL (1.5-2.5) Alkaline Phosphatase 143 U/L (45-117) Alanine Aminotransferase (ALT/SGPT) 230 U/L (12-78) Estimat Glomerular Filtration Rate 33 ML/MIN (>89) Imaging Last Impressions Chest X-Ray 06/14/17 0000 Signed Impressions: Service Date/Time: Wednesday, June 14, 2017 13:57 - CONCLUSION: 1. No acute abnormality. 2. Resolution of the patient's pleural effusion since prior of 06/06/17. Shalom Salinas MD Myocardial Perfusion Scan Nuc Med 06/11/17 0000 Signed Impressions: Service Date/Time: Sunday, June 11, 2017 13:23 - CONCLUSION: Left ventricular cardiomegaly with hypokinesia and decreased ejection fraction consistent with cardiomyopathy. Marked amount of radionuclide in the stomach yielding a possible artifactual finding of inferior wall perfusion defect. RISK CATEGORY: Intermediate (1-3%% Annual Mortality Rate) Edwin Gomez MD Chest Ultrasound 06/11/17 0000 Signed Impressions: Service Date/Time: Sunday, June 11, 2017 11:17 - CONCLUSION: No pleural fluid seen on the right. Isidoro Cassidy MD Gall Bladder Ultrasound 06/07/17 0000 Signed Impressions: Service Date/Time: Wednesday, June 07, 2017 07:36 - CONCLUSION: 1. Heterogeneous echotexture of the liver suggesting fatty infiltration. 2. Questionable edematous changes within the pancreas. The pancreas was difficult to visualize. 3. The patient is post cholecystectomy. 4. Large right pleural effusion. Shalom Salinas MD Abdomen/Pelvis CT 06/06/171935 Signed Impressions: Service Date/Time: Tuesday, June 06, 2017 21:13 - CONCLUSION: 1. Trace ascites, nonspecific but there are bilateral pleural effusions and pain chamber enlargement of the heart also noted. Also mild body wall edema/anasarca. 2. No stones or obstruction of either kidney. Normal appendix. 3. Atherosclerotic abdominal aorta. No aneurysm. 4. Possible mild cystitis in the proper clinical setting. Mild enlargement of the prostate. John Gallagher MD Abdomen X-Ray [id number]/06/171935 Signed Impressions: Service Date/Time: Tuesday, June 06, 2017 20:04 - CONCLUSION: Benign-appearing abdomen. John Gallagher MD PE at Discharge GENERAL: Alert oriented talkative and cooperative SKIN: Warm and dry. HEAD: Atraumatic. Normocephalic. EYES: Pupils equal and round. No scleral icterus. No injection or drainage. Extraocular muscles are intact ENT: No nasal bleeding or discharge. Mucous membranes pink and moist. Tongue is midline NECK: Trachea midline. No JVD. Supple CARDIOVASCULAR: Regular rate and rhythm. S1-S2 no S3 or S4 no heave or thrill or rub RESPIRATORY: No accessory muscle use. Clear to auscultation. Breath sounds equal bilaterally. Decreased breath sounds bilaterally GASTROINTESTINAL: Abdomen soft, non-tender, nondistended. Hepatic and splenic margins not palpable. MUSCULOSKELETAL: Extremities without clubbing, cyanosis, or edema. No obvious deformities. NEUROLOGICAL: Awake and alert. No obvious cranial nerve deficits. Motor grossly within normal limits. 4 out of 5 muscle strength in the arms and legs. Normal speech. PSYCHIATRIC: Appropriate mood and affect; insight and judgment normal. Hospital Course This is a 71-year-old male with a PMH of HTN, A. fib on Coumadin and DM who presented to the ER with complaints of abdominal pain with associated nausea and vomiting x1 day. Denies fever or chills. Does note episodes of SOB and intermittent cough. No c/o chest pain. On arrival, found to be in A. fib with RVR, BP 140/82, HR 131, O2 sat 94% on RA, Afebrile. S/p Cardizem x1 in ER, HR now 90's. Hemoglobin 10.5. Creatinine 1.66, no previous labs for comparison. Lactic Acid 4.2, repeat 2.6. Troponin 0.14. BNP 1446. INR 2.0. UA negative. CXR with mild basilar consolidation and small effusions. Abdomen X-ray essentially negative. CT Abd/Pelvis w/ trace ascites, bilateral pleural effusions, mild edema/anasarca. No h/o CHF per patient. S/p Lasix in ER. HAD NUCLEAR STRESS TEST DONE TODAY DW PT AND CARDIOLOGY Discussed with patient and RN and . A.m. labs 06-12 DW CARDIOLOGY AND PT AND RN NEEDS NOTE FOR WORK AM LABS NEEDS PT AND OT WATCH LFTS INCREASE ACTIVITY RELOAD COUMADIN 06-13 MEDS BEING ADJUSTED BY CARDIOLOGY STILL SOB ON ANY REAL ACTIVITY NEEDS PT AND OT MAY NEED SNF DW RN AND PATIENT AND CARDIOLOGY AM LABS 06-14 not very mobile yet ABNORMAL LABS REPEAT TODAY LOAD COUMADIN DW RN AND PT AND CM 06-15 SWITCHED OF COUMADIN TO ELIQUIS BID CAN DC TO HOME WITH HHC BREATHING BETTER DW RN AND PT NEEDS ZOLL LIFEVEST AT DISCHARGE Pt Condition on Discharge: Good Discharge Disposition: Disch w/ Home Health Serv Discharge Time: > 30 minutes Discharge Instructions DIET: Follow Instructions for: Heart Healthy Diet, Diabetic Diet Speech Therapy-Diet Recommends: Regular Activities you can perform: Regular-No Restrictions Other Activity Instructions: WEAR LIFEVEST AT ALL TIMES EXCEPT WHEN SHOWERING Follow up Referrals: Cardiology - 1 Week with Polo Bullock MD PCP Follow-up - 1 Week with Rayshawn Vázquez MD New Medications: Walker with Front Wheels (Walker with Front Wheels) 1 Mis Mis EA .ROUTE DIRECTED for GAIT INSTABILITY, #1 0 Refills [Lifevest] () EACH EXTERNAL CONTINUOUS for Regulate Heart Beat, #1 Apixaban (Eliquis) 5 Mg Tab 5 MG PO BID for Blood Clot Prevention, #60 TAB Bisacodyl Supp (Bisac-Evac Supp) 10 Mg Supp 10 MG RECTAL DAILY PRN for SEVERE CONSITIPATION, #31 SUPP Furosemide (Furosemide) 40 Mg Tab 40 MG PO DAILY for Blood Pressure Management, #30 TAB Sennosides (Senna Lax) 8.6 Mg Tab 17.2 MG PO Q12H PRN for MODERATE - SEVERE CONSTIPATION, #120 TAB Continued Medications: Atorvastatin (Atorvastatin) 40 Mg Tab 40 MG PO HS for Cholesterol Management, #30 TAB 0 Refills (This prescription has been renewed) Cyanocobalamin (Vitamin B-12) 500 Mcg Tab 500 MCG PO DAILY for Nutritional Supplement, #1 BOTTLE 0 Refills Ferrous Sulfate (Ferrous Sulfate) 325 Mg (65 Mg Iron) Tablet 325 MG PO DAILY for Nutritional Supplement, #30 TAB 0 Refills (This prescription has been renewed) Glipizide (Glipizide) 10 Mg Tab 10 MG PO DAILY for Blood Sugar Management, #30 TAB 0 Refills Take 30 minutes before a meal Metoprolol Tartrate (Metoprolol Tartrate) 100 Mg Tab 100 MG PO BID for Blood Pressure Management, #60 TAB 0 Refills (This prescription has been renewed) Pioglitazone (Pioglitazone) 45 Mg Tab 45 MG PO DAILY for Blood Sugar Management, #30 TAB 0 Refills Potassium Chloride ER (Potassium Chloride ER) 10 Meq Cap 10 MEQ PO BID for Electrolyte Replacement, #60 CAP 0 Refills Terazosin (Terazosin) 1 Mg Cap 1 MG PO HS for Manage Prostate Problems, #30 CAP 0 Refills (This prescription has been renewed) Discontinued Medications: Amlodipine (Amlodipine) 10 Mg Tab 10 MG PO DAILY for Blood Pressure Management, #30 TAB 0 Refills Hydralazine HCl (Hydralazine HCl) 25 Mg Tablet 50 MG PO TID for Blood Pressure Management, #90 TAB 0 Refills Hydrochlorothiazide (Hydrochlorothiazide) 25 Mg Tab 25 MG PO DAILY, #30 TAB 0 Refills Isosorbide Mononitrate (Isosorbide Mononitrate) 20 Mg Tab 30 MG PO DAILY for Prevent Chest Pain, #60 TAB 0 Refills Take 2 doses 7 hours apart. Lisinopril (Lisinopril) 40 Mg Tab 40 MG PO DAILY for Blood Pressure Management, #30 TAB 0 Refills Warfarin (Warfarin) 2.5 Mg Tab 2.5 MG PO DAILY for Blood Clot Prevention, #30 TAB 0 Refills Heri Hill DO Jun 15, 2017 09:45
[2017-06-15] MEDS ORDERED: WALKER WHEELS/F1 MIS (09:47)
--- NOTE | 2017-06-15 09:49 | HHI.FF ---
Face to Face Verification Diagnosis: (1) Acute systolic CHF (congestive heart failure) (2) Old inferior wall myocardial infarction (3) Elevated liver enzymes (4) DM (diabetes mellitus) (5) A-fib (6) CHF (congestive heart failure) (7) Lactic acidosis (8) Atrial fibrillation with RVR (9) Elevated troponin (10) RUQ abdominal pain (11) Renal insufficiency (12) Pleural effusion Physical Therapy Order: Evaluate and Treat, Improve ambulation, Strength and gait training Occupational Therapy Order: Evaluate and Treat, Improve ADL, Gross motor coordination, Fine motor coordination Home Health Nursing Order: Medical education Signs/symptoms of disease process Diabetic education CHF education Nursing assessment with vital signs Telehealth Home Health Aide Order: To Assist In: Bathing and personal care, book coverer and meal prep I have seen patient Melvin Marin on 06/15/17. My clinical findings support the need for the requested home health care services because: Ltd mobility - disease progression I certify that my clinical findings support that this patient is homebound because: Unsteady gait/balance Heri Hill DO Jun 15, 2017 09:49
--- NOTE | 2017-06-15 10:00 | PD.CARD.PN ---
Subjective Subjective Remarks c/o being cold Objective Medications Current Medications Medications (Trade) Dose Ordered Sig/Trinity Route Start Time Stop Time Status Last Admin (D50w (Vial) Inj) 50 ml UNSCH PRN IV 06/06/17 22:45 (Glucagon Inj) 1 mg UNSCH PRN OTHER 06/06/17 22:45 (NovoLOG SUPPLEMENTAL SCALE) 1 ACHS SLIDING SCALE SQ 06/07/17 08:00 06/15/17 08:00 (NS Flush) 2 ml UNSCH PRN IV FLUSH 06/06/17 22:45 (NS Flush) 2 ml BID IV FLUSH 06/07/17 09:00 06/15/17 08:34 (Zofran Inj) 4 mg Q6H PRN IVP 06/06/17 22:45 (Tylenol) 650 mg Q6H PRN PO 06/06/17 22:45 ([place] 5-325 Mg) 1 tab Q4H PRN PO 06/06/17 22:45 06/14/17 21:42 (Morphine Inj) 2 mg Q3H PRN IV PUSH 06/06/17 22:45 06/07/17 21:26 (Maria Ines-Colace) 1 tab BID PO 06/07/17 09:00 06/15/17 08:34 (Milk Of Magnesia Liq) 30 ml Q12H PRN PO 06/06/17 22:45 06/11/17 17:28 (Senokot) 17.2 mg Q12H PRN PO 06/06/17 22:45 06/09/17 12:11 (Dulcolax Supp) 10 mg DAILY PRN RECTAL 06/06/17 22:45 (Lactulose Liq) 30 ml DAILY PRN PO 06/06/17 22:45 06/11/17 21:23 (Lipitor) 40 mg HS PO 06/08/17 21:00 06/14/17 21:43 (Vitamin B12) 500 mcg DAILY PO 06/09/17 09:00 06/15/17 08:35 (Ferrous Sulfate) 325 mg DAILY PO 06/09/17 09:00 06/15/17 08:34 (Hytrin) 1 mg HS PO 06/08/17 21:00 06/14/17 21:42 Pharmacy Profile Note 0 ml @ 0 mls/hr UNSCH OTHER 06/08/17 15:30 (Lopressor) 100 mg BID PO 06/08/17 21:00 06/15/17 08:34 (Xanax) 0.25 mg Q8H PRN PO 06/10/17 16:00 06/14/17 22:02 (Lopressor Inj) 2.5 mg Q5M PRN IV PUSH 06/11/17 04:00 (Lasix) 40 mg DAILY PO 06/13/17 09:00 06/15/17 08:35 (Eliquis) 5 mg BID PO 06/14/17 21:00 06/15/17 08:34 (Lanoxin) 0.125 mg DAILY PO 06/14/17 11:15 06/15/17 08:34 Vital Signs / I&O Vital Signs Date Time Temp Pulse Resp B/P (MAP) Pulse Ox O2 Delivery O2 Flow Rate FiO2 06/15/17 08:00 100 06/15/17 08:00 97.4 82 20 123/62 (82) 99 06/15/17 07:00 88 06/15/17 06:00 107 06/15/17 05:00 108 06/15/17 04:00 97.4 108 20 143/74 (97) 100 06/15/17 03:00 109 06/15/17 02:00 109 06/15/17 00:00 98.1 98 20 102/69 (80) 100 06/15/17 00:00 98 06/14/17 23:00 06/14/17 23:00 113 06/14/17 20:00 101 06/14/17 19:00 98.1 101 20 144/83 (103) 100 06/14/17 18:00 90 06/14/17 17:00 82 06/14/17 16:00 80 06/14/17 15:00 98.1 80 20 116/66 (83) 100 06/14/17 15:00 94 06/14/17 14:00 84 06/14/17 13:00 88 06/14/17 12:00 90 06/14/17 11:24 97.5 97 20 116/62 (80) 99 06/14/17 11:00 96 06/14/17 10:00 80 I/O 06/14/17 06/14/17 06/14/17 06/15/17 06/15/17 9/26/17 07:00 15:00 23:00 07:00 15:00 23:00 Intake Total 480 ml 480 ml 360 ml Output Total 425 ml 700 ml Balance 55 ml 480 ml -340 ml Intake Oral 480 ml 480 ml 360 ml Output Urine Total 425 ml 700 ml # Voids 3 # Bowel Movements 0 Physical Exam Alert No JVD Chest: clear CV: S1S2 irreg irreg, HR still over 100 No edema Echo and SPECT c/w old IWMI Laboratory Laboratory Tests Test 06/14/17 11:28 06/15/17 06:15 Blood Urea Nitrogen 64 MG/DL 67 MG/DL Creatinine 2.02 MG/DL 2.02 MG/DL Random Glucose 227 MG/DL 189 MG/DL Calcium Level 9.7 MG/DL 9.9 MG/DL Sodium Level 134 MEQ/L 136 MEQ/L Potassium Level 5.3 MEQ/L 5.0 MEQ/L Chloride Level 100 MEQ/L 101 MEQ/L Carbon Dioxide Level 28.6 MEQ/L 27.9 MEQ/L Anion Gap 5 MEQ/L 7 MEQ/L Estimat Glomerular Filtration Rate 33 ML/MIN 33 ML/MIN White Blood Count 7.5 TH/MM3 Red Blood Count 3.55 MIL/MM3 Hemoglobin 10.8 GM/DL Hematocrit 32.5 % Mean Corpuscular Volume 91.5 FL Mean Corpuscular Hemoglobin 30.4 PG Mean Corpuscular Hemoglobin Concent 33.3 % Red Cell Distribution Width 16.1 % Platelet Count 214 TH/MM3 Mean Platelet Volume 8.6 FL Neutrophils (%) (Auto) 63.0 % Lymphocytes (%) (Auto) 18.5 % Monocytes (%) (Auto) 13.3 % Eosinophils (%) (Auto) 4.1 % Basophils (%) (Auto) 1.1 % Neutrophils # (Auto) 4.7 TH/MM3 Lymphocytes # (Auto) 1.4 TH/MM3 Monocytes # (Auto) 1.0 TH/MM3 Eosinophils # (Auto) 0.3 TH/MM3 Basophils # (Auto) 0.1 TH/MM3 CBC Comment DIFF FINAL Differential Comment Total Protein 7.9 GM/DL Albumin 4.0 GM/DL Phosphorus Level 5.0 MG/DL Magnesium Level 2.7 MG/DL Alkaline Phosphatase 143 U/L Aspartate Amino Transf (AST/SGOT) 29 U/L Alanine Aminotransferase (ALT/SGPT) 230 U/L Total Bilirubin 0.5 MG/DL Assessment and Plan Problem List: (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 ICD Codes: I25.2 - Old myocardial infarction (2) Acute systolic CHF (congestive heart failure) ICD Codes: I50.21 - Acute systolic (congestive) heart failure (3) Elevated troponin ICD Codes: R74.8 - Abnormal levels of other serum enzymes Status: Acute (4) Atrial fibrillation with RVR ICD Codes: I48.91 - Unspecified atrial fibrillation Status: Acute Plan: consult Dr. Calle (5) Pleural effusion ICD Codes: J90 - Pleural effusion, not elsewhere classified Status: Acute (6) Elevated liver enzymes ICD Codes: R74.8 - Abnormal levels of other serum enzymes (7) Renal insufficiency ICD Codes: N28.9 - Disorder of kidney and ureter, unspecified Status: Acute Discussed Condition With Polo Bullock MD Jun 15, 2017 10:00
[2017-06-15] MEDS: TERAZOSIN HCL 1 MG CAP PO SCH (21:04)
[2017-06-15] MEDS: ALPRAZolam 0.25 MG TAB PO PRN (21:04)
[2017-06-15] MEDS: ATORVASTATIN 40 MG TAB PO SCH (21:04)
[2017-06-15] MEDS ORDERED: POVIDONE IODINE 5% (ANTISEPSIS KIT) 4 APPLICATIONS EACH NARE PRN (22:45)
[2017-06-15] MEDS ORDERED: SODIUM CHLORID 0.9% 500 ML IV PRN (22:45)
[2017-06-15] MEDS ORDERED: CHLORHEXIDINE GLUCONATE 2 % 1 PACK (2 CLOTHS) TOPICAL PRN (22:45)
[2017-06-15] MEDS ORDERED: LACTATED RINGER'S 1000 ML IV PRN (22:45)
[2017-06-16] VITALS (25 sets, daily range): BP systolic 100–152; BP diastolic 63–88; PULSE 58–110; RESP 16–18; TEMP 97.5–98.3; O2SAT 93–100
--- NOTE | 2017-06-16 00:22 | MB ---
cc: ELHAM LEE M.D. DATE OF CONSULTATION: 06/15/2017 REASON FOR CONSULTATION: Atrial fibrillation with biventricular response. HISTORY OF PRESENT ILLNESS: Mr. Marin is a 72-year-old gentleman with history of congestive heart failure, cardiomyopathy, atrial fibrillation, possible tachycardia. Ejection fraction is around 15%, previously admitted due to pleural effusion and heart failure. The patient has atrial fibrillation with fast ventricular response. Heart rate very difficult to control despite multiple medications. I was consulted for further evaluation and management. The chart was reviewed. The patient was evaluated. I did discuss extensively the case with Dr. Bullock. ALLERGIES None. SOCIAL HISTORY Currently the gentleman denies smoking and drinking. FAMILY HISTORY: Noncontributory to his current medical condition. MEDICATIONS: The gentleman is currently on: 1. Eliquis 5 milligrams twice a day. 2. Lipitor 40 milligrams 3. Ferrous sulfate. 4. Lasix. 5. Metoprolol 100 milligrams twice a day. 6. Zofran. REVIEW OF SYSTEMS Currently the patient refers shortness of breath on activity. No chest pain, no chest discomfort. PHYSICAL EXAMINATION: Alert, fully oriented. VITAL SIGNS: Blood pressure on evaluation was 118/84, pulse around 90 on minimal activity. Respiratory rate 20, ventilated. CARDIOVASCULAR: S1-S2 irregular, tachycardiac. ABDOMEN: Soft, no mass, no bruits. EXTREMITIES: No edema. Electrocardiogram shows atrial fibrillation with a rate of around 130 beats per minute. LABORATORY DATA Hemoglobin 10.8, white blood cell count 8.5, potassium 5.0, creatinine 2.02. INR 1.1. ASSESSMENT AND RECOMMENDATION: Mr. Marin is laying flat, he has atrial fibrillation with fast ventricular response. His ejection fraction is around 15%. The medications need to be modified. The gentleman needs some CHERIE inhibitor when blood pressure is low. He may benefit from . Also at the same time heart rate seems to be controlled. The patient at this point is not a good candidate for long sedation because of his CV heart failure. At this point my recommendation is ILENE and cardioversion. If the ejection fraction can improve a little bit or the heart rate is more stable, then ablation can be considered. I will keep him n.p.o. after breakfast, cardioversion and transesophageal echocardiogram tomorrow afternoon. MD JUDITH Lee /11:36 PM /12:00 AM
[2017-06-16 06:18] LABS: AUTOMATED NEUTROPHIL # 4.9 TH/MM3 (1.8-7.7); BASOPHIL # 0.1 TH/MM3 (0-0.2); EOSINOPHIL # 0.3 TH/MM3 (0-0.4); EOSINOPHIL % 3.6 % (0.0-4.0); HEMATOCRIT 33.6 % (39.0-51.0); HEMO FLAGS DIFF FINAL; LYMPH % 18.9 % (9.0-44.0); LYMPHOCYTE # 1.4 TH/MM3 (1.0-4.8); MEAN CELL VOLUME 91.6 FL (80.0-100.0); MEAN CORPUSCULAR HEMOGLOBIN 29.6 PG (27.0-34.0); MEAN CORPUSCULAR HGB CONC 32.3 % (32.0-36.0); MONO % 12.1 % (0.0-8.0); NEUT % 64.4 % (16.0-70.0); PLATELET COUNT 237 TH/MM3 (150-450); RED BLOOD COUNT 3.66 MIL/MM3 (4.50-5.90); WHITE BLOOD COUNT 7.6 TH/MM3 (4.0-11.0)
[2017-06-16 06:54] LABS: ALT (GPT) 196 U/L (12-78); ANION GAP 8 MEQ/L (5-15); AST (GOT) 30 U/L (15-37); BICARBONATE 26.7 MEQ/L (21.0-32.0); BLOOD UREA NITROGEN 67 MG/DL (7-18); CHLORIDE 102 MEQ/L (98-107); GLOMERULAR FILTRATION RATE 31 ML/MIN (>89); MAGNESIUM 2.8 MG/DL (1.5-2.5); SODIUM (NA) 137 MEQ/L (136-145)
[2017-06-16 06:56] LABS: ALKALINE PHOSPHATASE 136 U/L (45-117); TOTAL BILIRUBIN ADULT 0.5 MG/DL (0.2-1.0)
[2017-06-16] MEDS: INSULIN ASPART SUPPLEMENTAL SCALE SQ SCH ×4 (08:00→21:00)
[2017-06-16] MEDS: METOPROLOL TARTRATE 25 MG TAB PO SCH (08:41)
[2017-06-16] MEDS: FUROSEMIDE 40 MG TAB PO SCH (08:41)
[2017-06-16] MEDS: FERROUS SULFATE 325 MG (65 MG ELEMENTAL IRON) TAB PO SCH (08:41)
[2017-06-16] MEDS: DOCUSATE SODIUM 50 MG/SENNA 8.6 MG TAB PO SCH ×2 (08:42→21:03)
[2017-06-16] MEDS: APIXABAN 5 MG TABLET PO SCH ×2 (08:42→21:03)
[2017-06-16] MEDS: CYANOCOBALAMIN 1,000 MCG TAB PO SCH (08:43)
[2017-06-16] MEDS: SODIUM CHLORIDE 0.9% FLUSH 10 ML FLUSH IV FLUSH SCH ×2 (08:43→21:00)
--- NOTE | 2017-06-16 09:06 | HHI.PR ---
Subjective Remarks HAD NUCLEAR STRESS TEST DONE TODAY DW PT AND CARDIOLOGY Discussed with patient and RN and . A.m. labs 06-12 DW CARDIOLOGY AND PT AND RN NEEDS NOTE FOR WORK AM LABS NEEDS PT AND OT WATCH LFTS INCREASE ACTIVITY RELOAD COUMADIN 06-13 MEDS BEING ADJUSTED BY CARDIOLOGY STILL SOB ON ANY REAL ACTIVITY NEEDS PT AND OT MAY NEED SNF DW RN AND PATIENT AND CARDIOLOGY AM LABS 06-14 not very mobile yet ABNORMAL LABS REPEAT TODAY LOAD COUMADIN DW RN AND PT AND CM 06-15 SWITCHED OF COUMADIN TO ELIQUIS BID DC HELD DR LEE CONSULTED- FOR ILENE 06-16 FOR ILENE AND CARDIOVERSION TODAY DW CARDIOLOGY DW PATIENT AND AND RN A LITTLE SOB Objective Vitals Vital Signs Date Time Temp Pulse Resp B/P (MAP) Pulse Ox O2 Delivery O2 Flow Rate FiO2 06/16/17 06:00 110 06/16/17 05:04 105 06/16/17 04:00 95 06/16/17 03:00 98.3 98 16 100/63 (75) 95 06/16/17 03:00 82 06/16/17 02:00 96 06/16/17 01:00 102 06/16/17 00:00 95 06/15/17 23:00 98.1 96 16 133/49 (77) 97 06/15/17 23:00 91 06/15/17 22:00 98 06/15/17 21:00 112 06/15/17 20:00 104 06/15/17 19:00 98.0 112 18 143/85 (104) 99 06/15/17 19:00 116 06/15/17 18:00 107 06/15/17 17:00 104 06/15/17 16:00 98 06/15/17 16:00 97.6 66 18 118/84 (95) 98 06/15/17 15:00 102 06/15/17 14:00 98 06/15/17 13:00 76 06/15/17 12:00 74 06/15/17 11:00 97.5 75 18 127/64 (85) 99 06/15/17 11:00 80 06/15/17 10:00 88 I/O 06/15/17 06/15/17 06/15/17 06/16/17 06/16/17 06/16/17 07:00 15:00 23:00 07:00 15:00 23:00 Intake Total 360 ml 240 ml Output Total 700 ml 400 ml Balance -340 ml -160 ml Intake Oral 360 ml 240 ml Output Urine Total 700 ml 400 ml # Voids 1 Result Diagram: 06/16/17 0545 06/16/17 0545 Other Results Laboratory Tests Test 06/14/17 04:35 06/14/17 11:28 06/15/17 06:15 06/16/17 05:45 White Blood Count 7.6 TH/MM3 7.5 TH/MM3 7.6 TH/MM3 Red Blood Count 3.48 MIL/MM3 3.55 MIL/MM3 3.66 MIL/MM3 Hemoglobin 10.4 GM/DL 10.8 GM/DL 10.8 GM/DL Hematocrit 31.9 % 32.5 % 33.6 % Mean Corpuscular Volume 91.7 FL 91.5 FL 91.6 FL Mean Corpuscular Hemoglobin 30.0 PG 30.4 PG 29.6 PG Mean Corpuscular Hemoglobin Concent 32.7 % 33.3 % 32.3 % Red Cell Distribution Width 16.3 % 16.1 % 16.0 % Platelet Count 194 TH/MM3 214 TH/MM3 237 TH/MM3 Mean Platelet Volume 8.8 FL 8.6 FL 9.0 FL Neutrophils (%) (Auto) 66.0 % 63.0 % 64.4 % Lymphocytes (%) (Auto) 16.3 % 18.5 % 18.9 % Monocytes (%) (Auto) 13.9 % 13.3 % 12.1 % Eosinophils (%) (Auto) 3.1 % 4.1 % 3.6 % Basophils (%) (Auto) 0.7 % 1.1 % 1.0 % Neutrophils # (Auto) 5.0 TH/MM3 4.7 TH/MM3 4.9 TH/MM3 Lymphocytes # (Auto) 1.2 TH/MM3 1.4 TH/MM3 1.4 TH/MM3 Monocytes # (Auto) 1.1 TH/MM3 1.0 TH/MM3 0.9 TH/MM3 Eosinophils # (Auto) 0.2 TH/MM3 0.3 TH/MM3 0.3 TH/MM3 Basophils # (Auto) 0.1 TH/MM3 0.1 TH/MM3 0.1 TH/MM3 CBC Comment DIFF FINAL DIFF FINAL DIFF FINAL Differential Comment Prothrombin Time 12.3 SEC Prothromb Time International Ratio 1.1 RATIO Blood Urea Nitrogen 66 MG/DL 64 MG/DL 67 MG/DL 67 MG/DL Creatinine 2.12 MG/DL 2.02 MG/DL 2.02 MG/DL 2.13 MG/DL Random Glucose 169 MG/DL 227 MG/DL 189 MG/DL 174 MG/DL Total Protein 7.6 GM/DL 7.9 GM/DL 7.9 GM/DL Albumin 3.9 GM/DL 4.0 GM/DL 3.9 GM/DL Calcium Level 9.6 MG/DL 9.7 MG/DL 9.9 MG/DL 9.9 MG/DL Phosphorus Level 4.3 MG/DL 5.0 MG/DL 5.0 MG/DL Magnesium Level 2.8 MG/DL 2.7 MG/DL 2.8 MG/DL Alkaline Phosphatase 135 U/L 143 U/L 136 U/L Aspartate Amino Transf (AST/SGOT) 41 U/L 29 U/L 30 U/L Alanine Aminotransferase (ALT/SGPT) 297 U/L 230 U/L 196 U/L Total Bilirubin 0.5 MG/DL 0.5 MG/DL 0.5 MG/DL Sodium Level 134 MEQ/L 134 MEQ/L 136 MEQ/L 137 MEQ/L Potassium Level 6.5 MEQ/L 5.3 MEQ/L 5.0 MEQ/L 5.0 MEQ/L Chloride Level 100 MEQ/L 100 MEQ/L 101 MEQ/L 102 MEQ/L Carbon Dioxide Level 28.3 MEQ/L 28.6 MEQ/L 27.9 MEQ/L 26.7 MEQ/L Anion Gap 6 MEQ/L 5 MEQ/L 7 MEQ/L 8 MEQ/L Estimat Glomerular Filtration Rate 31 ML/MIN 33 ML/MIN 33 ML/MIN 31 ML/MIN Imaging Last Impressions Chest X-Ray 06/14/17 0000 Signed Impressions: Service Date/Time: Wednesday, June 14, 2017 13:57 - CONCLUSION: 1. No acute abnormality. 2. Resolution of the patient's pleural effusion since prior of 06/06/17. Shalom Salinas MD Myocardial Perfusion Scan Nuc Med 06/11/17 0000 Signed Impressions: Service Date/Time: Sunday, June 11, 2017 13:23 - CONCLUSION: Left ventricular cardiomegaly with hypokinesia and decreased ejection fraction consistent with cardiomyopathy. Marked amount of radionuclide in the stomach yielding a possible artifactual finding of inferior wall perfusion defect. RISK CATEGORY: Intermediate (1-3%% Annual Mortality Rate) Edwin Gomez MD Chest Ultrasound 06/11/17 0000 Signed Impressions: Service Date/Time: Sunday, June 11, 2017 11:17 - CONCLUSION: No pleural fluid seen on the right. Isidoro Cassidy MD Gall Bladder Ultrasound 06/07/17 0000 Signed Impressions: Service Date/Time: Wednesday, June 07, 2017 07:36 - CONCLUSION: 1. Heterogeneous echotexture of the liver suggesting fatty infiltration. 2. Questionable edematous changes within the pancreas. The pancreas was difficult to visualize. 3. The patient is post cholecystectomy. 4. Large right pleural effusion. Shalom Salinas MD Abdomen/Pelvis CT [id number]/06/[id number] Signed Impressions: Service Date/Time: Tuesday, June 06, 2017 21:13 - CONCLUSION: 1. Trace ascites, nonspecific but there are bilateral pleural effusions and pain chamber enlargement of the heart also noted. Also mild body wall edema/anasarca. 2. No stones or obstruction of either kidney. Normal appendix. 3. Atherosclerotic abdominal aorta. No aneurysm. 4. Possible mild cystitis in the proper clinical setting. Mild enlargement of the prostate. John Gallagher MD Abdomen X-Ray [id number]/06/[id number] Signed Impressions: Service Date/Time: Tuesday, June 06, 2017 20:04 - CONCLUSION: Benign-appearing abdomen. John Gallagher MD Objective Remarks GENERAL: Alert oriented talkative and cooperative SKIN: Warm and dry. HEAD: Atraumatic. Normocephalic. EYES: Pupils equal and round. No scleral icterus. No injection or drainage. Extraocular muscles are intact ENT: No nasal bleeding or discharge. Mucous membranes pink and moist. Tongue is midline NECK: Trachea midline. No JVD. Supple CARDIOVASCULAR: Regular rate and rhythm. S1-S2 no S3 or S4 no heave or thrill or rub RESPIRATORY: No accessory muscle use. Clear to auscultation. Breath sounds equal bilaterally. Decreased breath sounds bilaterally GASTROINTESTINAL: Abdomen soft, non-tender, nondistended. Hepatic and splenic margins not palpable. MUSCULOSKELETAL: Extremities without clubbing, cyanosis, or edema. No obvious deformities. NEUROLOGICAL: Awake and alert. No obvious cranial nerve deficits. Motor grossly within normal limits. 4 out of 5 muscle strength in the arms and legs. Normal speech. PSYCHIATRIC: Appropriate mood and affect; insight and judgment normal. Procedures STRESS TEST 06-11 Medications and IVs Current Medications Morphine Sulfate (Morphine Inj) 2 mg ONCE ONCE IV PUSH Last administered on 20:02; Start 06/06/17 at 19:45; Stop 06/06/17 at 19:46; Status DC Ondansetron HCl (Zofran Inj) 4 mg ONCE ONCE IVP Last administered on 20:00; Start 06/06/17 at 19:45; Stop 06/06/17 at 19:46; Status DC Sodium Chloride 1,000 ml @ 1,000 mls/hr Q1H IV Last administered on 06/06/17 20:01; Start 06/06/17 at 19:36; Stop 06/06/17 at 20:35; Status DC Sodium Chloride (NS Flush) 2 ml UNSCH PRN IV FLUSH FLUSH AFTER USING IV ACCESS ; Start 06/06/17 at 19:45; Status Cancel Diltiazem HCl (Cardizem Inj) 10 mg ONCE ONCE IV Last administered on 20:01; Start 06/06/17 at 19:45; Stop 06/06/17 at 19:46; Status DC Iodixanol (VISIPAQUE 320 INJ (Rad CT)) 45 ml STK-MED ONCE IV Last administered on 06/06/17 21:20; Start 06/06/17 at 21:20; Stop 06/06/17 at 21:21; Status DC Furosemide (Lasix Inj) 20 mg ONCE ONCE IV PUSH Last administered on 06/06/17 22:42; Start 06/06/17 at 22:30; Stop 06/06/17 at 22:31; Status DC Dextrose (D50w (Vial) Inj) 50 ml UNSCH PRN IV HYPOGLYCEMIA-SEE COMMENTS; Start 06/06/17 at 22:45 Glucagon (Glucagon Inj) 1 mg UNSCH PRN OTHER HYPOGLYCEMIA-SEE COMMENTS; Start 06/06/17 at 22:45 Insulin Aspart (NovoLOG SUPPLEMENTAL SCALE) 1 ACHS SLIDING SCALE SQ Last administered on 06/15/17 21:05; Start 06/07/17 at 08:00 Sodium Chloride (NS Flush) 2 ml UNSCH PRN IV FLUSH FLUSH AFTER USING IV ACCESS ; Start 06/06/17 at 22:45 Sodium Chloride (NS Flush) 2 ml BID IV FLUSH Last administered on 06/16/17 08: 43; Start 06/07/17 at 09:00 Ondansetron HCl (Zofran Inj) 4 mg Q6H PRN IVP NAUSEA OR VOMITING; Start at 22:45 Acetaminophen (Tylenol) 650 mg Q6H PRN PO FEVER/PAIN SCALE 1 TO 2; Start at 22:45 Acetaminophen/ Hydrocodone Bitart (Laotto 5-325 Mg) 1 tab Q4H PRN PO PAIN SCALE 3 TO 5 Last administered on 06/14/17 21:42; Start 06/06/17 at 22:45 Morphine Sulfate (Morphine Inj) 2 mg Q3H PRN IV PUSH Pain 6-10 Last administered on 06/07/17 21:26; Start 06/06/17 at 22:45 Senna/Docusate Sodium (Maria Ines-Colace) 1 tab BID PO Last administered on 08:42; Start 06/07/17 at 09:00 Magnesium Hydroxide (Milk Of Magnesia Liq) 30 ml Q12H PRN PO MILD - MODERATE CONSTIPATION Last administered on 06/11/17 17:28; Start 06/06/17 at 22:45 Sennosides (Senokot) 17.2 mg Q12H PRN PO MODERATE - SEVERE CONSTIPATION Last administered on 06/09/17 12:11; Start 06/06/17 at 22:45 Bisacodyl (Dulcolax Supp) 10 mg DAILY PRN RECTAL SEVERE CONSITIPATION; Start at 22:45 Lactulose (Lactulose Liq) 30 ml DAILY PRN PO SEVERE CONSITIPATION Last administered on 06/11/17 21:23; Start 06/06/17 at 22:45 Furosemide (Lasix) 40 mg BID@18 PO Last administered on 06/07/17 09:13; Start 06/07/17 at 09:00; Stop 06/07/17 at 10:16; Status DC Aspirin (Ecotrin Ec) 81 mg DAILY PO Last administered on 06/14/17 09:49; Start 06/07/17 at 09:00; Stop 06/14/17 at 11:06; Status DC Metoprolol Tartrate (Lopressor) 12.5 mg Q12HR PO Last administered on 09:13; Start 06/07/17 at 09:00; Stop 06/07/17 at 10:16; Status DC Dextrose 500 ml @ 500 mls/hr BOLUS ONCE IV Last administered on 06/07/17 01: 45; Start 06/07/17 at 01:45; Stop 06/07/17 at 02:44; Status DC Metoprolol Tartrate (Lopressor) 50 mg Q8HR PO Last administered on 06/08/17 12 :44; Start 06/07/17 at 11:00; Stop 06/08/17 at 17:59; Status DC Diltiazem HCl (Cardizem Inj) 15 mg ONCE ONCE IV PUSH Last administered on 06/07 10:36; Start 06/07/17 at 10:30; Stop 06/07/17 at 10:31; Status DC Diltiazem HCl 125 mg/Sodium Chloride 125 ml @ 10 mls/hr TITRATE PRN IV Tachycardia Last administered on 06/07/17 10:52; Start 06/07/17 at 11:00; Stop 06/08/17 at 13:58; Status DC Diltiazem HCl (Cardizem Inj) 15 mg UNSCH X1 PRN IV PUSH SEE LABEL COMMENTS; Start 06/07/17 at 11:00; Stop 06/07/17 at 23:59; Status DC Furosemide (Lasix Inj) 40 mg BID@09,18 IV PUSH Last administered on 06/12/17 18:30; Start 06/07/17 at 11:00; Stop 06/13/17 at 08:54; Status DC Digoxin (Lanoxin Inj) 0.25 mg ONCE ONCE IV PUSH Last administered on 09:28; Start 06/08/17 at 09:00; Stop 06/08/17 at 09:01; Status DC Digoxin (Lanoxin Inj) 0.25 mg ONCE ONCE IV PUSH Last administered on 15:04; Start 06/08/17 at 15:00; Stop 06/08/17 at 15:01; Status DC Digoxin (Lanoxin Inj) 0.25 mg ONCE ONCE IV PUSH Last administered on 22:38; Start 06/08/17 at 23:00; Stop 06/08/17 at 23:01; Status DC Digoxin (Lanoxin) 0.25 mg ONCE ONCE PO Last administered on 06/09/17 08:37; Start 06/09/17 at 09:00; Stop 06/09/17 at 09:01; Status DC Potassium Chloride (KCl) 20 meq TID PO Last administered on 06/13/17 16:46; Start 06/08/17 at 09:00; Stop 06/14/17 at 13:05; Status DC Magnesium Sulfate/ Dextrose 100 ml @ 100 mls/hr Q1H IV Last administered on 11:43; Start 06/08/17 at 09:00; Stop 06/08/17 at 10:59; Status DC Atorvastatin Calcium (Lipitor) 40 mg HS PO Last administered on 06/15/17 21:04 ; Start 06/08/17 at 21:00 Cyanocobalamin (Vitamin B12) 500 mcg DAILY PO Last administered on 06/16/17 08 :43; Start 06/09/17 at 09:00 Ferrous Sulfate (Ferrous Sulfate) 325 mg DAILY PO Last administered on 08:41; Start 06/09/17 at 09:00 Terazosin HCl (Hytrin) 1 mg HS PO Last administered on 06/15/17 21:04; Start 06/08/17 at 21:00 Warfarin Sodium (Coumadin) 2.5 mg DAILY@1600 PO Last administered on 06/12/17 16:36; Start 06/08/17 at 18:00; Stop 06/13/17 at 10:44; Status DC Pharmacy Profile Note 0 ml @ 0 mls/hr UNSCH OTHER ; Start 06/08/17 at 15:30; Stop 06/15/17 at 14:19; Status DC Patient Medication Teaching (Coumadin Booklet) 1 ONCE ONCE OTHER Last administered on 06/08/17 17:31; Start 06/08/17 at 16:00; Stop 06/08/17 at 17:13 ; Status DC Metoprolol Tartrate (Lopressor) 100 mg BID PO Last administered on 06/16/17 08 :41; Start 06/08/17 at 21:00 Heparin Sodium/ Dextrose 250 ml @ 8.28 mls/hr TITRATE PRN IV Coagulation management Last administered on 06/12/17 05:52; Start 06/09/17 at 16:15; Stop 06/12/17 at 11:03; Status DC Alprazolam (Xanax) 0.25 mg Q8H PRN PO ANXIETY Last administered on 06/15/17 21 :04; Start 06/10/17 at 16:00 Metoprolol Tartrate (Lopressor Inj) 2.5 mg Q5M PRN IV PUSH SUSTAINED HR > 130'S ; Start 06/11/17 at 04:00 Atropine Sulfate (Atropine Inj) 1 mg STK-MED ONCE .ROUTE Last administered on 09:00; Start 06/11/17 at 10:52; Stop 06/11/17 at 10:53; Status DC Lidocaine HCl (Xylocaine 2% Inj) 100 mg STK-MED ONCE .ROUTE ; Start 06/11/17 at 10:53; Stop 06/11/17 at 10:54; Status DC Epinephrine HCl (EPINEPHrine (1:10,000) INJ) 1 mg STK-MED ONCE .ROUTE ; Start at 10:53; Stop 06/11/17 at 10:54; Status DC Regadenoson (Lexiscan Inj) 0.4 mg STK-MED ONCE .ROUTE Last administered on 06/11 14:11; Start 06/11/17 at 14:11; Stop 06/11/17 at 14:12; Status DC Bacitracin (Bacitracin Oint Packet) 0.9 gm ONCE ONCE TOPICAL Last administered on 06/12/17 23:45; Start 06/12/17 at 23:45; Stop 06/12/17 at 23:48 ; Status DC Furosemide (Lasix) 40 mg DAILY PO Last administered on 06/16/17 08:41; Start 06/13/17 at 09:00 Warfarin Sodium (Coumadin) 5 mg DAILY@1600 PO Last administered on 06/13/17 16 :47; Start 06/13/17 at 16:00; Stop 06/14/17 at 10:21; Status DC Warfarin Sodium (Coumadin) 7.5 mg DAILY@1600 PO ; Start 06/14/17 at 16:00; Stop 06/14/17 at 16:00; Status DC Apixaban (Eliquis) 5 mg BID PO Last administered on 06/16/17 08:42; Start at 21:00 Digoxin (Lanoxin) 0.125 mg DAILY PO Last administered on 06/15/17 08:34; Start 06/14/17 at 11:15; Stop 06/15/17 at 10:02; Status DC Atropine Sulfate (Atropine Inj) 1 mg STK-MED ONCE .ROUTE ; Start 06/14/17 at 13: 45; Stop 06/14/17 at 13:46; Status DC Lidocaine HCl (Xylocaine 2% Inj) 100 mg STK-MED ONCE .ROUTE ; Start 06/14/17 at 13:45; Stop 06/14/17 at 13:46; Status DC Epinephrine HCl (EPINEPHrine (1:10,000) INJ) 1 mg STK-MED ONCE .ROUTE ; Start at 13:45; Stop 06/14/17 at 13:46; Status DC Lactated Ringer's 1,000 ml @ 30 mls/hr Q24H PRN IV SEE LABEL COMMENTS; Start at 22:45; Stop 06/18/17 at 22:44 Sodium Chloride 500 ml @ 30 mls/hr [id number] PRN IV SEE LABEL COMMENTS; Start at 22:45; Stop 06/18/17 at 22:44 Povidone Iodine (Betadine 5% Antisepsis Kit) 1 applic HAND LEATHER TRIMMER PRN EACH NARE SEE LABEL COMMENTS; Start 06/15/17 at 22:45; Stop 06/18/17 at 22:44 Chlorhexidine Gluconate (Chlorhexidine 2% Cloth) 3 pack HAND LEATHER TRIMMER PRN TOPICAL SEE LABEL COMMENTS; Start 06/15/17 at 22:45; Stop 06/18/17 at 22:44 Urinary Catheter: No Vascular Central Line Catheter: No A/P Problem List: (1) CHF (congestive heart failure) ICD Code: I50.9 - Heart failure, unspecified (2) A-fib ICD Code: I48.91 - Unspecified atrial fibrillation (3) RUQ abdominal pain ICD Code: R10.11 - Right upper quadrant pain Status: Acute (4) Elevated troponin ICD Code: R74.8 - Abnormal levels of other serum enzymes Status: Acute (5) Lactic acidosis ICD Code: E87.2 - Acidosis (6) Renal insufficiency ICD Code: N28.9 - Disorder of kidney and ureter, unspecified Status: Acute (7) DM (diabetes mellitus) ICD Code: E11.9 - Type 2 diabetes mellitus without complications Assessment and Plan In summary, this is a 71-year-old male admitted with acute onset congestive heart failure. The patient also has a history of A. fib which was uncontrolled on presentation, likely contributed to his heart failure. CHF: Acute systolic CHF, new onset. BNP 1400 on admission with pleural effusions. 2-D echocardiogram revealed LVEF of 20% - Cardiology following. Continue metoprolol, digoxin, Lasix. CHERIE inhibitor when renal function stabilized. CT abdomen and pelvis showed trace ascites, bilateral pleural effusions and cardiomegaly. Anasarca. Gallbladder Us Atrial fibrillation with RVR on presentation/elevated cardiac enzymes. - Patient is status post Cardizem drip per cardiology. - Digoxin added. Continue metoprolol. May need to increase metoprolol to 100 mg twice a day. Continue to monitor. Resume Coumadin. Follow IN 06/09 INR subtherapeutic at 1.6. Hold Coumadin for now and start on IV heparin while awaiting for US guided thoracentesis. 06/10 Rate controlled. Continue heparin bridge for thoracentesis. . Thoracentesis WAS NOT PERFORMED. check TSH. NOT ENOUGH FLUID FOR THORACENTESIS INR ONLY 1.1 WILL INCREASE WARFARIN TO 7.5MG PO DAILY Elevated LFT: Likely due to CHF. LFT's trending down. AST 654 ---> 289 ; ALT 657 ---> 549. Continue to monitor LFT's 06/10 AST is slightly lower at 272, 8 LT slightly elevated at 610. Continue to monitor. LFTS STILL BORDERLINE DM: Sliding scale w/ Accu-Cheks. Hold oral hypoglycemic agents. Monitor BS. Blood sugars stable. KATHY: Creatinine 1.66 on admission, no previous labs for comparison, Creatinine slowly trending down. Today 1.5. WORSENING RENAL FUNCTIONS AM LABS- ADJUST LASIX elevated ACTUALLY WORSE - AM LABS Elevated troponin: Likely demand ischemia. Cardiology following. Troponin level peaked at 0.4, now trending down at 0.37. 06/10 Continue to monitor cardiac enzymes. DVT Prophylaxis ELIQUIS HAD STRESS TEST 06-11 -HAS ARTIFACT- NO CATH THIS ADMISSION A.m. labs DW CARDIO AND RN HYPERKALEMIA- TREAT IF STILL ABNORMAL SWITCHED TO ELIQUIS 5MG PO BID NEEDS [facility] PRIOR TO DISCHARGE FOR CARDIOVERSION AND ILENE 06-16 Discharge Planning CM FOR [facility] [place] Heri Hill DO Jun 16, 2017 09:06
[2017-06-16] MEDS: ATORVASTATIN 40 MG TAB PO SCH (21:03)
[2017-06-16] MEDS: TERAZOSIN HCL 1 MG CAP PO SCH (21:03)
[2017-06-16] MEDS: METOPROLOL TARTRATE 50 MG TAB PO SCH (21:03)
[2017-06-16] MEDS: AMIODARONE 200 MG TAB PO SCH (21:04)
--- NOTE | 2017-06-16 21:06 | MA ---
cc: ELHAM LEE M.D. DATE 06/16/17 CARDIOVERSION HISTORY Mr. Marin is a 72-year-old gentleman with congestive heart failure, cardiomyopathy, atrial fibrillation on anticoagulation. Heart rate difficult to control. EF 15% by esophageal echo. No clot in left atrial appendage, to undergo cardioversion. The risks, the nature and the benefit of the procedure are clearly stated to him. The risks include cardiac arrest, need for intubation, stroke and even . The patient understood and agreed to proceed. PROCEDURE Written informed consent was obtained prior to electrophysiology study, the patient was evaluated by anesthesiologist. Once sedation verified, lateral pad defibrillatory __ pad were placed. Subsequently the patient received 200 sync biphasic joule that converted him into sinus rhythm. No incident report. The patient tolerated the procedure. CONCLUSION Successful cardioversion. COMMENT/RECOMMENDATIONS The patient will be observed. Medication will be modified. When stable, can be discharged home. Ablation will be scheduled as an outpatient. Elham Lee MD HS/EO /6:07 PM /8:56 PM
[2017-06-17] VITALS (23 sets, daily range): BP systolic 122–143; BP diastolic 51–70; PULSE 51–74; RESP 18–20; TEMP 97.5–97.9; O2SAT 96–100
[2017-06-17] MEDS: ACETAMINOPHEN/HYDROcodone 325 MG/5 MG TAB PO PRN (00:27)
[2017-06-17 06:50] LABS: AUTOMATED NEUTROPHIL # 4.4 TH/MM3 (1.8-7.7); BASOPHIL # 0.1 TH/MM3 (0-0.2); EOSINOPHIL # 0.2 TH/MM3 (0-0.4); EOSINOPHIL % 3.2 % (0.0-4.0); HEMO FLAGS DIFF FINAL; LYMPH % 20.1 % (9.0-44.0); LYMPHOCYTE # 1.4 TH/MM3 (1.0-4.8); MEAN CELL VOLUME 91.8 FL (80.0-100.0); MEAN CORPUSCULAR HEMOGLOBIN 29.8 PG (27.0-34.0); MEAN CORPUSCULAR HGB CONC 32.4 % (32.0-36.0); MONO % 13.2 % (0.0-8.0); NEUT % 62.5 % (16.0-70.0); PLATELET COUNT 225 TH/MM3 (150-450); RED BLOOD COUNT 3.48 MIL/MM3 (4.50-5.90); RED CELL DISTRIBUTION WIDTH 16.1 % (11.6-17.2); WHITE BLOOD COUNT 7.1 TH/MM3 (4.0-11.0)
[2017-06-17 07:00] LABS: ANION GAP 8 MEQ/L (5-15); AST (GOT) 26 U/L (15-37); BICARBONATE 28.3 MEQ/L (21.0-32.0); BLOOD UREA NITROGEN 71 MG/DL (7-18); CHLORIDE 100 MEQ/L (98-107); GLOMERULAR FILTRATION RATE 27 ML/MIN (>89); MAGNESIUM 2.6 MG/DL (1.5-2.5); POTASSIUM 4.8 MEQ/L (3.5-5.1); SODIUM (NA) 136 MEQ/L (136-145)
[2017-06-17 07:01] LABS: ALT (GPT) 152 U/L (12-78)
[2017-06-17 07:03] LABS: ALKALINE PHOSPHATASE 145 U/L (45-117); TOTAL BILIRUBIN ADULT 0.6 MG/DL (0.2-1.0)
[2017-06-17] MEDS: INSULIN ASPART SUPPLEMENTAL SCALE SQ SCH ×3 (08:00→17:00)
--- NOTE | 2017-06-17 08:02 | EKG ---
Date Performed: 06/16/2017 Time Performed: 12:32:02 PTAGE: 72 years EKG: Atrial fibrillation. Left ventricular hypertrophy Inferior/lateral ST-T changes are probabl y due to ventricular hypertrophy Abnormal ECG Since PREVIOUS TRACING , no longer in RVR PREVIOUS TRACIN06/06/2017 19.35 DOCTOR: Atiya Juárez Interpretating Date/Time 06/17/2017 08:01:32
--- NOTE | 2017-06-17 09:15 | HHI.PR ---
Subjective Remarks Feeling better Objective Vital Signs Date Time Temp Pulse Resp B/P (MAP) Pulse Ox O2 Delivery O2 Flow Rate FiO2 06/17/17 08:00 60 06/17/17 07:29 97.5 62 20 130/54 (79) 96 06/17/17 07:00 58 06/17/17 06:12 51 06/17/17 05:00 55 06/17/17 04:14 97.9 62 130/51 (77) 100 06/17/17 04:00 55 06/17/17 03:00 54 06/17/17 02:00 54 06/17/17 01:00 70 06/17/17 00:00 74 06/16/17 23:00 97.5 63 152/81 (104) 100 06/16/17 23:00 60 06/16/17 22:00 58 06/16/17 21:00 64 06/16/17 20:00 97.7 64 138/64 (88) 100 06/16/17 20:00 60 06/16/17 19:00 64 06/16/17 18:00 64 06/16/17 17:00 66 06/16/17 16:00 68 06/16/17 15:30 68 18 129/88 (102) 98 06/16/17 15:00 110 06/16/17 14:00 98 06/16/17 13:00 110 06/16/17 12:00 104 06/16/17 12:00 105 06/16/17 11:00 106 06/16/17 11:00 89 06/16/17 11:00 97.5 97 17 116/66 (83) 98 06/16/17 10:00 78 06/16/17 10:00 104 I/O 06/16/17 06/16/17 06/16/17 06/17/17 06/17/17 06/17/17 07:00 15:00 23:00 07:00 15:00 23:00 Intake Total 240 ml 360 ml 240 ml Output Total 400 ml 620 ml 550 ml Balance -160 ml -260 ml -310 ml Intake Oral 240 ml 360 ml 240 ml Output Urine Total 400 ml 620 ml 550 ml # Voids 1 Result Diagram: 06/17/17 0555 06/17/17 0555 Imaging Alert, fully oriented Lungs: ventilated Heart: S1, S2 regular, no gallop Abdomen: soft, no mass Ext: no edema Last Impressions Chest X-Ray 06/14/17 0000 Signed Impressions: Service Date/Time: Wednesday, June 14, 2017 13:57 - CONCLUSION: 1. No acute abnormality. 2. Resolution of the patient's pleural effusion since prior of 06/06/17. Shalom Salinas MD Myocardial Perfusion Scan Nuc Med 06/11/17 0000 Signed Impressions: Service Date/Time: Sunday, June 11, 2017 13:23 - CONCLUSION: Left ventricular cardiomegaly with hypokinesia and decreased ejection fraction consistent with cardiomyopathy. Marked amount of radionuclide in the stomach yielding a possible artifactual finding of inferior wall perfusion defect. RISK CATEGORY: Intermediate (1-3%% Annual Mortality Rate) Edwin Gomez MD Chest Ultrasound 06/11/17 0000 Signed Impressions: Service Date/Time: Sunday, June 11, 2017 11:17 - CONCLUSION: No pleural fluid seen on the right. Isidoro Cassidy MD Gall Bladder Ultrasound 06/07/17 0000 Signed Impressions: Service Date/Time: Wednesday, June 07, 2017 07:36 - CONCLUSION: 1. Heterogeneous echotexture of the liver suggesting fatty infiltration. 2. Questionable edematous changes within the pancreas. The pancreas was difficult to visualize. 3. The patient is post cholecystectomy. 4. Large right pleural effusion. Shalom Salinas MD Abdomen/Pelvis CT [id number]/06/171935 Signed Impressions: Service Date/Time: Tuesday, June 06, 2017 21:13 - CONCLUSION: 1. Trace ascites, nonspecific but there are bilateral pleural effusions and pain chamber enlargement of the heart also noted. Also mild body wall edema/anasarca. 2. No stones or obstruction of either kidney. Normal appendix. 3. Atherosclerotic abdominal aorta. No aneurysm. 4. Possible mild cystitis in the proper clinical setting. Mild enlargement of the prostate. John Gallagher MD Abdomen X-Ray [id number]/06/[id number] Signed Impressions: Service Date/Time: Tuesday, June 06, 2017 20:04 - CONCLUSION: Benign-appearing abdomen. John Gallagher MD Current Medications Medications (Trade) Dose Ordered Sig/Trinity Route Start Time Stop Time Status Last Admin (D50w (Vial) Inj) 50 ml UNSCH PRN IV 06/06/17 22:45 (Glucagon Inj) 1 mg UNSCH PRN OTHER 06/06/17 22:45 (NovoLOG SUPPLEMENTAL SCALE) 1 ACHS SLIDING SCALE SQ 06/07/17 08:00 06/16/17 21:00 (NS Flush) 2 ml UNSCH PRN IV FLUSH 06/06/17 22:45 (NS Flush) 2 ml BID IV FLUSH 06/07/17 09:00 06/16/17 21:00 (Zofran Inj) 4 mg Q6H PRN IVP 06/06/17 22:45 (Tylenol) 650 mg Q6H PRN PO 06/06/17 22:45 (Loco 5-325 Mg) 1 tab Q4H PRN PO 06/06/17 22:45 06/17/17 00:27 (Morphine Inj) 2 mg Q3H PRN IV PUSH 06/06/17 22:45 06/07/17 21:26 (Maria Ines-Colace) 1 tab BID PO 06/07/17 09:00 06/16/17 21:03 (Milk Of Magnesia Liq) 30 ml Q12H PRN PO 06/06/17 22:45 06/11/17 17:28 (Senokot) 17.2 mg Q12H PRN PO 06/06/17 22:45 06/09/17 12:11 (Dulcolax Supp) 10 mg DAILY PRN RECTAL 06/06/17 22:45 (Lactulose Liq) 30 ml DAILY PRN PO 06/06/17 22:45 06/11/17 21:23 (Lipitor) 40 mg HS PO 06/08/17 21:00 06/16/17 21:03 (Vitamin B12) 500 mcg DAILY PO 06/09/17 09:00 06/16/17 08:43 (Ferrous Sulfate) 325 mg DAILY PO 06/09/17 09:00 06/16/17 08:41 (Hytrin) 1 mg HS PO 06/08/17 21:00 06/16/17 21:03 (Xanax) 0.25 mg Q8H PRN PO 06/10/17 16:00 06/15/17 21:04 (Lopressor Inj) 2.5 mg Q5M PRN IV PUSH 06/11/17 04:00 (Lasix) 40 mg DAILY PO 06/13/17 09:00 06/16/17 08:41 (Eliquis) 5 mg BID PO 06/14/17 21:00 06/16/17 21:03 Lactated Ringer's 1,000 ml @ 30 mls/hr Q24H PRN IV 06/15/17 22:45 06/18/17 22:44 Sodium Chloride 500 ml @ 30 mls/hr [id number] PRN IV 06/15/17 22:45 06/18/17 22:44 (Betadine 5% Antisepsis Kit) 1 applic RN IV THERAPY PRN EACH NARE 06/15/17 22:45 06/18/17 22:44 (Chlorhexidine 2% Cloth) 3 pack RN IV THERAPY PRN TOPICAL 06/15/17 22:45 06/18/17 22:44 (Lopressor) 50 mg BID PO 06/16/17 21:00 06/16/17 21:03 (Cordarone) 400 mg BID PO 06/16/17 21:00 06/21/17 20:59 06/16/17 21:04 (Cordarone) 200 mg DAILY PO 06/22/17 09:00 Assessment and Plan Problem List: (1) A-fib ICD Codes: I48.91 - Unspecified atrial fibrillation Plan: In sinus rhythm HR control Can be DH today Follow up with me in 3-4 weeks (2) CHF (congestive heart failure) ICD Codes: I50.9 - Heart failure, unspecified Plan: CHFII-III On optimal medical management Can be DH when ok with managing team Andria Calle MD Jun 17, 2017 09:15
--- NOTE | 2017-06-17 09:24 | HHI.PR ---
Subjective Remarks HAD NUCLEAR STRESS TEST DONE TODAY DW PT AND CARDIOLOGY Discussed with patient and RN and . A.m. labs 06-12 DW CARDIOLOGY AND PT AND RN NEEDS NOTE FOR WORK AM LABS NEEDS PT AND OT WATCH LFTS INCREASE ACTIVITY RELOAD COUMADIN 06-13 MEDS BEING ADJUSTED BY CARDIOLOGY STILL SOB ON ANY REAL ACTIVITY NEEDS PT AND OT MAY NEED SNF DW RN AND PATIENT AND CARDIOLOGY AM LABS 06-14 not very mobile yet ABNORMAL LABS REPEAT TODAY LOAD COUMADIN DW RN AND PT AND CM 06-15 SWITCHED OF COUMADIN TO ELIQUIS BID DC HELD DR LEE CONSULTED- FOR ILENE 06-16 FOR ILENE AND CARDIOVERSION TODAY DW CARDIOLOGY DW PATIENT AND AND RN A LITTLE SOB 06-17 had ILENE WITH CARDIOVERSION 06-16 WAS FITTED AND WEARING ZOLL LIFEVEST RENAL FUNCTIONS A LITTLE WORSE NEPHROLOGY CONSULT POSSIBLE DC TOMORROW Objective Vitals Vital Signs Date Time Temp Pulse Resp B/P (MAP) Pulse Ox O2 Delivery O2 Flow Rate FiO2 06/17/17 08:00 60 06/17/17 07:29 97.5 62 20 130/54 (79) 96 06/17/17 07:00 58 06/17/17 06:12 51 06/17/17 05:00 55 06/17/17 04:14 97.9 62 130/51 (77) 100 06/17/17 04:00 55 06/17/17 03:00 54 06/17/17 02:00 54 06/17/17 01:00 70 06/17/17 00:00 74 06/16/17 23:00 97.5 63 152/81 (104) 100 06/16/17 23:00 60 06/16/17 22:00 58 06/16/17 21:00 64 06/16/17 20:00 97.7 64 138/64 (88) 100 06/16/17 20:00 60 06/16/17 19:00 64 06/16/17 18:00 64 06/16/17 17:00 66 06/16/17 16:00 68 06/16/17 15:30 68 18 129/88 (102) 98 06/16/17 15:00 110 06/16/17 14:00 98 06/16/17 13:00 110 06/16/17 12:00 104 06/16/17 12:00 105 06/16/17 11:00 106 06/16/17 11:00 89 06/16/17 11:00 97.5 97 17 116/66 (83) 98 06/16/17 10:00 78 06/16/17 10:00 104 I/O 06/16/17 06/16/17 06/16/17 06/17/17 06/17/17 06/17/17 07:00 15:00 23:00 07:00 15:00 23:00 Intake Total 240 ml 360 ml 240 ml Output Total 400 ml 620 ml 550 ml Balance -160 ml -260 ml -310 ml Intake Oral 240 ml 360 ml 240 ml Output Urine Total 400 ml 620 ml 550 ml # Voids 1 Result Diagram: 06/17/17 0555 06/17/17 0555 Other Results Laboratory Tests Test 06/14/17 11:28 06/15/17 06:15 06/16/17 05:45 06/17/17 05:55 Blood Urea Nitrogen 64 MG/DL 67 MG/DL 67 MG/DL 71 MG/DL Creatinine 2.02 MG/DL 2.02 MG/DL 2.13 MG/DL 2.34 MG/DL Random Glucose 227 MG/DL 189 MG/DL 174 MG/DL 154 MG/DL Calcium Level 9.7 MG/DL 9.9 MG/DL 9.9 MG/DL 9.7 MG/DL Sodium Level 134 MEQ/L 136 MEQ/L 137 MEQ/L 136 MEQ/L Potassium Level 5.3 MEQ/L 5.0 MEQ/L 5.0 MEQ/L 4.8 MEQ/L Chloride Level 100 MEQ/L 101 MEQ/L 102 MEQ/L 100 MEQ/L Carbon Dioxide Level 28.6 MEQ/L 27.9 MEQ/L 26.7 MEQ/L 28.3 MEQ/L Anion Gap 5 MEQ/L 7 MEQ/L 8 MEQ/L 8 MEQ/L Estimat Glomerular Filtration Rate 33 ML/MIN 33 ML/MIN 31 ML/MIN 27 ML/MIN White Blood Count 7.5 TH/MM3 7.6 TH/MM3 7.1 TH/MM3 Red Blood Count 3.55 MIL/MM3 3.66 MIL/MM3 3.48 MIL/MM3 Hemoglobin 10.8 GM/DL 10.8 GM/DL 10.4 GM/DL Hematocrit 32.5 % 33.6 % 32.0 % Mean Corpuscular Volume 91.5 FL 91.6 FL 91.8 FL Mean Corpuscular Hemoglobin 30.4 PG 29.6 PG 29.8 PG Mean Corpuscular Hemoglobin Concent 33.3 % 32.3 % 32.4 % Red Cell Distribution Width 16.1 % 16.0 % 16.1 % Platelet Count 214 TH/MM3 237 TH/MM3 225 TH/MM3 Mean Platelet Volume 8.6 FL 9.0 FL 8.6 FL Neutrophils (%) (Auto) 63.0 % 64.4 % 62.5 % Lymphocytes (%) (Auto) 18.5 % 18.9 % 20.1 % Monocytes (%) (Auto) 13.3 % 12.1 % 13.2 % Eosinophils (%) (Auto) 4.1 % 3.6 % 3.2 % Basophils (%) (Auto) 1.1 % 1.0 % 1.0 % Neutrophils # (Auto) 4.7 TH/MM3 4.9 TH/MM3 4.4 TH/MM3 Lymphocytes # (Auto) 1.4 TH/MM3 1.4 TH/MM3 1.4 TH/MM3 Monocytes # (Auto) 1.0 TH/MM3 0.9 TH/MM3 0.9 TH/MM3 Eosinophils # (Auto) 0.3 TH/MM3 0.3 TH/MM3 0.2 TH/MM3 Basophils # (Auto) 0.1 TH/MM3 0.1 TH/MM3 0.1 TH/MM3 CBC Comment DIFF FINAL DIFF FINAL DIFF FINAL Differential Comment Total Protein 7.9 GM/DL 7.9 GM/DL 7.4 GM/DL Albumin 4.0 GM/DL 3.9 GM/DL 3.9 GM/DL Phosphorus Level 5.0 MG/DL 5.0 MG/DL 5.2 MG/DL Magnesium Level 2.7 MG/DL 2.8 MG/DL 2.6 MG/DL Alkaline Phosphatase 143 U/L 136 U/L 145 U/L Aspartate Amino Transf (AST/SGOT) 29 U/L 30 U/L 26 U/L Alanine Aminotransferase (ALT/SGPT) 230 U/L 196 U/L 152 U/L Total Bilirubin 0.5 MG/DL 0.5 MG/DL 0.6 MG/DL Imaging Last Impressions Chest X-Ray 06/14/17 0000 Signed Impressions: Service Date/Time: Wednesday, June 14, 2017 13:57 - CONCLUSION: 1. No acute abnormality. 2. Resolution of the patient's pleural effusion since prior of 06/06/17. Shalom Salinas MD Myocardial Perfusion Scan Nuc Med 06/11/17 0000 Signed Impressions: Service Date/Time: Sunday, June 11, 2017 13:23 - CONCLUSION: Left ventricular cardiomegaly with hypokinesia and decreased ejection fraction consistent with cardiomyopathy. Marked amount of radionuclide in the stomach yielding a possible artifactual finding of inferior wall perfusion defect. RISK CATEGORY: Intermediate (1-3%% Annual Mortality Rate) Edwin Gomez MD Chest Ultrasound 06/11/17 0000 Signed Impressions: Service Date/Time: Sunday, June 11, 2017 11:17 - CONCLUSION: No pleural fluid seen on the right. Isidoro Cassidy MD Gall Bladder Ultrasound 06/07/17 0000 Signed Impressions: Service Date/Time: Wednesday, June 07, 2017 07:36 - CONCLUSION: 1. Heterogeneous echotexture of the liver suggesting fatty infiltration. 2. Questionable edematous changes within the pancreas. The pancreas was difficult to visualize. 3. The patient is post cholecystectomy. 4. Large right pleural effusion. Shalom Salinas MD Abdomen/Pelvis CT [id number]/06/[id number] Signed Impressions: Service Date/Time: Tuesday, June 06, 2017 21:13 - CONCLUSION: 1. Trace ascites, nonspecific but there are bilateral pleural effusions and pain chamber enlargement of the heart also noted. Also mild body wall edema/anasarca. 2. No stones or obstruction of either kidney. Normal appendix. 3. Atherosclerotic abdominal aorta. No aneurysm. 4. Possible mild cystitis in the proper clinical setting. Mild enlargement of the prostate. John Gallagher MD Abdomen X-Ray [id number]/06/[id number] Signed Impressions: Service Date/Time: Tuesday, June 06, 2017 20:04 - CONCLUSION: Benign-appearing abdomen. John Gallagher MD Objective Remarks GENERAL: Alert oriented talkative and cooperative SKIN: Warm and dry. HEAD: Atraumatic. Normocephalic. EYES: Pupils equal and round. No scleral icterus. No injection or drainage. Extraocular muscles are intact ENT: No nasal bleeding or discharge. Mucous membranes pink and moist. Tongue is midline NECK: Trachea midline. No JVD. Supple CARDIOVASCULAR: Regular rate and rhythm. S1-S2 no S3 or S4 no heave or thrill or rub RESPIRATORY: No accessory muscle use. Clear to auscultation. Breath sounds equal bilaterally. Decreased breath sounds bilaterally GASTROINTESTINAL: Abdomen soft, non-tender, nondistended. Hepatic and splenic margins not palpable. MUSCULOSKELETAL: Extremities without clubbing, cyanosis, or edema. No obvious deformities. NEUROLOGICAL: Awake and alert. No obvious cranial nerve deficits. Motor grossly within normal limits. 4 out of 5 muscle strength in the arms and legs. Normal speech. PSYCHIATRIC: Appropriate mood and affect; insight and judgment normal. HAS ZOLL LIFEVEST ON NOW Procedures STRESS TEST 06-11 HAD ILENE AND CARDIOVERSION WITH DR LEE Medications and IVs Current Medications Morphine Sulfate (Morphine Inj) 2 mg ONCE ONCE IV PUSH Last administered on 20:02; Start 06/06/17 at 19:45; Stop 06/06/17 at 19:46; Status DC Ondansetron HCl (Zofran Inj) 4 mg ONCE ONCE IVP Last administered on 20:00; Start 06/06/17 at 19:45; Stop 06/06/17 at 19:46; Status DC Sodium Chloride 1,000 ml @ 1,000 mls/hr Q1H IV Last administered on 06/06/17 20:01; Start 06/06/17 at 19:36; Stop 06/06/17 at 20:35; Status DC Sodium Chloride (NS Flush) 2 ml UNSCH PRN IV FLUSH FLUSH AFTER USING IV ACCESS ; Start 06/06/17 at 19:45; Status Cancel Diltiazem HCl (Cardizem Inj) 10 mg ONCE ONCE IV Last administered on 20:01; Start 06/06/17 at 19:45; Stop 06/06/17 at 19:46; Status DC Iodixanol (VISIPAQUE 320 INJ (Rad CT)) 45 ml STK-MED ONCE IV Last administered on 06/06/17 21:20; Start 06/06/17 at 21:20; Stop 06/06/17 at 21:21; Status DC Furosemide (Lasix Inj) 20 mg ONCE ONCE IV PUSH Last administered on 06/06/17 22:42; Start 06/06/17 at 22:30; Stop 06/06/17 at 22:31; Status DC Dextrose (D50w (Vial) Inj) 50 ml UNSCH PRN IV HYPOGLYCEMIA-SEE COMMENTS; Start 06/06/17 at 22:45 Glucagon (Glucagon Inj) 1 mg UNSCH PRN OTHER HYPOGLYCEMIA-SEE COMMENTS; Start 06/06/17 at 22:45 Insulin Aspart (NovoLOG SUPPLEMENTAL SCALE) 1 ACHS SLIDING SCALE SQ Last administered on 06/16/17 21:00; Start 06/07/17 at 08:00 Sodium Chloride (NS Flush) 2 ml UNSCH PRN IV FLUSH FLUSH AFTER USING IV ACCESS ; Start 06/06/17 at 22:45 Sodium Chloride (NS Flush) 2 ml BID IV FLUSH Last administered on 06/16/17 21: 00; Start 06/07/17 at 09:00 Ondansetron HCl (Zofran Inj) 4 mg Q6H PRN IVP NAUSEA OR VOMITING; Start at 22:45 Acetaminophen (Tylenol) 650 mg Q6H PRN PO FEVER/PAIN SCALE 1 TO 2; Start at 22:45 Acetaminophen/ Hydrocodone Bitart ([place]ountain 5-325 Mg) 1 tab Q4H PRN PO PAIN SCALE 3 TO 5 Last administered on 06/17/17 00:27; Start 06/06/17 at 22:45 Morphine Sulfate (Morphine Inj) 2 mg Q3H PRN IV PUSH Pain 6-10 Last administered on 06/07/17 21:26; Start 06/06/17 at 22:45 Senna/Docusate Sodium (Maria Ines-Colace) 1 tab BID PO Last administered on 21:03; Start 06/07/17 at 09:00 Magnesium Hydroxide (Milk Of Magnesia Liq) 30 ml Q12H PRN PO MILD - MODERATE CONSTIPATION Last administered on 06/11/17 17:28; Start 06/06/17 at 22:45 Sennosides (Senokot) 17.2 mg Q12H PRN PO MODERATE - SEVERE CONSTIPATION Last administered on 06/09/17 12:11; Start 06/06/17 at 22:45 Bisacodyl (Dulcolax Supp) 10 mg DAILY PRN RECTAL SEVERE CONSITIPATION; Start at 22:45 Lactulose (Lactulose Liq) 30 ml DAILY PRN PO SEVERE CONSITIPATION Last administered on 06/11/17 21:23; Start 06/06/17 at 22:45 Furosemide (Lasix) 40 mg BID@,18 PO Last administered on 06/07/17 09:13; Start 06/07/17 at 09:00; Stop 06/07/17 at 10:16; Status DC Aspirin (Ecotrin Ec) 81 mg DAILY PO Last administered on 06/14/17 09:49; Start 06/07/17 at 09:00; Stop 06/14/17 at 11:06; Status DC Metoprolol Tartrate (Lopressor) 12.5 mg Q12HR PO Last administered on 09:13; Start 06/07/17 at 09:00; Stop 06/07/17 at 10:16; Status DC Dextrose 500 ml @ 500 mls/hr BOLUS ONCE IV Last administered on 06/07/17 01: 45; Start 06/07/17 at 01:45; Stop 06/07/17 at 02:44; Status DC Metoprolol Tartrate (Lopressor) 50 mg Q8HR PO Last administered on 06/08/17 12 :44; Start 06/07/17 at 11:00; Stop 06/08/17 at 17:59; Status DC Diltiazem HCl (Cardizem Inj) 15 mg ONCE ONCE IV PUSH Last administered on 06/07 10:36; Start 06/07/17 at 10:30; Stop 06/07/17 at 10:31; Status DC Diltiazem HCl 125 mg/Sodium Chloride 125 ml @ 10 mls/hr TITRATE PRN IV Tachycardia Last administered on 06/07/17 10:52; Start 06/07/17 at 11:00; Stop 06/08/17 at 13:58; Status DC Diltiazem HCl (Cardizem Inj) 15 mg UNSCH X1 PRN IV PUSH SEE LABEL COMMENTS; Start 06/07/17 at 11:00; Stop 06/07/17 at 23:59; Status DC Furosemide (Lasix Inj) 40 mg BID@,18 IV PUSH Last administered on 06/12/17 18:30; Start 06/07/17 at 11:00; Stop 06/13/17 at 08:54; Status DC Digoxin (Lanoxin Inj) 0.25 mg ONCE ONCE IV PUSH Last administered on 09:28; Start 06/08/17 at 09:00; Stop 06/08/17 at 09:01; Status DC Digoxin (Lanoxin Inj) 0.25 mg ONCE ONCE IV PUSH Last administered on 15:04; Start 06/08/17 at 15:00; Stop 06/08/17 at 15:01; Status DC Digoxin (Lanoxin Inj) 0.25 mg ONCE ONCE IV PUSH Last administered on 22:38; Start 06/08/17 at 23:00; Stop 06/08/17 at 23:01; Status DC Digoxin (Lanoxin) 0.25 mg ONCE ONCE PO Last administered on 06/09/17 08:37; Start 06/09/17 at 09:00; Stop 06/09/17 at 09:01; Status DC Potassium Chloride (KCl) 20 meq TID PO Last administered on 06/13/17 16:46; Start 06/08/17 at 09:00; Stop 06/14/17 at 13:05; Status DC Magnesium Sulfate/ Dextrose 100 ml @ 100 mls/hr Q1H IV Last administered on 11:43; Start 06/08/17 at 09:00; Stop 06/08/17 at 10:59; Status DC Atorvastatin Calcium (Lipitor) 40 mg HS PO Last administered on 06/16/17 21:03 ; Start 06/08/17 at 21:00 Cyanocobalamin (Vitamin B12) 500 mcg DAILY PO Last administered on 06/16/17 08 :43; Start 06/09/17 at 09:00 Ferrous Sulfate (Ferrous Sulfate) 325 mg DAILY PO Last administered on 08:41; Start 06/09/17 at 09:00 Terazosin HCl (Hytrin) 1 mg HS PO Last administered on 06/16/17 21:03; Start 06/08/17 at 21:00 Warfarin Sodium (Coumadin) 2.5 mg DAILY@1600 PO Last administered on 06/12/17 16:36; Start 06/08/17 at 18:00; Stop 06/13/17 at 10:44; Status DC Pharmacy Profile Note 0 ml @ 0 mls/hr UNSCH OTHER ; Start 06/08/17 at 15:30; Stop 06/15/17 at 14:19; Status DC Patient Medication Teaching (Coumadin Booklet) 1 ONCE ONCE OTHER Last administered on 06/08/17 17:31; Start 06/08/17 at 16:00; Stop 06/08/17 at 17:13 ; Status DC Metoprolol Tartrate (Lopressor) 100 mg BID PO Last administered on 06/16/17 08 :41; Start 06/08/17 at 21:00; Stop 06/16/17 at 18:11; Status DC Heparin Sodium/ Dextrose 250 ml @ 8.28 mls/hr TITRATE PRN IV Coagulation management Last administered on 06/12/17 05:52; Start 06/09/17 at 16:15; Stop 06/12/17 at 11:03; Status DC Alprazolam (Xanax) 0.25 mg Q8H PRN PO ANXIETY Last administered on 06/15/17 21 :04; Start 06/10/17 at 16:00 Metoprolol Tartrate (Lopressor Inj) 2.5 mg Q5M PRN IV PUSH SUSTAINED HR > 130'S ; Start 06/11/17 at 04:00 Atropine Sulfate (Atropine Inj) 1 mg STK-MED ONCE .ROUTE Last administered on 09:00; Start 06/11/17 at 10:52; Stop 06/11/17 at 10:53; Status DC Lidocaine HCl (Xylocaine 2% Inj) 100 mg STK-MED ONCE .ROUTE ; Start 06/11/17 at 10:53; Stop 06/11/17 at 10:54; Status DC Epinephrine HCl (EPINEPHrine (1:10,000) INJ) 1 mg STK-MED ONCE .ROUTE ; Start at 10:53; Stop 06/11/17 at 10:54; Status DC Regadenoson (Lexiscan Inj) 0.4 mg STK-MED ONCE .ROUTE Last administered on 06/11 14:11; Start 06/11/17 at 14:11; Stop 06/11/17 at 14:12; Status DC Bacitracin (Bacitracin Oint Packet) 0.9 gm ONCE ONCE TOPICAL Last administered on 06/12/17 23:45; Start 06/12/17 at 23:45; Stop 06/12/17 at 23:48 ; Status DC Furosemide (Lasix) 40 mg DAILY PO Last administered on 06/16/17 08:41; Start 06/13/17 at 09:00 Warfarin Sodium (Coumadin) 5 mg DAILY@1600 PO Last administered on 06/13/17 16 :47; Start 06/13/17 at 16:00; Stop 06/14/17 at 10:21; Status DC Warfarin Sodium (Coumadin) 7.5 mg DAILY@1600 PO ; Start 06/14/17 at 16:00; Stop 06/14/17 at 16:00; Status DC Apixaban (Eliquis) 5 mg BID PO Last administered on 06/16/17 21:03; Start at 21:00 Digoxin (Lanoxin) 0.125 mg DAILY PO Last administered on 06/15/17 08:34; Start 06/14/17 at 11:15; Stop 06/15/17 at 10:02; Status DC Atropine Sulfate (Atropine Inj) 1 mg STK-MED ONCE .ROUTE ; Start 06/14/17 at 13: 45; Stop 06/14/17 at 13:46; Status DC Lidocaine HCl (Xylocaine 2% Inj) 100 mg STK-MED ONCE .ROUTE ; Start 06/14/17 at 13:45; Stop 06/14/17 at 13:46; Status DC Epinephrine HCl (EPINEPHrine (1:10,000) INJ) 1 mg STK-MED ONCE .ROUTE ; Start at 13:45; Stop 06/14/17 at 13:46; Status DC Lactated Ringer's 1,000 ml @ 30 mls/hr Q24H PRN IV SEE LABEL COMMENTS; Start at 22:45; Stop 06/18/17 at 22:44 Sodium Chloride 500 ml @ 30 mls/hr [id number] PRN IV SEE LABEL COMMENTS; Start at 22:45; Stop 06/18/17 at 22:44 Povidone Iodine (Betadine 5% Antisepsis Kit) 1 applic PROGRAM DIRECTOR/AIR PERSONALITY PRN EACH NARE SEE LABEL COMMENTS; Start 06/15/17 at 22:45; Stop 06/18/17 at 22:44 Chlorhexidine Gluconate (Chlorhexidine 2% Cloth) 3 pack PROGRAM DIRECTOR/AIR PERSONALITY PRN TOPICAL SEE LABEL COMMENTS; Start 06/15/17 at 22:45; Stop 06/18/17 at 22:44 Metoprolol Tartrate (Lopressor) 50 mg BID PO Last administered on 06/16/17 21: 03; Start 06/16/17 at 21:00 Amiodarone HCl (Cordarone) 400 mg BID PO Last administered on 06/16/17 21:04; Start 06/16/17 at 21:00; Stop 06/21/17 at 20:59 Amiodarone HCl (Cordarone) 200 mg DAILY PO ; Start 06/22/17 at 09:00 Urinary Catheter: No Vascular Central Line Catheter: No A/P Problem List: (1) CHF (congestive heart failure) ICD Code: I50.9 - Heart failure, unspecified (2) A-fib ICD Code: I48.91 - Unspecified atrial fibrillation (3) RUQ abdominal pain ICD Code: R10.11 - Right upper quadrant pain Status: Acute (4) Elevated troponin ICD Code: R74.8 - Abnormal levels of other serum enzymes Status: Acute (5) Lactic acidosis ICD Code: E87.2 - Acidosis (6) Renal insufficiency ICD Code: N28.9 - Disorder of kidney and ureter, unspecified Status: Acute (7) DM (diabetes mellitus) ICD Code: E11.9 - Type 2 diabetes mellitus without complications Assessment and Plan In summary, this is a 71-year-old male admitted with acute onset congestive heart failure. The patient also has a history of A. fib which was uncontrolled on presentation, likely contributed to his heart failure. CHF: Acute systolic CHF, new onset. BNP 1400 on admission with pleural effusions. 2-D echocardiogram revealed LVEF of 20% - Cardiology following. Continue metoprolol, digoxin, Lasix. CHERIE inhibitor when renal function stabilized. CT abdomen and pelvis showed trace ascites, bilateral pleural effusions and cardiomegaly. Anasarca. Gallbladder Us Atrial fibrillation with RVR on presentation/elevated cardiac enzymes. - Patient is status post Cardizem drip per cardiology. - Digoxin added. Continue metoprolol. May need to increase metoprolol to 100 mg twice a day. Continue to monitor. Resume Coumadin. Follow IN 06/09 INR subtherapeutic at 1.6. Hold Coumadin for now and start on IV heparin while awaiting for US guided thoracentesis. 06/10 Rate controlled. Continue heparin bridge for thoracentesis. . Thoracentesis WAS NOT PERFORMED. check TSH. NOT ENOUGH FLUID FOR THORACENTESIS INR ONLY 1.1 WILL INCREASE WARFARIN TO 7.5MG PO DAILY Elevated LFT: Likely due to CHF. LFT's trending down. AST 654 ---> 289 ; ALT 657 ---> 549. Continue to monitor LFT's 06/10 AST is slightly lower at 272, 8 LT slightly elevated at 610. Continue to monitor. LFTS STILL BORDERLINE DM: Sliding scale w/ Accu-Cheks. Hold oral hypoglycemic agents. Monitor BS. Blood sugars stable. KATHY: Creatinine 1.66 on admission, no previous labs for comparison, Creatinine slowly trending down. Today 1.5. WORSENING RENAL FUNCTIONS AM LABS- ADJUST LASIX elevated ACTUALLY WORSE - AM LABS Elevated troponin: Likely demand ischemia. Cardiology following. Troponin level peaked at 0.4, now trending down at 0.37. 06/10 Continue to monitor cardiac enzymes. DVT Prophylaxis ELIQUIS HAD STRESS TEST 06-11 -HAS ARTIFACT- NO CATH THIS ADMISSION A.m. labs DW CARDIO AND RN HYPERKALEMIA- TREAT IF STILL ABNORMAL SWITCHED TO ELIQUIS 5MG PO BID NEEDS [facility] PRIOR TO DISCHARGE FOR CARDIOVERSION AND ILENE 06-16 NEEDS RENAL EVALUATION PRIOR TO DC- WILL NEED NEPHROLOGY FOLLOW UP AN OUTPATIENT Discharge Planning CM FOR [facility] AT [place] Heri [place] DO Jun 17, 2017 09:24
[2017-06-17] MEDS: CYANOCOBALAMIN 1,000 MCG TAB PO SCH (10:10)
[2017-06-17] MEDS: FERROUS SULFATE 325 MG (65 MG ELEMENTAL IRON) TAB PO SCH (10:10)
[2017-06-17] MEDS: APIXABAN 5 MG TABLET PO SCH ×2 (10:10→19:31)
[2017-06-17] MEDS: METOPROLOL TARTRATE 50 MG TAB PO SCH ×2 (10:10→19:31)
[2017-06-17] MEDS: AMIODARONE 200 MG TAB PO SCH ×2 (10:10→19:31)
[2017-06-17] MEDS: DOCUSATE SODIUM 50 MG/SENNA 8.6 MG TAB PO SCH (10:13)
[2017-06-17] MEDS: SODIUM CHLORIDE 0.9% FLUSH 10 ML FLUSH IV FLUSH SCH (10:14)
--- NOTE | 2017-06-17 10:58 | PD.CARD.PN ---
Subjective Subjective Remarks No angina, SOB a little better Objective Medications Current Medications Medications (Trade) Dose Ordered Sig/Trinity Route Start Time Stop Time Status Last Admin (D50w (Vial) Inj) 50 ml UNSCH PRN IV 06/06/17 22:45 (Glucagon Inj) 1 mg UNSCH PRN OTHER 06/06/17 22:45 (NovoLOG SUPPLEMENTAL SCALE) 1 ACHS SLIDING SCALE SQ 06/07/17 08:00 06/16/17 21:00 (NS Flush) 2 ml UNSCH PRN IV FLUSH 06/06/17 22:45 (NS Flush) 2 ml BID IV FLUSH 06/07/17 09:00 06/17/17 10:14 (Zofran Inj) 4 mg Q6H PRN IVP 06/06/17 22:45 (Tylenol) 650 mg Q6H PRN PO 06/06/17 22:45 (Bancroft 5-325 Mg) 1 tab Q4H PRN PO 06/06/17 22:45 06/17/17 00:27 (Morphine Inj) 2 mg Q3H PRN IV PUSH 06/06/17 22:45 06/07/17 21:26 (Maria Ines-Colace) 1 tab BID PO 06/07/17 09:00 06/17/17 10:13 (Milk Of Magnesia Liq) 30 ml Q12H PRN PO 06/06/17 22:45 06/11/17 17:28 (Senokot) 17.2 mg Q12H PRN PO 06/06/17 22:45 06/09/17 12:11 (Dulcolax Supp) 10 mg DAILY PRN RECTAL 06/06/17 22:45 (Lactulose Liq) 30 ml DAILY PRN PO 06/06/17 22:45 06/11/17 21:23 (Lipitor) 40 mg HS PO 06/08/17 21:00 06/16/17 21:03 (Vitamin B12) 500 mcg DAILY PO 06/09/17 09:00 06/17/17 10:10 (Ferrous Sulfate) 325 mg DAILY PO 06/09/17 09:00 06/17/17 10:10 (Hytrin) 1 mg HS PO 06/08/17 21:00 06/16/17 21:03 (Xanax) 0.25 mg Q8H PRN PO 06/10/17 16:00 06/15/17 21:04 (Lopressor Inj) 2.5 mg Q5M PRN IV PUSH 06/11/17 04:00 (Lasix) 40 mg DAILY PO 06/13/17 09:00 Future Hold 06/16/17 08:41 (Eliquis) 5 mg BID PO 06/14/17 21:00 06/17/17 10:10 Lactated Ringer's 1,000 ml @ 30 mls/hr Q24H PRN IV 06/15/17 22:45 06/18/17 22:44 Sodium Chloride 500 ml @ 30 mls/hr [id number] PRN IV 06/15/17 22:45 06/18/17 22:44 (Betadine 5% Antisepsis Kit) 1 applic COLLEGE TUTOR PRN EACH NARE 06/15/17 22:45 06/18/17 22:44 (Chlorhexidine 2% Cloth) 3 pack COLLEGE TUTOR PRN TOPICAL 06/15/17 22:45 06/18/17 22:44 (Lopressor) 50 mg BID PO 06/16/17 21:00 06/17/17 10:10 (Cordarone) 400 mg BID PO 06/16/17 21:00 06/21/17 20:59 06/17/17 10:10 (Cordarone) 200 mg DAILY PO 06/22/17 09:00 Vital Signs / I&O Vital Signs Date Time Temp Pulse Resp B/P (MAP) Pulse Ox O2 Delivery O2 Flow Rate FiO2 06/17/17 08:00 60 06/17/17 07:29 97.5 62 20 130/54 (79) 96 06/17/17 07:00 58 06/17/17 06:12 51 06/17/17 05:00 55 06/17/17 04:14 97.9 62 130/51 (77) 100 06/17/17 04:00 55 06/17/17 03:00 54 06/17/17 02:00 54 06/17/17 01:00 70 06/17/17 00:00 74 06/16/17 23:00 97.5 63 152/81 (104) 100 06/16/17 23:00 60 06/16/17 22:00 58 06/16/17 21:00 64 06/16/17 20:00 97.7 64 138/64 (88) 100 06/16/17 20:00 60 06/16/17 19:00 64 06/16/17 18:00 64 06/16/17 17:00 66 06/16/17 16:00 68 06/16/17 15:30 68 18 129/88 (102) 98 06/16/17 15:00 110 06/16/17 14:00 98 06/16/17 13:00 110 06/16/17 12:00 104 06/16/17 12:00 105 06/16/17 11:00 106 06/16/17 11:00 89 06/16/17 11:00 97.5 97 17 116/66 (83) 98 I/O 06/16/17 06/16/17 06/16/17 06/17/17 06/17/17 06/17/17 07:00 15:00 23:00 07:00 15:00 23:00 Intake Total 240 ml 360 ml 240 ml Output Total 400 ml 620 ml 550 ml Balance -160 ml -260 ml -310 ml Intake Oral 240 ml 360 ml 240 ml Output Urine Total 400 ml 620 ml 550 ml # Voids 1 Physical Exam Alert No JVD Chest: clear CV: S1S2 RRR No edema Fitted for vest - he wants something for nerves Laboratory Laboratory Tests Test 06/17/17 05:55 White Blood Count 7.1 TH/MM3 Red Blood Count 3.48 MIL/MM3 Hemoglobin 10.4 GM/DL Hematocrit 32.0 % Mean Corpuscular Volume 91.8 FL Mean Corpuscular Hemoglobin 29.8 PG Mean Corpuscular Hemoglobin Concent 32.4 % Red Cell Distribution Width 16.1 % Platelet Count 225 TH/MM3 Mean Platelet Volume 8.6 FL Neutrophils (%) (Auto) 62.5 % Lymphocytes (%) (Auto) 20.1 % Monocytes (%) (Auto) 13.2 % Eosinophils (%) (Auto) 3.2 % Basophils (%) (Auto) 1.0 % Neutrophils # (Auto) 4.4 TH/MM3 Lymphocytes # (Auto) 1.4 TH/MM3 Monocytes # (Auto) 0.9 TH/MM3 Eosinophils # (Auto) 0.2 TH/MM3 Basophils # (Auto) 0.1 TH/MM3 CBC Comment DIFF FINAL Differential Comment Blood Urea Nitrogen 71 MG/DL Creatinine 2.34 MG/DL Random Glucose 154 MG/DL Total Protein 7.4 GM/DL Albumin 3.9 GM/DL Calcium Level 9.7 MG/DL Phosphorus Level 5.2 MG/DL Magnesium Level 2.6 MG/DL Alkaline Phosphatase 145 U/L Aspartate Amino Transf (AST/SGOT) 26 U/L Alanine Aminotransferase (ALT/SGPT) 152 U/L Total Bilirubin 0.6 MG/DL Sodium Level 136 MEQ/L Potassium Level 4.8 MEQ/L Chloride Level 100 MEQ/L Carbon Dioxide Level 28.3 MEQ/L Anion Gap 8 MEQ/L Estimat Glomerular Filtration Rate 27 ML/MIN Assessment and Plan Problem List: (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 ICD Codes: I25.2 - Old myocardial infarction (2) Acute systolic CHF (congestive heart failure) ICD Codes: I50.21 - Acute systolic (congestive) heart failure (3) Elevated troponin ICD Codes: R74.8 - Abnormal levels of other serum enzymes Status: Acute (4) Atrial fibrillation with RVR ICD Codes: I48.91 - Unspecified atrial fibrillation Status: Resolved Plan: Now SR s/p cardioversion. Thank you Dr. Calle (5) Pleural effusion ICD Codes: J90 - Pleural effusion, not elsewhere classified Status: Resolved (6) Elevated liver enzymes ICD Codes: R74.8 - Abnormal levels of other serum enzymes Plan: improved (7) Renal insufficiency ICD Codes: N28.9 - Disorder of kidney and ureter, unspecified Status: Acute Assessment and Plan Cardiology OK for DC. No ACEI or ARB due to renal insuff. Polo Bullock MD Jun 17, 2017 10:58
--- NOTE | 2017-06-17 15:34 | PD.CONS ---
[facility] Service Nephrology Consult Requested By Reason for Consult Renal insufficiency Primary Care Physician Rayshawn Vázquez MD History of Present Illness This is a 72 y/o male patient who was admitted on 06/06 for shortness of breath. PMH of DM II, HTN, and a fib on Coumadin. He follows at the [facility], never knew to have any renal impairment. He was diagnosed with severe cardiomyopathy this admission, EF 15%. A life vest was placed, and he was also cardioverted this admission. No baseline labs for comparison, his creatinine was 1.6 on arrival, has varied but is 2.3 today. He has trace proteinuria. He has been receiving Lasix since admission, is non oliguric. He was exposed to IV contrast on 06/[address] that showed mildly enlarged prostate. He is not in distress, has some ascites but no pulmonary rales. We were consulted for renal management. (Wanda Johnson) Review of Systems Constitutional: COMPLAINS OF: Fatigue, DENIES: Weight gain Respiratory: COMPLAINS OF: Shortness of breath, DENIES: Cough Cardiovascular: DENIES: Chest pain (Wanda Johnson) Past Family Social History Allergies: Coded Allergies: No Known Allergies (Unverified , 06/06/17) Past Medical History HTN A. fib on Coumadin DM New onset CHF, EF 15% Past Surgical History Cardiac stent recent cardioversion Reported Medications Lisinopril 40 Mg Tab 40 Mg PO DAILY Atorvastatin (Atorvastatin Calcium) 40 Mg Tab 40 Mg PO HS Potassium Chloride ER (Potassium Chloride) 10 Meq Cap 10 Meq PO BID Isosorbide Mononitrate 20 Mg Tab 30 Mg PO DAILY Take 2 doses 7 hours apart. Glipizide 10 Mg Tab 10 Mg PO DAILY Take 30 minutes before a meal Pioglitazone (Pioglitazone HCl) 45 Mg Tab 45 Mg PO DAILY Hydrochlorothiazide 25 Mg Tab 25 Mg PO DAILY Metoprolol Tartrate 100 Mg Tab 100 Mg PO BID Hydralazine HCl 25 Mg Tablet 50 Mg PO TID Vitamin B-12 (Cyanocobalamin) 500 Mcg Tab 500 Mcg PO DAILY Warfarin 2.5 Mg Tab 2.5 Mg PO DAILY Ferrous Sulfate 325 Mg (65 Mg Iron) Tablet 325 Mg PO DAILY Terazosin (Terazosin HCl) 1 Mg Cap 1 Mg PO HS Amlodipine (Amlodipine Besylate) 10 Mg Tab 10 Mg PO DAILY Active Ordered Medications Current Medications Medications (Trade) Dose Ordered Sig/Trinity Route Start Time Stop Time Status Last Admin (D50w (Vial) Inj) 50 ml UNSCH PRN IV 06/06/17 22:45 (Glucagon Inj) 1 mg UNSCH PRN OTHER 06/06/17 22:45 (NovoLOG SUPPLEMENTAL SCALE) 1 ACHS SLIDING SCALE SQ 06/07/17 08:00 06/17/17 11:53 (NS Flush) 2 ml UNSCH PRN IV FLUSH 06/06/17 22:45 (NS Flush) 2 ml BID IV FLUSH 06/07/17 09:00 06/17/17 10:14 (Zofran Inj) 4 mg Q6H PRN IVP 06/06/17 22:45 (Tylenol) 650 mg Q6H PRN PO 06/06/17 22:45 (Parkin 5-325 Mg) 1 tab Q4H PRN PO 06/06/17 22:45 06/17/17 00:27 (Morphine Inj) 2 mg Q3H PRN IV PUSH 06/06/17 22:45 06/07/17 21:26 (Maria Ines-Colace) 1 tab BID PO 06/07/17 09:00 06/17/17 10:13 (Milk Of Magnesia Liq) 30 ml Q12H PRN PO 06/06/17 22:45 06/11/17 17:28 (Senokot) 17.2 mg Q12H PRN PO 06/06/17 22:45 06/09/17 12:11 (Dulcolax Supp) 10 mg DAILY PRN RECTAL 06/06/17 22:45 (Lactulose Liq) 30 ml DAILY PRN PO 06/06/17 22:45 06/11/17 21:23 (Lipitor) 40 mg HS PO 06/08/17 21:00 06/16/17 21:03 (Vitamin B12) 500 mcg DAILY PO 06/09/17 09:00 06/17/17 10:10 (Ferrous Sulfate) 325 mg DAILY PO 06/09/17 09:00 06/17/17 10:10 (Hytrin) 1 mg HS PO 06/08/17 21:00 06/16/17 21:03 (Xanax) 0.25 mg Q8H PRN PO 06/10/17 16:00 06/15/17 21:04 (Lopressor Inj) 2.5 mg Q5M PRN IV PUSH 06/11/17 04:00 (Lasix) 40 mg DAILY PO 06/13/17 09:00 Future Hold 06/16/17 08:41 (Eliquis) 5 mg BID PO 06/14/17 21:00 06/17/17 10:10 Lactated Ringer's 1,000 ml @ 30 mls/hr Q24H PRN IV 06/15/17 22:45 06/18/17 22:44 Sodium Chloride 500 ml @ 30 mls/hr [id number] PRN IV 06/15/17 22:45 06/18/17 22:44 (Betadine 5% Antisepsis Kit) 1 applic [employer] MANAGER PRN EACH NARE 06/15/17 22:45 06/18/17 22:44 (Chlorhexidine 2% Cloth) 3 pack [employer]AT[employer] MANAGER PRN TOPICAL 06/15/17 22:45 06/18/17 22:44 (Lopressor) 50 mg BID PO 06/16/17 21:00 06/17/17 10:10 (Cordarone) 400 mg BID PO 06/16/17 21:00 06/21/17 20:59 06/17/17 10:10 (Cordarone) 200 mg DAILY PO 06/22/17 09:00 Family History No hx of renal disorders Social History No smoking denies ETOH he is retired full code (Wanda Johnson) Physical Exam Vital Signs Vital Signs Date Time Temp Pulse Resp B/P (MAP) Pulse Ox O2 Delivery O2 Flow Rate FiO2 06/17/17 14:00 54 06/17/17 13:00 56 06/17/17 12:00 52 06/17/17 11:07 97.7 60 18 122/53 (76) 96 06/17/17 11:00 60 06/17/17 10:00 60 06/17/17 09:00 62 06/17/17 08:00 60 06/17/17 07:29 97.5 62 20 130/54 (79) 96 06/17/17 07:00 58 06/17/17 06:12 51 06/17/17 05:00 55 06/17/17 04:14 97.9 62 130/51 (77) 100 06/17/17 04:00 55 06/17/17 03:00 54 06/17/17 02:00 54 06/17/17 01:00 70 06/17/17 00:00 74 06/16/17 23:00 97.5 63 152/81 (104) 100 06/16/17 23:00 60 06/16/17 22:00 58 06/16/17 21:00 64 06/16/17 20:00 97.7 64 138/64 (88) 100 06/16/17 20:00 60 06/16/17 19:00 64 06/16/17 18:00 64 06/16/17 17:00 66 06/16/17 16:00 68 06/16/17 15:30 68 18 129/88 (102) 98 Physical Exam Elderly male patient, awake and alert Not in distress Lungs clear, no wheezing rales or rhonchi S1/S2, RRR no rubs or gallops abdomen soft, + ascites Ext: no edema Life vest in place Laboratory Laboratory Tests Test 06/17/17 05:55 White Blood Count 7.1 Red Blood Count 3.48 Hemoglobin 10.4 Hematocrit 32.0 Mean Corpuscular Volume 91.8 Mean Corpuscular Hemoglobin 29.8 Mean Corpuscular Hemoglobin Concent 32.4 Red Cell Distribution Width 16.1 Platelet Count 225 Mean Platelet Volume 8.6 Neutrophils (%) (Auto) 62.5 Lymphocytes (%) (Auto) 20.1 Monocytes (%) (Auto) 13.2 Eosinophils (%) (Auto) 3.2 Basophils (%) (Auto) 1.0 Neutrophils # (Auto) 4.4 Lymphocytes # (Auto) 1.4 Monocytes # (Auto) 0.9 Eosinophils # (Auto) 0.2 Basophils # (Auto) 0.1 CBC Comment DIFF FINAL Differential Comment Blood Urea Nitrogen 71 Creatinine 2.34 Random Glucose 154 Total Protein 7.4 Albumin 3.9 Calcium Level 9.7 Phosphorus Level 5.2 Magnesium Level 2.6 Alkaline Phosphatase 145 Aspartate Amino Transf (AST/SGOT) 26 Alanine Aminotransferase (ALT/SGPT) 152 Total Bilirubin 0.6 Sodium Level 136 Potassium Level 4.8 Chloride Level 100 Carbon Dioxide Level 28.3 Anion Gap 8 Estimat Glomerular Filtration Rate 27 Date/Time Source Procedure Growth Status 06/13/17 00:00 Catheter Tip Other Wound Culture - Final Staphylococcus Aureus Complete (Wanda Johnson) Result Diagram: 06/17/17 0555 06/17/17 0555 Imaging Last Impressions Chest X-Ray 06/14/17 0000 Signed Impressions: Service Date/Time: Wednesday, June 14, 2017 13:57 - CONCLUSION: 1. No acute abnormality. 2. Resolution of the patient's pleural effusion since prior of 06/06/17. Shalom Salinas MD Myocardial Perfusion Scan Nuc Med 06/11/17 0000 Signed Impressions: Service Date/Time: Sunday, June 11, 2017 13:23 - CONCLUSION: Left ventricular cardiomegaly with hypokinesia and decreased ejection fraction consistent with cardiomyopathy. Marked amount of radionuclide in the stomach yielding a possible artifactual finding of inferior wall perfusion defect. RISK CATEGORY: Intermediate (1-3%% Annual Mortality Rate) Edwin Gomez MD Chest Ultrasound 06/11/17 0000 Signed Impressions: Service Date/Time: Sunday, June 11, 2017 11:17 - CONCLUSION: No pleural fluid seen on the right. Isidoro Cassidy MD Gall Bladder Ultrasound 06/07/17 0000 Signed Impressions: Service Date/Time: Wednesday, June 07, 2017 07:36 - CONCLUSION: 1. Heterogeneous echotexture of the liver suggesting fatty infiltration. 2. Questionable edematous changes within the pancreas. The pancreas was difficult to visualize. 3. The patient is post cholecystectomy. 4. Large right pleural effusion. Shalom Salinas MD Abdomen/Pelvis CT 06/06/171935 Signed Impressions: Service Date/Time: Tuesday, June 06, 2017 21:13 - CONCLUSION: 1. Trace ascites, nonspecific but there are bilateral pleural effusions and pain chamber enlargement of the heart also noted. Also mild body wall edema/anasarca. 2. No stones or obstruction of either kidney. Normal appendix. 3. Atherosclerotic abdominal aorta. No aneurysm. 4. Possible mild cystitis in the proper clinical setting. Mild enlargement of the prostate. John Gallagher MD Abdomen X-Ray 06/06/171935 Signed Impressions: Service Date/Time: Tuesday, June 06, 2017 20:04 - CONCLUSION: Benign-appearing abdomen. John Gallagher MD (Wanda Johnson) Assessment and Plan Problem List: (1) Renal insufficiency ICD Codes: N28.9 - Disorder of kidney and ureter, unspecified Status: Acute Plan: No baseline labs for comparison May have underlying diabetic nephropathy; with KATHY due to CHF exacerbation He was exposed to IV contrast on 06/06 May have cardiorenal syndrome urine output is adequate no edema, controlled with lasix Advised to limit fluid intake, avoid NSAIDs, we will follow him in CKD clinic if discharged (2) A-fib ICD Codes: I48.91 - Unspecified atrial fibrillation Plan: He is on eliquis s/p cardioversion cardiology to follow (3) New onset of congestive heart failure ICD Codes: I50.9 - Heart failure, unspecified Status: Acute Plan: His fluid status is acceptable EF 15% Has life vest in place resume lasix daily (4) DM (diabetes mellitus) ICD Codes: E11.9 - Type 2 diabetes mellitus without complications Plan: Monitor glucose avoid metformin, glipizide is okay (Wanda Johnson) Assessment and Plan patient was seen and examined. Agree with above. Restart Furosemide 40 mg PO daily. Patient should not be on Metformin. Also, he should not be on Pioglitazone. (Blane Irwin MD) Wanda Johnson Jun 17, 2017 15:34 Blane Irwin MD Jun 17, 2017 16:45
[2017-06-17] MEDS ORDERED: FURO40TA PO (17:24)
[2017-06-17] MEDS: ALPRAZolam 0.25 MG TAB PO PRN (18:46)
[2017-06-17] MEDS: ATORVASTATIN 40 MG TAB PO SCH (19:31)
[2017-06-17] MEDS: TERAZOSIN HCL 1 MG CAP PO SCH (19:31)
[2017-06-18] MEDS ORDERED: FUROSEMIDE 40 MG TAB PO SCH (09:00)
--- NOTE | 2017-06-21 11:49 | MB ---
cc: SKYLAR LEONARD M.D. DATE OF CONSULTATION 06/07/2017 CHIEF COMPLAINT Shortness of breath. HISTORY OF PRESENT ILLNESS Melvin Marin is a 71-year-old man with a history of diabetes, hypertension and atrial fibrillation who came into the hospital because of shortness of breath and fatigue. The patient has a history of a previous inferior myocardial infarction. He has had a previous procedure performed. He came into the hospital because of profound shortness of breath. He also had some nausea and vomiting. He had no typical anginal type symptoms. He did have a cough. On admission he was found to be in congestive heart failure and rapid atrial fibrillation. PAST MEDICAL HISTORY 1. Hypertension. 2. Atrial fibrillation on Coumadin. 3. Diabetes. PAST SURGICAL HISTORY 1. Previous angioplasty. 2. Previous stent. FAMILY HISTORY Unremarkable. SOCIAL HISTORY Non-smoker, non-drinker. MEDICATIONS CHARTED 3. Metoprolol 100 b.i.d. 4. Lisinopril 40 daily. 5. Amlodipine 10 mg daily. 6. Hydralazine 50 t.i.d. 7. Terazosin. 8. Imdur 30 mg and his diabetes medications before admission. PHYSICAL EXAMINATION GENERAL: A well-developed, well-nourished white male in no acute distress. VITAL SIGNS: Charted. He is in A-fib with a heart rate of 130 at the time of this exam. HEENT: Exam is unremarkable. NECK: Notable for jugular venous distension up to the angle the jaw bilaterally. Carotids are negative for bruits. CHEST: Absent breath sounds at the bases with rales at the left base, the findings consistent with known pleural effusions. CARDIAC EXAM: A left ventricular heave. S1-S2, irregularly irregular. There is a 1-2/6 systolic murmur. There may be an S3. ABDOMEN: Soft, nontender. EXTREMITIES: No peripheral edema. Peripheral pulses are normal. INVESTIGATIONS EKG when it came in showed A-fib with RVR. There is a prominent strain pattern with possible left ventricular hypertrophy, heart rate 131. LABORATORIES BUN is 30, creatinine 1.51, potassium 5.1. AST, ALT and alkaline phosphatase well mildly elevated. Troponin 0.18. CHEST X-RAY Showing of CHF. ABDOMINAL/PELVIC CT Showing an atherosclerotic aorta. IMPRESSION This is a 71-year-old man with decompensated CHF and uncontrolled atrial fib. He has got an elevated troponin suggestive of a possible with possible subendocardial injury or infarction. I think this is a Type 2 CT. Sounds to me like he may have gone into rapid A-fib few weeks ago and has gradually drifted into heart failure with LV dysfunction. PLAN 1. I am going to check a 2-D echo Doppler study. 2. I am going to increase the metoprolol to 50 t.i.d. and then add IV diltiazem to bring the rate down. 3. I am going to continue Lasix IV 40 IV b.i.d. to help get rid of the fluid. 4. Further therapy to be determined. Skylar Leonard MD VEW/SSB /10:25 AM /11:44 AM
[2017-06-22] MEDS ORDERED: AMIODARONE 200 MG TAB PO SCH (09:00)
== END 2017-06-17 19:50 | disposition home health service (06) | DRG 291 ==
LOC: NEPD 18:05 → NEDA 22:39 → HCIN 23:22 → OBSVTOIN 06-07 08:43
PROVIDERS: ADMIT Hospitalist; ATTEND Hospitalist
PROC: 5A2204Z Restoration of Cardiac Rhythm, Single (ICD-10-PCS; principal; 2017-06-16)
DX: I13.0 Hypertensive heart and chronic kidney disease with heart failure and stage 1 through stage 4 chronic kidney disease, or unspecified chronic kidney disease (principal); I50.21 Acute systolic (congestive) heart failure; N17.9 Acute kidney failure, unspecified; E87.2 Acidosis; R18.8 Other ascites; E11.21 Type 2 diabetes mellitus with diabetic nephropathy; E86.0 Dehydration; I42.9 Cardiomyopathy, unspecified; I24.8 Other forms of acute ischemic heart disease; I48.91 Unspecified atrial fibrillation; E87.5 Hyperkalemia; R10.11 Right upper quadrant pain; I25.10 Atherosclerotic heart disease of native coronary artery without angina pectoris; N18.9 Chronic kidney disease, unspecified; Z79.01 Long term (current) use of anticoagulants; Z95.5 Presence of coronary angioplasty implant and graft; E11.22 Type 2 diabetes mellitus with diabetic chronic kidney disease; I25.2 Old myocardial infarction
CPT/HCPCS: 71010; 71020; 74000; 74177; 76604; 76705; 78452; 80048; 80053; 80076; 81001; 82550; 82948; 83036; 83605; 83690; 83735; 83880; 84100; 84439; 84443; 84484; 85025; 85027; 85610; 85730; 86403; 87015; 87071; 87147; 92960; 93005; 93017; 93306; 93312; 93320; 93325; 96374; 96375; A9502; G0378; J0171; J0461; J1160; J1644; J1815; J1940; J2270; J2405; J2785; J3475; J7030; J7060; Q9967

== ENCOUNTER 2017-10-06 05:50 | Day surgery (SDC) | payer OTHER ==
[2017-10-06] VITALS (13 sets, daily range): BP systolic 165–186; BP diastolic 69–73; PULSE 50–64; RESP 18; TEMP 98.1–98.5; O2SAT 98–99
[~2017-10-06] VITALS: Ht 177.8 cm; Wt 78.5 kg
[~2017-10-06 05:50] MED LIST: APIX5TAB PO; ATOR40TA16 PO; BISA10R RECTAL; FERR325T18 PO; FURO40TA PO; GLIP10TA6 PO; METO100T PO; PIOG45TA5 PO; POTA10CA PO; SENN1TAB27 PO; TERA1CAP3 PO; VITA500T4 PO; WALKER WHEELS/F1 MIS; [UNRECOGNIZED DRUG - OTHER] EXTERNAL
[2017-10-06] MEDS ORDERED: VANCOMYCIN 1000 MG/NS 250 ML IV SCH ×2 (06:15)
[2017-10-06] MEDS ORDERED: Hold AM Insulin & AM Hypoglycemic medications in diabetic patients PRN (06:15)
[2017-10-06] MEDS ORDERED: NO Heparin, Lovenox, Coumadin at least 12 hours prior to procedure. PRN (06:15)
[2017-10-06] MEDS ORDERED: ceFAZolin 2 GM PREMIX 50 ML IV SCH (06:15)
[2017-10-06] MEDS ORDERED: LORazepam 1 MG TAB SL SCH (06:15)
[2017-10-06] MEDS ORDERED: LACTATED RINGER'S 1000 ML IV PRN (06:30)
[2017-10-06] MEDS ORDERED: POVIDONE IODINE 5% (ANTISEPSIS KIT) 4 APPLICATIONS EACH NARE PRN (06:30)
[2017-10-06] MEDS ORDERED: SODIUM CHLORID 0.9% 500 ML IV PRN (06:30)
[2017-10-06] MEDS ORDERED: METOPROLOL TARTRATE 25 MG TAB PO PRN (06:30)
[2017-10-06] MEDS ORDERED: INSULIN HUMAN REGULAR 1,000 UNITS/10 ML VIAL SQ PRN (06:30)
[2017-10-06] MEDS ORDERED: CHLORHEXIDINE GLUCONATE 2 % 1 PACK (2 CLOTHS) TOPICAL PRN (06:30)
[2017-10-06 06:55] LABS: AUTOMATED NEUTROPHIL # 3.6 TH/MM3 (1.8-7.7); BASOPHIL % 0.7 % (0.0-2.0); EOSINOPHIL # 0.2 TH/MM3 (0-0.4); EOSINOPHIL % 3.9 % (0.0-4.0); HEMATOCRIT 26.9 % (39.0-51.0); HEMOGLOBIN 8.9 GM/DL (13.0-17.0); LYMPH % 24.2 % (9.0-44.0); LYMPHOCYTE # 1.5 TH/MM3 (1.0-4.8); MEAN CELL VOLUME 93.2 FL (80.0-100.0); MEAN CORPUSCULAR HEMOGLOBIN 30.9 PG (27.0-34.0); MEAN CORPUSCULAR HGB CONC 33.2 % (32.0-36.0); MEAN PLATELET VOLUME 8.7 FL (7.0-11.0); MONO % 12.5 % (0.0-8.0); MONOCYTE # 0.8 TH/MM3 (0-0.9); NEUT % 58.7 % (16.0-70.0); PLATELET COUNT 143 TH/MM3 (150-450); RED BLOOD COUNT 2.88 MIL/MM3 (4.50-5.90); RED CELL DISTRIBUTION WIDTH 15.3 % (11.6-17.2); WHITE BLOOD COUNT 6.1 TH/MM3 (4.0-11.0)
[2017-10-06] MEDS: NS 1000 ML IV SCH (07:00)
[2017-10-06 07:05] LABS: INTERNATIONAL NORMALIZED RATIO 1.1 RATIO; PROTHROMBIN TIME - PATIENT 11.4 SEC (9.8-11.6)
[2017-10-06 07:13] LABS: BICARBONATE 33.3 MEQ/L (21.0-32.0); CALCIUM 8.5 MG/DL (8.5-10.1); CREATININE 1.56 MG/DL (0.60-1.30)
[2017-10-06] MEDS ORDERED: SPIR25 PO (07:18)
[2017-10-06] MEDS ORDERED: SACU1TAB PO (07:18)
[2017-10-06] MEDS ORDERED: DIGO0.12 PO (07:18)
[2017-10-06] MEDS ORDERED: MIRT1TAB PO (07:18)
[2017-10-06] MEDS ORDERED: TRAZ50TA12 PO (07:18)
[2017-10-06] MEDS ORDERED: TRAM50TA PO (07:18)
[2017-10-06] MEDS ORDERED: FURO1TAB62 PO (07:18)
[2017-10-06] MEDS ORDERED: PROPOFOL 200 MG/20 ML AMP ONE ×2 (07:39→08:33)
[2017-10-06] MEDS ORDERED: MIDAZOLAM HCL 2 MG/2 ML VIAL ONE (07:39)
[2017-10-06] MEDS ORDERED: VANCOMYCIN 500 MG VIAL ONE (08:05)
[2017-10-06] MEDS ORDERED: LIDOCAINE HCL 2% 50 ML VIAL ONE (08:05)
[2017-10-06] MEDS ORDERED: BISACODYL 10 MG SUPP RECTAL PRN (08:45)
[2017-10-06] MEDS ORDERED: TEMAZEPAM 15 MG CAP PO PRN (08:45)
[2017-10-06] MEDS ORDERED: traMADol HCL 50 MG TAB PO PRN (08:45)
[2017-10-06] MEDS ORDERED: ONDANSETRON HCL 4 MG/2 ML VIAL IV PUSH PRN (08:45)
[2017-10-06] MEDS ORDERED: ACETAMINOPHEN/CODEINE 300 MG/30 MG TAB PO PRN ×2 (08:45)
[2017-10-06] MEDS ORDERED: SODIUM CHLORIDE 0.9% FLUSH 10 ML FLUSH IV FLUSH PRN (08:45)
[2017-10-06] MEDS ORDERED: DO NOT ADM ANY ANTICOAGULANT DRUGS PRN (09:00)
--- NOTE | 2017-10-06 09:07 | CATHPROC ---
Patient Name: SKYLA KONG Study #: [id number] Initial MD: Andria Calle Date of : 1945 Study Date: 10/06/2017 Cardiac Catheterization Report 10/06/2017 10:01:15 AM Financial #: [id number] 1 of 9 Patient Name: SKYLA KONG Study #: [id number] Initial MD: Andria Calle Date of : 1945 Study Date: 10/06/2017 Entire Case Report Patient Information Patient Name SKYLA KONG Date of 1945 Age 72 years Financial # [id number] Gender M AlternateID Lab Number 6 Room Number DC05 Height (in) 70.0 Height (cm) 177.8 BSA 1.80 Weight (lbs) 140.8 Weight (kg) 64.0 Patient Address/Phone Number Home Address [facility] Home Phone Number [address] [facility] [id number] Study Information Study Number Admission Scheduled Start Study Start [id number] Oct 06 2017 5:50AM 10/06/2017 Oct 06 2017 7:52AM [place] [facility] Cardiac Pacer/ICD Admit Source Facility Department Other [facility] - Experience Specialist Physician and Clinical Staff Initial Andria Zamorano Insurance Sales Associate Shaniqua Earl,RT(R) TECH2 Other Anesthesia, RESIDENTIAL APPLIANCE REPAIR TECHNICIAN Recorder Radha Slaughter,EDITH Recorder Wanda Mendes,EDITH Scrub Ozzy LuoRT(R) Procedures Performed Procedure Cardioversion Lead Insertion 10/06/2017 10:01:15 AM Financial #: [id number] 2 of 9 Patient Name: SKYLA KONG Study #: [id number] Initial MD: Andria Calle Date of : 1945 Study Date: 10/06/2017 Equipment Time Assisted Living Housekeeper Description Size Mfg Part Number Used/Scraped DEFIBRILLATOR, INTICA 7 VR-T 08:29 BIOTRONIK VVE-VDDR [id number] Used DX 08:25 BIOTRONIK LEAD, PLEXA PRO-MRI DF 65/15 [id number] Used DERMABOND, ADHESIVE SKIN [id number] 08:09 CORDIS/PACER * Used GLUE MINI *[id number] TP-1103 08:09 MEDLINE IND[employer] SUTURE, STRIP PLUS 1/2" * Used *[id number] 08:09 MEDLINE PACER NORRIS, LIMB * 2530 *[id number] Used [id number] 08:09 MEDLINE PACER PACK, PACER CUSTOM * Used *[id number] 08:08 [employer] PACER SAFE SHEATH, FR8, 13CM FR 8 CLS-1008 Used 08:10 Needle Sponge Count 2 22 Used 08:10 Needle Sponge Count 20 200 Used 08:10 Needle Sponge Count 3 3 Used SUTURE, 0 ETHIBOND [CT1] (CX21D), 8pk SUTURE, 2-0 VICRYL [CT1] (IEO322W) SUTURE, 2-0 VICRYL [CT1] (PXR470P) [id number] 08:09 [facility] [place],WARM AIR CCL * Used *[id number] [facility] PAD, ELECTROSURGICAL 08:09 * [id number] *[id number] Used SURGICAL GROUNDING ORANGE [id number] 08:09 e-contratos [facility] [place]. / * Used *16826 Equipment Model, Serial, Lot Number and Expiration Data Description Model Number Serial Number Lot Number Expiration Date DEFIBRILLATOR, INTICA 7 VR-T DX [id number] 03-19-2018 LEAD, PLEXA PRO-MRI DF 65/15 [id number] 07-20-2019 Insurance Information Insurance Payor Private Health Insurance Third Libertarian Third Libertarian Number [employer] [facility] History: Allergies Allergy Reaction No Known Allergies 10/06/2017 10:01:15 AM Financial #: [id number] 3 of 9 Patient Name: SKYLA KONG Study #: [id number] Initial MD: Andria Calle Date of : 1945 Study Date: 8 History: Risk Factors Hypertension Previous [place] Previous Heart Failure Yes Yes Yes Prior PCI Yes Diabetes Yes Labs Hgb (g/dl) Hct (%) RBC (MIL/MM3) WBC (l/cumm) Platelets (thousands) 11.60-17.00 35.00-51.00 4.00-5.90 4.00-11.00 150.00-450.00 8.9 26.9 2.9 6.1 143 Glucose (mg/dl) BUN (mg/dl) Creatinine (mg/dl) BUN:Creatinine (1:x) 74.00-106.00 7.00-18.00 0.50-1.30 10.00-20.00 114 23 1.5 15.3 Na (meq/l) K (meq/l) 136.00-145.00 3.50-5.10 143 3.7 INR (PTT:PT) 0.90-1.10 1.1 Medication Medication Total Dose (Bolus/Oral) Medication Total Dosage/Unit 2% XYLOCAINE 50 mL Medications (Bolus/Oral) Medication Time Given Dosage/Unit Administered By Reason 2% XYLOCAINE 10/06/2017 8:16:53 AM 50 mL Andria Calle 50 mL 2% XYLOCAINE given in lab by Andria Calle in Left shoulder via Subcutaneous. Ordered by Andria Calle. Medication (Drip) Medication Time Given Dosage/Unit Concentration/Unit Diluent (ml) Solution ANCEF 10/06/2017 7:50:10 AM 2 g 2 g ANCEF given in lab by Anesthesia, RESIDENTIAL APPLIANCE REPAIR TECHNICIAN via Peripheral IV. Ordered by Andria Calle. Reason: As pe r physicians verbal order. VANCOMYCIN DRIP 10/06/2017 7:50:23 AM 1 g 1 g VANCOMYCIN DRIP given in lab by Anesthesia, RESIDENTIAL APPLIANCE REPAIR TECHNICIAN via Peripheral IV. Ordered by Andria Calle. Carrol son: As per physicians verbal order. 10/06/2017 10:01:15 AM Financial #: [id number] 4 of 9 Patient Name: SKYLA KONG Study #: [id number] Initial MD: Andria Calle Date of : 1945 Study Date: 10/06/2017 Initial Case Assessment Cardiovascular HR NIBP Chest Pain 66 122/59 0 Edema Present Skin color Skin None Normal Warm Dry Circulatory - Right Pulses Dorsalis Pedis 1 Scale (0,1,2,3,4,d) Circulatory - Left Pulses Dorsalis Pedis 1 Scale (0,1,2,3,4,d) Circulatory - Lower Extremities Color Lower Right Color Lower Left Normal Normal Neurological State Oriented to time-place- Alert Moves all extremities person Respiration - General Respiration Rate SpO2 (%) (B/min) 20 96 10/06/2017 10:01:15 AM Financial #: [id number] 5 of 9 Patient Name: SKYLA KONG Study #: [id number] Initial MD: Andria Calle Date of : 1945 Study Date: 10/06/2017 Final Case Assessment Cardiovascular HR NIBP Chest Pain 56 131/62 0 Edema Present Skin color Skin None Normal Warm Dry Circulatory - Right Pulses Dorsalis Pedis 1 Scale (0,1,2,3,4,d) Circulatory - Left Pulses Dorsalis Pedis 1 Scale (0,1,2,3,4,d) Circulatory - Lower Extremities Color Lower Right Color Lower Left Normal Normal Neurological State Oriented to time-place- Drowsy Moves all extremities person Respiration - General Respiration Rate SpO2 (%) O2 (lpm) (B/min) 14 100 4 Chronological Log Time Study Chronological Log 7:49:12 Patient arrived via Bed. 7:49:16 Patient Name, D.O.B, / Armband Verified By R.N. 7:49:18 Consent signed by the physician and the patient and verified by the Experience Specialist staff. 7:49:21 Pre-op and post- op instructions given; patient acknowledges understanding of instructions. 7:49:24 Verbal Stimulation=2 Physical Stimulation=2 Airway=2 Respiration=2 TOTAL=8. (0=absent, 1=li mited, 2=present) 7:49:32 Patient has been NPO for More than 6Hrs. 7:49:32 History and physical on the chart. 10/06/2017 10:01:15 AM Financial #: [id number] 6 of 9 Patient Name: SKYLA KONG Study #: [id number] Initial MD: Andria Calle Date of : 1945 Study Date: 10/06/2017 Assessment: Initial Case, HR=66 BPM, NDDS=574/59 mmhg, Chest Pain=0, Edema=None, Color=Normal, Skin = Warm, Dry Right Pulses: Tim Ped=1 Left Pulses: Tim Ped=1 7:50:02 Lower Right Extremities: Color=Normal Lower Left Extremities: Color=Normal Neurological: State=Alert, Ox3, CM Respiration: Resp=20 B/min, SpO2=96 % 7:50:03 Anesthesia at bedside. Assumes care of patient. see records for all meds and vitals during procedure 2 g ANCEF given in lab by Anesthesia, RESIDENTIAL APPLIANCE REPAIR TECHNICIAN via Peripheral IV. Ordered by Andria Calle. Reason: As per physicians 7:50:10 verbal order. 1 g VANCOMYCIN DRIP given in lab by Anesthesia, RESIDENTIAL APPLIANCE REPAIR TECHNICIAN via Peripheral IV. Ordered by Steve Calle Reason: As per 7:50:23 physicians verbal order. 7:51:35 Skin Breakdown- none per pt. 7:58:43 Patient Warmer Placed on the Table. 7:58:44 Lifevest removed and Disposable Defibrillator Pads Placed On Patient. 7:58:49 Lyubov Prominences Protected 7:58:53 A # 20 IV was noted in the Antecubital (left). Grade = 0 0.9%nacl kvo 7:59:14 A # 20 IV was noted in the Forearm (right). Grade = 0 0.9%nacl kvo 7:59:43 Table restraints applied according to hospital policy 7:59:51 Bovie ground pad applied to: right thigh 7:59:56 2% CHLORHEXIDINE GLUCONATE WASH AND NASAL SWIPE DONE PRIOR TO PROCEDURE. 8:01:15 Bilateral Upper Chest Prepped Times Two. First Sponge And Instrument Count Done by Ozzy Luo, RT(R). 8:09:48 Hypo's: 3, Sponges: 20, Bovie/scratch: 2 Sutures: 10, Blades: 1, Instruments: 26, Syveck Patches: 0 verified by SHANIQUA H Time Out. Correct patient, procedure, procedure equipment, site and side verified with physicia n present. Time 8:16:15 concurred by MD, individual staff and RESIDENTIAL APPLIANCE REPAIR TECHNICIAN. Time Out #2 - Consents verified, patient in correct position, all results are labled and displa yed, safety precautions 8:16:47 taken, antibiotics administered. Time out concurred by MD, individual staff and RESIDENTIAL APPLIANCE REPAIR TECHNICIAN in procedu re 8:16:49 Case Start 8:16:53 50 mL 2% XYLOCAINE given in lab by Andria Calle in Left shoulder via Subcutaneous. Ordered by Andria Calle. 8:19:25 Surgical Incision Made. 8:21:06 Vascular access was obtained in the Subclav. Vein (Lft. 8:21:31 A pocket was created at the L Upper Chest. 8:22:03 A SAFE SHEATH, FR8, 13CM FR 8 was advanced into the Subclav. Vein (Lft using the Modified S eldinger technique. 8:22:35 Reference ECG taken 8:23:20 A LEAD, PLEXA PRO-MRI DF 65/15 was inserted and positioned in the RV. 8:23:49 Lead placement verified under fluoroscopy 8:24:43 The RV lead impedance and threshold being tested. 8:25:52 Repositioning the lead under fluoroscopy. 8:26:47 The RV lead impedance and threshold being tested. 10/06/2017 10:01:15 AM Financial #: [id number] 7 of 9 Patient Name: SKYLA KONG Study #: [id number] Initial MD: Andria Calle Date of : 1945 Study Date: 10/06/2017 8:27:04 The RV lead was sutured to the fascia. 8:28:56 Pocket flushed with antibiotic solution 8:29:19 A DEFIBRILLATOR, INTICA 7 VR-T DX VVE-VDDR was connected and placed in the pocket. 8:31:47 A two Joul DFT was performed SYNC. 8:33:23 ECG rhythm of VT noted. Patient cardioverted at 200 joules. Success 8:34:13 The DFT was Success at 20 Joules, 51 Ohms lead impedance and 3.9 ms charge time. Second Sponge And Instrument Count Done by Ozzy Luo RT(R). 8:35:32 Hypo's: 3, Sponges: 20, Bovie/scratch: 2 Sutures: 10, Blades: 1, Instruments: ~INSTRU~, Syveck Patches: 0 verified by SHANIQUA H 8:36:34 The pocket is being closed. 8:37:13 DOCU called. Spoke to Khloe. 8:37:25 Bedside Report will be given. Final Sponge And Instrument Count Done by Ozzy Luo RT(R). 8:55:55 Hypo's: 3, Sponges: 20, Bovie/scratch: 2 Sutures: 10, Blades: 1, Instruments: ~INSTRU~, Syveck Patches: 0 verified by SHANIQUA H 8:55:56 Steri-strips and a sterile dressing applied to site. 8:55:56 Case End Assessment: Final Case, HR=56 BPM, UIZG=692/62 mmhg, Chest Pain=0, Edema=None, Color=Normal, S kin = Warm, Dry Right Pulses: Tim Ped=1 Left Pulses: Tim Ped=1 8:55:57 Lower Right Extremities: Color=Normal Lower Left Extremities: Color=Normal Neurological: State=Drowsy, Ox3, CM Respiration: Resp=14 B/min, DcI2=401 %, O2=4 lpm 8:56:19 Implant Procedure was performed. 8:56:29 A ICD Implant . (Single) 8:57:33 No case complications noted. 8:57:35 Cine recording checked. 8:57:40 Implantable Device card placed in patient's chart. 8:59:45 Defibrillator and ground pads removed. Skin intact. 9:05:49 Patient moved to stretcher End Study - Contrast Media Used In Study Contrast Total Opened (mL) Total Used (mL) Total Wasted (mL) Unspecified 0 0 0 End Study - Maximum Contrast Load Max Contrast Load (mL) 213.3 10/06/2017 10:01:15 AM Financial #: [id number] 8 of Patient Name: SKYLA KONG Study #: [id number] Initial MD: Andria Calle Date of : 1945 Study Date: 10/06/2017 End Study - Radiation Exposure Fluoro Time (minutes) 2.1 End Study - Patient Disposition Complications Transferred To Interventional Outcome No Telemetry Bed successful 10/06/2017 10:01:15 AM Financial #: [id number]
--- NOTE | 2017-10-06 10:14 | RADRPT ---
EXAM DATE/TIME: 10/06/2017 09:28 [place] COMPARISON: No previous studies available for comparison. INDICATIONS : Post pacemaker insertion. Evaluate for pneumothorax. MEDICAL HISTORY : Myocardial infarction. Diabetes mellitus type 2. Carcinoma, basal cell. SURGICAL HISTORY : Coronary artery stent. ENCOUNTER: Initial ACUITY: 1 day PAIN SCORE: 0/10 LOCATION: Bilateral chest FINDINGS: A single view of the chest demonstrates the lungs to be symmetrically aerated without evidence of mas s, infiltrate or effusion. Borderline cardiomegaly. Osseous structures are intact. CONCLUSION: Normal examination. Left subclavian single lead pacer. Anders Laws MD on October 06, 2017 at 10:10 Board Certified Radiologist. This report was verified electronically.
[2017-10-06] MEDS ORDERED: SPIRONOLACTONE 25 MG TAB PO SCH (11:00)
[2017-10-06] MEDS: APIXABAN 5 MG TABLET PO SCH ×2 (11:00→20:11)
[2017-10-06] MEDS ORDERED: FUROSEMIDE 20 MG TAB PO SCH (11:00)
[2017-10-06] MEDS: SACUBITRIL/VALSARTAN 24 MG-26 MG TAB PO SCH (11:00)
[2017-10-06] MEDS: METOPROLOL TARTRATE 100 MG TAB PO SCH ×2 (12:00→20:12)
[2017-10-06] MEDS: DIGOXIN 0.125 MG TAB PO SCH (12:15)
[2017-10-06] MEDS: FERROUS SULFATE 325 MG (65 MG ELEMENTAL IRON) TAB PO SCH (12:15)
[2017-10-06] MEDS: glipiZIDE 10 MG TAB PO SCH (12:15)
[2017-10-06] MEDS ORDERED: MORPHINE SULFATE 4 MG/ML INJ ONE (12:17)
[2017-10-06] MEDS: PIOGLITAZONE HCL 45 MG TAB PO SCH (14:24)
[2017-10-06] MEDS: CYANOCOBALAMIN 1,000 MCG TAB PO SCH (14:25)
[2017-10-06] MEDS: ceFAZolin 2 GM PREMIX 50 ML IV SCH ×2 (14:50→20:19)
--- NOTE | 2017-10-06 18:10 | PD.CARD ---
SINGLE CHAMBER DEFIB IMPLANT PROCEDURE DATE: Oct 06, 2017 NYHA Classification: Class III (Moderate) Prevention: Primary Single Chamber Defib Implant PROCEDURE: Single chamber defibrillator implantation, cardioversion and device testing. INDICATIONS: Mr. Mairn is a 72 -year-old male with hx of congestive heart failure , ejection fraction 15-20%, cardiomyopathy, atrial fibrillation, previous defib vest, on optimal medical management for the last three months admitted for defibrillator implantation for sudden primary prevention. The risks, the nature and the benefit of the procedure are clearly stated to him . Risks include pneumothorax, cardiac perforation, stroke and even . He understood and agreed to proceed. PROCEDURE: After written, informed consent was obtained, the patient was brought to the EP Lab where he was prepped and draped in the sterile fashion. Conscious sedation was initiated and maintained throughout the procedure by anesthesiologist. Once sedation was verified, the left infraclavicular area was anesthetized with 2% Xylocaine. Using modified Seldinger technique, the left subclavian vein was cannulated on one occasion and one guide wire was advanced. Then, using #11 blade scalpel, a 3-cm incision was made two fingerbreadths below left clavicle. This incision was then taken down to the deep fascial layer using Bovie cautery and blunt dissection. Into the inferomedial direction, a device pocket was dissected, then the wire was dissected into the pocket. A 2-0 Vicryl suture was placed around the wires to prevent bleeding. At this point, over the wire, the 9- Icelandic dilator and introducer was advanced. As dilator and wire were removed, an active fixation right ventricular pacing, sensing and defibrillatory lead was advanced. After adequate pacing and sensing thresholds were obtained, the lead was secured in the pocket with #2 Ethibond suture. At that point, the pocket was copiously irrigated with antibiotic solution. The leads were connected to the generator and placed into the pocket. I did proceed with NIPS. Initial induction consisted of T-wave shock which induced ventricular fibrillation which was adequately detected and treated by the ICD generator, delivering a 20-joule defibrillatory shock converting the patient back into atrial fibrillation. Shocking impedance was 51 ohms, charge time 3.9 seconds. At that point NIPS was complete. Because of atrial fibrillation, I did proceed with cardioversion. a 200J biphasic, sync, defibrillatory shock was delivered that converted the patient back into sinus rhythm. I did proceed with wound closure. The deep fascial layer was approximated with 2-0 Vicryl suture in a continuous fashion. The subcutaneous layer was approximated with 2-0 Vicryl suture in a continuous fashion. The subcuticular layer was approximated with 2-0 Vicryl suture in a continuous fashion. Dermabond adhesive was applied to the wound, followed by a sterile pressure dressing. There was no complication. The patient tolerated procedure. Blood loss minimal. 1. Implanted Hardware: The implanted defibrillator generator is a RealieroniGenius, model number 528400 , serial number [id number]. The right ventricular pacing, sensing and defibrillatory lead is a Realieronik model number 915733, serial number [id number]. 2. Thresholds: The right ventricular pacing threshold in the bipolar mode was 1.4 volts at 0.4 milliseconds, lead impedance 680 ohms and R-wave at 4.0 mV. The right ventricular defibrillatory threshold less than 20 joules shocking, impedance 51 ohms, charge time 3.9 seconds. 3. Settings: The device set in VVI 40 defibrillatory portion for two zones, one zone for ventricular tachycardia between 160 and 240 beats per minute. Initial therapy consists of one burst of ATP, one ramp, 81%, 10 pulse, 10 millisecond decremental, followed by 20, then 30 and all subsequent shocks at 40 joules defibrillatory shock, the second zone for ventricular fibrillation above 240 beats per minute, first therapy at 30 and all subsequent shocks at 40 joules defibrillatory shock. CONCLUSIONS: Successful defibrillator implantation, cardioversion and device testing. COMMENT AND RECOMMENDATIONS: The patient will be transferred to the telemetry unit, will be observed and when stable can be discharged home. Andria Calle MD Oct 06, 2017 18:10
[2017-10-06] MEDS: SODIUM CHLORIDE 0.9% FLUSH 10 ML FLUSH IV FLUSH SCH (20:13)
[2017-10-06] MEDS ORDERED: TERAZOSIN HCL 1 MG CAP PO SCH (21:00)
[2017-10-06] MEDS ORDERED: traZODone HCL 50 MG TAB PO SCH (21:00)
[2017-10-06] MEDS ORDERED: MIRTAZAPINE 15 MG TAB PO SCH (21:00)
[2017-10-06] MEDS ORDERED: ATORVASTATIN 40 MG TAB PO SCH (21:00)
[2017-10-06] MEDS: diphenhydrAMINE HCL 50 MG CAP PO PRN (22:05)
[2017-10-07] VITALS (12 sets, daily range): BP systolic 149–189; BP diastolic 58–71; PULSE 47–92; RESP 16; TEMP 97.8–98.7; O2SAT 96–98
[2017-10-07] MEDS: diphenhydrAMINE HCL 50 MG CAP PO PRN (01:42)
[2017-10-07] MEDS ORDERED: FUROSEMIDE 40 MG/4 ML VIAL IV ONE (04:15)
[2017-10-07] MEDS: ceFAZolin 2 GM PREMIX 50 ML IV SCH (05:43)
[2017-10-07] MEDS: NS 1000 ML IV SCH (07:00)
[2017-10-07] MEDS ORDERED: CEPH-460 PO (08:11)
--- NOTE | 2017-10-07 08:17 | PD.CARD.PN ---
Subjective Subjective Remarks Feels okay. Objective Medications Current Medications Medications (Trade) Dose Ordered Sig/Trinity Route Start Time Stop Time Status Last Admin Miscellaneous Information Hold AM Insulin & ... UNSCH PRN .XX 10/06/17 06:15 10/10/17 06:14 Miscellaneous Information NO Heparin, Loven... UNSCH PRN .XX 10/06/17 06:15 10/10/17 06:14 Sodium Chloride 1,000 ml @ 30 mls/hr Q24H IV 10/06/17 07:00 Cefazolin Sodium/ Dextrose 50 ml @ 100 mls/hr COIL CUTTER IV 10/06/17 06:15 10/09/17 06:14 10/06/17 07:50 Vancomycin HCl 1000 mg/Sodium Chloride 250 ml @ 250 mls/hr COIL CUTTER IV 10/06/17 06:15 10/09/17 06:14 10/06/17 07:50 (Ativan) 1 mg COIL CUTTER SL 10/06/17 06:15 10/09/17 06:14 (Betadine 5% Antisepsis Kit) 1 applic COIL CUTTER PRN EACH NARE 10/06/17 06:30 10/09/17 06:29 (Restoril) 15 mg HS PRN PO 10/06/17 08:45 (Zofran Inj) 4 mg Q4H PRN IV PUSH 10/06/17 08:45 (Tylenol-Codeine #3) 1 tab Q4H PRN PO 10/06/17 08:45 10/06/17 17:10 (Tylenol-Codeine #3) 2 tab Q4H PRN PO 10/06/17 08:45 10/07/17 03:44 (NS Flush) 2 ml BID IV FLUSH 10/06/17 09:00 10/06/17 20:13 (NS Flush) 2 ml UNSCH PRN IV FLUSH 10/06/17 08:45 (Eliquis) 5 mg BID PO 10/06/17 11:00 10/06/17 20:11 (Lipitor) 40 mg HS PO 10/06/17 21:00 10/06/17 20:11 (Dulcolax Supp) 10 mg DAILY PRN RECTAL 10/06/17 08:45 (Vitamin B12) 500 mcg DAILY PO 10/06/17 11:00 10/06/17 14:25 (Lanoxin) 0.125 mg DAILY PO 10/06/17 11:00 10/06/17 12:15 (Ferrous Sulfate) 325 mg DAILY PO 10/06/17 11:00 10/06/17 12:15 (Lasix) 20 mg EVERY OTHER DAY PO 10/06/17 11:00 (Glucotrol) 10 mg DAILY PO 10/06/17 11:00 10/06/17 12:15 (Lopressor) 100 mg BID PO 10/06/17 11:00 10/06/17 20:12 (Remeron) 7.5 mg HS PO 10/06/17 21:00 10/06/17 20:12 (Actos) 45 mg DAILY PO 10/06/17 11:00 10/06/17 14:24 (Entresto 24-26 Mg) 1 tab DAILY PO 10/06/17 11:00 (Aldactone) 25 mg EVERY OTHER DAY PO 10/06/17 11:00 (Hytrin) 1 mg HS PO 10/06/17 21:00 10/06/17 20:11 (Ultram) 50 mg Q4H PRN PO 10/06/17 08:45 Future Hold (Desyrel) 25 mg HS PO 10/06/17 21:00 10/06/17 20:12 Miscellaneous Information ALL NURSING DEPARTME... UNSCH PRN .XX 10/06/17 09:00 10/07/17 08:59 (Benadryl) 50 mg Q4H PRN PO 10/06/17 22:00 10/07/17 01:42 Vital Signs / I&O Vital Signs Date Time Temp Pulse Resp B/P (MAP) Pulse Ox O2 Delivery O2 Flow Rate FiO2 10/07/17 08:00 98.5 53 16 154/69 (97) 98 10/07/17 06:12 68 10/07/17 06:10 149/58 (88) 10/07/17 05:00 48 10/07/17 04:11 98.7 58 189/71 (110) 96 10/07/17 04:00 55 10/07/17 03:00 55 10/07/17 02:00 50 10/07/17 01:00 54 10/07/17 00:19 97.8 52 155/63 (93) 98 1/18/18 00:00 50 10/06/17 23:00 58 10/06/17 22:00 50 10/06/17 21:00 60 10/06/17 20:00 56 10/06/17 20:00 98.4 55 186/73 (110) 98 10/06/17 19:00 57 10/06/17 18:30 18 10/06/17 18:00 62 10/06/17 17:00 58 10/06/17 16:00 58 10/06/17 15:40 98.1 63 18 170/70 (103) 98 10/06/17 15:00 64 10/06/17 14:10 62 10/06/17 14:01 98.1 61 18 169/69 (102) 99 10/06/17 09:22 97 Room Air I/O 10/06/17 10/06/17 10/06/17 10/07/17 10/07/17 10/07/17 07:00 15:00 23:00 07:00 15:00 23:00 Intake Total 410 ml 240 ml Output Total 325 ml 450 ml Balance 85 ml -210 ml Intake Oral 360 ml 240 ml IV Total 50 ml Output Urine Total 325 ml 450 ml Physical Exam GENERAL: Well-nourished, well-developed patient. SKIN: Warm and dry. Left chest wall incision well approximated without erythema or drainage. HEAD: Normocephalic. EYES: No scleral icterus. No injection or drainage. NECK: Supple, trachea midline. No JVD or lymphadenopathy. CARDIOVASCULAR: Regular rate and rhythm without murmurs, gallops, or rubs. RESPIRATORY: Breath sounds equal bilaterally. No accessory muscle use. GASTROINTESTINAL: Abdomen soft, non-tender, nondistended. EXTREMITIES: No cyanosis, or edema. NEUROLOGICAL: Awake, alert, and oriented x 3. Non-focal. Imaging Last Impressions Chest X-Ray 10/06/17 0000 Signed Impressions: Service Date/Time: Friday, October 06, 2017 09:28 - CONCLUSION: Normal examination. Left subclavian single lead pacer. Anders Laws MD Assessment and Plan Problem List: (1) Cardiomyopathy ICD Codes: I42.9 - Cardiomyopathy, unspecified Plan: Completed 3 months of medical therapy. Ejection fraction remains 15%. ICD implant for SCD prevention. Can DC LifeVest (2) S/P ICD (internal cardiac defibrillator) procedure ICD Codes: Z95.810 - Presence of automatic (implantable) cardiac defibrillator Plan: Device function appropriate, chest x-ray negative, stable for discharge home, follow-up with Dr. Calle in 2 weeks per my discussion with him. Sulema Edwards Oct 07, 2017 08:17
[2017-10-07] MEDS: DIGOXIN 0.125 MG TAB PO SCH (08:37)
[2017-10-07] MEDS: APIXABAN 5 MG TABLET PO SCH (08:37)
[2017-10-07] MEDS: CYANOCOBALAMIN 1,000 MCG TAB PO SCH (08:38)
[2017-10-07] MEDS: glipiZIDE 10 MG TAB PO SCH (08:38)
[2017-10-07] MEDS: SACUBITRIL/VALSARTAN 24 MG-26 MG TAB PO SCH (08:38)
[2017-10-07] MEDS: SODIUM CHLORIDE 0.9% FLUSH 10 ML FLUSH IV FLUSH SCH (08:39)
[2017-10-07] MEDS: PIOGLITAZONE HCL 45 MG TAB PO SCH (08:39)
[2017-10-07] MEDS: FERROUS SULFATE 325 MG (65 MG ELEMENTAL IRON) TAB PO SCH (08:39)
[2017-10-07] MEDS: METOPROLOL TARTRATE 100 MG TAB PO SCH (08:40)
--- NOTE | 2017-10-07 22:05 | EKG ---
Date Performed: 10/07/2017 Time Performed: 03:09:54 PTAGE: 72 years EKG: Sinus bradycardia Short WA interval Possible inferior infarct - age undetermined Abnormal E CG PREVIOUS TRACING : 10/06/2017 06.54 Compared to previous tracing atrial fibrillation is no long er present DOCTOR: Isaac Redmond Interpretating Date/Time 10/07/2017 22:04:05
--- NOTE | 2017-10-07 23:27 | EKG ---
Date Performed: 10/06/2017 Time Performed: 06:54:08 PTAGE: 72 years EKG: Atrial fibrillation with slow ventricular response. Rightward axis Inferior/lateral ST-T ch anges are nonspecific Abnormal ECG PREVIOUS TRACING : 06/16/2017 12.32 Since previous tracing, no significant change noted DOCTOR: Isaac Redmond Interpretating Date/Time 10/07/2017 23:26:01
== END 2017-10-07 10:14 | disposition home or self-care (01) ==
LOC: HDOC 05:50 → HDIC 05:50 → HCIS 13:31 → HDOC 10-07 10:14
PROVIDERS: ATTEND Internal Medicine Interventional Cardiology
DX: I11.0 Hypertensive heart disease with heart failure (principal); I50.9 Heart failure, unspecified; I42.9 Cardiomyopathy, unspecified; I25.10 Atherosclerotic heart disease of native coronary artery without angina pectoris; I48.91 Unspecified atrial fibrillation; R06.02 Shortness of breath; E11.9 Type 2 diabetes mellitus without complications; I25.2 Old myocardial infarction; Z87.891 Personal history of nicotine dependence; Z79.01 Long term (current) use of anticoagulants
CPT/HCPCS: 00530; 33249; 71045; 80048; 85025; 85610; 85730; 86850; 86900; 86901; 93005; 93641; C1722; C1777; J0690; J1940; J2250; J2270; J3010; J3370; J7050; Q0163

== ENCOUNTER 2017-11-13 17:17 | Inpatient (IN) | payer OTHER, MEDICARE ==
[~2017-11-13] VITALS: Ht 182.9 cm; Wt 76.0 kg
[2017-11-13] VITALS (10 sets, daily range): BP systolic 120–202; BP diastolic 57–86; PULSE 40–72; RESP 10–20; TEMP 97.7–98.5; O2SAT 94–99
[~2017-11-13 17:17] MED LIST changes: +CEPH-460 PO; +DIGO0.12 PO; +FURO1TAB62 PO; -FURO40TA PO; +MIRT1TAB PO; -POTA10CA PO; +SACU1TAB PO; -SENN1TAB27 PO; +SPIR25 PO; +TRAM50TA PO; +TRAZ50TA12 PO; -[UNRECOGNIZED DRUG - OTHER] EXTERNAL
--- NOTE | 2017-11-13 17:54 | PD ---
HPI Chief Complaint: General Weakness Time Seen by Provider: 17:52 Travel History International Travel<30 days: No Contact w/Intl Traveler<30days: No Traveled to known affect area: No History of Present Illness HPI Patient is a 72-year-old male presents the emergency department for evaluation of generalized weakness. He states it has been happening ever since he had a pacemaker placed last month. The patient is being followed by Dr. Christian. Has a last EF of 15-20%. Denies any increased leg swelling, states that he does have some shortness of breath particularly when he lies flat but this is been a chronic thing for him over the past month or so. He went to his primary care physician thinking that he might have had bronchitis or pneumonia and after listening to his lungs his primary care physician said that it was clear. No chest pain, no abdominal pain no nausea no vomiting has not felt his pacemaker shock him. PFSH Past Medical History Hx Anticoagulant Therapy: Yes Atrial Fibrillation: Yes Cancer: Yes (skin) Cardiovascular Problems: Yes (hyperlipid, CHF) High Cholesterol: Yes Chest Pain: No Diabetes: Yes Patient Takes Glucophage: No Gastrointestinal Disorders: No Glaucoma: No Hepatitis: No Hiatal Hernia: No Hypertension: Yes Integumentary: No Immunizations Current: Yes Myocardial Infarction: Yes Thyroid Disease: No ?: Not Past Surgical History Cardiac Surgery: Yes (stent) Social History Alcohol Use: No Tobacco Use: No Substance Use: No Allergies-Medications (Allergen,Severity, Reaction): Coded Allergies: No Known Allergies (Unverified Allergy, Unknown, 10/06/17) Reported Meds & Prescriptions Reported Meds & Active Scripts Active Walker with Front Wheels (Device) 1 Mis Mis Ea .ROUTE DIRECTED Bisac-Evac Supp (Bisacodyl) 10 Mg Supp 10 Mg RECTAL DAILY PRN Eliquis (Apixaban) 5 Mg Tab 5 Mg PO BID Atorvastatin (Atorvastatin Calcium) 40 Mg Tab 40 Mg PO HS Metoprolol Tartrate 100 Mg Tab 100 Mg PO BID Ferrous Sulfate 325 Mg (65 Mg Iron) Tablet 325 Mg PO DAILY Terazosin (Terazosin HCl) 1 Mg Cap 1 Mg PO HS Reported Tramadol (Tramadol HCl) 50 Mg Tab 50 Mg PO Q4H PRN Mirtazapine 7.5 Mg Tab 7.5 Mg PO HS Lasix (Furosemide) 20 Mg Tab 20 Mg PO EVERY OTHER DAY Entresto (Sacubitril-Valsartan) 24-26 Mg Tab 1 Tab PO DAILY Digoxin 0.125 Mg Tab 0.125 Mg PO DAILY Aldactone (Spironolactone) 25 Mg Tab 25 Mg PO EVERY OTHER DAY Glipizide 10 Mg Tab 10 Mg PO DAILY Take 30 minutes before a meal Pioglitazone (Pioglitazone HCl) 45 Mg Tab 45 Mg PO DAILY Vitamin B-12 (Cyanocobalamin) 500 Mcg Tab 500 Mcg PO DAILY Review of Systems Except as stated in HPI: all other systems reviewed are Neg Physical Exam Narrative GENERAL: Well-developed well-nourished in no obvious distress. SKIN: Focused skin assessment warm/dry. HEAD: Atraumatic. Normocephalic. EYES: Pupils equal and round. No scleral icterus. No injection or drainage. ENT: No nasal bleeding or discharge. Mucous membranes pink and moist. NECK: Trachea midline. No JVD. CARDIOVASCULAR: Bradycardic with regular rhythm no murmur appreciated. RESPIRATORY: No accessory muscle use. Clear to auscultation. Breath sounds equal bilaterally. GASTROINTESTINAL: Abdomen soft, non-tender, nondistended. Hepatic and splenic margins not palpable. MUSCULOSKELETAL: No obvious deformities. No clubbing. No cyanosis. No edema. NEUROLOGICAL: Awake and alert. No obvious cranial nerve deficits. Motor grossly within normal limits. Normal speech. PSYCHIATRIC: Appropriate mood and affect; insight and judgment normal. Data Data Last Documented VS Vital Signs Date Time Temp Pulse Resp B/P (MAP) Pulse Ox O2 Delivery O2 Flow Rate FiO2 11/13/17 20:29 72 16 120/57 (78) 97 Room Air 11/13/17 17:29 98.5 Orders Orders B-Type Natriuretic Peptide (11/13/17 17:52) Ckmb (Isoenzyme) Profile (11/13/17 17:52) Complete Blood Count With Diff (11/13/17 17:52) Comprehensive Metabolic Panel (11/13/17 17:52) Magnesium (Mg) (11/13/17 17:52) Prothrombin Time / Inr (Pt) (11/13/17 17:52) Act Partial Throm Time (Ptt) (11/13/17 17:52) Troponin I (11/13/17 17:52) Chest, Single Ap (11/13/17 17:52) Ecg Monitoring (11/13/17 17:52) Iv Access Insert/Monitor (11/13/17 17:52) Oximetry (11/13/17 17:52) Oxygen Administration (11/13/17 17:52) Sodium Chloride 0.9% Flush (Ns Flush) (11/13/17 18:00) Acetamin-Hydrocod 325-5 Mg ([place] 5-325 (11/13/17 19:00) Electrocardiogram (11/13/17 17:41) Troponin I (11/13/17 20:22) Admit Order (Ed Use Only) (11/13/17 20:30) Vital Signs (Adult) Q4H (11/13/17 20:30) Activity Oob With Assistance (11/13/17 20:30) Bombsight Specialist / Telemetry .CONTINUOUS (11/13/17 20:30) Intake + Output ANITA.QSHIFT (11/13/17 20:30) Diet Heart Healthy (11/14/17 Breakfast) Sodium Chloride 0.9% Flush (Ns Flush) (11/13/17 20:30) Sodium Chloride 0.9% Flush (Ns Flush) (11/13/17 21:00) Ondansetron Inj (Zofran Inj) (11/13/17 20:30) Comprehensive Metabolic Panel (11/14/17 06:00) Complete Blood Count With Diff (11/14/17 06:00) Troponin I (11/14/17 00:00) Troponin I (11/14/17 06:00) Pt Request For Service (11/13/17 20:30) Case Management Consult (11/13/17 20:30) Acetaminophen (Tylenol) (11/13/17 20:30) Acetamin-Hydrocod 325-5 Mg ([place] 5-325 (11/13/17 20:30) Acetamin-Hydrocod 325-10 Mg ([place] 10-32 (11/13/17 20:30) Docusate Sodium-Senna (Maria Ines-Colace) (11/13/17 21:00) Magnesium Hydroxide Liq (Milk Of Magnesi (11/13/17 20:30) Sennosides (Senokot) (11/13/17 20:30) Bisacodyl Supp (Dulcolax Supp) (11/13/17 20:30) Lactulose Liq (Lactulose Liq) (11/13/17 20:30) Consult Cardiology (11/13/17 ) Bedside Glucose ANITA.CSUGAR (11/13/17 20:30) Blood Glucose Goal (Criteria) (11/13/17 20:30) Hypoglycemia 70 Mg/Dl Or < (11/13/17 20:30) Notify Dr: Other (11/13/17 20:30) Dextrose 50% In Joanne (Vial) Inj (D50w (Vi (11/13/17 20:30) Glucagon Inj (Glucagon Inj) (11/13/17 20:30) Insulin Aspart Supplemtl Scale (Novolog (11/13/17 21:00) Labs Laboratory Tests Test 11/13/17 18:04 11/13/17 19:25 White Blood Count 6.3 TH/MM3 Red Blood Count 3.07 MIL/MM3 Hemoglobin 9.7 GM/DL Hematocrit 28.7 % Mean Corpuscular Volume 93.4 FL Mean Corpuscular Hemoglobin 31.5 PG Mean Corpuscular Hemoglobin Concent 33.7 % Red Cell Distribution Width 15.7 % Platelet Count 232 TH/MM3 Mean Platelet Volume 10.9 FL Neutrophils (%) (Auto) 73.8 % Lymphocytes (%) (Auto) 14.1 % Monocytes (%) (Auto) 9.1 % Eosinophils (%) (Auto) 2.1 % Basophils (%) (Auto) 0.9 % Neutrophils # (Auto) 4.7 TH/MM3 Lymphocytes # (Auto) 0.9 TH/MM3 Monocytes # (Auto) 0.6 TH/MM3 Eosinophils # (Auto) 0.1 TH/MM3 Basophils # (Auto) 0.1 TH/MM3 CBC Comment DIFF FINAL Differential Comment Prothrombin Time 13.7 SEC Prothromb Time International Ratio 1.4 RATIO Activated Partial Thromboplast Time 26.2 SEC B-Type Natriuretic Peptide 709 PG/ML Blood Urea Nitrogen 28 MG/DL Creatinine 1.93 MG/DL Random Glucose 119 MG/DL Total Protein 6.4 GM/DL Albumin 3.5 GM/DL Calcium Level 9.0 MG/DL Magnesium Level 1.7 MG/DL Alkaline Phosphatase 133 U/L Aspartate Amino Transf (AST/SGOT) 12 U/L Alanine Aminotransferase (ALT/SGPT) 14 U/L Total Bilirubin 0.3 MG/DL Sodium Level 143 MEQ/L Potassium Level 3.8 MEQ/L Chloride Level 106 MEQ/L Carbon Dioxide Level 32.1 MEQ/L Anion Gap 5 MEQ/L Estimat Glomerular Filtration Rate 34 ML/MIN Total Creatine Kinase 62 U/L Troponin I 0.04 NG/ML MDM Medical Decision Making Medical Screen Exam Complete: Yes Emergency Medical Condition: Yes Differential Diagnosis Chronic CHF, bradycardia, pulmonary edema. Narrative Course Patient roomed in the emergency department, was noted to be bradycardic with a ventricular paced rhythm at about 40 bpm. [employer] financial sales representative was consulted and will speak with Dr. Christian's partner Dr. Tapia but he has temporarily increase the underlying rate to 60 bpm no events were reported. Awaiting chemistry at 1900 shift change the patient was discussed with Dr. Palacios to follow-up the chemistry and disposition appropriately peer Sunny Zambrano MD Nov 13, 2017 17:54
[2017-11-13] MEDS ORDERED: SODIUM CHLORIDE 0.9% FLUSH 10 ML FLUSH IVF PRN (18:00)
[2017-11-13 18:20] LABS: AUTOMATED NEUTROPHIL # 4.7 TH/MM3 (1.8-7.7); BASOPHIL # 0.1 TH/MM3 (0-0.2); BASOPHIL % 0.9 % (0.0-2.0); EOSINOPHIL # 0.1 TH/MM3 (0-0.4); EOSINOPHIL % 2.1 % (0.0-4.0); HEMATOCRIT 28.7 % (39.0-51.0); HEMOGLOBIN 9.7 GM/DL (13.0-17.0); LYMPH % 14.1 % (9.0-44.0); LYMPHOCYTE # 0.9 TH/MM3 (1.0-4.8); MEAN CELL VOLUME 93.4 FL (80.0-100.0); MEAN CORPUSCULAR HEMOGLOBIN 31.5 PG (27.0-34.0); MEAN CORPUSCULAR HGB CONC 33.7 % (32.0-36.0); MEAN PLATELET VOLUME 10.9 FL (7.0-11.0); MONO % 9.1 % (0.0-8.0); MONOCYTE # 0.6 TH/MM3 (0-0.9); NEUT % 73.8 % (16.0-70.0); PLATELET COUNT 232 TH/MM3 (150-450); RED BLOOD COUNT 3.07 MIL/MM3 (4.50-5.90); RED CELL DISTRIBUTION WIDTH 15.7 % (11.6-17.2); WHITE BLOOD COUNT 6.3 TH/MM3 (4.0-11.0)
[2017-11-13 18:35] LABS: INTERNATIONAL NORMALIZED RATIO 1.4 RATIO; PROTHROMBIN TIME - PATIENT 13.7 SEC (9.8-11.6)
--- NOTE | 2017-11-13 18:45 | RADRPT ---
EXAM DATE/TIME: 11/13/2017 18:07 [place] COMPARISON: CHEST SINGLE AP, October 06, 2017, 9:28. INDICATIONS : Chest Pain MEDICAL HISTORY : Myocardial infarction. Diabetes mellitus type 2. Carcinoma, basal cell. SURGICAL HISTORY : Coronary artery stent. Pacemaker. ENCOUNTER: Initial ACUITY: 1 day PAIN SCORE: 5/10 LOCATION: chest FINDINGS: A single view of the chest demonstrates the lungs to be symmetrically aerated without evidence of mas s, infiltrate or effusion. The heart size is enlarged but stable.. Osseous structures are intact. T here is a pacemaker overlying the left chest. No new or significant changes compared to the prior jayy dy. CONCLUSION: No acute disease. No significant change has occurred. Sidney Hyde MD on November 13, 2017 at 18:43 Board Certified Radiologist. This report was verified electronically.
[2017-11-13] MEDS ORDERED: ACETAMINOPHEN/HYDROcodone 325 MG/5 MG TAB PO ONE (19:00)
[2017-11-13 19:59] LABS: ALBUMIN 3.5 GM/DL (3.4-5.0); AST (GOT) 12 U/L (15-37); BICARBONATE 32.1 MEQ/L (21.0-32.0); BLOOD UREA NITROGEN 28 MG/DL (7-18); CHLORIDE 106 MEQ/L (98-107); CREATININE 1.93 MG/DL (0.60-1.30); GLOMERULAR FILTRATION RATE 34 ML/MIN (>89); GLUCOSE,RANDOM 119 MG/DL (74-106); MAGNESIUM 1.7 MG/DL (1.5-2.5); SODIUM (NA) 143 MEQ/L (136-145)
[2017-11-13 20:01] LABS: ALT (GPT) 14 U/L (12-78)
[2017-11-13 20:04] LABS: ALKALINE PHOSPHATASE 133 U/L (45-117); TOTAL BILIRUBIN ADULT 0.3 MG/DL (0.2-1.0); TOTAL PROTEIN 6.4 GM/DL (6.4-8.2); TROPONIN I 0.04 NG/ML (0.02-0.05)
[2017-11-13] MEDS ORDERED: MAGNESIUM HYDROXIDE SUSP 30 ML CUP PO PRN (20:30)
[2017-11-13] MEDS ORDERED: DEXTROSE 50% IN WATER 50 ML VIAL(D50) IV PUSH PRN (20:30)
[2017-11-13] MEDS ORDERED: ONDANSETRON HCL 4 MG/2 ML VIAL IVP PRN (20:30)
[2017-11-13] MEDS ORDERED: BISACODYL 10 MG SUPP RECTAL PRN (20:30)
[2017-11-13] MEDS ORDERED: SENNOSIDES 8.6 MG TAB PO PRN (20:30)
[2017-11-13] MEDS ORDERED: ACETAMINOPHEN/HYDROcodone 325 MG/5 MG TAB PO PRN (20:30)
[2017-11-13] MEDS ORDERED: SODIUM CHLORIDE 0.9% FLUSH 10 ML FLUSH IV FLUSH PRN (20:30)
[2017-11-13] MEDS ORDERED: GLUCAGON 1 MG/ML VIAL OTHER PRN (20:30)
[2017-11-13] MEDS ORDERED: LACTULOSE SYRUP 20 GM/30 ML CUP PO PRN (20:30)
[2017-11-13] MEDS ORDERED: ACETAMINOPHEN 325 MG TAB PO PRN (20:30)
--- NOTE | 2017-11-13 20:33 | HHI.HP ---
[facility] Service [facility] Primary Care Physician Rayshawn Vázquez MD Admission Diagnosis Bradycardia Diagnoses: Travel History International Travel<30 Days: No Contact w/Intl Traveler <30 Da: No Traveled to Known Affected Are: No Past Family Social History Allergies: Coded Allergies: No Known Allergies (Unverified Allergy, Unknown, 10/06/17) Physical Exam Vital Signs Vital Signs Date Time Temp Pulse Resp B/P (MAP) Pulse Ox O2 Delivery O2 Flow Rate FiO2 11/13/17 20:29 72 16 120/57 (78) 97 Room Air 11/13/17 19:09 60 20 188/72 (110) 99 Room Air 11/13/17 18:04 98 11/13/17 17:37 44 11/13/17 17:29 98.5 18 188/72 (110) 95 11/13/17 17:20 97.7 40 10 159/86 (110) 99 Room Air Physical Exam GENERAL: This is a well-nourished, well-developed patient, in no apparent distress. SKIN: No rashes, ecchymoses or lesions. Cool and dry. HEAD: Atraumatic. Normocephalic. No temporal or scalp tenderness. EYES: Pupils equal round and reactive. Extraocular motions intact. No scleral icterus. No injection or drainage. ENT: Nose without bleeding, purulent drainage or septal hematoma. Throat without erythema, tonsillar hypertrophy or exudate. Uvula midline. Airway patent. NECK: Trachea midline. No JVD or lymphadenopathy. Supple, nontender, no meningeal signs. CARDIOVASCULAR: Regular rate and rhythm without murmurs, gallops, or rubs. RESPIRATORY: Clear to auscultation. Breath sounds equal bilaterally. No wheezes , rales, or rhonchi. GASTROINTESTINAL: Abdomen soft, non-tender, nondistended. No hepato-splenomegaly , or palpable masses. No guarding. MUSCULOSKELETAL: Extremities without clubbing, cyanosis, or edema. No joint tenderness, effusion, or edema noted. No calf tenderness. Negative Homans sign bilaterally. NEUROLOGICAL: Awake and alert. Cranial nerves II through XII intact. Motor and sensory grossly within normal limits. Five out of 5 muscle strength in all muscle groups. Normal speech. Laboratory Laboratory Tests Test 11/13/17 18:04 11/13/17 19:25 White Blood Count 6.3 Red Blood Count 3.07 Hemoglobin 9.7 Hematocrit 28.7 Mean Corpuscular Volume 93.4 Mean Corpuscular Hemoglobin 31.5 Mean Corpuscular Hemoglobin Concent 33.7 Red Cell Distribution Width 15.7 Platelet Count 232 Mean Platelet Volume 10.9 Neutrophils (%) (Auto) 73.8 Lymphocytes (%) (Auto) 14.1 Monocytes (%) (Auto) 9.1 Eosinophils (%) (Auto) 2.1 Basophils (%) (Auto) 0.9 Neutrophils # (Auto) 4.7 Lymphocytes # (Auto) 0.9 Monocytes # (Auto) 0.6 Eosinophils # (Auto) 0.1 Basophils # (Auto) 0.1 CBC Comment DIFF FINAL Differential Comment Prothrombin Time 13.7 Prothromb Time International Ratio 1.4 Activated Partial Thromboplast Time 26.2 B-Type Natriuretic Peptide 709 Blood Urea Nitrogen 28 Creatinine 1.93 Random Glucose 119 Total Protein 6.4 Albumin 3.5 Calcium Level 9.0 Magnesium Level 1.7 Alkaline Phosphatase 133 Aspartate Amino Transf (AST/SGOT) 12 Alanine Aminotransferase (ALT/SGPT) 14 Total Bilirubin 0.3 Sodium Level 143 Potassium Level 3.8 Chloride Level 106 Carbon Dioxide Level 32.1 Anion Gap 5 Estimat Glomerular Filtration Rate 34 Total Creatine Kinase 62 Troponin I 0.04 Result Diagram: 11/13/17 1804 11/13/171924 Caprini VTE Risk Assessment Caprini Risk Assessment Model Point Value = 1 Point Value = 2 Point Value = 3 Point Value = 5 Age 41-60 Minor surgery BMI > 25 kg/m2 Swollen legs Varicose veins or History of unexplained or recurrent spontaneous Oral contraceptives or hormone replacement Sepsis (< 1 month) Serious lung disease, including pneumonia (< 1 month) Abnormal pulmonary function Acute myocardial infarction Congestive heart failure (< 1 month) History of inflammatory bowel disease Medical patient at bed rest Age 61-74 Arthroscopic surgery Major open surgery (> 45 min) Laparoscopic surgery (> 45 min) Malignancy Confined to bed (> 72 hours) Immobilizing plaster cast Central venous access Age >= 75 History of VTE Family history of VTE Factor V Leiden Prothrombin [id number] Lupus anticoagulant Anticardiolipin antibodies Elevated serum homocysteine Heparin-induced thrombocytopenia Other congenital or acquired thrombophilia Stroke (< 1 month) Elective arthroplasty Hip, pelvis, or leg fracture Acute spinal cord injury (< 1 month) Prophylaxis Regimen Total Risk Factor Score Risk Level Prophylaxis Regimen 0-1 Low Early ambulation 2 Moderate Order ONE of the following: *Sequential Compression Device (SCD) *Heparin 5000 units SQ BID 3-4 Higher Order ONE of the following medications: *Heparin 5000 units SQ TID *Enoxaparin/Lovenox 40 mg SQ daily (WT < 150 kg, CrCl > 30 mL/min) *Enoxaparin/Lovenox 30 mg SQ daily (WT < 150 kg, CrCl > 10-29 mL/min) *Enoxaparin/Lovenox 30 mg SQ BID (WT < 150 kg, CrCl > 30 mL/min) AND/OR *Sequential Compression Device (SCD) 5 or more Highest Order ONE of the following medications: *Heparin 5000 units SQ TID (Preferred with Epidurals) *Enoxaparin/Lovenox 40 mg SQ daily (WT < 150 kg, CrCl > 30 mL/min) *Enoxaparin/Lovenox 30 mg SQ daily (WT < 150 kg, CrCl > 10-29 mL/min) *Enoxaparin/Lovenox 30 mg SQ BID (WT < 150 kg, CrCl > 30 mL/min) AND *Sequential Compression Device (SCD) Tania Parker MD Nov 13, 2017 20:33
--- NOTE | 2017-11-13 20:40 | PD ---
Physical Exam Narrative Patient is on administrative change awaiting laboratory examinations and admission. Patient presents with bradycardia and generalized weakness since having his pacemaker placed about [address] Awan. As per Dr. Zambrano, patient's pacemaker was interrogated and rate change from 40-60 which patient had improvement of his symptoms. Admission under observation status overnight is recommended. Patient's laboratory examinations reviewed, no significant normality Data Data Last Documented VS Vital Signs Date Time Temp Pulse Resp B/P (MAP) Pulse Ox O2 Delivery O2 Flow Rate FiO2 11/13/17 20:29 72 16 120/57 (78) 97 Room Air 11/13/17 17:29 98.5 Orders Orders B-Type Natriuretic Peptide (11/13/17 17:52) Ckmb (Isoenzyme) Profile (11/13/17 17:52) Complete Blood Count With Diff (11/13/17 17:52) Comprehensive Metabolic Panel (11/13/17 17:52) Magnesium (Mg) (11/13/17 17:52) Prothrombin Time / Inr (Pt) (11/13/17 17:52) Act Partial Throm Time (Ptt) (11/13/17 17:52) Troponin I (11/13/17 17:52) Chest, Single Ap (11/13/17 17:52) Ecg Monitoring (11/13/17 17:52) Iv Access Insert/Monitor (11/13/17 17:52) Oximetry (11/13/17 17:52) Oxygen Administration (11/13/17 17:52) Sodium Chloride 0.9% Flush (Ns Flush) (11/13/17 18:00) Acetamin-Hydrocod 325-5 Mg ([place] 5-325 (11/13/17 19:00) Electrocardiogram (11/13/17 17:41) Troponin I (11/13/17 20:22) Admit Order (Ed Use Only) (11/13/17 20:30) Place In Observation (11/13/17 ) Vital Signs (Adult) Q4H (11/13/17 20:30) Activity Oob With Assistance (11/13/17 20:30) Compilation Clerk / Telemetry .CONTINUOUS (11/13/17 20:30) Intake + Output ANITA.QSHIFT (11/13/17 20:30) Diet Heart Healthy (11/14/17 Breakfast) Sodium Chloride 0.9% Flush (Ns Flush) (11/13/17 20:30) Sodium Chloride 0.9% Flush (Ns Flush) (11/13/17 21:00) Ondansetron Inj (Zofran Inj) (11/13/17 20:30) Comprehensive Metabolic Panel (11/14/17 06:00) Complete Blood Count With Diff (11/14/17 06:00) Troponin I (11/14/17 00:00) Troponin I (11/14/17 06:00) Pt Request For Service (11/13/17 20:30) Case Management Consult (11/13/17 20:30) Acetaminophen (Tylenol) (11/13/17 20:30) Acetamin-Hydrocod 325-5 Mg ([place] 5-325 (11/13/17 20:30) Acetamin-Hydrocod 325-10 Mg ([place] 10-32 (11/13/17 20:30) Docusate Sodium-Senna (Maria Ines-Colace) (11/13/17 21:00) Magnesium Hydroxide Liq (Milk Of Magnesi (11/13/17 20:30) Sennosides (Senokot) (11/13/17 20:30) Bisacodyl Supp (Dulcolax Supp) (11/13/17 20:30) Lactulose Liq (Lactulose Liq) (11/13/17 20:30) Consult Cardiology (11/13/17 ) Bedside Glucose ANITA.CSUGAR (11/13/17 20:30) Blood Glucose Goal (Criteria) (11/13/17 20:30) Hypoglycemia 70 Mg/Dl Or < (11/13/17 20:30) Notify Dr: Other (11/13/17 20:30) Dextrose 50% In Joanne (Vial) Inj (D50w (Vi (11/13/17 20:30) Glucagon Inj (Glucagon Inj) (11/13/17 20:30) Insulin Aspart Supplemtl Scale (Novolog (11/13/17 21:00) Labs Laboratory Tests Test 11/13/17 18:04 11/13/17 19:25 White Blood Count 6.3 TH/MM3 Red Blood Count 3.07 MIL/MM3 Hemoglobin 9.7 GM/DL Hematocrit 28.7 % Mean Corpuscular Volume 93.4 FL Mean Corpuscular Hemoglobin 31.5 PG Mean Corpuscular Hemoglobin Concent 33.7 % Red Cell Distribution Width 15.7 % Platelet Count 232 TH/MM3 Mean Platelet Volume 10.9 FL Neutrophils (%) (Auto) 73.8 % Lymphocytes (%) (Auto) 14.1 % Monocytes (%) (Auto) 9.1 % Eosinophils (%) (Auto) 2.1 % Basophils (%) (Auto) 0.9 % Neutrophils # (Auto) 4.7 TH/MM3 Lymphocytes # (Auto) 0.9 TH/MM3 Monocytes # (Auto) 0.6 TH/MM3 Eosinophils # (Auto) 0.1 TH/MM3 Basophils # (Auto) 0.1 TH/MM3 CBC Comment DIFF FINAL Differential Comment Prothrombin Time 13.7 SEC Prothromb Time International Ratio 1.4 RATIO Activated Partial Thromboplast Time 26.2 SEC B-Type Natriuretic Peptide 709 PG/ML Blood Urea Nitrogen 28 MG/DL Creatinine 1.93 MG/DL Random Glucose 119 MG/DL Total Protein 6.4 GM/DL Albumin 3.5 GM/DL Calcium Level 9.0 MG/DL Magnesium Level 1.7 MG/DL Alkaline Phosphatase 133 U/L Aspartate Amino Transf (AST/SGOT) 12 U/L Alanine Aminotransferase (ALT/SGPT) 14 U/L Total Bilirubin 0.3 MG/DL Sodium Level 143 MEQ/L Potassium Level 3.8 MEQ/L Chloride Level 106 MEQ/L Carbon Dioxide Level 32.1 MEQ/L Anion Gap 5 MEQ/L Estimat Glomerular Filtration Rate 34 ML/MIN Total Creatine Kinase 62 U/L Troponin I 0.04 NG/ML [facility] Medical Record Reviewed: Yes Supervised Visit with SHARONDA: Yes Differential Diagnosis Generalized weakness, bradycardia Narrative Course See narrative note and documentation from Dr. Zambrano. Case discussed with Dr. Parker hospitalist service, admitted under observation status Diagnosis Primary Impression: Bradycardia Admitting Information Admitting Physician Requests: Observation Dipak Palacios MD Nov 13, 2017 20:40
--- NOTE | 2017-11-13 20:57 | HHI.HP ---
[facility] Rayshawn Vázquez MD Admission Diagnosis Bradycardia Diagnoses: (1) Symptomatic bradycardia Diagnosis: Principal (2) Generalized weakness Diagnosis: Principal (3) Renal insufficiency Diagnosis: Principal (4) A-fib Diagnosis: Principal (5) CHF (congestive heart failure) Diagnosis: Principal (6) HTN (hypertension) Diagnosis: Principal (7) DM (diabetes mellitus) Diagnosis: Principal Travel History International Travel<30 Days: No Contact w/Intl Traveler <30 Da: No Traveled to Known Affected Are: No History of Present Illness This is a 72-year-old male with a PMH of HTN, Hyperlipidemia, A. fib on Eliquis , CHF (Echo 06/08/17 w/ EF 15-20%), s/p AICD 10/06/[address] Calle, CAD and DM who presented to the ER w/ complaints of generalized weakness. States symptoms have been ongoing for approx 2mo, now progressively worse after having AICD placed. Reports weakness associated w/ dizziness and gait instability. notes increased lower extremity edema in the last week, states was seen by PCP on Wednesday and instructed to increase Lasix from 10mg qd to 20mg qd x3 days, however notes minimal improvement in lower extremity edema. Denies chest pain, fever, chills, SOB or cough. On arrival, pt noted to by bradycardic w/ HR 40' s. Device interrogated while in ER, no events noted, settings changed from HR 35-40 to HR 60. Pt notes persistent dizziness and weakness. BP on arrival 188/ 72, HR 44, O2 sat 95% on RA, Afebrile. CBC unremarkable. Creatinine 1.93, previously 1.56 on 10/06/17. Troponin 0.04. BNP 709. INR 1.4. CXR with no acute findings. Review of Systems Except as stated in HPI: all other systems reviewed are Neg ROS: 14 point review of systems otherwise negative. Past Family Social History Past Medical History PMH: HTN, Hyperlipidemia, A. fib on Eliquis, CHF (Echo 06/08/17 w/ EF 15-20%), s /p AICD 10/06/[address] Calle, CAD and DM Past Surgical History PAST SURGICAL HISTORY: Cardiac Stent, AICD Allergies: Coded Allergies: No Known Allergies (Unverified Allergy, Unknown, 10/06/17) Family History PAST FAMILY HISTORY: Reviewed. No h/o DM or CAD Social History PAST SOCIAL HISTORY: Negative for alcohol, tobacco or drugs. Physical Exam Vital Signs Vital Signs Date Time Temp Pulse Resp B/P (MAP) Pulse Ox O2 Delivery O2 Flow Rate FiO2 11/13/17 20:44 98.5 60 18 194/81 (118) 98 Room Air 11/13/17 20:29 72 16 120/57 (78) 97 Room Air 11/13/17 19:09 60 20 188/72 (110) 99 Room Air 11/13/17 18:04 98 11/13/17 17:37 44 11/13/17 17:29 98.5 18 188/72 (110) 95 11/13/17 17:20 97.7 40 10 159/86 (110) 99 Room Air Physical Exam PE: GENERAL: Elderly white male in no acute distress. Slow to speak. at bedside. HEENT: PERRLA, EOMI. No scleral icterus or conjunctival pallor. No lid lag or facial droop. CARDIOVASCULAR: Regular rate and rhythm, HR 60's. No obvious murmurs to auscultation. No chest tenderness to palpation. RESPIRATORY: No obvious rhonchi or wheezing. Clear to auscultation. Breath sounds equal bilaterally. GASTROINTESTINAL: Abdomen soft, non-tender, nondistended. BS normal. MUSCULOSKELETAL: Extremities without clubbing, cyanosis, or edema. No obvious deformities. NEUROLOGICAL: Awake, alert and oriented x4. No focal neurologic deficits. Moving both upper and lower extremities spontaneously. Laboratory Laboratory Tests Test 11/13/17 18:04 11/13/17 19:25 White Blood Count 6.3 Red Blood Count 3.07 Hemoglobin 9.7 Hematocrit 28.7 Mean Corpuscular Volume 93.4 Mean Corpuscular Hemoglobin 31.5 Mean Corpuscular Hemoglobin Concent 33.7 Red Cell Distribution Width 15.7 Platelet Count 232 Mean Platelet Volume 10.9 Neutrophils (%) (Auto) 73.8 Lymphocytes (%) (Auto) 14.1 Monocytes (%) (Auto) 9.1 Eosinophils (%) (Auto) 2.1 Basophils (%) (Auto) 0.9 Neutrophils # (Auto) 4.7 Lymphocytes # (Auto) 0.9 Monocytes # (Auto) 0.6 Eosinophils # (Auto) 0.1 Basophils # (Auto) 0.1 CBC Comment DIFF FINAL Differential Comment Prothrombin Time 13.7 Prothromb Time International Ratio 1.4 Activated Partial Thromboplast Time 26.2 B-Type Natriuretic Peptide 709 Blood Urea Nitrogen 28 Creatinine 1.93 Random Glucose 119 Total Protein 6.4 Albumin 3.5 Calcium Level 9.0 Magnesium Level 1.7 Alkaline Phosphatase 133 Aspartate Amino Transf (AST/SGOT) 12 Alanine Aminotransferase (ALT/SGPT) 14 Total Bilirubin 0.3 Sodium Level 143 Potassium Level 3.8 Chloride Level 106 Carbon Dioxide Level 32.1 Anion Gap 5 Estimat Glomerular Filtration Rate 34 Total Creatine Kinase 62 Troponin I 0.04 Result Diagram: 11/13/17180311/13/171924 Caprini VTE Risk Assessment Caprini VTE Risk Assessment: Mod/High Risk (score >= 2) Caprini Risk Assessment Model Point Value = 1 Point Value = 2 Point Value = 3 Point Value = 5 Age 41-60 Minor surgery BMI > 25 kg/m2 Swollen legs Varicose veins or History of unexplained or recurrent spontaneous Oral contraceptives or hormone replacement Sepsis (< 1 month) Serious lung disease, including pneumonia (< 1 month) Abnormal pulmonary function Acute myocardial infarction Congestive heart failure (< 1 month) History of inflammatory bowel disease Medical patient at bed rest Age 61-74 Arthroscopic surgery Major open surgery (> 45 min) Laparoscopic surgery (> 45 min) Malignancy Confined to bed (> 72 hours) Immobilizing plaster cast Central venous access Age >= 75 History of VTE Family history of VTE Factor V Leiden Prothrombin [id number] Lupus anticoagulant Anticardiolipin antibodies Elevated serum homocysteine Heparin-induced thrombocytopenia Other congenital or acquired thrombophilia Stroke (< 1 month) Elective arthroplasty Hip, pelvis, or leg fracture Acute spinal cord injury (< 1 month) Prophylaxis Regimen Total Risk Factor Score Risk Level Prophylaxis Regimen 0-1 Low Early ambulation 2 Moderate Order ONE of the following: *Sequential Compression Device (SCD) *Heparin 5000 units SQ BID 3-4 Higher Order ONE of the following medications: *Heparin 5000 units SQ TID *Enoxaparin/Lovenox 40 mg SQ daily (WT < 150 kg, CrCl > 30 mL/min) *Enoxaparin/Lovenox 30 mg SQ daily (WT < 150 kg, CrCl > 10-29 mL/min) *Enoxaparin/Lovenox 30 mg SQ BID (WT < 150 kg, CrCl > 30 mL/min) AND/OR *Sequential Compression Device (SCD) 5 or more Highest Order ONE of the following medications: *Heparin 5000 units SQ TID (Preferred with Epidurals) *Enoxaparin/Lovenox 40 mg SQ daily (WT < 150 kg, CrCl > 30 mL/min) *Enoxaparin/Lovenox 30 mg SQ daily (WT < 150 kg, CrCl > 10-29 mL/min) *Enoxaparin/Lovenox 30 mg SQ BID (WT < 150 kg, CrCl > 30 mL/min) AND *Sequential Compression Device (SCD) Assessment and Plan Problem List: (1) Symptomatic bradycardia ICD Code: R00.1 - Bradycardia, unspecified (2) Generalized weakness ICD Code: R53.1 - Weakness (3) CHF (congestive heart failure) ICD Code: I50.9 - Heart failure, unspecified (4) A-fib ICD Code: I48.91 - Unspecified atrial fibrillation (5) Renal insufficiency ICD Code: N28.9 - Disorder of kidney and ureter, unspecified (6) HTN (hypertension) ICD Code: I10 - Essential (primary) hypertension (7) DM (diabetes mellitus) ICD Code: E11.9 - Type 2 diabetes mellitus without complications Assessment and Plan A/P: 1. Symptomatic Bradycardia: c/o generalized weakness/dizziness, HR 40's while in ER, AICD interrogated, no events noted, settings changed from HR 35-40 to HR 60. Will admit to [facility] for further monitoring, telemetry. Initial trop 0.04, check serial cardiac enzymes to eval for underlying ischemia. Hold Metoprolol. Consult Dr. Calle for further evaluation/intervention. 2. Generalized Weakness: likely secondary to above. No signs of infection, afebrile, no leukocytosis, check U/a. CXR w/ no acute findings, images reviewed by me. PT for eval/tx. 3. CHF: Acute on Chronic. Systolic. Echo 06/08/17 w/ EF 15-20%, s/p AICD. BNP 709, +lower extremity edema, CXR clear. Resume home diuresis, caution w/ renal insufficiency, monitor I/O. 4. A-fib: Chronic. Resume home Digoxin, hold Metoprolol in light of bradycardia. Resume home Eliquis. Continue on telemetry. 5. Renal Insufficiency: Acute on Chronic. Creatinine 1.93, previously 1.56 on 10/06/17. Check UA to eval for underlying UTI. Caution with IVF in light of CHF. Repeat labs in a.m. 6. HTN: Uncontrolled. BP 194/81, HR 60. Monitor closely. Hold Metoprolol in light of bradycardia, hold Entresto in light of worsening renal function. Antihypertensives as needed. 7. DM: Sliding scale w/ Accu-Cheks. 8. DVT Prophylaxis: Resume Eliquis 9. Social work for d/c planning as needed 10. Case discussed w/ ER physician at length, labs/records/imaging reviewed by me. Physician Certification 2 Midnight Certification Type: Admission for Inpatient Services Order for Inpatient Services The services are ordered in accordance with Medicare regulations or non- Medicare payer requirements, as applicable. In the case of services not specified as inpatient-only, they are appropriately provided as inpatient services in accordance with the 2-midnight benchmark. Estimated LOS (days): 2 days is the estimated time the patient will need to remain in the hospital, assuming treatment plan goals are met and no additional complications. Post-Hospital Plan: Not yet determined Tania Parker MD Nov 13, 2017 20:57
[2017-11-13] MEDS: INSULIN ASPART SUPPLEMENTAL SCALE SQ SCH (21:00)
--- NOTE | 2017-11-13 21:08 | EKG ---
Date Performed: 11/13/2017 Time Performed: 17:41:12 PTAGE: 72 years EKG: ELECTRONIC VENTRICULAR PACEMAKER, OCCASIONAL PVC ABNORMAL RHYTHM ECG NO PREVIOUS TRACING DOCTOR: Vijay Tapia Interpretating Date/Time 11/13/2017 21:07:40
[2017-11-13] MEDS ORDERED: PILL SPLITTER OTHER PRN (21:15)
[2017-11-13] MEDS: SODIUM CHLORIDE 0.9% FLUSH 10 ML FLUSH IV FLUSH SCH (21:18)
[2017-11-13] MEDS: TERAZOSIN HCL 1 MG CAP PO SCH (21:39)
[2017-11-13] MEDS: MIRTAZAPINE 15 MG TAB PO SCH (21:41)
[2017-11-13] MEDS: ATORVASTATIN 40 MG TAB PO SCH (21:42)
[2017-11-13] MEDS: APIXABAN 5 MG TABLET PO SCH ×2 (21:51→22:00)
[2017-11-13] MEDS: DOCUSATE SODIUM 50 MG/SENNA 8.6 MG TAB PO SCH (21:51)
[2017-11-13] MEDS ORDERED: NIFEdipine 30 MG SUSTAINED RELEASE TAB PO ONE (22:00)
[2017-11-14] VITALS (25 sets, daily range): BP systolic 153–166; BP diastolic 60–69; PULSE 55–88; RESP 17–20; TEMP 97.8–98.4; O2SAT 92–98
[2017-11-14 06:30] LABS: AUTOMATED NEUTROPHIL # 5.3 TH/MM3 (1.8-7.7); BASOPHIL # 0.1 TH/MM3 (0-0.2); BASOPHIL % 0.8 % (0.0-2.0); EOSINOPHIL # 0.1 TH/MM3 (0-0.4); EOSINOPHIL % 1.9 % (0.0-4.0); HEMATOCRIT 26.9 % (39.0-51.0); HEMOGLOBIN 9.1 GM/DL (13.0-17.0); LYMPH % 17.3 % (9.0-44.0); LYMPHOCYTE # 1.3 TH/MM3 (1.0-4.8); MEAN CELL VOLUME 92.6 FL (80.0-100.0); MEAN CORPUSCULAR HEMOGLOBIN 31.4 PG (27.0-34.0); MEAN CORPUSCULAR HGB CONC 33.9 % (32.0-36.0); MEAN PLATELET VOLUME 8.9 FL (7.0-11.0); MONO % 10.6 % (0.0-8.0); MONOCYTE # 0.8 TH/MM3 (0-0.9); NEUT % 69.4 % (16.0-70.0); PLATELET COUNT 152 TH/MM3 (150-450); WHITE BLOOD COUNT 7.7 TH/MM3 (4.0-11.0)
--- NOTE | 2017-11-14 06:49 | EKG ---
Date Performed: 11/13/2017 Time Performed: 20:14:05 PTAGE: 72 years EKG: ELECTRONIC VENTRICULAR PACEMAKER ABNORMAL RHYTHM ECG PREVIOUS TRACING : 11/13/2017 17.41 Compared to previous tracing, heart rate has increased. DOCTOR: Vijay Tapia Interpretating Date/Time 11/14/2017 06:48:56
[2017-11-14 06:58] LABS: ALBUMIN 3.4 GM/DL (3.4-5.0); ALT (GPT) 14 U/L (12-78); AST (GOT) 12 U/L (15-37); BICARBONATE 31.8 MEQ/L (21.0-32.0); BLOOD UREA NITROGEN 25 MG/DL (7-18); CHLORIDE 105 MEQ/L (98-107); CREATININE 1.77 MG/DL (0.60-1.30); GLOMERULAR FILTRATION RATE 38 ML/MIN (>89); GLUCOSE,RANDOM 106 MG/DL (74-106); SODIUM (NA) 143 MEQ/L (136-145)
[2017-11-14 07:02] LABS: ALKALINE PHOSPHATASE 136 U/L (45-117); TOTAL BILIRUBIN ADULT 0.4 MG/DL (0.2-1.0); TOTAL PROTEIN 6.2 GM/DL (6.4-8.2); TROPONIN I 0.06 NG/ML (0.02-0.05)
[2017-11-14] MEDS: INSULIN ASPART SUPPLEMENTAL SCALE SQ SCH ×4 (08:00→20:12)
[2017-11-14] MEDS: DIGOXIN 0.125 MG TAB PO SCH (08:36)
[2017-11-14] MEDS: DOCUSATE SODIUM 50 MG/SENNA 8.6 MG TAB PO SCH ×2 (08:36→20:12)
[2017-11-14] MEDS: FERROUS SULFATE 325 MG (65 MG ELEMENTAL IRON) TAB PO SCH (08:37)
[2017-11-14] MEDS: SODIUM CHLORIDE 0.9% FLUSH 10 ML FLUSH IV FLUSH SCH ×2 (08:37→20:11)
[2017-11-14] MEDS: FUROSEMIDE 20 MG TAB PO SCH (08:37)
[2017-11-14] MEDS: APIXABAN 5 MG TABLET PO SCH ×2 (08:38→20:10)
[2017-11-14] MEDS ORDERED: POTASSIUM CHLORIDE 20 MEQ PWD PACKET PO ONE (09:45)
--- NOTE | 2017-11-14 10:29 | MB ---
cc: GENI RAYMOND M.D. DATE OF CONSULTATION: 11/14/2017 REASON FOR CONSULTATION: Generalized weakness, recent AICD implant. HISTORY OF PRESENT ILLNESS: The patient is a 72-year-old white male, followed in our office by Dr. Andria Calle, with a history of hypertension, paroxysmal atrial fibrillation, coronary artery disease, severe cardiomyopathy, status post AICD implant 10/06/2017 who presented to the hospital basically with a several week history of increasing generalized weakness and fatigue. He was found to be bradycardic on admission. The backup rate on his AICD was increased to 60 beats per minute and he has felt slightly better overnight. He denies syncope, near-syncope, lightheadedness, angina, change in chronic mild to moderate dyspnea, paroxysmal nocturnal dyspnea, change in chronic intermittent mild pedal edema. He reports compliance with his medications. He has had no recent flu symptoms or fevers. PAST MEDICAL HISTORY: 1. Hypertension. 2. Paroxysmal atrial fibrillation status post cardioversion 06/16/2017. 3. Coronary artery disease apparently with a remote history of inferior myocardial infarction and percutaneous coronary intervention. 4. Severe dilated cardiomyopathy with ejection fraction of 20% by 06/08/2017 echocardiogram with congestive heart failure exacerbation May of 2017. 5. Chronic renal insufficiency. 6. Diabetes. 7. Biotronik single-chamber AICD implant 10/06/2017. 8. Hyperlipidemia. CARDIAC MEDICATIONS AT HOME: 1. Aldactone 25 milligrams every other day. 2. Digoxin 0.125 milligrams daily. 3. Entresto 24/26 one daily. 4. Furosemide 20 milligrams every other day. 5. Metoprolol tartrate 100 milligrams twice a day. 6. Atorvastatin 40 milligrams at bedtime. 7. Eliquis 5 milligrams twice a day. ALLERGIES: NO KNOWN DRUG ALLERGIES. FAMILY HISTORY: Noncontributory. SOCIAL HISTORY: The patient is a former smoker. There is no history of alcohol abuse. REVIEW OF SYSTEMS: Review of systems as in the history of present illness otherwise negative or noncontributory. He also denies headache, abdominal pain, melena, diarrhea, bright red blood per rectum, melena. PHYSICAL EXAMINATION: VITAL SIGNS: On physical examination, his blood pressure is 163/69 with a pulse of 60, respirations 16. GENERAL: In general, he is a well-developed, well-nourished white male in no acute distress. HEAD, EYES, EARS, NOSE, THROAT: On HEENT examination, jugular venous pressure is normal. Carotid pulses are 2+ bilaterally and without bruits. CHEST: Examination of the chest reveals diminished breath sounds diffusely. CARDIAC: On cardiac examination, he has a regular rhythm and rate with a grade 1/6 systolic ejection murmur heard at the right upper sternal border. The S2 heart sound is normal. There is also a grade 2/6 systolic murmur heard at the lower left sternal border and apex. ABDOMEN: On abdominal examination, he has a soft, nontender abdomen. Bowel sounds are present. There is no definite hepatosplenomegaly. EXTREMITIES: No cyanosis, clubbing or edema. EKG shows ventricular paced rhythm with occasional premature ventricular complex. LABORATORY DATA: Laboratory data includes WBC 7.7, hemoglobin 9.1, platelets 152, potassium 3.3, BUN 25, creatinine 1.77, troponin 0.06, INR 1.4. IMAGING STUDIES: Chest x-ray Shows no acute disease. IMPRESSION: Generalized weakness, bradycardia in a 72-year-old white male with a history of hypertension, paroxysmal atrial fibrillation, coronary artery disease, severe dilated cardiomyopathy with ejection fraction of 20%, diabetes, chronic renal insufficiency, history of AICD implant. The etiology of his generalized weakness is not entirely clear. He has had no definite symptoms of lightheadedness or near-syncope. He was bradycardic on admission, pacing at the backup rate of the AICD, which is 40 beats per minute. With increase in his backup rate to 60 beats per minute last night, he does feel slightly better. There is no evidence for acute coronary syndrome. There is no definite evidence for acute congestive heart failure. He is not hypotensive. RECOMMENDATIONS: 1. Will have Dr. Calle see the patient. The patient may benefit from placement of an atrial lead to make his AICD system a dual chamber system. MD ERNESTO Bowen/TIM /10:04 AM /10:17 AM [facility]
--- NOTE | 2017-11-14 15:24 | HHI.PR ---
Subjective Remarks Degree of symptoms of bradycardia have improved. Patient still says he is weak. Cardiology has evaluated this patient and consulted Dr. Calle for possible second lead placement on his pacemaker. Objective Vital Signs Date Time Temp Pulse Resp B/P (MAP) Pulse Ox O2 Delivery O2 Flow Rate FiO2 11/14/17 14:24 60 11/14/17 13:32 60 11/14/17 12:02 60 11/14/17 11:14 98.0 60 18 153/60 (91) 98 11/14/17 11:14 60 11/14/17 11:14 98 Room Air 11/14/17 10:05 60 11/14/17 09:35 60 11/14/17 09:30 16 11/14/17 08:45 98.1 60 18 163/69 (100) 97 11/14/17 08:45 60 11/14/17 08:45 97 Room Air 11/14/17 06:00 60 11/14/17 05:00 62 11/14/17 04:00 60 11/14/17 04:00 Room Air 11/14/17 03:57 98.1 60 20 157/63 (94) 93 11/14/17 03:00 62 11/14/17 02:00 59 11/14/17 01:00 63 11/14/17 00:00 69 11/14/17 00:00 98.3 60 20 166/68 (100) 92 11/13/17 23:42 60 17 168/70 (102) 94 Room Air 11/13/17 22:56 60 17 180/77 (111) 95 Room Air 11/13/17 22:04 60 18 187/81 (116) 97 Room Air 11/13/17 21:04 60 18 202/83 (122) 98 Room Air 11/13/17 20:44 98.5 60 18 194/81 (118) 98 Room Air 11/13/17 20:29 72 16 120/57 (78) 97 Room Air 11/13/17 19:09 60 20 188/72 (110) 99 Room Air 11/13/17 18:04 98 11/13/17 17:37 44 11/13/17 17:29 98.5 18 188/72 (110) 95 11/13/17 17:20 97.7 40 10 159/86 (110) 99 Room Air Result Diagram: 11/14/1754611/14/17546 Objective Remarks GENERAL: NAD, A&Ox3 HEAD: Normocephalic. NECK: Supple, trachea midline. No lymphadenopathy. EYES: No scleral icterus. No injection or drainage. CARDIOVASCULAR: Bradycardic rate and regular rhythm without murmurs, gallops, or rubs. RESPIRATORY: Breath sounds equal bilaterally. No accessory muscle use. GASTROINTESTINAL: Abdomen soft, non-tender, nondistended. MUSCULOSKELETAL: No cyanosis, or edema. SKIN: Warm and dry. NEURO: No focal neurological deficitis. A/P Problem List: (1) Symptomatic bradycardia ICD Code: R00.1 - Bradycardia, unspecified (2) DM (diabetes mellitus) ICD Code: E11.9 - Type 2 diabetes mellitus without complications (3) HTN (hypertension) ICD Code: I10 - Essential (primary) hypertension (4) A-fib ICD Code: I48.91 - Unspecified atrial fibrillation Assessment and Plan 72-year-old male admitted secondary to symptomatic bradycardia Symptomatic Bradycardia CHF Atrial fibrillation Metoprolol on hold Dr. Christian has been consulted Possible need for dual lead pacemaker Patient has a pacemaker in place and many next relieved Continue home diuretics Continue digoxin Generalized Weakness Likely related to bradycardia Continue physical therapy Hypertension Continue baseline treatment Follow blood pressures Adjust treatments as needed Diabetes mellitus type 2 Follow blood sugars Insulin sliding scale Diabetic diet DVT prophylaxis Shalom Doe MD Nov 14, 2017 15:24
[2017-11-14] MEDS: ATORVASTATIN 40 MG TAB PO SCH (20:10)
[2017-11-14] MEDS: MIRTAZAPINE 15 MG TAB PO SCH (20:10)
[2017-11-14] MEDS: ACETAMINOPHEN/HYDROcodone 325 MG/10 MG TAB PO PRN (20:11)
[2017-11-14] MEDS: TERAZOSIN HCL 1 MG CAP PO SCH (20:11)
[2017-11-14] MEDS: SACUBITRIL/VALSARTAN 24 MG-26 MG TAB PO SCH (20:12)
[2017-11-14] MEDS: METOPROLOL TARTRATE 100 MG TAB PO SCH (20:17)
[2017-11-15] VITALS (28 sets, daily range): BP systolic 137–174; BP diastolic 64–78; PULSE 60–73; RESP 16–20; TEMP 97.1–98.7; O2SAT 92–96
[2017-11-15] MEDS: ACETAMINOPHEN/HYDROcodone 325 MG/10 MG TAB PO PRN ×2 (02:37→23:24)
[2017-11-15 06:46] LABS: HEMATOCRIT 25.4 % (39.0-51.0); HEMOGLOBIN 8.5 GM/DL (13.0-17.0); MEAN CELL VOLUME 92.7 FL (80.0-100.0); MEAN CORPUSCULAR HEMOGLOBIN 31.2 PG (27.0-34.0); MEAN CORPUSCULAR HGB CONC 33.6 % (32.0-36.0); MEAN PLATELET VOLUME 8.9 FL (7.0-11.0); PLATELET COUNT 144 TH/MM3 (150-450); RED BLOOD COUNT 2.74 MIL/MM3 (4.50-5.90); RED CELL DISTRIBUTION WIDTH 15.4 % (11.6-17.2)
[2017-11-15 06:55] LABS: BICARBONATE 32.5 MEQ/L (21.0-32.0); CREATININE 1.82 MG/DL (0.60-1.30)
[2017-11-15] MEDS: INSULIN ASPART SUPPLEMENTAL SCALE SQ SCH ×4 (08:00→21:00)
[2017-11-15] MEDS: SODIUM CHLORIDE 0.9% FLUSH 10 ML FLUSH IV FLUSH SCH ×2 (09:03→20:10)
[2017-11-15] MEDS: FERROUS SULFATE 325 MG (65 MG ELEMENTAL IRON) TAB PO SCH (09:04)
[2017-11-15] MEDS: SACUBITRIL/VALSARTAN 24 MG-26 MG TAB PO SCH ×2 (09:04→20:11)
[2017-11-15] MEDS: DIGOXIN 0.125 MG TAB PO SCH (09:04)
[2017-11-15] MEDS: FUROSEMIDE 20 MG TAB PO SCH (09:04)
[2017-11-15] MEDS: METOPROLOL TARTRATE 100 MG TAB PO SCH ×2 (09:05→20:12)
[2017-11-15] MEDS: DOCUSATE SODIUM 50 MG/SENNA 8.6 MG TAB PO SCH ×2 (09:05→20:11)
[2017-11-15] MEDS: APIXABAN 5 MG TABLET PO SCH ×2 (09:05→20:12)
--- NOTE | 2017-11-15 17:57 | HHI.PR ---
Subjective Remarks Patient has been determined to be too weak at this point for a revision of his pacemaker to make it a duel lead. His heart rate has remained in the 60s now for 2 days. No new complaints from the patient. Objective Vital Signs Date Time Temp Pulse Resp B/P (MAP) Pulse Ox O2 Delivery O2 Flow Rate FiO2 11/15/17 17:00 61 11/15/17 16:09 92 Room Air 11/15/17 16:00 64 11/15/17 15:36 137/76 (96) 11/15/17 15:22 98.7 60 19 174/68 (103) 92 11/15/17 15:00 60 11/15/17 14:38 62 11/15/17 13:00 60 11/15/17 12:00 60 11/15/17 11:18 94 Room Air 11/15/17 11:17 98.3 60 17 156/70 (98) 94 11/15/17 11:00 60 11/15/17 10:00 60 11/15/17 09:00 60 11/15/17 08:12 97.9 63 19 157/78 (104) 95 11/15/17 08:00 96 Nasal Cannula 3.00 11/15/17 08:00 60 11/15/17 07:00 60 11/15/17 06:02 64 11/15/17 05:17 60 11/15/17 04:05 60 11/15/17 03:10 96 Nasal Cannula 2.00 11/15/17 03:10 97.7 66 16 166/66 (99) 96 11/15/17 03:10 60 11/15/17 02:18 60 11/15/17 01:09 60 11/15/17 00:02 60 11/14/17 23:22 60 11/14/17 23:22 93 Room Air 11/14/17 23:22 98.1 55 17 93 11/14/17 22:49 60 11/14/17 21:25 60 11/14/17 20:15 60 11/14/17 19:52 97 Room Air 11/14/17 19:52 98.4 60 18 159/64 (95) 97 11/14/17 19:27 60 11/14/17 18:13 88 I/O 2/25/18 2/25/11/14/17 11/15/17 11/15/17 11/15/17 07:00 15:00 23:00 07:00 15:00 23:00 Intake Total 480 ml 240 ml 720 ml Output Total 500 ml 450 ml 400 ml Balance -20 ml -210 ml 320 ml Intake Oral 480 ml 240 ml 720 ml Output Urine Total 500 ml 450 ml 400 ml # Voids 3 # Bowel Movements 0 1 0 Result Diagram: 11/15/17 0533 11/15/1733 Objective Remarks GENERAL: NAD, A&Ox3 HEAD: Normocephalic. NECK: Supple, trachea midline. No lymphadenopathy. EYES: No scleral icterus. No injection or drainage. CARDIOVASCULAR: Bradycardic rate and regular rhythm without murmurs, gallops, or rubs. RESPIRATORY: Breath sounds equal bilaterally. No accessory muscle use. GASTROINTESTINAL: Abdomen soft, non-tender, nondistended. MUSCULOSKELETAL: No cyanosis, or edema. SKIN: Warm and dry. NEURO: No focal neurological deficitis. A/P Problem List: (1) Symptomatic bradycardia ICD Code: R00.1 - Bradycardia, unspecified (2) DM (diabetes mellitus) ICD Code: E11.9 - Type 2 diabetes mellitus without complications (3) HTN (hypertension) ICD Code: I10 - Essential (primary) hypertension (4) A-fib ICD Code: I48.91 - Unspecified atrial fibrillation Assessment and Plan 72-year-old male admitted secondary to symptomatic bradycardia. The patient remained stable over next 24 hours we'll consider discharge to care home facility, or patient needs to work further with rehabilitation to regain strength. Symptomatic Bradycardia CHF Atrial fibrillation Metoprolol on hold Dr. Christian has been consulted Possible need for dual lead pacemaker Patient has a pacemaker in place and many next relieved Continue home diuretics Continue digoxin Generalized Weakness Likely related to bradycardia Continue physical therapy Patient will need inpatient rehabilitation at discharge Hypertension Continue baseline treatment Follow blood pressures Adjust treatments as needed Diabetes mellitus type 2 Follow blood sugars Insulin sliding scale Diabetic diet DVT prophylaxis Shalom Doe MD Nov 15, 2017 17:57
[2017-11-15] MEDS: ATORVASTATIN 40 MG TAB PO SCH (20:11)
[2017-11-15] MEDS: TERAZOSIN HCL 1 MG CAP PO SCH (20:11)
[2017-11-15] MEDS: MIRTAZAPINE 15 MG TAB PO SCH (20:12)
[2017-11-16] VITALS (28 sets, daily range): BP systolic 149–157; BP diastolic 53–70; PULSE 60–94; RESP 18–20; TEMP 97.5–98.6; O2SAT 91–94
[2017-11-16] MEDS ORDERED: RESP: ALBUTEROL 2.5 MG/IPRATROPIUM 0.5 MG NEB (PRN) NEB (00:30)
[2017-11-16] MEDS: RESP: ALBUTEROL 2.5 MG/IPRATROPIUM 0.5 MG NEB (SCH) NEB ×4 (03:25→21:14)
[2017-11-16] MEDS: ACETAMINOPHEN/HYDROcodone 325 MG/10 MG TAB PO PRN (04:14)
[2017-11-16 06:34] LABS: AUTOMATED NEUTROPHIL # 5.1 TH/MM3 (1.8-7.7); BASOPHIL % 0.5 % (0.0-2.0); EOSINOPHIL # 0.1 TH/MM3 (0-0.4); HEMATOCRIT 23.9 % (39.0-51.0); HEMOGLOBIN 8.1 GM/DL (13.0-17.0); LYMPH % 10.2 % (9.0-44.0); LYMPHOCYTE # 0.7 TH/MM3 (1.0-4.8); MEAN CELL VOLUME 92.8 FL (80.0-100.0); MEAN CORPUSCULAR HEMOGLOBIN 31.4 PG (27.0-34.0); MEAN CORPUSCULAR HGB CONC 33.8 % (32.0-36.0); MEAN PLATELET VOLUME 8.4 FL (7.0-11.0); MONO % 11.1 % (0.0-8.0); MONOCYTE # 0.7 TH/MM3 (0-0.9); NEUT % 77.2 % (16.0-70.0); PLATELET COUNT 127 TH/MM3 (150-450); RED BLOOD COUNT 2.58 MIL/MM3 (4.50-5.90); RED CELL DISTRIBUTION WIDTH 15.2 % (11.6-17.2); WHITE BLOOD COUNT 6.7 TH/MM3 (4.0-11.0)
[2017-11-16 06:53] LABS: ALBUMIN 3.2 GM/DL (3.4-5.0); AST (GOT) 18 U/L (15-37); BICARBONATE 32.1 MEQ/L (21.0-32.0); BLOOD UREA NITROGEN 28 MG/DL (7-18); CALCIUM 8.8 MG/DL (8.5-10.1); CHLORIDE 103 MEQ/L (98-107); GLOMERULAR FILTRATION RATE 35 ML/MIN (>89); GLUCOSE,RANDOM 118 MG/DL (74-106); SODIUM (NA) 141 MEQ/L (136-145)
[2017-11-16 06:55] LABS: ALT (GPT) 12 U/L (12-78)
[2017-11-16 06:57] LABS: ALKALINE PHOSPHATASE 116 U/L (45-117)
[2017-11-16] MEDS: INSULIN ASPART SUPPLEMENTAL SCALE SQ SCH ×4 (07:59→21:16)
[2017-11-16] MEDS: FUROSEMIDE 20 MG TAB PO SCH (09:00)
[2017-11-16] MEDS: APIXABAN 5 MG TABLET PO SCH ×2 (09:46→21:15)
[2017-11-16] MEDS: SACUBITRIL/VALSARTAN 24 MG-26 MG TAB PO SCH ×2 (09:46→21:15)
[2017-11-16] MEDS: METOPROLOL TARTRATE 100 MG TAB PO SCH ×2 (09:46→21:15)
[2017-11-16] MEDS: DOCUSATE SODIUM 50 MG/SENNA 8.6 MG TAB PO SCH ×2 (09:46→21:00)
[2017-11-16] MEDS: FERROUS SULFATE 325 MG (65 MG ELEMENTAL IRON) TAB PO SCH (09:46)
[2017-11-16] MEDS: DIGOXIN 0.125 MG TAB PO SCH (09:46)
[2017-11-16] MEDS: SODIUM CHLORIDE 0.9% FLUSH 10 ML FLUSH IV FLUSH SCH ×2 (09:46→21:16)
[2017-11-16] MEDS ORDERED: SODIUM CHLORID 0.9% 500 ML INJ 500 ML IV ONE (11:15)
--- NOTE | 2017-11-16 11:50 | MB ---
cc: Andria Calle MD DATE OF CONSULT: 11/15/2017 REASON FOR CONSULTATION: Heart failure, bradycardia. HISTORY: Mr. Marin is a 72-year-old gentleman with a history of high blood pressure, coronary artery disease, congestive heart failure. He has a previous defibrillator implanted over a month ago. Ejection fraction is 20%. He has diabetes mellitus with renal insufficiency. He is on optimal medical treatment. He was admitted due to severe bradycardia. Defibrillator was reprogrammed to VVIR 60. I was consulted for possible device upgrade. The chart was reviewed and patient was evaluated. ALLERGIES: NONE SOCIAL HISTORY: Negative for smoking and drinking. FAMILY HISTORY: Noncontributory to his current medical condition. MEDICATIONS: Before hospitalization he was on: 1. Aldactone 25 mg a day 2. Digoxin 0.125 mg a day 3. Entresto 4. Lasix 5. Metoprolol 100 mg twice a day 6. Atorvastatin 7. Eliquis REVIEW OF SYSTEMS: This gentleman refers feeling okay. PHYSICAL EXAM: GENERAL: Alert, I am not sure this gentleman is completely oriented. The conversation is very poor. VITAL SIGNS: Blood pressure on evaluation 157/78, pulse 63, respiratory rate is 20. LUNGS: Ventilated. CARDIOVASCULAR: S1 and S2 regular. ABDOMEN: Soft. No masses. EXTREMITIES: No edema. LEFT INFRACLAVICULAR AREA: Clean. No scar. Electrocardiogram shows bradycardia and V-pacing. ASSESSMENT AND RECOMMENDATION: Mr. Marin is at home apparently not too functional for now. He has some tiredness. I am talking to the gentleman, there is no real verbal communication. The defibrillator is well functioning. He is in sinus rhythm. At that point, my recommendation is increase the defibrillator to VVIR 60, upper rate limit 100 beats per minute. If the mentation of the gentleman improves and the gentleman is getting more functional, then I would consider Bi-Vi upgrade. In view of his sedation, I am going to modify his medication and further decision will be taken during hospitalization. Andria Calle MD HS/DL/rr , 08:09 AM , 10:07 AM
--- NOTE | 2017-11-16 12:38 | HHI.PR ---
Subjective Remarks Patient is more lethargic today. He has not been taking good by mouth intake. He did have a narcotic provided to him last night. Objective Vital Signs Date Time Temp Pulse Resp B/P (MAP) Pulse Ox O2 Delivery O2 Flow Rate FiO2 11/16/17 12:05 98.6 60 19 157/62 (93) 92 11/16/17 07:37 91 Nasal Cannula 4.00 11/16/17 07:20 97.5 62 19 152/59 (90) 91 11/16/17 06:00 60 11/16/17 05:17 17 11/16/17 05:00 60 11/16/17 04:00 64 11/16/17 03:25 93 Nasal Cannula 4.00 11/16/17 03:00 98.1 60 18 149/70 (96) 93 11/16/17 03:00 92 Nasal Cannula 3.00 11/16/17 03:00 62 11/16/17 02:04 64 11/16/17 01:00 69 11/16/17 00:00 60 11/15/17 23:00 95 Nasal Cannula 2.00 11/15/17 23:00 69 11/15/17 23:00 97.7 68 20 152/67 (95) 93 11/15/17 22:00 70 11/15/17 21:00 64 11/15/17 20:00 60 11/15/17 19:00 97.1 60 17 159/64 (95) 95 11/15/17 19:00 95 Nasal Cannula 2.00 11/15/17 19:00 73 11/15/17 18:08 60 11/15/17 17:00 61 11/15/17 16:09 92 Room Air 11/15/17 16:00 64 11/15/17 15:36 137/76 (96) 11/15/17 15:22 98.7 60 19 174/68 (103) 92 11/15/17 15:00 60 11/15/17 14:38 62 11/15/17 13:00 60 I/O 11/15/17 11/15/17 11/15/17 11/16/17 11/16/17 11/16/17 07:00 15:00 23:00 07:00 15:00 23:00 Intake Total 240 ml 720 ml 240 ml Output Total 450 ml 400 ml Balance -210 ml 320 ml 240 ml Intake Oral 240 ml 720 ml 240 ml Output Urine Total 450 ml 400 ml # Voids 3 3 # Bowel Movements 0 Result Diagram: 11/16/1760411/16/17604 Objective Remarks GENERAL: NAD, A&Ox3 HEAD: Normocephalic. NECK: Supple, trachea midline. No lymphadenopathy. EYES: No scleral icterus. No injection or drainage. CARDIOVASCULAR: Bradycardic rate and regular rhythm without murmurs, gallops, or rubs. RESPIRATORY: Breath sounds equal bilaterally. No accessory muscle use. GASTROINTESTINAL: Abdomen soft, non-tender, nondistended. MUSCULOSKELETAL: No cyanosis, or edema. SKIN: Warm and dry. NEURO: No focal neurological deficitis. A/P Problem List: (1) Symptomatic bradycardia ICD Code: R00.1 - Bradycardia, unspecified (2) DM (diabetes mellitus) ICD Code: E11.9 - Type 2 diabetes mellitus without complications (3) HTN (hypertension) ICD Code: I10 - Essential (primary) hypertension (4) A-fib ICD Code: I48.91 - Unspecified atrial fibrillation Assessment and Plan 72-year-old male admitted secondary to symptomatic bradycardia. Increased lethargy and decreased by mouth intake. Narcotics were discontinued. Labs reviewed. Renal function shows signs of dehydration. Continue to monitor labs. Labs ordered for further monitoring. Fluid boluses provided. Monitor for improvement prior to consideration for discharge. Lethargy Discontinue narcotics Monitor for improvement Consider brain imaging if not improving off narcotics Symptomatic Bradycardia CHF Atrial fibrillation Metoprolol on hold Dr. Christian has been consulted Possible need for dual lead pacemaker Patient has a pacemaker in place and many next relieved Continue home diuretics Continue digoxin Generalized Weakness Likely related to bradycardia Continue physical therapy Patient will need inpatient rehabilitation at discharge Hypertension Continue baseline treatment Follow blood pressures Adjust treatments as needed Diabetes mellitus type 2 Follow blood sugars Insulin sliding scale Diabetic diet DVT prophylaxis Shalom Doe MD Nov 16, 2017 12:38
[2017-11-16] MEDS: MIRTAZAPINE 15 MG TAB PO SCH (21:15)
[2017-11-16] MEDS: ATORVASTATIN 40 MG TAB PO SCH (21:15)
[2017-11-16] MEDS: TERAZOSIN HCL 1 MG CAP PO SCH (21:15)
[2017-11-17] VITALS (16 sets, daily range): BP systolic 145–152; BP diastolic 75–80; PULSE 60–76; RESP 18–20; TEMP 98.2–98.6; O2SAT 93–100
[2017-11-17] MEDS: RESP: ALBUTEROL 2.5 MG/IPRATROPIUM 0.5 MG NEB (SCH) NEB ×2 (03:28→08:55)
[2017-11-17 05:58] LABS: AUTOMATED NEUTROPHIL # 5.8 TH/MM3 (1.8-7.7); BASOPHIL % 0.3 % (0.0-2.0); EOSINOPHIL % 0.1 % (0.0-4.0); HEMATOCRIT 24.2 % (39.0-51.0); HEMOGLOBIN 8.1 GM/DL (13.0-17.0); LYMPH % 14.2 % (9.0-44.0); LYMPHOCYTE # 1.1 TH/MM3 (1.0-4.8); MEAN CELL VOLUME 92.3 FL (80.0-100.0); MEAN CORPUSCULAR HEMOGLOBIN 30.9 PG (27.0-34.0); MEAN CORPUSCULAR HGB CONC 33.5 % (32.0-36.0); MEAN PLATELET VOLUME 8.8 FL (7.0-11.0); MONO % 9.8 % (0.0-8.0); MONOCYTE # 0.7 TH/MM3 (0-0.9); NEUT % 75.6 % (16.0-70.0); PLATELET COUNT 128 TH/MM3 (150-450); RED BLOOD COUNT 2.62 MIL/MM3 (4.50-5.90); RED CELL DISTRIBUTION WIDTH 15.4 % (11.6-17.2); WHITE BLOOD COUNT 7.6 TH/MM3 (4.0-11.0)
[2017-11-17 06:38] LABS: ALBUMIN 3.2 GM/DL (3.4-5.0); ALKALINE PHOSPHATASE 123 U/L (45-117); ALT (GPT) 229 U/L (12-78); AST (GOT) 327 U/L (15-37); BICARBONATE 28.8 MEQ/L (21.0-32.0); BLOOD UREA NITROGEN 33 MG/DL (7-18); CALCIUM 8.8 MG/DL (8.5-10.1); CHLORIDE 102 MEQ/L (98-107); CREATININE 1.98 MG/DL (0.60-1.30); GLOMERULAR FILTRATION RATE 33 ML/MIN (>89); GLUCOSE,RANDOM 134 MG/DL (74-106); SODIUM (NA) 141 MEQ/L (136-145); TOTAL BILIRUBIN ADULT 1.4 MG/DL (0.2-1.0); TOTAL PROTEIN 6.2 GM/DL (6.4-8.2)
[2017-11-17] MEDS: INSULIN ASPART SUPPLEMENTAL SCALE SQ SCH ×2 (08:00→12:00)
[2017-11-17] MEDS: SODIUM CHLORIDE 0.9% FLUSH 10 ML FLUSH IV FLUSH SCH (09:00)
[2017-11-17] MEDS: DOCUSATE SODIUM 50 MG/SENNA 8.6 MG TAB PO SCH (10:34)
[2017-11-17] MEDS: APIXABAN 5 MG TABLET PO SCH (10:34)
[2017-11-17] MEDS: FUROSEMIDE 20 MG TAB PO SCH (10:35)
[2017-11-17] MEDS: DIGOXIN 0.125 MG TAB PO SCH (10:35)
[2017-11-17] MEDS: SACUBITRIL/VALSARTAN 24 MG-26 MG TAB PO SCH (10:35)
[2017-11-17] MEDS: METOPROLOL TARTRATE 100 MG TAB PO SCH (10:35)
[2017-11-17] MEDS: FERROUS SULFATE 325 MG (65 MG ELEMENTAL IRON) TAB PO SCH (10:35)
[2017-11-17] MEDS ORDERED: SACU1TAB PO (12:08)
[2017-11-17] MEDS ORDERED: ACET325T15 PO (12:08)
[2017-11-17] MEDS ORDERED: GLIP1TAB60 PO (12:08)
[2017-11-17] MEDS ORDERED: PERI PO (12:08)
[2017-11-17] MEDS ORDERED: Albuterol-Ipratropium Neb NEB ×2 (12:08)
[2017-11-17] MEDS ORDERED: SENN187 PO (12:08)
--- NOTE | 2017-11-17 12:19 | HHI.PR ---
Subjective Remarks Patient seen this morning around 10:30 AM. Nursing reports that lethargy has improved. Patient says he is feeling well. Denies any chest pain or shortness of breath. Objective Vital Signs Date Time Temp Pulse Resp B/P (MAP) Pulse Ox O2 Delivery O2 Flow Rate FiO2 11/17/17 08:57 99 Nasal Cannula 3.00 11/17/17 07:00 62 20 152/76 (101) 100 11/17/17 06:00 60 11/17/17 05:26 20 11/17/17 05:00 74 11/17/17 04:00 98.2 68 20 145/75 (98) 96 11/17/17 04:00 96 3.00 11/17/17 04:00 70 11/17/17 03:00 68 11/17/17 02:00 68 11/17/17 01:00 76 11/17/17 00:00 72 11/17/17 00:00 93 3.00 11/17/17 00:00 98.2 68 18 151/78 (102) 93 11/16/17 23:00 74 11/16/17 22:00 72 11/16/17 21:14 93 Nasal Cannula 4.00 11/16/17 21:00 72 11/16/17 20:00 92 4.00 11/16/17 20:00 98.2 92 20 151/53 (85) 92 11/16/17 20:00 94 11/16/17 19:00 74 11/16/17 18:00 76 11/16/17 17:00 64 11/16/17 16:02 70 11/16/17 15:00 97.9 61 19 151/64 (93) 94 11/16/17 15:00 93 3.50 11/16/17 15:00 63 11/16/17 14:00 60 11/16/17 13:00 60 I/O 11/16/17 11/16/17 11/16/17 11/17/17 11/17/17 11/17/17 07:00 15:00 23:00 07:00 15:00 23:00 Intake Total 240 ml 680 ml 150 ml Balance 240 ml 680 ml 150 ml Intake Oral 240 ml 680 ml 150 ml # Voids 3 5 4 # Bowel Movements 0 Result Diagram: 11/17/17 0537 11/17/17 0537 Objective Remarks GENERAL: Patient sitting up in chair at bedside. No acute distress. Disoriented but pleasant. Appropriate conversation. SKIN: Warm and dry. HEAD: Normocephalic. EYES: No scleral icterus. No injection or drainage. NECK: Supple, trachea midline. No JVD. CARDIOVASCULAR: Regular rate and rhythm without murmurs, gallops, or rubs. RESPIRATORY: Breath sounds equal bilaterally. No accessory muscle use. GASTROINTESTINAL: Abdomen soft, non-tender, nondistended. MUSCULOSKELETAL: No cyanosis, or edema. BACK: Nontender without obvious deformity. No CVA tenderness. A/P Assessment and Plan 72-year-old male admitted secondary to symptomatic bradycardia. Increased lethargy and decreased by mouth intake. Narcotics were discontinued. Labs reviewed. Renal function shows signs of dehydration. Continue to monitor labs. Labs ordered for further monitoring. Fluid boluses provided. Monitor for improvement prior to consideration for discharge. //Lethargy Discontinue narcotics Monitor for improvement Consider brain imaging if not improving off narcotics = Off narcotics. Much improved. //Symptomatic Bradycardia //CHF //Atrial fibrillation Metoprolol on hold Dr. Christian has been consulted Possible need for dual lead pacemaker Patient has a pacemaker in place and many next relieved Continue home diuretics Continue digoxin //Generalized Weakness Likely related to bradycardia Continue physical therapy Patient will need inpatient rehabilitation at discharge //Hypertension Continue baseline treatment Follow blood pressures Adjust treatments as needed = Blood pressure acceptable. //Diabetes mellitus type 2 Follow blood sugars Insulin sliding scale Diabetic diet = Blood sugars acceptable. //CKD. Creatinine 1.9 around baseline. //DVT prophylaxis Eliquis Discharge Planning Discharge to SNF. Pending cardiology clearance. Ugo Sanchez MD Nov 17, 2017 12:19
--- NOTE | 2017-11-17 12:20 | HHI.DS ---
Discharge Summary Admission Date Nov 13, 2017 at 20:57 Discharge Date: Nov 17, 2017 Admitting Diagnosis Bradycardia (1) Symptomatic bradycardia ICD Code: R00.1 - Bradycardia, unspecified (2) Generalized weakness ICD Code: R53.1 - Weakness (3) CHF (congestive heart failure) ICD Code: I50.9 - Heart failure, unspecified (4) A-fib ICD Code: I48.91 - Unspecified atrial fibrillation (5) Renal insufficiency ICD Code: N28.9 - Disorder of kidney and ureter, unspecified (6) HTN (hypertension) ICD Code: I10 - Essential (primary) hypertension (7) DM (diabetes mellitus) ICD Code: E11.9 - Type 2 diabetes mellitus without complications Procedures No invasive procedures. Brief History - From Admission This is a 72-year-old male with a PMH of HTN, Hyperlipidemia, A. fib on Eliquis , CHF (Echo 06/08/17 w/ EF 15-20%), s/p AICD 10/06/[address] Calle, CAD and DM who presented to the ER w/ complaints of generalized weakness. States symptoms have been ongoing for approx 2mo, now progressively worse after having AICD placed. Reports weakness associated w/ dizziness and gait instability. notes increased lower extremity edema in the last week, states was seen by PCP on Wednesday and instructed to increase Lasix from 10mg qd to 20mg qd x3 days, however notes minimal improvement in lower extremity edema. Denies chest pain, fever, chills, SOB or cough. On arrival, pt noted to by bradycardic w/ HR 40' s. Device interrogated while in ER, no events noted, settings changed from HR 35-40 to HR 60. Pt notes persistent dizziness and weakness. BP on arrival 188/ 72, HR 44, O2 sat 95% on RA, Afebrile. CBC unremarkable. Creatinine 1.93, previously 1.56 on 10/06/17. Troponin 0.04. BNP 709. INR 1.4. CXR with no acute findings. CBC/BMP: 11/17/17 0537 11/17/17 0537 Significant Findings Laboratory Tests Test 11/15/17 05:33 11/16/17 06:05 11/17/17 05:37 Red Blood Count 2.74 MIL/MM3 (4.50-5.90) 2.58 MIL/MM3 (4.50-5.90) 2.62 MIL/MM3 (4.50-5.90) Hemoglobin 8.5 GM/DL (13.0-17.0) 8.1 GM/DL (13.0-17.0) 8.1 GM/DL (13.0-17.0) Hematocrit 25.4 % (39.0-51.0) 23.9 % (39.0-51.0) 24.2 % (39.0-51.0) Platelet Count 144 TH/MM3 (150-450) 127 TH/MM3 (150-450) 128 TH/MM3 (150-450) Blood Urea Nitrogen 27 MG/DL (7-18) 28 MG/DL (7-18) 33 MG/DL (7-18) Creatinine 1.82 MG/DL (0.60-1.30) 1.90 MG/DL (0.60-1.30) 1.98 MG/DL (0.60-1.30) Carbon Dioxide Level 32.5 MEQ/L (21.0-32.0) 32.1 MEQ/L (21.0-32.0) Estimat Glomerular Filtration Rate 37 ML/MIN (>89) 35 ML/MIN (>89) 33 ML/MIN (>89) Neutrophils (%) (Auto) 77.2 % (16.0-70.0) 75.6 % (16.0-70.0) Monocytes (%) (Auto) 11.1 % (0.0-8.0) 9.8 % (0.0-8.0) Lymphocytes # (Auto) 0.7 TH/MM3 (1.0-4.8) Random Glucose 118 MG/DL (74-106) 134 MG/DL (74-106) Total Protein 6.0 GM/DL (6.4-8.2) 6.2 GM/DL (6.4-8.2) Albumin 3.2 GM/DL (3.4-5.0) 3.2 GM/DL (3.4-5.0) Alkaline Phosphatase 123 U/L (45-117) Aspartate Amino Transf (AST/SGOT) 327 U/L (15-37) Alanine Aminotransferase (ALT/SGPT) 229 U/L (12-78) Total Bilirubin 1.4 MG/DL (0.2-1.0) Potassium Level 3.4 MEQ/L (3.5-5.1) Imaging Last Impressions Chest X-Ray 11/13/17 7392 Signed Impressions: Service Date/Time: Monday, November 13, 2017 18:07 - CONCLUSION: No acute disease. No significant change has occurred. Sidney Hyde MD Hospital Course 72-year-old male admitted secondary to symptomatic bradycardia. Increased lethargy and decreased by mouth intake. Narcotics were discontinued. Labs reviewed. Renal function shows signs of dehydration. Continue to monitor labs. Labs ordered for further monitoring. Fluid boluses provided. Monitor for improvement prior to consideration for discharge. //Lethargy Discontinue narcotics Monitor for improvement Consider brain imaging if not improving off narcotics = Off narcotics. Much improved. //Symptomatic Bradycardia //CHF //Atrial fibrillation Metoprolol on hold Dr. Christian has been consulted Possible need for dual lead pacemaker Patient has a pacemaker in place and many next relieved Continue home diuretics Continue digoxin //Generalized Weakness Likely related to bradycardia Continue physical therapy Patient will need inpatient rehabilitation at discharge //Hypertension Continue baseline treatment Follow blood pressures Adjust treatments as needed = Blood pressure acceptable. //Diabetes mellitus type 2 Follow blood sugars Insulin sliding scale Diabetic diet = Blood sugars acceptable. //CKD. Creatinine 1.9 around baseline. //DVT prophylaxis Eliquis Discharge Planning Discharge to SNF. Pending cardiology clearance. Pt Condition on Discharge: Good Discharge Disposition: Discharge to SNF Discharge Time: > 30 minutes Discharge Instructions DIET: Follow Instructions for: Diabetic Diet Activities you can perform: Regular-No Restrictions Follow up Referrals: Cardiology - 1 Week with Vijay Tapia MD PCP Follow-up - 1 Week with Rayshawn Vázquez MD New Medications: Glipizide ER (Glipizide ER) 2.5 Mg Raphael 2.5 MG PO DAILY for Blood Sugar Management, #30 TAB 0 Refills Take with breakfast or first main meal of the day Acetaminophen (Eq Acetaminophen) 325 Mg Tab 650 MG PO Q6H PRN for FEVER/PAIN SCALE 1 TO 10 for 30 Days, #240 TAB Sacubitril-Valsartan (Entresto) 24-26 Mg Tab 1 TAB PO BID for heart for 30 Days, #60 TAB Sennosides (Senna-Lax) 8.6 Mg Tab 17.2 MG PO Q12H PRN for Moderate constipation for 30 Days, #120 TAB Sennosides-Docusate Sodium (Gnp Senna Plus 8.6-50 mg) 8.6 Mg-50 Mg Tab 1 TAB PO BID for Constipation for 30 Days, #60 TAB [Albuterol-Ipratropium Neb] () 1 AMPULE NEBU 1 AMPULE NEB Q6HR NEB for Asthma Management, #30 [Albuterol-Ipratropium Neb] () 1 AMPULE NEBU 1 AMPULE NEB Q2HR NEB PRN for cough, wheeze for 30 Days Continued Medications: Apixaban (Eliquis) 5 Mg Tab 5 MG PO BID for Blood Clot Prevention, #60 TAB Atorvastatin (Atorvastatin) 40 Mg Tab 40 MG PO HS for Cholesterol Management, #30 TAB 0 Refills Bisacodyl Supp (Bisac-Evac Supp) 10 Mg Supp 10 MG RECTAL DAILY PRN for SEVERE CONSITIPATION, #31 SUPP Cyanocobalamin (Vitamin B-12) 500 Mcg Tab 500 MCG PO DAILY for Nutritional Supplement, #1 BOTTLE 0 Refills Digoxin (Digoxin) 0.125 Mg Tab 0.125 MG PO DAILY for Regulate Heart Beat, #30 TAB 0 Refills Ferrous Sulfate (Ferrous Sulfate) 325 Mg (65 Mg Iron) Tablet 325 MG PO DAILY for Nutritional Supplement, #30 TAB 0 Refills Furosemide (Lasix) 20 Mg Tab 20 MG PO EVERY OTHER DAY, #30 TAB 0 Refills Metoprolol Tartrate (Metoprolol Tartrate) 100 Mg Tab 100 MG PO BID for Blood Pressure Management, #60 TAB 0 Refills Mirtazapine (Mirtazapine) 7.5 Mg Tab 7.5 MG PO HS for Depression Control, #30 TAB 0 Refills Spironolactone (Aldactone) 25 Mg Tab 25 MG PO EVERY OTHER DAY, #30 TAB 0 Refills Terazosin (Terazosin) 1 Mg Cap 1 MG PO HS for Manage Prostate Problems, #30 CAP 0 Refills Tramadol (Tramadol) 50 Mg Tab 50 MG PO Q4H PRN for PAIN, TAB 0 Refills Walker with Front Wheels (Walker with Front Wheels) 1 Mis Mis EA .ROUTE DIRECTED for GAIT INSTABILITY, #1 0 Refills Discontinued Medications: Glipizide (Glipizide) 10 Mg Tab 10 MG PO DAILY for Blood Sugar Management, #30 TAB 0 Refills Take 30 minutes before a meal Pioglitazone (Pioglitazone) 45 Mg Tab 45 MG PO DAILY for Blood Sugar Management, #30 TAB 0 Refills Sacubitril-Valsartan (Entresto) 24-26 Mg Tab 1 TAB PO DAILY for Heart Failure, #30 TAB 0 Refills Ugo Sanchez MD Nov 17, 2017 12:20
[2017-11-17] MEDS ORDERED: DOCUSATE SODIUM 50 MG/SENNA 8.6 MG TAB PO ONE (12:30)
[2017-11-17 20:11] LABS: HEMOGLOBIN A1C 6.2 % (4.3-6.0)
== END 2017-11-17 15:15 | DRG 309 ==
LOC: NEPE 17:17 → NEDA 20:33 → OBSVTOIN 20:57 → HCIS 23:54
PROVIDERS: ADMIT Internal Medicine; ATTEND Internal Medicine
DX: R00.1 Bradycardia, unspecified (principal); I13.0 Hypertensive heart and chronic kidney disease with heart failure and stage 1 through stage 4 chronic kidney disease, or unspecified chronic kidney disease; E11.22 Type 2 diabetes mellitus with diabetic chronic kidney disease; I50.9 Heart failure, unspecified; I42.0 Dilated cardiomyopathy; R53.1 Weakness; E78.00 Pure hypercholesterolemia, unspecified; I48.2 Chronic atrial fibrillation; N18.9 Chronic kidney disease, unspecified; I25.10 Atherosclerotic heart disease of native coronary artery without angina pectoris; I25.2 Old myocardial infarction; Z79.01 Long term (current) use of anticoagulants; Z95.810 Presence of automatic (implantable) cardiac defibrillator; Z87.891 Personal history of nicotine dependence; Z95.5 Presence of coronary angioplasty implant and graft
CPT/HCPCS: 71045; 76937; 80048; 80053; 82550; 82948; 83036; 83735; 83880; 84484; 85025; 85027; 85610; 85730; 93005; 94640; 94664; 99285; J1815; J7040

== ENCOUNTER 2018-04-20 09:40 | Inpatient (IN) ==
[2018-04-20] MEDS ORDERED: Sodium Chlor 0.9% Inj 500 ML IV.SIG ONE (11:10)
--- NOTE | 2018-04-20 11:19 | ED ---
HPI General Chief complaint: Nausea/Vomiting/Diarrhea Stated complaint: Nausea Time Seen by Provider: 04/20/18 10:58 Source: patient, family, RN notes reviewed and old records reviewed Limitations: no limitations History of Present Illness HPI narrative: 72-year-old male presents to the emergency department with his at bedside for evaluation of generalized weakness, nausea, increased confusion. Patient states he has been nauseated over the past 3 days. He denies vomiting. He did have diarrhea 2 days ago. He had one bowel movement yesterday. He denies any bowel movements today. He does report right-sided abdominal pain 6/10, dull. He also reports a bilateral frontal headache that he states is "mild". He states he has been having increased headaches recently and denies history of headaches. His states that over the past 2 days he has been more confused and not knowing where he was. His also states that he is becoming more and more weak over the past year, but really increasing over the past few days. He was walking with a cane and is now barely able to get up with a walker. Patient has PMH of HTN, Hyperlipidemia, A. fib on Eliquis , CHF (Echo 06/08/17 w/ EF 15-20%), s/p AICD 10/06/[address] Calle, CAD and DM. His states that he has been having decreased appetite and not drinking many fluids. His primary care physician is Dr. Vázquez. Patient denies any chest pain or shortness of breath. Onset (ago): day(s) (3) Location: abdomen Radiation: non-radiation Severity: moderate Severity scale (1-10): 6 Quality: dull Pain Consistency: constant Relieving factors: none Exacerbating factors: none Associated symptoms: confusion, headaches and nausea/vomiting Related Data Home Medications Medication Instructions Recorded Confirmed apixaban [Eliquis] 5 mg PO DAILY 04/20/18 04/20/18 atorvastatin 40 mg PO DAILY 04/20/18 04/20/18 furosemide 40 mg PO DAILY 04/20/18 04/20/18 glipizide 2.5 mg PO DAILY 04/20/18 04/20/18 metoprolol tartrate 75 mg PO DAILY 04/20/18 04/20/18 sacubitril-valsartan [Entresto] 1 tab PO BID 04/20/18 04/20/18 spironolactone 12.5 mg PO DAILY 04/20/18 04/20/18 Allergies Allergy/AdvReac Type Severity Reaction Status Date / Time No Known Allergies Allergy Unknown Uncoded 10/06/17 09:24 Review of Systems Except as stated in HPI: all other systems reviewed are negative [facility] Medical History Medical History Afib (Acute) CHF (congestive heart failure) (Acute) Diabetes (Acute) HTN (hypertension) (Acute) Paced cardiac rhythm (Acute) STEMI (ST elevation myocardial infarction) (Acute) Surgical History Surgical History Previous back surgery (Acute) Social History Social History Substance History: No History of Abuse Second Hand Smoke Exposure: No Smoking Status: Former smoker Tobacco Type: Cigarettes How Often Do You Have a Drink Containing Alcohol: Never Recent Travel in [facility] within the Last 8 Weeks: No Recent Out of Country Travel within the Last 8 Weeks: No Immunization History Tetanus Immunization: <5 Years Hx Influenza Vaccine This Season: Yes Exam Narrative Exam Narrative: GENERAL: Well-nourished, well-developed elderly male patient, afebrile. Patient is alert and oriented to person, place, time. However, he did have difficulty remembering the month peer SKIN: Focused skin assessment warm/dry. No lacerations or abrasions. HEAD: Normocephalic. Atraumatic ENT: Mucosa pink and dry. No erythema or exudates. No uvular edema. No uvular, palatal, or tonsillar deviation. Airway patent. Nasal turbinates appear normal without nasal blood, purulent drainage or septal hematoma. Bilateral tympanic membranes clear without erythema or perforation. EYES: No scleral icterus. No injection or drainage. NECK: Supple, trachea midline. No JVD or lymphadenopathy. CARDIOVASCULAR: Regular rate, irregular rhythm without murmurs, gallops, or rubs. RESPIRATORY: Breath sounds equal bilaterally. No accessory muscle use. Lung sounds clear to auscultation GASTROINTESTINAL: Abdomen soft, non-tender, nondistended. MUSCULOSKELETAL: No cyanosis, or edema. BACK: Nontender without obvious deformity. NEUROLOGICAL: Awake and alert. Cranial nerves II through XII intact. Motor and sensory grossly within normal limits. 4-5 out of 5 muscle strength in all muscle groups. Normal speech. Patient has difficulty with finger-nose, but is able to complete it bilaterally. Heel to cornejo is normal bilaterally. Course Initial Documented Vital Signs Temperature 99.4 F 04/20/18 09:59 Pulse Rate 75 04/20/18 09:59 Blood Pressure 163/71 H 04/20/18 09:59 Pulse Oximetry 97 04/20/18 09:59 Last Documented Vital Signs Temperature 98.2 F 04/20/18 18:51 Pulse Rate 68 04/20/18 18:51 Respiratory Rate 18 04/20/18 18:51 Blood Pressure 159/74 H 04/20/18 18:51 Pulse Oximetry 98 04/20/18 18:51 Medical Decision Making SHARONDA Attestation SHARONDA supervised visit: Yes Attestation: The history, exam, and medical decision-making in the associated mid-level provider note were completed with my assistance. I reviewed and agree with the findings presented. I attest that I had a [id number] encounter with the patient on the same day, and personally performed and documented my assessment and findings in the medical record. *My assessment and Findings: 72-year-old man presents emergency department brought in by family for generalized weakness associated with nausea. EKG not paced initially. Morongo rhythm shows changes from previous EKG. Initial troponins negative. Repeat EKG is mostly paced. We will plan on admission for further evaluation, rule out myocardial ischemia. [facility] Narrative Medical decision making narrative: 72-year-old male presents to the emergency department for worsening weakness, decreased appetite, nausea, abdominal pain, headaches, increased confusion over the past 3 days. EKG, CBC, CMP, lipase, magnesium, CK, troponin, PTT, PT/INR, UA ordered and pending. Chest x-ray, CT of the head and CT abdomen/pelvis with IV contrast ordered and pending. Patient is given normal saline 500 mL bolus, Zofran 4 mg ODT. EKG shows atrial fibrillation, HR 64, inverted t waves in leads II, III, aVF with inverted T-wave depressions in V4, V5, V6. CBC shows normal WBC of 9.9, but elevated neutrophil % of 82.0. CMP shows BUN of 19, creatinine of 1.37, which actually appears improved since previous labs; hyperglycemia of 165. Lipase is 83. Magnesium is 1.6. CK is 51. Troponin is 0.02. PTT is 25.7. PT /INR is 12.3/1.2. UA is negative for acute infection. CT of the head shows no acute finding. CT of the abdomen/pelvis shows a large right effusion, calcified granuloma in the right lower lobe, calcified splenic granulomas, bilateral renal cortical thinning and diffuse atherosclerotic calcifications are seen. Chest x-ray shows a decreased right effusion. Patient will be admitted for EKG changes, generalized weakness for repeat cardiac enzymes. He is agreeable. Differential Diagnosis Differential Diagnosis: Dehydration versus electrolyte abnormality versus ACS versus UTI versus sepsis versus appendicitis Medical Records Medical records reviewed: Yes I reviewed the patient's medical records. Lab Data Result diagrams: 04/20/18 11:20 04/20/18 11:20 Lab Results 04/20/18 04/20/18 04/20/18 Range/Units 11:20 11:20 11:20 WBC 9.9 (4.0-11.0) th/mm3 RBC 3.88 L (4.50-5.90) mil/mm3 Hgb 11.6 L (13.0-17.0) gm/dL Hct 33.6 L (39.0-51.0) % MCV 86.6 (80.0-100.0) fL MCH 29.9 (27.0-34.0) pg MCHC 34.6 (32.0-36.0) % RDW 15.9 (11.6-17.2) % Plt Count 166 (150-450) th/mm3 MPV 9.2 (7.0-11.0) fL Neut % (Auto) 82.0 H (16.0-70.0) % Lymph % (Auto) 11.9 (9.0-44.0) % [place] % (Auto) 4.9 (0.0-8.0) % Eos % (Auto) 0.5 (0.0-4.0) % Baso % (Auto) 0.7 (0.0-2.0) % Neut # (Auto) 8.1 H (1.8-7.7) th/mm3 Lymph # (Auto) 1.2 (1.0-4.8) th/mm3 [place] # (Auto) 0.5 (0.0-0.9) th/mm3 Eos # (Auto) 0.1 (0.0-0.4) th/mm3 Baso # (Auto) 0.1 (0.0-0.2) th/mm3 WBC Differential . Differential Comment Auto diff final PT 12.3 H (9.8-11.6) sec INR 1.2 Ratio APTT 25.7 (24.3-30.1) sec Sodium (136-145) meq/L Potassium (3.5-5.1) meq/L Chloride (98-107) meq/L Carbon Dioxide (21.0-32.0) meq/L Anion Gap (5-15) meq/L BUN (7-18) mg/dL Creatinine (0.60-1.30) mg/dL Estimated GFR (>89) mL/min Random Glucose (74-106) mg/dL Calcium (8.5-10.1) mg/dL Magnesium 1.6 (1.5-2.5) mg/dL Total Bilirubin (0.2-1.0) mg/dL AST (15-37) U/L ALT (12-78) U/L Alkaline Phosphatase (45-117) U/L Total Creatine Kinase 51 (39-308) U/L Troponin I 0.02 (0.02-0.05) ng/mL Total Protein (6.4-8.2) g/dL Albumin (3.4-5.0) g/dL Lipase (73-393) U/L Urine Color (Yellw/Straw) Urine Clarity (Clear) Urine pH (5.0-8.5) Ur Specific Stanley (1.002-1.035) Urine Protein (Neg-Trace) mg/dL Urine Glucose (UA) (Negative) mg/dL Urine Ketones (Negative) mg/dL Urine Occult Blood (Negative) Urine Nitrate (Negative) Urine Bilirubin (Negative) Urine Urobilinogen (Less than 2) mg/dL Ur Leukocyte Esterase (Negative) Urine RBC (0-3) /hpf Urine WBC (0-5) /hpf Urine Mucus (Occasional) /lpf Micro UA Comment Urine Culture Comments 04/20/18 04/20/18 04/20/18 Range/Units 11:20 12:07 16:10 WBC (4.0-11.0) th/mm3 RBC (4.50-5.90) mil/mm3 Hgb (13.0-17.0) gm/dL Hct (39.0-51.0) % MCV (80.0-100.0) fL MCH (27.0-34.0) pg MCHC (32.0-36.0) % RDW (11.6-17.2) % Plt Count (150-450) th/mm3 MPV (7.0-11.0) fL Neut % (Auto) (16.0-70.0) % Lymph % (Auto) (9.0-44.0) % [place] % (Auto) (0.0-8.0) % Eos % (Auto) (0.0-4.0) % Baso % (Auto) (0.0-2.0) % Neut # (Auto) (1.8-7.7) th/mm3 Lymph # (Auto) (1.0-4.8) th/mm3 [place] # (Auto) (0.0-0.9) th/mm3 Eos # (Auto) (0.0-0.4) th/mm3 Baso # (Auto) (0.0-0.2) th/mm3 WBC Differential Differential Comment PT (9.8-11.6) sec INR Ratio APTT (24.3-30.1) sec Sodium 140 (136-145) meq/L Potassium 3.7 (3.5-5.1) meq/L Chloride 101 (98-107) meq/L Carbon Dioxide 30.7 (21.0-32.0) meq/L Anion Gap 8 (5-15) meq/L BUN 19 H (7-18) mg/dL Creatinine 1.37 H (0.60-1.30) mg/dL Estimated GFR 51 L (>89) mL/min Random Glucose 165 H (74-106) mg/dL Calcium 9.0 (8.5-10.1) mg/dL Magnesium (1.5-2.5) mg/dL Total Bilirubin 0.9 (0.2-1.0) mg/dL AST 15 (15-37) U/L ALT 18 (12-78) U/L Alkaline Phosphatase 190 H (45-117) U/L Total Creatine Kinase (39-308) U/L Troponin I 0.03 (0.02-0.05) ng/mL Total Protein 7.4 (6.4-8.2) g/dL Albumin 3.8 (3.4-5.0) g/dL Lipase 83 (73-393) U/L Urine Color Yellow (Yellw/Straw) Urine Clarity Clear (Clear) Urine pH 5.0 (5.0-8.5) Ur Specific Stanley 1.013 (1.002-1.035) Urine Protein 100 H (Neg-Trace) mg/dL Urine Glucose (UA) Negative (Negative) mg/dL Urine Ketones Negative (Negative) mg/dL Urine Occult Blood Moderate H (Negative) Urine Nitrate Negative (Negative) Urine Bilirubin Negative (Negative) Urine Urobilinogen 2.0 H (Less than 2) mg/dL Ur Leukocyte Esterase Negative (Negative) Urine RBC 8 H (0-3) /hpf Urine WBC 1 (0-5) /hpf Urine Mucus Few H (Occasional) /lpf Micro UA Comment Culture not ind Urine Culture Comments Culture not ind Imaging Data Radiologist's impression: Abdomen/Pelvis CT 04/20/18 11:10 CONCLUSION: 1. Large right effusion. 2. Calcified granuloma in the right lower lobe, calcified splenic granulomas. 3. Bilateral renal cortical thinning and diffuse atherosclerotic calcifications are seen. Head CT 04/20/18 11:10 CONCLUSION: 1. No acute findings. . Chest X-Ray 04/20/18 12:14 CONCLUSION: Decreased right effusion. Discharge Plan Discharge Disposition Patient Disposition: 30 Still Patient Discharge Details Diagnosis: Acute electrocardiogram changes, Generalized weakness Physicians Team ED Provider: Anders Lopez ED Midlevel Provider: Monica Alba Primary Care Provider: Rayshawn Vázquez Attending Provider: Mike Méndez Other Providers: Andria Calle ; [employer] Status ED Status: Admitted Observation Patient
[2018-04-20 11:33] LABS: Baso # (Auto) 0.1 th/mm3 (0.0-0.2); Baso % (Auto) 0.7 % (0.0-2.0); Eos # (Auto) 0.1 th/mm3 (0.0-0.4); Eos % (Auto) 0.5 % (0.0-4.0); Hematocrit 33.6 % (39.0-51.0); Hemoglobin 11.6 gm/dL (13.0-17.0); Lymph # (Auto) 1.2 th/mm3 (1.0-4.8); Lymph % (Auto) 11.9 % (9.0-44.0); Mean Corpuscular HGB Conc 34.6 % (32.0-36.0); Mean Corpuscular Hemoglobin 29.9 pg (27.0-34.0); Mean Corpuscular Volume 86.6 fL (80.0-100.0); Mean Platelet Volume 9.2 fL (7.0-11.0); Mono # (Auto) 0.5 th/mm3 (0.0-0.9); Mono % (Auto) 4.9 % (0.0-8.0); Neut # (Auto) 8.1 th/mm3 (1.8-7.7); Platelet Count 166 th/mm3 (150-450); Red Blood Count 3.88 mil/mm3 (4.50-5.90); Red Cell Distribution Width 15.9 % (11.6-17.2); White Blood Count 9.9 th/mm3 (4.0-11.0)
[2018-04-20 11:42] LABS: Activated Partial Thrombo Time 25.7 sec (24.3-30.1); INR 1.2 Ratio; Prothrombin Time 12.3 sec (9.8-11.6)
[2018-04-20 11:51] LABS: Magnesium 1.6 mg/dL (1.5-2.5)
[2018-04-20 11:52] LABS: Alanine Aminotransferase 18 U/L (12-78); Albumin 3.8 g/dL (3.4-5.0); Anion Gap 8 meq/L (5-15); Aspartate Aminotransferase 15 U/L (15-37); Blood Urea Nitrogen 19 mg/dL (7-18); Carbon Dioxide 30.7 meq/L (21.0-32.0); Chloride 101 meq/L (98-107); Glomerular Filtration Rate 51 mL/min (>89); Glucose,Random 165 mg/dL (74-106); Lipase 83 U/L (73-393); Potassium 3.7 meq/L (3.5-5.1); Sodium 140 meq/L (136-145)
[2018-04-20 11:54] LABS: Alkaline Phosphatase 190 U/L (45-117); Total Protein 7.4 g/dL (6.4-8.2); Troponin I 0.02 ng/mL (0.02-0.05)
[2018-04-20 12:45] LABS: Bilirubin,Urine Negative (Negative); Clarity,Urine Clear (Clear); Color,Urine Yellow (Yellw/Straw); Glucose,Urine (UA) Negative (Negative); Leukocyte Esterase,Urine Negative (Negative); Mucus,Urine Few /lpf (Occasional); Nitrite,Urine Negative (Negative); Specific Gravity,Urine 1.013 (1.002-1.035)
--- NOTE | 2018-04-20 12:56 | XR ---
EXAM DATE: 04/20/2018 12:37 PM EDT AGE/SEX: 72 years / Male INDICATIONS: Shortness of breath, weakness. CLINICAL DATA: This is the patient's initial encounter. Patient reports that signs and symptoms have been present for 2 days and indicates a pain score of 0/10. MEDICAL/SURGICAL HISTORY: Diabetes mellitus type II. Carcinoma, basal cell. Myocardial infarct ion. Coronary artery stent. Pacemaker. COMPARISON: [facility], XR CHEST PA AND LAT, 01/28/2018. . FINDINGS: Cardiomegaly. Decrease in right-sided pleural effusion. Lungs are otherwise clear. Aortic calcificati on, and degenerative changes of the spine. A single lead pacer/ICD device again seen. CONCLUSION: Decreased right effusion. Electronically signed by: Galo Jackman MD 04/20/2018 12:54 PM EDT
--- NOTE | 2018-04-20 14:25 | CT ---
EXAM DATE: 04/20/2018 2:22 PM EDT AGE/SEX: 72 years / Male INDICATIONS: Altered mental status. CLINICAL DATA: This is the patient's initial encounter. Patient reports that signs and symptoms have been present for 2 days and indicates a pain score of 0/10. MEDICAL/SURGICAL HISTORY: Congestive heart failure. Hypertension. Diabetes. Afib. Pacemaker. RADIATION DOSE: 59.96 CTDI (mGy) COMPARISON: No prior exams available for comparison. TECHNIQUE: CT of the head without contrast. Using automated exposure control and adjustment of the mA and/or kV according to patient size, radiation dose was kept as low as reasonably achievable to ob tain optimal diagnostic quality images. DICOM format image data is available electronically for revi ew and comparison. FINDINGS: There is mild atrophy and patchy periventricular white matter disease, most likely on the basis of ch ronic microvascular ischemic disease. Bilateral carotid artery calcifications. No fractures. No hemor rhage, infarct, or mass. CONCLUSION: 1. No acute findings. . Electronically signed by: Galo Jackman MD 04/20/2018 2:23 PM EDT
--- NOTE | 2018-04-20 15:13 | CT ---
EXAM DATE: 04/20/2018 3:06 PM EDT AGE/SEX: 72 years / Male INDICATIONS: Abdominal pain, increased urination, nausea. CLINICAL DATA: This is the patient's initial encounter. Patient reports that signs and symptoms have been present for 2 days and indicates a pain score of 4/10. MEDICAL/SURGICAL HISTORY: Congestive heart failure. Diabetes. Hypertension. Afib. Pacemaker . ORAL CONTRAST: No oral contrast ingested. RADIATION DOSE: 7.02 CTDI (mGy) COMPARISON: [facility] [place] [place], CT ABDOMEN & PELVIS W CONTRAST, 06/06/2017. . TECHNIQUE: Multiple contiguous axial images were obtained through the abdomen and pelvis following b olus infusion of 90 ml Omnipaque 350 (iohexol) nonionic water-soluble contrast as a single exam dos e. No oral contrast ingested. Using automated exposure control and adjustment of the mA and/or kV ac cording to patient size, radiation dose was kept as low as reasonably achievable to obtain optimal di agnostic quality images. DICOM format image data is available electronically for review and comparis on. FINDINGS: Cardiomegaly. Calcified granuloma right lower lobe. Moderate right effusion. Numerous calcified splen ic granulomas are noted. The patient is status post cholecystectomy. There is mild cortical thinning of both kidneys. Diffuse atherosclerotic calcification of the aorta and iliac vasculature identified. Urinary bladder, prostate unremarkable. There is no evidence of bowel obstruction. The stomach, smal l bowel, large bowel and appendix are normal. No free fluid or free air. Osseous structures are intac t. Prominent coronary artery calcification is noted. CONCLUSION: 1. Large right effusion. 2. Calcified granuloma in the right lower lobe, calcified splenic granulomas. 3. Bilateral renal cortical thinning and diffuse atherosclerotic calcifications are seen. Electronically signed by: Galo Jackman MD 04/20/2018 3:12 PM EDT
--- NOTE | 2018-04-20 16:57 | ECG ---
Date Performed: 04/20/2018 Time Performed: 11:25:42 PTAGE: 72 years EKG: ATRIAL FIBRILLATION POSSIBLE INFERIOR MYOCARDIAL INFARCTION ST DEVIATION AND MODERATE T-WAV E ABNORMALITY, CONSIDER ANTEROLATERAL ISCHEMIA ABNORMAL ECG Compared to PREVIOUS TRACING , no longer paced PREVIOUS TRACIN11/13/2017 20.14 DOCTOR: Atiya Juárez Interpretating Date/Time 04/20/2018 16:55:37
--- NOTE | 2018-04-20 17:22 | P.HPIM ---
History of Present Illness Primary Care Physician: Rayshawn Vázquez MD Chief Complaint: Generalized weakness, nausea and confusion History of Present Illness: This is a 72-year-old male with history of atrial fibrillation, congestive heart failure, diabetes mellitus, hypertension and myocardial infarction who presented emergency department for generalized weakness, nausea and increasing confusion. Of note, the patient was seen in November for generalized weakness and confusion which were thought to be secondary to bradycardia and narcotics. Per patient, [facility] and since discharge, he has been doing fine until the last 3 days when he started having progressive generalized weakness. He denies any other symptoms other than poor appetite, nausea but no vomiting. He denies any fever, chills, chest pain, palpitations, shortness of breath, urinary symptoms, diarrhea, abdominal pain, melena or hematochezia. His also thinks that he has been confused in the last few days. There is no note of numbness, tingling sensation, or dysarthria. Family history: Noncontributory Review of Systems All other pertinent systems were reviewed and are negative. [facility] - History History Provided By: Patient - Medical History Medical History: Medical History (Last Updated 04/20/18 @ 10:52 by Pamela Johnson) Afib CHF (congestive heart failure) Diabetes HTN (hypertension) Paced cardiac rhythm STEMI (ST elevation myocardial infarction) - Surgical History Surgical History: Surgical History (Last Updated 04/20/18 @ 10:52 by Pamela Johnson) Previous back surgery - Tobacco History Second Hand Smoke Exposure: No Tobacco Use In Past 30 Days: No Smoking Status: Former smoker Tobacco Type: Cigarettes - Alcohol History How Often Do You Have a Drink Containing Alcohol: Never - Substance Use History Substance History: No History of Abuse - Travel History Recent Travel in the [place] Within the Last 8 Weeks: No Recent Travel Out of the Country Within the Last 8 Weeks: No - Immunization History Tetanus Immunization: <5 Years Hx Influenza Vaccine This Season: Yes Medications and Allergies Active Medications: Active Medications Sodium Chloride (Ns Flush) 2 ml IV.FLUSH PRN PRN PRN Reason: FLUSH AFTER USING IV ACCESS Allergies Allergy/AdvReac Type Severity Reaction Status Date / Time No Known Allergies Allergy Unknown Uncoded 10/06/17 09:24 Home Medications Medication Instructions Recorded Confirmed Type apixaban [Eliquis] 5 mg PO DAILY 04/20/18 04/20/18 History atorvastatin 40 mg PO DAILY 04/20/18 04/20/18 History furosemide 40 mg PO DAILY 04/20/18 04/20/18 History glipizide 2.5 mg PO DAILY 04/20/18 04/20/18 History metoprolol tartrate 75 mg PO DAILY 04/20/18 04/20/18 History sacubitril-valsartan [Entresto] 1 tab PO BID 04/20/18 04/20/18 History spironolactone 12.5 mg PO DAILY 04/20/18 04/20/18 History Exam Vital signs: Vital Signs 04/20/18 09:59 04/20/18 10:56 04/20/18 16:41 Temperature 99.4 F 98.8 F Pulse Rate 75 61 60 Respiratory Rate 16 16 Blood Pressure 163/71 H 174/79 H 188/100 H Pulse Oximetry 97 97 100 04/20/18 16:43 Temperature Pulse Rate Respiratory Rate Blood Pressure Pulse Oximetry 100 Intake & Output 04/19/18 04/20/18 04/20/18 18:59 06:59 18:59 Weight 67.585 kg Narrative: Not in distress, appears weak. PERRL, pink conjunctiva without injection, anicteric Nose without bleeding, airway patent, oropharynx clear Supple neck Normal rate, irregular rhythm, no murmurs gallops or rubs appreciated. Decreased breath sounds on the right, occasional crackles on the right, no wheezing. Normal bowel sounds, soft, non-tender, nondistended, no guarding. Extremities without clubbing, cyanosis, or edema. No rash of generalized distribution. Skin is warm and dry. AAO x3, no cranial nerve deficits, moves all 4 extremities, no focal neurologic deficits Results - Labs CBC & Chem 7: 04/20/18 11:20 04/20/18 11:20 Labs: Short CBC 04/20/18 Range/Units 11:20 WBC 9.9 (4.0-11.0) th/mm3 Hgb 11.6 L (13.0-17.0) gm/dL Hct 33.6 L (39.0-51.0) % Plt Count 166 (150-450) th/mm3 BMP 04/20/18 11:20 Sodium 140 Potassium 3.7 Chloride 101 Carbon Dioxide 30.7 BUN 19 H Creatinine 1.37 H Calcium 9.0 Cardiac Enzymes 04/20/18 04/20/18 Range/Units 11:20 16:10 Total Creatine Kinase 51 (39-308) U/L Troponin I 0.02 0.03 (0.02-0.05) ng/mL Liver Function 04/20/18 Range/Units 11:20 Total Bilirubin 0.9 (0.2-1.0) mg/dL AST 15 (15-37) U/L ALT 18 (12-78) U/L Alkaline Phosphatase 190 H (45-117) U/L Albumin 3.8 (3.4-5.0) g/dL Urine 04/20/18 Range/Units 12:07 Urine Color Yellow (Yellw/Straw) Urine Clarity Clear (Clear) Urine pH 5.0 (5.0-8.5) Ur Specific [place] 1.013 (1.002-1.035) Urine Protein 100 H (Neg-Trace) mg/dL Urine Glucose (UA) Negative (Negative) mg/dL - Imaging Impressions Abdomen/Pelvis CT 04/20/18 11:10 CONCLUSION: 1. Large right effusion. 2. Calcified granuloma in the right lower lobe, calcified splenic granulomas. 3. Bilateral renal cortical thinning and diffuse atherosclerotic calcifications are seen. Head CT 04/20/18 11:10 CONCLUSION: 1. No acute findings. . Chest X-Ray 04/20/18 12:14 CONCLUSION: Decreased right effusion. Caprini VTE Risk Assessment Caprini VTE Risk Assessment: Moderate/High Risk (score >= 2) Caprini Risk Assessment Model: Point Value = 1 Point Value = 2 Point Value = 3 Point Value = 5 Age 41-60 Minor surgery BMI > 25 kg/m2 Swollen legs Varicose veins or History of unexplained or recurrent spontaneous Oral contraceptives or hormone replacement Sepsis (< 1 month) Serious lung disease, including pneumonia (< 1 month) Abnormal pulmonary function Acute myocardial infarction Congestive heart failure (< 1 month) History of inflammatory bowel disease Medical patient at bed rest Age 61-74 Arthroscopic surgery Major open surgery (> 45 min) Laparoscopic surgery (> 45 min) Malignancy Confined to bed (> 72 hours) Immobilizing plaster cast Central venous access Age >= 75 History of VTE Family history of VTE Factor V Leiden Prothrombin [id number] Lupus anticoagulant Anticardiolipin antibodies Elevated serum homocysteine Heparin-induced thrombocytopenia Other congenital or acquired thrombophilia Stroke (< 1 month) Elective arthroplasty Hip, pelvis, or leg fracture Acute spinal cord injury (< 1 month) Prophylaxis Regimen: Total Risk Factor Score Risk Level Prophylaxis Regimen 0-1 Low Early ambulation 2 Moderate Order ONE of the following: *Sequential Compression Device (SCD) *Heparin 5000 units SQ BID 3-4 Higher Order ONE of the following medications: *Heparin 5000 units SQ TID *Enoxaparin/Lovenox 40 mg SQ daily (WT < 150 kg, CrCl > 30 mL/min) *Enoxaparin/Lovenox 30 mg SQ daily (WT < 150 kg, CrCl > 10-29 mL/min) *Enoxaparin/Lovenox 30 mg SQ BID (WT < 150 kg, CrCl > 30 mL/min) AND/OR *Sequential Compression Device (SCD) 5 or more Highest Order ONE of the following medications: *Heparin 5000 units SQ TID (Preferred with Epidurals) *Enoxaparin/Lovenox 40 mg SQ daily (WT < 150 kg, CrCl > 30 mL/min) *Enoxaparin/Lovenox 30 mg SQ daily (WT < 150 kg, CrCl > 10-29 mL/min) *Enoxaparin/Lovenox 30 mg SQ BID (WT < 150 kg, CrCl > 30 mL/min) AND *Sequential Compression Device (SCD) Assessment and Plan - Plan This is a 72-year-old male with history of hypertension, diabetes mellitus, congestive heart failure, atrial fibrillation presenting with generalized weakness Generalized weakness - could be secondary to atrial fibrillation complicated by anemia and right pleural effusion. CT scan of the chest showed moderate-sized right pleural effusion likely secondary to congestive heart failure. Consult physical therapy, might need rehab. Rule out ischemia - EKG showed atrial fibrillation with possible ischemic changes on the lateral leads, first 2 troponins negative, borderline bradycardic , continue to do serial EKGs and troponin. Consult cardiology. Right pleural effusion likely secondary to CHF- will plan to do ultrasound- guided thoracenteses, both diagnostic and therapeutic. Hold apixaban for now, switch Lasix to IV, will do twice a day dosing. Continue spironolactone. Continue entresto, metoprolol, statin. Check BMP tomorrow. Echocardiogram in May 2017, EF of 20%. Nausea-symptomatic management with Zofran. Chronic kidney disease-baseline creatinine around 1.6-1.9, creatinine 1.37, monitor, check BMP tomorrow. Diabetes mellitus-hold oral hypoglycemic agents, sliding scale insulin. DVT prophylaxis: Hold pharmacological prophylaxis for now, start after thoracentesis.
[2018-04-20] MEDS ORDERED: Acetaminophen 325 MG Tablet PO PRN (17:44)
[2018-04-20] MEDS ORDERED: Bisacodyl 10 MG Supp RECTAL PRN (17:44)
[2018-04-20] MEDS ORDERED: Dextrose 50% in Water 50 ML Vial IV.PUSH PRN (17:48)
[2018-04-20] MEDS ORDERED: Temazepam 15 MG Capsule PO PRN (21:00)
[2018-04-20] MEDS: Senna/Docusate Sodium 8.6/50 MG Tablet PO SCH (21:50)
[2018-04-20] MEDS: Metoprolol Tartrate 50 MG Tablet PO SCH (21:50)
[2018-04-20] MEDS: Insulin NovoLOG Aspart Correctional Sugar Inj SQ SCH (22:05)
[2018-04-21 05:29] LABS: Baso % (Auto) 0.3 % (0.0-2.0); Eos # (Auto) 0.2 th/mm3 (0.0-0.4); Eos % (Auto) 1.6 % (0.0-4.0); Hemoglobin 12.4 gm/dL (13.0-17.0); Lymph # (Auto) 1.8 th/mm3 (1.0-4.8); Lymph % (Auto) 18.8 % (9.0-44.0); Mean Corpuscular HGB Conc 33.6 % (32.0-36.0); Mean Corpuscular Hemoglobin 29.6 pg (27.0-34.0); Mean Corpuscular Volume 87.9 fL (80.0-100.0); Mono # (Auto) 0.9 th/mm3 (0.0-0.9); Mono % (Auto) 9.5 % (0.0-8.0); Neut # (Auto) 6.6 th/mm3 (1.8-7.7); Neut % (Auto) 69.8 % (16.0-70.0); Platelet Count 189 th/mm3 (150-450); Red Blood Count 4.21 mil/mm3 (4.50-5.90); Red Cell Distribution Width 15.8 % (11.6-17.2); White Blood Count 9.5 th/mm3 (4.0-11.0)
[2018-04-21 05:48] LABS: Anion Gap 11 meq/L (5-15); Aspartate Aminotransferase 17 U/L (15-37); Blood Urea Nitrogen 19 mg/dL (7-18); Calcium 9.5 mg/dL (8.5-10.1); Carbon Dioxide 31.8 meq/L (21.0-32.0); Chloride 98 meq/L (98-107); Glomerular Filtration Rate 48 mL/min (>89); Glucose,Random 109 mg/dL (74-106); Potassium 3.1 meq/L (3.5-5.1); Sodium 141 meq/L (136-145)
[2018-04-21 05:49] LABS: Alanine Aminotransferase 18 U/L (12-78)
[2018-04-21 05:53] LABS: Alkaline Phosphatase 204 U/L (45-117); Total Protein 7.9 g/dL (6.4-8.2); Troponin I 0.03 ng/mL (0.02-0.05)
[2018-04-21] MEDS: Senna/Docusate Sodium 8.6/50 MG Tablet PO SCH ×2 (09:20→21:03)
[2018-04-21] MEDS: Insulin NovoLOG Aspart Correctional Sugar Inj SQ SCH ×4 (09:20→21:08)
[2018-04-21] MEDS: Metoprolol Tartrate 50 MG Tablet PO SCH ×2 (09:21→21:03)
[2018-04-21] MEDS: Spironolactone 25 MG Tablet PO SCH (09:21)
--- NOTE | 2018-04-21 16:43 | ECG ---
Date Performed: 04/20/2018 Time Performed: 16:00:53 PTAGE: 72 years EKG: ELECTRONIC VENTRICULAR PACEMAKER MARKED ST ELEVATION, CONSIDER LATERAL INJURY ACUTE [place] * PREVIOUS TRACING : 04/20/2018 11.25 Since prior tracing, QRS associated with paced rhythm has changed somehat Clinical correlation is recommended. DOCTOR: Pedro Pablo Beck Interpretating Date/Time 04/21/2018 16:41:22
--- NOTE | 2018-04-21 17:18 | P.PNIM ---
Subjective Interval history: Patient less confused today, at bedside. No complaints. Patient not short of breath, denies any chest pain or palpitations. Has been urinating a lot. Physical Exam Vital signs: Vital Signs 04/20/18 18:23 04/20/18 18:51 04/20/18 21:46 Temperature 98.3 F 98.2 F Pulse Rate 60 68 54 L Respiratory Rate 18 18 16 Blood Pressure 173/74 H 159/74 H 156/70 H Pulse Oximetry 100 98 100 04/21/18 00:00 04/21/18 01:30 04/21/18 03:02 Temperature 97.9 F Pulse Rate 61 62 Respiratory Rate 18 16 Blood Pressure 164/72 H Pulse Oximetry 97 04/21/18 04:00 04/21/18 08:00 04/21/18 09:29 Temperature 98.2 F 98.1 F Pulse Rate 85 62 Respiratory Rate 18 17 17 Blood Pressure 135/80 144/63 H Pulse Oximetry 97 96 04/21/18 11:49 04/21/18 16:00 Temperature 97.1 F L 98.2 F Pulse Rate 64 62 Respiratory Rate 18 17 Blood Pressure 132/63 141/65 H Pulse Oximetry 99 97 Intake & Output 04/20/18 04/21/18 04/21/18 18:59 06:59 18:59 Output Total 75 / 75 Balance -75 / -75 Weight 67.585 kg 66.6 kg Output: Urine 75 / 75 Other: Weight On Admission 67.58 kg Narrative: Not in distress, stronger today. PERRL, pink conjunctiva without injection, anicteric Nose without bleeding, airway patent, oropharynx clear Supple neck Normal rate, irregular rhythm, no murmurs gallops or rubs appreciated. Decreased breath sounds on the right, occasional crackles on the right, no wheezing. Normal bowel sounds, soft, non-tender, nondistended, no guarding. Extremities without clubbing, cyanosis, or edema. No rash of generalized distribution. Skin is warm and dry. AAO x3, no cranial nerve deficits, moves all 4 extremities, no focal neurologic deficits Results - Labs CBC & Chem 7: 04/21/18 04:33 04/21/18 04:33 Laboratory Results - last 24 hr 04/20/18 04/20/18 04/20/18 21:42 21:45 23:49 WBC RBC Hgb Hct MCV MCH MCHC RDW Plt Count MPV Neut % (Auto) Lymph % (Auto) Desha % (Auto) Eos % (Auto) Baso % (Auto) Neut # (Auto) Lymph # (Auto) Desha # (Auto) Eos # (Auto) Baso # (Auto) WBC Differential Differential Comment Sodium Potassium Chloride Carbon Dioxide Anion Gap BUN Creatinine Estimated GFR POC Glucose 216 H 96 Random Glucose Calcium Total Bilirubin AST ALT Alkaline Phosphatase Troponin I 0.04 Total Protein Albumin 04/21/18 04/21/18 04/21/18 04:33 04:33 09:19 WBC 9.5 RBC 4.21 L Hgb 12.4 L Hct 37.0 L MCV 87.9 MCH 29.6 MCHC 33.6 RDW 15.8 Plt Count 189 MPV 9.0 Neut % (Auto) 69.8 Lymph % (Auto) 18.8 Desha % (Auto) 9.5 H Eos % (Auto) 1.6 Baso % (Auto) 0.3 Neut # (Auto) 6.6 Lymph # (Auto) 1.8 Desha # (Auto) 0.9 Eos # (Auto) 0.2 Baso # (Auto) 0.0 WBC Differential . Differential Comment Auto diff final Sodium 141 Potassium 3.1 L Chloride 98 Carbon Dioxide 31.8 Anion Gap 11 BUN 19 H Creatinine 1.45 H Estimated GFR 48 L POC Glucose 187 H Random Glucose 109 H Calcium 9.5 Total Bilirubin 1.0 AST 17 ALT 18 Alkaline Phosphatase 204 H Troponin I 0.03 Total Protein 7.9 Albumin 4.0 04/21/18 04/21/18 12:01 17:06 WBC RBC Hgb Hct MCV MCH MCHC RDW Plt Count MPV Neut % (Auto) Lymph % (Auto) Desha % (Auto) Eos % (Auto) Baso % (Auto) Neut # (Auto) Lymph # (Auto) Desha # (Auto) Eos # (Auto) Baso # (Auto) WBC Differential Differential Comment Sodium Potassium Chloride Carbon Dioxide Anion Gap BUN Creatinine Estimated GFR POC Glucose 149 H 169 H Random Glucose Calcium Total Bilirubin AST ALT Alkaline Phosphatase Troponin I Total Protein Albumin Assessment and Plan - Plan This is a 72-year-old male with history of hypertension, diabetes mellitus, congestive heart failure, atrial fibrillation presenting with generalized weakness Generalized weakness - could be secondary to atrial fibrillation complicated by anemia and right pleural effusion. CT scan of the chest showed moderate-sized right pleural effusion likely secondary to congestive heart failure. Physical therapy consulted, recommendations home health care with physical therapy. Rule out ischemia - EKG showed atrial fibrillation with possible ischemic changes on the lateral leads, troponins remain negative, borderline bradycardic , continue to do serial EKGs and troponin. Cardiology input pending Right pleural effusion likely secondary to CHF- will plan to do ultrasound- guided thoracenteses, both diagnostic and therapeutic. Hold apixaban for now, switch Lasix to IV, continue for now. Good urine output. Recheck BMP tomorrow. Continue spironolactone. Continue entresto, metoprolol, statin. Echocardiogram in May 2017, EF of 20%. Check urine output. Nausea-symptomatic management with Zofran. Chronic kidney disease-baseline creatinine around 1.6-1.9, creatinine 1.45, monitor, check BMP tomorrow. Diabetes mellitus-hold oral hypoglycemic agents, sliding scale insulin. Hypokalemia-replaced, check magnesium DVT prophylaxis: Hold pharmacological prophylaxis for now, start after thoracentesis. Discussed with .
[2018-04-22 06:06] VITALS: PULSE 65
[2018-04-22 06:37] LABS: Calcium 9.3 mg/dL (8.5-10.1); Carbon Dioxide 32.9 meq/L (21.0-32.0); Magnesium 1.6 mg/dL (1.5-2.5); Potassium 3.7 meq/L (3.5-5.1)
[2018-04-22] MEDS: Spironolactone 25 MG Tablet PO SCH (08:16)
[2018-04-22] MEDS: Senna/Docusate Sodium 8.6/50 MG Tablet PO SCH ×2 (08:16→20:57)
[2018-04-22] MEDS: Metoprolol Tartrate 50 MG Tablet PO SCH ×2 (08:17→20:22)
[2018-04-22] MEDS: Insulin NovoLOG Aspart Correctional Sugar Inj SQ SCH ×4 (08:23→20:23)
--- NOTE | 2018-04-22 09:11 | MB ---
cc: Andria Calle MD DATE: 04/21/2018 REASON FOR CONSULTATION: Heart failure, CVA, shortness of breath. HISTORY OF PRESENT ILLNESS: Mr. Marin is a 71-year-old gentleman, who has heart failure, cardiomyopathy, diabetes mellitus, high blood pressure, coronary artery disease. He was in the assisted for 3 months, was home, continued with shortness of breath and dizziness. He was gaining weight. He was not able to move by himself. The decided to bring him to the emergency room where he was admitted. The chart was reviewed. The patient was evaluated. ALLERGIES: NONE. SOCIAL HISTORY: Negative for smoking and drinking. FAMILY HISTORY: Noncontributory to his current medical condition. MEDICATIONS: He is on Lipitor. He is on enalapril, Lasix IV, insulin, metoprolol 75 mg twice a day, Entresto, Aldactone, Restoril. REVIEW OF SYSTEMS: The patient refers shortness of breath on minimal activity. No chest pain. No chest discomfort. No fever. PHYSICAL EXAMINATION: GENERAL: Alert, fully oriented. VITAL SIGNS: His blood pressure on evaluation is 132/62, pulse 64, respiratory rate 18-20. LUNGS: Ventilated. CARDIOVASCULAR: S1, S2. Regular. No gallop. No murmur. ABDOMEN: Soft. No mass. No bruits. EXTREMITIES: Minimal edema. DIAGNOTIC STUDIES: Electrocardiogram showed atrial fibrillation, diffuse ST changes. LABORATORY DATA: Hemoglobin 12.4, white blood cell 9.5. INR 1.2. Potassium is 3.7, creatinine is 1.73. ASSESSMENT AND RECOMMENDATIONS: Mr. Marin has end-stage heart failure. It is pretty advanced. He had a previous defibrillator implanted. He is on optimal medical treatment. He was in the assisted. At this point, my recommendation is continue observation. Continue with IV Lasix for the next 24 hours. If blood pressure is low, Entresto should be increased. Subsequently, the patient can be discharged home. Per my conversation with the , I think she wants to transfer him to the rehab facility. Further decision by the managing team. I will be available on a p.r.n. basis. MD CHECO Lee/SUE , 08:46 AM , 08:55 AM
--- NOTE | 2018-04-22 13:48 | P.PNIM ---
Subjective Interval history: Patient still has generalized weakness, mild shortness of breath, agreed with thoracenteses. Physical Exam Vital signs: Vital Signs 04/21/18 16:00 04/21/18 19:51 04/21/18 20:00 Temperature 98.2 F 98.3 F Pulse Rate 62 59 L 64 Respiratory Rate 17 16 Blood Pressure 141/65 H 159/70 H Pulse Oximetry 97 99 04/22/18 00:00 04/22/18 00:04 04/22/18 01:28 Temperature 97.9 F Pulse Rate 63 80 Respiratory Rate 16 18 Blood Pressure 160/72 H Pulse Oximetry 98 04/22/18 04:00 04/22/18 06:00 04/22/18 08:00 Temperature 97.9 F 97.6 F Pulse Rate 65 59 L Respiratory Rate 16 17 18 Blood Pressure 144/66 H 139/64 Pulse Oximetry 95 97 Intake & Output 04/21/18 04/22/18 04/22/18 18:59 06:59 18:59 Intake Total 650 / 650 Balance 650 / 650 Weight 66.5 kg Intake: Oral 650 / 650 Other: # Voids 3 2 Date of Last Bowel Movement 04/21/18 # Bowel Movements 1 Narrative: Not in distress, stronger today. PERRL, pink conjunctiva without injection, anicteric Normal rate, irregular rhythm, no murmurs gallops or rubs appreciated. Decreased breath sounds on the right, occasional crackles on the right, no wheezing. Normal bowel sounds, soft, non-tender, nondistended, no guarding. Extremities without clubbing, cyanosis, or edema. No rash of generalized distribution. Skin is warm and dry. AAO x3, no cranial nerve deficits, moves all 4 extremities, no focal neurologic deficits, positive for generalized weakness Results - Labs CBC & Chem 7: 04/21/18 04:33 04/22/18 04:36 Laboratory Results - last 24 hr 04/21/18 04/21/18 04/22/18 17:06 21:06 04:36 Sodium 141 Potassium 3.7 Chloride 100 Carbon Dioxide 32.9 H Anion Gap 8 BUN 27 H Creatinine 1.73 H Estimated GFR 39 L POC Glucose 169 H 172 H Random Glucose 142 H Calcium 9.3 Magnesium 1.6 04/22/18 04/22/18 07:43 13:08 Sodium Potassium Chloride Carbon Dioxide Anion Gap BUN Creatinine Estimated GFR POC Glucose 173 H 145 H Random Glucose Calcium Magnesium Assessment and Plan - Plan This is a 72-year-old male with history of hypertension, diabetes mellitus, congestive heart failure, atrial fibrillation presenting with generalized weakness Generalized weakness - could be secondary to atrial fibrillation complicated by anemia and right pleural effusion. CT scan of the chest showed moderate-sized right pleural effusion likely secondary to congestive heart failure. Physical therapy consulted, recommendations home health care with physical therapy. Rule out ischemia - EKG showed atrial fibrillation with possible ischemic changes on the lateral leads, troponins remain negative, borderline bradycardic , continue to do serial EKGs and troponin. Cardiology saw the patient, per cardiology, has advanced end-stage congestive heart failure and has optimized medical treatment. Recommend to continue Lasix, possibly increase Entresto. Right pleural effusion likely secondary to CHF- will plan to do ultrasound- guided thoracenteses, both diagnostic and therapeutic. Apixaban has been on hold, continue Lasix, not a lot of urine output. Check chest x-ray, if still with significant effusion, will do an ultrasound-guided thoracentesis. Continue spironolactone. Continue entresto, metoprolol, statin, increase in Entresto if CHF stabilizes Echocardiogram in May 2017, EF of 20%. Nausea-symptomatic management with Zofran. Chronic kidney disease-baseline creatinine around 1.6-1.9, creatinine is worsening. Diabetes mellitus-hold oral hypoglycemic agents, sliding scale insulin. Hypokalemia-replaced DVT prophylaxis: Hold pharmacological prophylaxis for now, start after thoracentesis. Discussed with .
--- NOTE | 2018-04-22 14:48 | XR ---
EXAM DATE: 04/22/2018 2:45 PM EDT AGE/SEX: 72 years / Male INDICATIONS: . Shortness of breath. CLINICAL DATA: This is the patient's initial encounter. Patient reports that signs and symptoms have been present for 1 day and indicates a pain score of 0/10. MEDICAL/SURGICAL HISTORY: Diabetes mellitus type II. Carcinoma, basal cell. Myocardial infarc tion. Coronary artery stent. Pacemaker. COMPARISON: [facility] [place], CT ABDOMEN & PELVIS W CONTRAST, 04/20/2018. . FINDINGS: A pacing implement is present with control pack over left upper chest. Lungs are focally clear. Small right pleural effusion. Cardiomediastinal contours are stable and satisfactory. CONCLUSION: Small right pleural effusion Electronically signed by: John Hammond MD 04/22/2018 2:47 PM EDT
--- NOTE | 2018-04-22 16:20 | P.DCO ---
- Physical Therapy Order: Evaluate and treat - Certification I have seen patient Melvin Marin on 04/22/18. My clinical findings support the need for the requested home health care services because: Patient has SOB I certify that my clinical findings support that this patient is homebound because: Unsteady gait/balance
[2018-04-22] MEDS: Furosemide 40 MG Tablet PO SCH (17:57)
[2018-04-23 07:45] LABS: Calcium 9.8 mg/dL (8.5-10.1); Carbon Dioxide 31.6 meq/L (21.0-32.0); Potassium 3.6 meq/L (3.5-5.1)
--- NOTE | 2018-04-23 09:21 | P.PN ---
Subjective Interval history: awake and alert denies any chest pain or shortness of breath afebrile, no coughing Physical Exam Vital signs: Vital Signs 04/22/18 12:00 04/22/18 16:00 04/22/18 19:58 Temperature 97.2 F L 98.1 F Pulse Rate 57 L 61 69 Respiratory Rate 18 18 Blood Pressure 149/68 H 141/63 H Pulse Oximetry 97 97 04/22/18 20:00 04/22/18 23:54 04/23/18 00:00 Temperature 98.3 F 98.0 F Pulse Rate 68 69 80 Respiratory Rate 17 17 Blood Pressure 148/67 H 177/70 H Pulse Oximetry 97 96 04/23/18 01:49 04/23/18 04:00 04/23/18 05:00 Temperature 98.0 F Pulse Rate 65 65 Respiratory Rate 17 18 Blood Pressure 143/60 H 148/65 H Pulse Oximetry 94 L Intake & Output 04/22/18 04/23/18 04/23/18 18:59 06:59 18:59 Intake Total 480 / 480 Balance 480 / 480 Weight 67.5 kg Intake: Oral 480 / 480 Other: # Voids 3 5 Date of Last Bowel Movement 04/22/18 # Bowel Movements 2 1 Narrative: awake and alert, oriented x 3, no distress PERRL, pink conjunctiva without injection, anicteric Normal rate, irregular rhythm, no murmurs gallops Decreased breath sounds, no rales, no wheezes Normal bowel sounds, soft, non-tender, nondistended, no guarding. Extremities without clubbing, cyanosis, or edema. no calf swelling or tenderness Skin is warm and dry. 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, up and ambulating- slow but steady strength equal Results - Labs CBC & Chem 7: 04/21/18 04:33 04/23/18 06:04 Laboratory Results - last 24 hr 04/22/18 04/22/18 04/22/18 13:08 17:35 20:19 Sodium Potassium Chloride Carbon Dioxide Anion Gap BUN Creatinine Estimated GFR POC Glucose 145 H 187 H 192 H Random Glucose Calcium 04/23/18 06:04 Sodium 142 Potassium 3.6 Chloride 101 Carbon Dioxide 31.6 Anion Gap 9 BUN 32 H Creatinine 1.56 H Estimated GFR 44 L POC Glucose Random Glucose 149 H Calcium 9.8 - Imaging Impressions Chest X-Ray 04/22/18 00:00 CONCLUSION: Small right pleural effusion Assessment and Plan - Assessment (1) CHF (congestive heart failure) Code(s): I50.9 - Heart failure, unspecified Status: Acute (2) Generalized weakness Code(s): R53.1 - Weakness Status: Acute - Plan 72-year-old male with history of hypertension, diabetes mellitus, congestive heart failure, atrial fibrillation presenting with generalized weakness Generalized weakness - could be secondary to atrial fibrillation complicated by anemia and right pleural effusion likely secondary to congestive heart failure. Physical therapy consulted, recommendations home health care with physical therapy. Rule out ischemia - EKG showed atrial fibrillation with possible ischemic changes on the lateral leads, troponins remain negative, borderline bradycardic Cardiology saw the patient, per cardiology, has advanced end-stage congestive heart failure and has optimized medical treatment. Recommend to continue Lasix and Entresto. Right pleural effusion likely secondary to CHF CMP- small - insignificant. asymtomatic - no thoracentesis for now - restart Apixaban , continue Lasix - Continue spironolactone. Continue entresto, metoprolol, statin - increase in Entresto if CHF stabilizes as OP Echocardiogram in May 2017, EF of 20%. Nausea-resolved. Chronic kidney disease-baseline creatinine around 1.6-1.9, OP ff up Diabetes mellitus- sliding scale insulin. Hypokalemia-replaced DC today with home health care OP ff up with PCP_ Dr. Mars Vázquez OP ff up with community music therapist- Dr. Calle
--- NOTE | 2018-04-23 09:36 | P.DCO ---
- Diagnosis (1) CHF (congestive heart failure) - Home Health Nursing Order: Medical education, Signs/symptoms of disease process, Diabetic education , CHF education - Certification I have seen patient Melvin Marin on 04/23/18. My clinical findings support the need for the requested home health care services because: Deconditioned with increased weakness I certify that my clinical findings support that this patient is homebound because: Need for psychosocial assistance, Poor cardiac reserve (1) CHF (congestive heart failure) Qualifiers: Heart failure type: systolic Heart failure chronicity: acute on chronic Qualified Code(s): I50.23 - Acute on chronic systolic (congestive) heart failure
--- NOTE | 2018-04-23 09:37 | P.DS ---
Date of admission: 04/20/18 17:44 Primary care physician: Rayshawn Vázquez MD Attending physician on discharge: Gomez Abreu Anticipated date of discharge: 04/23/18 Brief History from admission: This is a 72-year-old male with history of atrial fibrillation, congestive heart failure, diabetes mellitus, hypertension and myocardial infarction who presented emergency department for generalized weakness, nausea and increasing confusion. Of note, the patient was seen in November for generalized weakness and confusion which were thought to be secondary to bradycardia and narcotics. Per patient, he was in the [place] [facility] and since discharge, he has been doing fine until the last 3 days when he started having progressive generalized weakness. He denies any other symptoms other than poor appetite, nausea but no vomiting. He denies any fever, chills, chest pain, palpitations, shortness of breath, urinary symptoms, diarrhea, abdominal pain, melena or hematochezia. His also thinks that he has been confused in the last few days. There is no note of numbness, tingling sensation, or dysarthria. Family history: Noncontributory DS: Diagnosis - Discharge Diagnosis (1) CHF (congestive heart failure) Status: Acute (2) Generalized weakness Status: Acute DS: Summary Hospital Course: 72-year-old male with history of hypertension, diabetes mellitus, congestive heart failure, atrial fibrillation presenting with generalized weakness Generalized weakness - could be secondary to atrial fibrillation complicated by anemia and right pleural effusion likely secondary to congestive heart failure. Physical therapy consulted, recommendations home health care with physical therapy. Ruled out ischemia - EKG showed atrial fibrillation with possible ischemic changes on the lateral leads, troponins remain negative, borderline bradycardic Cardiology saw the patient, per cardiology, has advanced end-stage congestive heart failure and has optimized medical treatment. Recommend to continue Lasix and Entresto. Right pleural effusion likely secondary to CHF CMP- small - insignificant. asymtomatic - no thoracentesis for now - restart Apixaban , continue Lasix - Continue spironolactone. Continue entresto, metoprolol, statin - increase in Entresto if CHF stabilizes as OP Echocardiogram in May 2017, EF of 20%. Nausea-resolved. Chronic kidney disease-baseline creatinine around 1.6-1.9, OP ff up Diabetes mellitus- sliding scale insulin. Hypokalemia-replaced DC today with home health care OP ff up with PCP_ Dr. Mars Vázquez OP ff up with movement therapist- Dr. Calle - Time Spent with Patient Total time spent providing and/or coordinating discharge services: Greater than 30 minutes - Quality: VTE Deep Vein Thrombosis/Pulmonary Embolism Present on Admission: No Exam Vital signs: Vital Signs 04/22/18 12:00 04/22/18 16:00 04/22/18 19:58 Temperature 97.2 F L 98.1 F Pulse Rate 57 L 61 69 Respiratory Rate 18 18 Blood Pressure 149/68 H 141/63 H Pulse Oximetry 97 97 04/22/18 20:00 04/22/18 23:54 04/23/18 00:00 Temperature 98.3 F 98.0 F Pulse Rate 68 69 80 Respiratory Rate 17 17 Blood Pressure 148/67 H 177/70 H Pulse Oximetry 97 96 04/23/18 01:49 04/23/18 04:00 04/23/18 05:00 Temperature 98.0 F Pulse Rate 65 65 Respiratory Rate 17 18 Blood Pressure 143/60 H 148/65 H Pulse Oximetry 94 L Intake & Output 04/22/18 04/23/18 04/23/18 18:59 06:59 18:59 Intake Total 480 / 480 Balance 480 / 480 Weight 67.5 kg Intake: Oral 480 / 480 Other: # Voids 3 5 Date of Last Bowel Movement 04/22/18 # Bowel Movements 2 1 Results Procedures completed during hospitalization: none Labs on day of discharge: Labs from last 24 hours 04/23/18 04/22/18 04/22/18 06:04 20:19 17:35 Sodium 142 Potassium 3.6 Chloride 101 Carbon Dioxide 31.6 Anion Gap 9 BUN 32 H Creatinine 1.56 H Estimated GFR 44 L POC Glucose 192 H 187 H Random Glucose 149 H Calcium 9.8 04/22/18 13:08 Sodium Potassium Chloride Carbon Dioxide Anion Gap BUN Creatinine Estimated GFR POC Glucose 145 H Random Glucose Calcium - Impressions ITS Impressions Abdomen/Pelvis CT 04/20/18 11:10 CONCLUSION: 1. Large right effusion. 2. Calcified granuloma in the right lower lobe, calcified splenic granulomas. 3. Bilateral renal cortical thinning and diffuse atherosclerotic calcifications are seen. Head CT 04/20/18 11:10 CONCLUSION: 1. No acute findings. . Chest X-Ray 04/22/18 00:00 CONCLUSION: Small right pleural effusion Discharge Plan - Discharge Disposition Patient Disposition: 06 Disch /Home Health Service - Discharge Condition Condition: Stable - Discharge Order Discharge Orders: Discharge Order (Routine); Ordered 04/23/18 Ordered By: Gomez Abreu - Discharge Details Anticipated Discharge Date: 04/23/18 - Physicians Team Primary Care Provider: Rayshawn Vázquez Attending Provider: Gomez Abreu Other Providers: Andria Calle MD ; [employer] ; Certain,Insurance
[2018-04-23] MEDS: Spironolactone 25 MG Tablet PO SCH (10:21)
[2018-04-23] MEDS: Senna/Docusate Sodium 8.6/50 MG Tablet PO SCH (10:22)
[2018-04-23] MEDS: Metoprolol Tartrate 50 MG Tablet PO SCH (10:22)
[2018-04-23] MEDS: Insulin NovoLOG Aspart Correctional Sugar Inj SQ SCH ×2 (13:15→13:16)
[2018-04-23] MEDS: Furosemide 40 MG Tablet PO SCH (13:18)
[2018-04-26 18:15] VITALS: BP 159/67; TEMP 98.2
[2018-04-26 18:39] VITALS: RESP 22
[2018-04-26 18:51] VITALS: O2SAT 98
== END 2018-04-23 19:40 | disposition home health service (06) ==
LOC: NEPE 09:40 → NEDA 09:40 → N06 22:40
PROVIDERS: ADMIT Internal Medicine; ATTEND Internal Medicine

== ENCOUNTER 2018-07-13 08:46 | Observation (INO) ==
--- NOTE | 2018-07-13 10:58 | ED ---
HPI General Chief Complaint: Neck Pain/Injury Stated Complaint: Neck Pain Time Seen by Provider: 07/13/18 10:32 Source: patient, family and EMS Mode of arrival: EMS Limitations: physical limitation History of Present Illness HPI Narrative: 73-year-old male complains of neck pain, low back pain, generalized malaise and weakness. Patient states that he has chronic generalized malaise and weakness for the past few months. Patient has been seen by physician for that. Patient states that the weakness get worse for the past 2 days. Patient started having sharp pain localized to the neck and low back area. Patient denies any recent injury. Patient denies any fever chills. Patient denies any headache. Patient denies any visual change. Patient denies any chest pain or shortness of breath. Patient denies abdominal pain. Patient denies any focal weakness or numbness of the extremity except generalized malaise and weakness. Patient states that he is unable to walk or stand for the past 2 days. Patient has history hypertension, diabetes, hyperlipidemia. Patient states his blood sugars been high at home recently. Patient also has history of CHF with ejection fraction 15%. Patient status post pacemaker placement. Patient is on Eliquis. Patient states that he has intermittent productive cough for the past 2 days. Patient denies any urinary incontinence or bowel continence. Patient denies any saddle paresthesia. MD complaint: Reports neck pain and other Onset (ago): day(s) Place: Reports home Severity: moderate Severity scale (1-10): 7 Quality: Reports sharp Duration: constant Relieving factors: none Exacerbating factors: none Associated symptoms: Reports weakness Treatments prior to arrival: Reports none Related Data Home Medications Medication Instructions Recorded Confirmed apixaban [Eliquis] 5 mg PO BID 04/20/18 07/13/18 atorvastatin 40 mg PO DAILY 04/20/18 07/13/18 furosemide 40 mg PO DAILY 04/20/18 07/13/18 glipizide 10 mg PO DAILY 04/20/18 07/13/18 metoprolol tartrate 75 mg PO BID 04/20/18 07/13/18 sacubitril-valsartan [Entresto] 1 tab PO BID 04/20/18 07/13/18 spironolactone 12.5 mg PO DAILY 04/20/18 07/13/18 cyanocobalamin (vitamin B-12) 1,000 mcg PO DAILY 07/13/18 07/13/18 [Vitamin B-12] ferrous sulfate 325 mg PO DAILY 07/13/18 07/13/18 tamsulosin 0.4 mg PO DAILY 07/13/18 07/13/18 Allergies Allergy/AdvReac Type Severity Reaction Status Date / Time No Known Allergies Allergy Verified 07/13/18 10:23 Review of Systems ROS: all other systems reviewed are negative [facility] Medical History Medical History Afib (Acute) CHF (congestive heart failure) (Acute) Diabetes (Acute) HTN (hypertension) (Acute) Paced cardiac rhythm (Acute) STEMI (ST elevation myocardial infarction) (Acute) Surgical History Surgical History History of sinus surgery (Acute) Hx of cholecystectomy (Acute) Previous back surgery (Acute) Social History Social History Substance History: No History of Abuse Second Hand Smoke Exposure: No Smoking Status: Former smoker Tobacco Type: Cigarettes How Often Do You Have a Drink Containing Alcohol: Never Recent Travel in [facility] within the Last 8 Weeks: No Recent Out of Country Travel within the Last 8 Weeks: No Immunization History Tetanus Immunization: <5 Years Tetanus Immunization Year if Known: 2017 Exam Narrative Exam Narrative: GENERAL: Well-nourished, well-developed patient. SKIN: Focused skin assessment warm/dry. HEAD: Normocephalic. EYES: No scleral icterus. No injection or drainage. NECK: Supple, trachea midline. No JVD or lymphadenopathy. CARDIOVASCULAR: Regular rate and rhythm without murmurs, gallops, or rubs. RESPIRATORY: Breath sounds equal bilaterally. No accessory muscle use. GASTROINTESTINAL: Abdomen soft, non-tender, nondistended. MUSCULOSKELETAL: No cyanosis, or edema. BACK: Nontender without obvious deformity. No CVA tenderness. Neurologic exam: Patient is awake and alert oriented x3. Patient moves all extremity well. No obvious sensory deficit. Course Initial Documented Vital Signs Temperature 98.1 F 07/13/18 10:16 Pulse Rate 67 07/13/18 10:16 Respiratory Rate 17 07/13/18 10:16 Blood Pressure 155/73 H 07/13/18 10:16 Pulse Oximetry 97 07/13/18 10:16 Last Documented Vital Signs Temperature 98.1 F 07/13/18 10:40 Pulse Rate 67 07/13/18 10:40 Respiratory Rate 17 07/13/18 10:40 Blood Pressure 155/73 H 07/13/18 10:40 Pulse Oximetry 97 07/13/18 10:40 Medical Decision Making MDM Narrative Medical decision making narrative: 73-year-old male with increasing weakness of the extremity and neck pain and low back pain. History of diabetes with elevated blood sugar recently. Medical Screen Exam Complete: Yes Emergency Medical Condition: Yes Differential Diagnosis Differential Diagnosis: Differential diagnosis including acute exacerbation of deconditioning, spinal stenosis, arthralgia, fracture, HNP. Lab Data Lab results reviewed: Yes I reviewed the patient's lab results. Result diagrams: 07/13/18 11:15 07/13/18 11:15 Lab Results 07/13/18 07/13/18 07/13/18 Range/Units 11:15 11:15 11:15 WBC 12.3 H (4.0-11.0) th/mm3 RBC 4.17 L (4.50-5.90) mil/mm3 Hgb 12.8 L (13.0-17.0) gm/dL Hct 38.3 L (39.0-51.0) % MCV 91.8 (80.0-100.0) fL MCH 30.7 (27.0-34.0) pg MCHC 33.5 (32.0-36.0) % RDW 14.0 (11.6-17.2) % Plt Count 166 (150-450) th/mm3 MPV 10.0 (7.0-11.0) fL Neut % (Auto) 80.3 H (16.0-70.0) % Lymph % (Auto) 10.0 (9.0-44.0) % [place] % (Auto) 8.3 H (0.0-8.0) % Eos % (Auto) 1.0 (0.0-4.0) % Baso % (Auto) 0.4 (0.0-2.0) % Neut # (Auto) 9.9 H (1.8-7.7) th/mm3 Lymph # (Auto) 1.2 (1.0-4.8) th/mm3 [place] # (Auto) 1.0 H (0.0-0.9) th/mm3 Eos # (Auto) 0.1 (0.0-0.4) th/mm3 Baso # (Auto) 0.0 (0.0-0.2) th/mm3 WBC Differential . Differential Comment Auto diff final PT 11.5 (9.8-11.6) sec INR 1.1 Ratio Sodium 138 (136-145) meq/L Potassium 3.7 (3.5-5.1) meq/L Chloride 102 (98-107) meq/L Carbon Dioxide 29.0 (21.0-32.0) meq/L Anion Gap 7 (5-15) meq/L BUN 19 H (7-18) mg/dL Creatinine 1.23 (0.60-1.30) mg/dL Estimated GFR 58 L (>89) mL/min Random Glucose 154 H (74-106) mg/dL Calcium 9.1 (8.5-10.1) mg/dL Total Bilirubin 0.8 (0.2-1.0) mg/dL AST 12 L (15-37) U/L ALT 16 (12-78) U/L Alkaline Phosphatase 161 H (45-117) U/L Total Creatine Kinase 58 (39-308) U/L B-Natriuretic Peptide (0-100) pg/mL Total Protein 7.3 (6.4-8.2) g/dL Albumin 3.4 (3.4-5.0) g/dL Beta-Hydroxybutyric Acd 0.11 (0.00-0.39) mmol/L TSH 0.400 (0.358-3.740) uIU/mL Urine Color (Yellw/Straw) Urine Clarity (Clear) Urine pH (5.0-8.5) Ur Specific [place] (1.002-1.035) Urine Protein (Neg-Trace) mg/dL Urine Glucose (UA) (Negative) mg/dL Urine Ketones (Negative) mg/dL Urine Occult Blood (Negative) Urine Nitrate (Negative) Urine Bilirubin (Negative) Urine Urobilinogen (Less than 2) mg/dL Ur Leukocyte Esterase (Negative) Urine RBC (0-3) /hpf Urine WBC (0-5) /hpf Uric Acid Crystals (None) /hpf Urine Mucus (Occasional) /lpf Micro UA Comment Ur Microscopic Review Urine Culture Comments 07/13/18 07/13/18 07/13/18 Range/Units 11:15 11:15 11:34 WBC (4.0-11.0) th/mm3 RBC (4.50-5.90) mil/mm3 Hgb (13.0-17.0) gm/dL Hct (39.0-51.0) % MCV (80.0-100.0) fL MCH (27.0-34.0) pg MCHC (32.0-36.0) % RDW (11.6-17.2) % Plt Count (150-450) th/mm3 MPV (7.0-11.0) fL Neut % (Auto) (16.0-70.0) % Lymph % (Auto) (9.0-44.0) % [place] % (Auto) (0.0-8.0) % Eos % (Auto) (0.0-4.0) % Baso % (Auto) (0.0-2.0) % Neut # (Auto) (1.8-7.7) th/mm3 Lymph # (Auto) (1.0-4.8) th/mm3 [place] # (Auto) (0.0-0.9) th/mm3 Eos # (Auto) (0.0-0.4) th/mm3 Baso # (Auto) (0.0-0.2) th/mm3 WBC Differential Differential Comment PT (9.8-11.6) sec INR Ratio Sodium (136-145) meq/L Potassium (3.5-5.1) meq/L Chloride (98-107) meq/L Carbon Dioxide (21.0-32.0) meq/L Anion Gap (5-15) meq/L BUN (7-18) mg/dL Creatinine (0.60-1.30) mg/dL Estimated GFR (>89) mL/min Random Glucose (74-106) mg/dL Calcium (8.5-10.1) mg/dL Total Bilirubin (0.2-1.0) mg/dL AST (15-37) U/L ALT (12-78) U/L Alkaline Phosphatase (45-117) U/L Total Creatine Kinase (39-308) U/L B-Natriuretic Peptide 342 H (0-100) pg/mL Total Protein (6.4-8.2) g/dL Albumin (3.4-5.0) g/dL Beta-Hydroxybutyric Acd Cancelled (0.00-0.39) mmol/L TSH (0.358-3.740) uIU/mL Urine Color Yellow (Yellw/Straw) Urine Clarity Hazy H (Clear) Urine pH 5.0 (5.0-8.5) Ur Specific [place] 1.014 (1.002-1.035) Urine Protein 30 H (Neg-Trace) mg/dL Urine Glucose (UA) 50 (Negative) mg/dL Urine Ketones Negative (Negative) mg/dL Urine Occult Blood Moderate H (Negative) Urine Nitrate Negative (Negative) Urine Bilirubin Negative (Negative) Urine Urobilinogen Less than 2 (Less than 2) mg/dL Ur Leukocyte Esterase Negative (Negative) Urine RBC 2 (0-3) /hpf Urine WBC Less than 1 (0-5) /hpf Uric Acid Crystals Occasional H (None) /hpf Urine Mucus Few H (Occasional) /lpf Micro UA Comment Culture not ind Ur Microscopic Review Not Reportable Urine Culture Comments Culture not ind Imaging Data Attestation: I personally reviewed and interpreted this imaging study as follows : Radiologist's impression: Cervical Spine CT 07/13/18 10:40 CONCLUSION: 1. Advanced multilevel degenerative spondylosis of the cervical spine most prominently at C5-6 and C6-7 with mild to moderate central canal narrowing and bilateral moderate bony neural foraminal stenosis. Chest X-Ray 07/13/18 10:40 CONCLUSION: 1. No acute abnormality or significant interval change. Head CT 07/13/18 10:40 CONCLUSION: 1. Stable senescent findings without acute intracranial abnormality. . Discharge Plan Discharge Disposition Patient Disposition: 30 Still Patient Physicians Team ED Provider: Tevin Guerrier Primary Care Provider: Rayshawn Vázquez Rxs /Orders / Referrals /Forms Prescriptions: No Action furosemide 40 mg Tablet 40 mg PO DAILY RF: 0 glipizide 2.5 mg Tablet Extended Release 24hr 10 mg PO DAILY RF: 0 apixaban [Eliquis] 5 mg Tablet 5 mg PO BID RF: 0 metoprolol tartrate 75 mg Tablet 75 mg PO BID RF: 0 sacubitril-valsartan [Entresto] 24-26 mg Tablet 1 tab PO BID RF: 0 atorvastatin 40 mg Tablet 40 mg PO DAILY RF: 0 spironolactone 25 mg Tablet 12.5 mg PO DAILY RF: 0 cyanocobalamin (vitamin B-12) [Vitamin B-12] 1,000 mcg Tablet 1,000 mcg PO DAILY RF: 0 tamsulosin 0.4 mg Capsule 0.4 mg PO DAILY RF: 0 ferrous sulfate 325 mg (65 mg iron) Tablet 325 mg PO DAILY RF: 0 Status ED Status: With Doctor
--- NOTE | 2018-07-13 11:51 | XR ---
EXAM DATE: 07/13/2018 10:40 AM EDT AGE/SEX: 73 years / Male INDICATIONS: Cough. CLINICAL DATA: This is the patient's initial encounter. Patient reports that signs and symptoms have been present for 1 day and indicates a pain score of 0/10. MEDICAL/SURGICAL HISTORY: Cardiovascular disease. CABG. COMPARISON: C, CHEST 1V SINGLE AP, 06/28/2018. . FINDINGS: No significant new focal pleural or parenchymal opacities. Stable single lead AICD device. The cardio mediastinal contours are unremarkable. Osseous structures are intact. CONCLUSION: 1. No acute abnormality or significant interval change. Electronically signed by: Junior Ochoa MD 07/13/2018 11:49 AM EDT
[2018-07-13 11:59] LABS: Baso % (Auto) 0.4 % (0.0-2.0); Eos # (Auto) 0.1 th/mm3 (0.0-0.4); Hematocrit 38.3 % (39.0-51.0); Hemoglobin 12.8 gm/dL (13.0-17.0); Lymph # (Auto) 1.2 th/mm3 (1.0-4.8); Mean Corpuscular HGB Conc 33.5 % (32.0-36.0); Mean Corpuscular Hemoglobin 30.7 pg (27.0-34.0); Mean Corpuscular Volume 91.8 fL (80.0-100.0); Mono % (Auto) 8.3 % (0.0-8.0); Neut # (Auto) 9.9 th/mm3 (1.8-7.7); Neut % (Auto) 80.3 % (16.0-70.0); Platelet Count 166 th/mm3 (150-450); Red Blood Count 4.17 mil/mm3 (4.50-5.90); White Blood Count 12.3 th/mm3 (4.0-11.0)
[2018-07-13 12:16] LABS: INR 1.1 Ratio; Prothrombin Time 11.5 sec (9.8-11.6)
[2018-07-13 12:17] LABS: Bilirubin,Urine Negative (Negative); Clarity,Urine Hazy (Clear); Color,Urine Yellow (Yellw/Straw); Glucose,Urine (UA) 50 mg/dL (Negative); Leukocyte Esterase,Urine Negative (Negative); Mucus,Urine Few /lpf (Occasional); Nitrite,Urine Negative (Negative); Specific Gravity,Urine 1.014 (1.002-1.035); Uric Acid Crystals,Urine Occasional /hpf
[2018-07-13 12:17] LABS: Alanine Aminotransferase 16 U/L (12-78); Albumin 3.4 g/dL (3.4-5.0); Anion Gap 7 meq/L (5-15); Aspartate Aminotransferase 12 U/L (15-37); Blood Urea Nitrogen 19 mg/dL (7-18); Calcium 9.1 mg/dL (8.5-10.1); Chloride 102 meq/L (98-107); Glomerular Filtration Rate 58 mL/min (>89); Glucose,Random 154 mg/dL (74-106); Potassium 3.7 meq/L (3.5-5.1); Sodium 138 meq/L (136-145)
--- NOTE | 2018-07-13 12:23 | CT ---
EXAM DATE: 07/13/2018 11:16 AM EDT AGE/SEX: 73 years / Male INDICATIONS: Weakness, low back and neck pain CLINICAL DATA: This is the patient's initial encounter. Patient reports that signs and symptoms have been present for 1 day and indicates a pain score of 7/10. MEDICAL/SURGICAL HISTORY: Hypertension. Diabetes. Pacemaker. Cholecystectomy. RADIATION DOSE: 56.35 CTDI (mGy) COMPARISON: [facility] [place], CT HEAD W/O CONTRAST, 04/20/2018. . TECHNIQUE: CT of the head without contrast. Using automated exposure control and adjustment of the mA and/or kV according to patient size, radiation dose was kept as low as reasonably achievable to ob tain optimal diagnostic quality images. DICOM format image data is available electronically for revi ew and comparison. FINDINGS: Cerebrum: Moderate diffuse cerebral atrophy. The ventricles are stable and within normal limits for degree of atrophy. Moderate periventricular white matter hypodensities. No evidence of midline shift, mass lesion, hemorrhage or acute infarction. No extraaxial fluid collections are seen. Posterior Fossa: The cerebellum and brainstem are intact. The 4th ventricle is midline. The cerebe llopontine angle is unremarkable. Extracranial: The visualized portion of the orbits is intact. Skull: The calvaria is intact. No evidence of skull fracture. CONCLUSION: 1. Stable senescent findings without acute intracranial abnormality. . Electronically signed by: Junior Ochoa MD 07/13/2018 12:22 PM EDT
[2018-07-13 12:26] LABS: Alkaline Phosphatase 161 U/L (45-117); Beta Hydroxybutyric Acid 0.11 mmol/L (0.00-0.39); Total Protein 7.3 g/dL (6.4-8.2)
[2018-07-13 12:29] LABS: Creatine Kinase 58 U/L (39-308)
--- NOTE | 2018-07-13 12:38 | CT ---
EXAM DATE: 07/13/2018 11:16 AM EDT AGE/SEX: 73 years / Male INDICATIONS: Weakness, low back and neck pain CLINICAL DATA: This is the patient's initial encounter. Patient reports that signs and symptoms have been present for 2 days and indicates a pain score of 7/10. MEDICAL/SURGICAL HISTORY: Diabetes. Hypertension. Pacemaker. Cholecystectomy. RADIATION DOSE: 24.01 CTDI (mGy) COMPARISON: No prior exams available for comparison. TECHNIQUE: Contiguous axial images were obtained using helical multirow detector technique. The vol umetric data was post-processed with multiplanar reconstruction in oblique axial, sagittal, and coron al planes. Using automated exposure control and adjustment of the mA and/or kV according to patient s ize, radiation dose was kept as low as reasonably achievable to obtain optimal diagnostic quality thomas ges. DICOM format image data is available electronically for review and comparison. FINDINGS: VERTEBRAE: Normal vertebral body height. ALIGNMENT: Normal. PARASPINAL SOFT TISSUES: No significant adenopathy or mass. Densely calcified left thyroid nodule milo suring 8 mm. Visualized lung apices are clear. C2-3: Posterior disc osteophytes without significant bony central canal or neural foraminal stenosi s. C3-4: Disc space narrowing with posterior disc osteophytes and mild bilateral facet arthropathy. Mi ld effacement anterior thecal sac. Mild right neural foraminal narrowing. C4-5: Diffuse disc bulge with mild uncovertebral osteophytes. Mild bilateral facet arthropathy. Min imal effacement anterior thecal sac. No neural foraminal narrowing. C5-6: Severe disc space loss with prominent posterior disc osteophytes. Effacement anterior thecal sac with central canal narrowing to 9 mm. Moderate bilateral bony neural foraminal narrowing. C6-7: Severe disc space loss with posterior disc osteophytes slightly eccentric to the left. Modera te bilateral bony neural foraminal narrowing. C7-T1: The bony spinal canal is normal in size. No evidence of disc bulge or herniation. The neura l foramina are bilaterally patent. CONCLUSION: 1. Advanced multilevel degenerative spondylosis of the cervical spine most prominently at C5-6 and C 6-7 with mild to moderate central canal narrowing and bilateral moderate bony neural foraminal stenos is. Electronically signed by: Junior Ochoa MD 07/13/2018 12:37 PM EDT
--- NOTE | 2018-07-13 12:56 | CT ---
EXAM DATE: 07/13/2018 11:16 AM EDT AGE/SEX: 73 years / Male INDICATIONS: Weakness, low back and neck pain CLINICAL DATA: This is the patient's initial encounter. Patient reports that signs and symptoms have been present for 2 days and indicates a pain score of 7/10. MEDICAL/SURGICAL HISTORY: Diabetes. Hypertension. Cholecystectomy. Pacemaker. RADIATION DOSE: 17.75 CTDI (mGy) COMPARISON: [facility] [place], CT ABDOMEN & PELVIS W CONTRAST, 04/20/2018. . TECHNIQUE: Contiguous axial images were acquired with a multirow detector CT scanner without contras t. Multiplanar reconstructions in the sagittal and coronal plane were also performed. Using automate d exposure control and adjustment of the mA and/or kV according to patient size, radiation dose was k ept as low as reasonably achievable to obtain optimal diagnostic quality images. DICOM format image data is available electronically for review and comparison. FINDINGS: Vertebrae: Mild compression deformity of the L2 superior endplate. This is unchanged from CT exam of 04/20/2018. Vertebral body heights are otherwise intact. Alignment: Normal. No subluxation. Paraspinal Soft Tissues: Unremarkable. No significant adenopathy. Aorta is non-aneurysmal. T12-L1: The thecal sac has a normal diameter. No evidence of disc bulge or protrusion. The neural foramina are patent bilaterally. L1-L2: Minimal diffuse disc bulge. No significant bony central canal or neural foraminal stenosis. L2-L3: Mild diffuse disc bulge. Mild bilateral facet arthropathy. No significant bony central canal or neural foraminal stenosis. L3-L4: Diffuse disc bulge, ligamentum flavum hypertrophy and bilateral facet arthropathy. Resultant at least moderate central canal narrowing to approximately 7 mm. No significant bony neural foraminal stenosis. L4-L5: Diffuse disc bulge, ligamentum flavum hypertrophy and bilateral facet arthropathy. Resultant moderate to severe central canal narrowing to approximately 6 mm. Mild left and moderate right neural foraminal narrowing secondary to facet osteophytes and disc. L5-S1: Mild posterior disc osteophytes without significant bony central canal stenosis. Minimal righ t and mild left caudal neural foraminal narrowing. CONCLUSION: 1. Stable mild compression fracture of the L2 superior endplate. 2. Advanced multilevel degenerative spondylosis of the lumbar spine most prominently at L3-4 and L4- 5 with resultant moderate to severe central canal narrowing at L4-5. 3. Moderate right neural foraminal narrowing at L4-5. Electronically signed by: Junior Ochoa MD 07/13/2018 12:54 PM EDT
[2018-07-13] MEDS ORDERED: Bisacodyl 10 MG Supp RECTAL PRN (13:52)
--- NOTE | 2018-07-13 13:57 | P.HPIM ---
[facility] Physician: Rayshawn Vázquez MD Chief Complaint: Profound weakness, unable to ambulate History of Present Illness: 73-year-old male with a medical history significant for congestive heart failure , diabetes, atrial fibrillation, hypertension who presented to the hospital with complaints of worsening neck pain, low back pain, generalized weakness and malaise. The patient's at bedside provided the history. She reports that she has been having issues controlling his blood glucose for the past couple of weeks ranging from 200-300s. Glipizide has been increased up to 10 mg daily without improvement. Over the past couple of days the patient has been complaining of neck and back pain. He also has become profoundly weak to the point where he is unable to ambulate. He reports right-sided neck and back pain. Patient denies any fevers or chills. No dysuria. Per the patient's , he has been declining over the past year. He has significant heart failure with EF of 15%. His memory has been declining as well. She has MS and she does not believe she can no longer care for him at home. Workup in the emergency room is concerning for cervical spinal stenosis. - Diagnosis (1) Spinal stenosis in cervical region (2) Generalized weakness (3) CHF (congestive heart failure) (4) Diabetes (5) Cognitive dysfunction Inpatient Certification: I certify that the inpatient services were ordered in accordance with Medicare regulations governing the order. This includes certification that hospital inpatient services are reasonable and necessary and in the case of services not specified as inpatient-only under 42 CFR 419.22(n), that they are appropriately provided as inpatient services in accordance to with the 2-midnight benchmark under 43 CFR 412.3(e) Estimated Total Length of Stay (Days): 3 Plans for Post Hospital Care: SNF Review of Systems All other systems reviewed negative except as stated in HPI Constitutional: Reports fatigue, Reports malaise Neurologic: Reports unsteadiness, Reports weakness PMFSH - History History Provided By: Patient - Medical History Medical History: Medical History (Last Reviewed 07/13/18 @ 16:11 by Piotr Meyers MD) Afib CHF (congestive heart failure) Diabetes HTN (hypertension) Paced cardiac rhythm STEMI (ST elevation myocardial infarction) - Surgical History Surgical History: Surgical History (Last Reviewed 07/13/18 @ 16:11 by Piotr Meyers MD) History of sinus surgery Hx of cholecystectomy Previous back surgery - Family History Family History: Family History (Last Updated 07/13/18 @ 16:11 by Piotr Meyers MD) Other Family history non-contributory - Social History I have reviewed the patient's Social History: Yes - Tobacco History Second Hand Smoke Exposure: No Tobacco Use In Past 30 Days: No Smoking Status: Former smoker Tobacco Type: Cigarettes - Alcohol History How Often Do You Have a Drink Containing Alcohol: Never - Substance Use History Substance History: No History of Abuse - Travel History Recent Travel in the [place] Within the Last 8 Weeks: No Recent Travel Out of the Country Within the Last 8 Weeks: No - Immunization History Tetanus Immunization: <5 Years Tetanus Immunization Year if Known: 2017 Medications and Allergies Active Medications: Active Medications Al Hydroxide/Mg Hydroxide (Milk Of Magnesia Liq) 30 ml PO Q12H PRN PRN Reason: Mild Constipation Apixaban (Eliquis) 5 mg PO BID [facility] Atorvastatin Calcium (Lipitor) 40 mg PO DAILY [facility] Bisacodyl (Dulcolax Supp) 10 mg RECTAL DAILY PRN PRN Reason: SEVERE CONSITIPATION Cyanocobalamin (Vitamin B12) 1,000 mcg PO DAILY [facility] Ferrous Sulfate (Ferosul) 325 mg PO DAILY [facility] Lactulose (Lactulose Liq) 30 ml PO DAILY PRN PRN Reason: SEVERE CONSITIPATION Non-Formulary Medication (Glipizide [Glipizide]) 10 mg PO DAILY [facility] Non-Formulary Medication (Metoprolol Tartrate [Metoprolol Tartrate]) 75 mg PO BID [facility] Ondansetron HCl (Zofran Inj) 4 mg IV.PUSH Q6H PRN PRN Reason: NAUSEA OR VOMITING Sacubitril/Valsartan (Entresto 24 Mg/26 Mg Tablet) 1 tab PO BID [facility] Sennosides (Senokot) 17.2 mg PO Q12H PRN PRN Reason: Moderate Constipation Tamsulosin HCl (Flomax) 0.4 mg PO DAILY [facility] Allergies Allergy/AdvReac Type Severity Reaction Status Date / Time No Known Allergies Allergy Verified 07/13/18 10:23 Home Medications Medication Instructions Recorded Confirmed Type apixaban [Eliquis] 5 mg PO BID 04/20/18 07/13/18 History atorvastatin 40 mg PO DAILY 04/20/18 07/13/18 History furosemide 40 mg PO DAILY 04/20/18 07/13/18 History glipizide 10 mg PO DAILY 04/20/18 07/13/18 History metoprolol tartrate 75 mg PO BID 04/20/18 07/13/18 History sacubitril-valsartan [Entresto] 1 tab PO BID 04/20/18 07/13/18 History spironolactone 12.5 mg PO DAILY 04/20/18 07/13/18 History cyanocobalamin (vitamin B-12) 1,000 mcg PO DAILY 07/13/18 07/13/18 History [Vitamin B-12] ferrous sulfate 325 mg PO DAILY 07/13/18 07/13/18 History tamsulosin 0.4 mg PO DAILY 07/13/18 07/13/18 History Exam Vital signs: Vital Signs 07/13/18 10:16 07/13/18 10:22 07/13/18 10:40 Temperature 98.1 F 98.1 F 98.1 F Pulse Rate 67 67 67 Respiratory Rate 17 17 17 Blood Pressure 155/73 H 155/73 H 155/73 H Pulse Oximetry 97 97 97 Intake & Output 07/12/18 07/13/18 07/13/18 18:59 06:59 18:59 Weight 68.039 kg Narrative: CONSTITUTIONAL/GENERAL: Elderly and frail male in no acute distress. SKIN: No jaundice, rashes, or concerning lesions. Not diaphoretic. HEAD: Atraumatic. Normocephalic. EYES: Pupils equal and round and reactive. ENT: Hearing grossly normal. Nose without drainage. NECK: Trachea midline. Neck is supple, non-tender. No palpable thyroid enlargement or nodularity. CARDIOVASCULAR: Normal rate and regular rhythm without significant murmurs RESPIRATORY/CHEST: Symmetric, unlabored respirations. Breath sounds equal and clear to auscultation bilaterally. GASTROINTESTINAL: Abdomen soft, non-tender, non-distended. MUSCULOSKELETAL: Extremities without clubbing, cyanosis, or edema. Complaint of tenderness to palpation over the right cervical paraspinal muscles and lumbar paraspinal muscles bilaterally. NEUROLOGICAL: Awake and alert. Generalized weakness. Afocal. PSYCHIATRIC: No obvious mood problems. No apparent hallucinations or other psychotic thought process. Results - Labs CBC & Chem 7: 07/13/18 11:15 10/24/18 11:15 Labs: Short CBC 07/13/18 Range/Units 11:15 WBC 12.3 H (4.0-11.0) th/mm3 Hgb 12.8 L (13.0-17.0) gm/dL Hct 38.3 L (39.0-51.0) % Plt Count 166 (150-450) th/mm3 BMP 07/13/18 11:15 Sodium 138 Potassium 3.7 Chloride 102 Carbon Dioxide 29.0 BUN 19 H Creatinine 1.23 Calcium 9.1 Cardiac Enzymes 07/13/18 Range/Units 11:15 Total Creatine Kinase 58 (39-308) U/L Liver Function 07/13/18 Range/Units 11:15 Total Bilirubin 0.8 (0.2-1.0) mg/dL AST 12 L (15-37) U/L ALT 16 (12-78) U/L Alkaline Phosphatase 161 H (45-117) U/L Albumin 3.4 (3.4-5.0) g/dL Urine 07/13/18 Range/Units 11:34 Urine Color Yellow (Yellw/Straw) Urine Clarity Hazy H (Clear) Urine pH 5.0 (5.0-8.5) Ur Specific [place] 1.014 (1.002-1.035) Urine Protein 30 H (Neg-Trace) mg/dL Urine Glucose (UA) 50 (Negative) mg/dL - Imaging Impressions Cervical Spine CT 07/13/18 10:40 CONCLUSION: 1. Advanced multilevel degenerative spondylosis of the cervical spine most prominently at C5-6 and C6-7 with mild to moderate central canal narrowing and bilateral moderate bony neural foraminal stenosis. Chest X-Ray 07/13/18 10:40 CONCLUSION: 1. No acute abnormality or significant interval change. Head CT 07/13/18 10:40 CONCLUSION: 1. Stable senescent findings without acute intracranial abnormality. . Lumbar Spine CT 07/13/18 10:40 CONCLUSION: 1. Stable mild compression fracture of the L2 superior endplate. 2. Advanced multilevel degenerative spondylosis of the lumbar spine most prominently at L3-4 and L4-5 with resultant moderate to severe central canal narrowing at L4-5. 3. Moderate right neural foraminal narrowing at L4-5. Caprini VTE Risk Assessment Caprini VTE Risk Assessment: Moderate/High Risk (score >= 2) Caprini Risk Assessment Model: Point Value = 1 Point Value = 2 Point Value = 3 Point Value = 5 Age 41-60 Minor surgery BMI > 25 kg/m2 Swollen legs Varicose veins or History of unexplained or recurrent spontaneous Oral contraceptives or hormone replacement Sepsis (< 1 month) Serious lung disease, including pneumonia (< 1 month) Abnormal pulmonary function Acute myocardial infarction Congestive heart failure (< 1 month) History of inflammatory bowel disease Medical patient at bed rest Age 61-74 Arthroscopic surgery Major open surgery (> 45 min) Laparoscopic surgery (> 45 min) Malignancy Confined to bed (> 72 hours) Immobilizing plaster cast Central venous access Age >= 75 History of VTE Family history of VTE Factor V Leiden Prothrombin [id number] Lupus anticoagulant Anticardiolipin antibodies Elevated serum homocysteine Heparin-induced thrombocytopenia Other congenital or acquired thrombophilia Stroke (< 1 month) Elective arthroplasty Hip, pelvis, or leg fracture Acute spinal cord injury (< 1 month) Prophylaxis Regimen: Total Risk Factor Score Risk Level Prophylaxis Regimen 0-1 Low Early ambulation 2 Moderate Order ONE of the following: *Sequential Compression Device (SCD) *Heparin 5000 units SQ BID 3-4 Higher Order ONE of the following medications: *Heparin 5000 units SQ TID *Enoxaparin/Lovenox 40 mg SQ daily (WT < 150 kg, CrCl > 30 mL/min) *Enoxaparin/Lovenox 30 mg SQ daily (WT < 150 kg, CrCl > 10-29 mL/min) *Enoxaparin/Lovenox 30 mg SQ BID (WT < 150 kg, CrCl > 30 mL/min) AND/OR *Sequential Compression Device (SCD) 5 or more Highest Order ONE of the following medications: *Heparin 5000 units SQ TID (Preferred with Epidurals) *Enoxaparin/Lovenox 40 mg SQ daily (WT < 150 kg, CrCl > 30 mL/min) *Enoxaparin/Lovenox 30 mg SQ daily (WT < 150 kg, CrCl > 10-29 mL/min) *Enoxaparin/Lovenox 30 mg SQ BID (WT < 150 kg, CrCl > 30 mL/min) AND *Sequential Compression Device (SCD) Assessment and Plan - Assessment (1) Spinal stenosis in cervical region Code(s): M48.02 - Spinal stenosis, cervical region Status: Acute (2) Generalized weakness Code(s): R53.1 - Weakness Status: Acute (3) CHF (congestive heart failure) Code(s): I50.9 - Heart failure, unspecified Status: Acute (4) Diabetes Code(s): E11.9 - Type 2 diabetes mellitus without complications Status: Acute (5) Cognitive dysfunction Code(s): F09 - Unspecified mental disorder due to known physiological condition Status: Acute - Plan 73-year-old male admitted with profound weakness and inability to ambulate. Cervical imaging studies concerning for spinal stenosis. Cervical and lumbar spinal stenosis/physical deconditioning: -I do not believe he would be a surgical candidate if indicated. - We will consult neurology to assist with medical management - Consult physical therapy. Pain control with [place] as needed. -Case management consulted. Patient would benefit from long term facility placement. His would like him to go to the [place]. Diabetes: Patient's reports his blood glucose high at home has been in the 200-300s. Glucose in the ED acceptable. - Accu-Cheks with sliding scale insulin. - Check hemoglobin A1c. Chronic systolic heart failure: - Continue Entresto, Lopressor. Hold spironolactone and Lasix for now to ensure his blood pressure can tolerate. Cognitive dysfunction/memory impairment: His reports this has been progressive. - May have early dementia. Recommend outpatient testing. Neurology input is appreciated. Atrial fibrillation: -Rate controlled. Continue Lopressor and Eliquis. GI prophylaxis: Stool softener PRN constipation. DVT PPx: On Eliquis (3) CHF (congestive heart failure) Qualifiers: Heart failure type: systolic Heart failure chronicity: acute on chronic Qualified Code(s): I50.23 - Acute on chronic systolic (congestive) heart failure
[2018-07-13] MEDS ORDERED: Morphine Sulfate Inj 2 MG/ML Vial IV.PUSH ONE (13:59)
[2018-07-13] MEDS ORDERED: Dextrose 50% in Water 50 ML Vial IV.PUSH PRN (16:12)
--- NOTE | 2018-07-13 17:13 | P.CONNEU ---
History of Present Illness Service: Neurology Primary Care Provider: Rayshawn Vázquez MD Chief Complaint: Profound weakness, unable to ambulate History of Present Illness: 73-year-old male admitted for weakness. History of chronic gait and balance, use a walker and transport chair to get around. History chronic neck and back pain. Past day has had more weakness states he starts to fall backwards. He has a pain in his back whenever he sits up and will shoot down his buttocks. Improve if he sits or lays down. Denies any bowel bladder incontinence. Does have diabetic neuropathy in his limbs. Also suffers from atrial fibrillation congestive heart failure. Denies any new tingling sensation or any other new sensory symptom. Patient spouse at bedside states they have done a lot of outpatient therapy to get him stronger but it has not helped very much. Review of Systems All other systems reviewed negative except as stated in [facility] - History History Provided By: Patient - Medical History Medical History: Medical History (Last Reviewed 07/13/18 @ 16:11 by Piotr Meyers MD) Afib CHF (congestive heart failure) Diabetes HTN (hypertension) Paced cardiac rhythm STEMI (ST elevation myocardial infarction) - Surgical History Surgical History: Surgical History (Last Reviewed 07/13/18 @ 16:11 by Piotr Meyers MD) History of sinus surgery Hx of cholecystectomy Previous back surgery - Family History Family History: Family History (Last Updated 07/13/18 @ 16:11 by Piotr Meyers MD) Other Family history non-contributory - Tobacco History Second Hand Smoke Exposure: No Tobacco Use In Past 30 Days: No Smoking Status: Former smoker Tobacco Type: Cigarettes - Alcohol History How Often Do You Have a Drink Containing Alcohol: Never - Substance Use History Substance History: No History of Abuse - Travel History Recent Travel in the [place] Within the Last 8 Weeks: No Recent Travel Out of the Country Within the Last 8 Weeks: No - Immunization History Tetanus Immunization: <5 Years Tetanus Immunization Year if Known: 2017 Medications and Allergies Active Medications: Active Medications Hydrocodone Bitart/Acetaminophen ([place] 5/325) 1 tab PO Q6H PRN PRN Reason: PAIN SCALE 6 TO 10 Al Hydroxide/Mg Hydroxide (Milk Of Magnesia Liq) 30 ml PO Q12H PRN PRN Reason: Mild Constipation Apixaban (Eliquis) 5 mg PO BID [facility] Atorvastatin Calcium (Lipitor) 40 mg PO DAILY [facility] Bisacodyl (Dulcolax Supp) 10 mg RECTAL DAILY PRN PRN Reason: SEVERE CONSITIPATION Cyanocobalamin (Vitamin B12) 1,000 mcg PO DAILY [facility] Dextrose (D50w Vial) 50 ml IV.PUSH UNSCH PRN PRN Reason: PER HYPOGLYCEMIA PROTOCOL Ferrous Sulfate (Ferosul) 325 mg PO DAILY [facility] Glucagon (Glucagon Inj) 1 mg OTHER PRN PRN PRN Reason: for Hypoglycemia Protocol Insulin Aspart (Novolog Insulin Correctional Sugar Inj) 0 unit SQ ACHS [facility]; Protocol Lactulose (Lactulose Liq) 30 ml PO DAILY PRN PRN Reason: SEVERE CONSITIPATION Metoprolol Tartrate (Lopressor) 75 mg PO BID [facility] Miscellaneous (Pill Splitter) 1 each OTHER UNSCH PRN PRN Reason: SEE LABEL COMMENTS Ondansetron HCl (Zofran Inj) 4 mg IV.PUSH Q6H PRN PRN Reason: NAUSEA OR VOMITING Sacubitril/Valsartan (Entresto 24 Mg/26 Mg Tablet) 1 tab PO BID [facility] Sennosides (Senokot) 17.2 mg PO Q12H PRN PRN Reason: Moderate Constipation Tamsulosin HCl (Flomax) 0.4 mg PO DAILY [facility] Allergies Allergy/AdvReac Type Severity Reaction Status Date / Time No Known Allergies Allergy Verified 07/13/18 10:23 Home Medications Medication Instructions Recorded Confirmed Type apixaban [Eliquis] 5 mg PO BID 04/20/18 07/13/18 History atorvastatin 40 mg PO DAILY 04/20/18 07/13/18 History furosemide 40 mg PO DAILY 04/20/18 07/13/18 History glipizide 10 mg PO DAILY 04/20/18 07/13/18 History metoprolol tartrate 75 mg PO BID 04/20/18 07/13/18 History sacubitril-valsartan [Entresto] 1 tab PO BID 04/20/18 07/13/18 History spironolactone 12.5 mg PO DAILY 04/20/18 07/13/18 History cyanocobalamin (vitamin B-12) 1,000 mcg PO DAILY 07/13/18 07/13/18 History [Vitamin B-12] ferrous sulfate 325 mg PO DAILY 07/13/18 07/13/18 History tamsulosin 0.4 mg PO DAILY 07/13/18 07/13/18 History Exam Vital signs: Vital Signs 07/13/18 10:16 07/13/18 10:22 07/13/18 10:40 Temperature 98.1 F 98.1 F 98.1 F Pulse Rate 67 67 67 Respiratory Rate 17 17 17 Blood Pressure 155/73 H 155/73 H 155/73 H Pulse Oximetry 97 97 97 Intake & Output 07/12/18 07/13/18 07/13/18 18:59 06:59 18:59 Weight 68.039 kg Narrative: GENERAL: in NAD, SKIN: Warm and dry. HEAD: Atraumatic. Normocephalic. EYES: Pupils equal and round. No scleral icterus. ENT: No nasal bleeding or discharge. Mucous membranes pink and moist. NECK: Trachea midline. No JVD. CARDIOVASCULAR: Regular rate and rhythm. RESPIRATORY: No accessory muscle use. Coughing at times during the interview. GASTROINTESTINAL: Abdomen soft, non-tender, nondistended. MUSCULOSKELETAL: Extremities without clubbing, cyanosis, or edema. No obvious deformities. NEUROLOGICAL: Awake and alert. No aphasia, fluent articulate, oriented x3, no facial asymmetry, OU 3-2mm, eomi, VFF, no pronator drift. Able to raise all 4 extremity gravity. Mild hip flexor weakness. Distal dorsiflexion plantarflexion 4+ out of 5 stocking glove distribution reduced pinprick light touch she says is chronic. Reflex in the upper extremity trace, knee jerk 1-2+ , ankle jerk 1-2+. No clonus plantarflex response. Gait not assessed secondary fall risk. PSYCHIATRIC: Appropriate mood and affect; insight and judgment normal. - Constitutional no acute distress - Routine HEENT Exam Head: Present: normocephalic Eye: Present: EOMI Results - Labs CBC & Chem 7: 07/13/18 11:15 07/13/18 11:15 Labs: Laboratory Results - last 24 hr 07/13/18 07/13/18 07/13/18 11:15 11:15 11:15 WBC 12.3 H RBC 4.17 L Hgb 12.8 L Hct 38.3 L MCV 91.8 MCH 30.7 MCHC 33.5 RDW 14.0 Plt Count 166 MPV 10.0 Neut % (Auto) 80.3 H Lymph % (Auto) 10.0 [place] % (Auto) 8.3 H Eos % (Auto) 1.0 Baso % (Auto) 0.4 Neut # (Auto) 9.9 H Lymph # (Auto) 1.2 [place] # (Auto) 1.0 H Eos # (Auto) 0.1 Baso # (Auto) 0.0 WBC Differential . Differential Comment Auto diff final PT 11.5 INR 1.1 Sodium 138 Potassium 3.7 Chloride 102 Carbon Dioxide 29.0 Anion Gap 7 BUN 19 H Creatinine 1.23 Estimated GFR 58 L Random Glucose 154 H Calcium 9.1 Total Bilirubin 0.8 AST 12 L ALT 16 Alkaline Phosphatase 161 H Total Creatine Kinase 58 B-Natriuretic Peptide Total Protein 7.3 Albumin 3.4 Beta-Hydroxybutyric Acd 0.11 TSH 0.400 Urine Color Urine Clarity Urine pH Ur Specific [place] Urine Protein Urine Glucose (UA) Urine Ketones Urine Occult Blood Urine Nitrate Urine Bilirubin Urine Urobilinogen Ur Leukocyte Esterase Urine RBC Urine WBC Uric Acid Crystals Urine Mucus Micro UA Comment Ur Microscopic Review Urine Culture Comments 07/13/18 07/13/18 07/13/18 11:15 11:15 11:34 WBC RBC Hgb Hct MCV MCH MCHC RDW Plt Count MPV Neut % (Auto) Lymph % (Auto) [place] % (Auto) Eos % (Auto) Baso % (Auto) Neut # (Auto) Lymph # (Auto) [place] # (Auto) Eos # (Auto) Baso # (Auto) WBC Differential Differential Comment PT INR Sodium Potassium Chloride Carbon Dioxide Anion Gap BUN Creatinine Estimated GFR Random Glucose Calcium Total Bilirubin AST ALT Alkaline Phosphatase Total Creatine Kinase B-Natriuretic Peptide 342 H Total Protein Albumin Beta-Hydroxybutyric Acd Cancelled TSH Urine Color Yellow Urine Clarity Hazy H Urine pH 5.0 Ur Specific [place] 1.014 Urine Protein 30 H Urine Glucose (UA) 50 Urine Ketones Negative Urine Occult Blood Moderate H Urine Nitrate Negative Urine Bilirubin Negative Urine Urobilinogen Less than 2 Ur Leukocyte Esterase Negative Urine RBC 2 Urine WBC Less than 1 Uric Acid Crystals Occasional H Urine Mucus Few H Micro UA Comment Culture not ind Ur Microscopic Review Not Reportable Urine Culture Comments Culture not ind - Imaging Impressions Cervical Spine CT 07/13/18 10:40 CONCLUSION: 1. Advanced multilevel degenerative spondylosis of the cervical spine most prominently at C5-6 and C6-7 with mild to moderate central canal narrowing and bilateral moderate bony neural foraminal stenosis. Chest X-Ray 07/13/18 10:40 CONCLUSION: 1. No acute abnormality or significant interval change. Head CT 07/13/18 10:40 CONCLUSION: 1. Stable senescent findings without acute intracranial abnormality. . Lumbar Spine CT 07/13/18 10:40 CONCLUSION: 1. Stable mild compression fracture of the L2 superior endplate. 2. Advanced multilevel degenerative spondylosis of the lumbar spine most prominently at L3-4 and L4-5 with resultant moderate to severe central canal narrowing at L4-5. 3. Moderate right neural foraminal narrowing at L4-5. Review/Management - Diagnosis (1) Lumbar spinal stenosis Code(s): M48.061 - Spinal stenosis, lumbar region without neurogenic claudication Status: Acute Current Visit: Yes (2) Generalized weakness Code(s): R53.1 - Weakness Status: Acute Current Visit: No (3) CHF (congestive heart failure) Code(s): I50.9 - Heart failure, unspecified Status: Acute Current Visit: No (4) Spinal stenosis in cervical region Code(s): M48.02 - Spinal stenosis, cervical region Status: Acute Current Visit: Yes (5) Diabetic peripheral neuropathy Code(s): E11.42 - Type 2 diabetes mellitus with diabetic polyneuropathy Status : Acute Current Visit: Yes - Review/Management Plan: Chronic cervical lumbar pain appears related to spondylosis, stenosis. Weakness and imbalance may be from a combination of both. In addition has diabetic peripheral neuropathy which is further causing gait imbalance Moderate cervical and lumbar spinal canal stenosis on CT scan. Unable to get MRI scan due to pacemaker. CK level 58 Recommendations Apparently has advanced CHF with depressed ejection fraction therefore may not be a candidate for surgery. Mild traction of his neck lower spine and back brace may be helpful Pain control Therapy May require inpatient therapy and rehabilitation (3) CHF (congestive heart failure) Qualifiers: Heart failure type: systolic Heart failure chronicity: acute on chronic Qualified Code(s): I50.23 - Acute on chronic systolic (congestive) heart failure
[2018-07-13 17:27] LABS: Thyroid Stimulating Hormone 0.41 uIU/mL (0.358-3.740)
[2018-07-13] MEDS: Insulin NovoLOG Aspart Correctional Sugar Inj SQ SCH ×2 (17:52→21:19)
[2018-07-13] MEDS: Metoprolol Tartrate 50 MG Tablet PO SCH (21:07)
[2018-07-14] MEDS ORDERED: glipiZIDE 5 MG Tablet PO SCH (08:00)
[2018-07-14 08:46] LABS: Baso % (Auto) 0.3 % (0.0-2.0); Eos # (Auto) 0.1 th/mm3 (0.0-0.4); Hematocrit 33.2 % (39.0-51.0); Hemoglobin 11.4 gm/dL (13.0-17.0); Lymph # (Auto) 0.9 th/mm3 (1.0-4.8); Mean Corpuscular HGB Conc 34.5 % (32.0-36.0); Mean Corpuscular Hemoglobin 30.9 pg (27.0-34.0); Mean Corpuscular Volume 89.7 fL (80.0-100.0); Mean Platelet Volume 9.6 fL (7.0-11.0); Mono % (Auto) 10.3 % (0.0-8.0); Neut # (Auto) 8.1 th/mm3 (1.8-7.7); Neut % (Auto) 79.4 % (16.0-70.0); Platelet Count 163 th/mm3 (150-450); White Blood Count 10.2 th/mm3 (4.0-11.0)
[2018-07-14] MEDS: Insulin NovoLOG Aspart Correctional Sugar Inj SQ SCH ×4 (08:56→21:26)
[2018-07-14] MEDS: Ferrous Sulfate 325 MG Tablet PO SCH (08:56)
[2018-07-14] MEDS: Metoprolol Tartrate 50 MG Tablet PO SCH ×2 (08:58→21:25)
[2018-07-14 09:11] LABS: Calcium 9.1 mg/dL (8.5-10.1); Carbon Dioxide 30.9 meq/L (21.0-32.0); Potassium 3.4 meq/L (3.5-5.1)
--- NOTE | 2018-07-14 13:17 | P.PNIM ---
Subjective Interval history: Still very weak. Appetite is fair. Need rehab placement. Physical Exam Vital signs: Vital Signs 07/13/18 20:00 07/14/18 00:00 07/14/18 02:09 Temperature 98.3 F 98.8 F Pulse Rate 84 85 69 Respiratory Rate 18 18 Blood Pressure 153/66 H 147/75 H Pulse Oximetry 96 98 07/14/18 03:56 07/14/18 04:00 07/14/18 07:44 Temperature 98.4 F 99.7 F H Pulse Rate 63 61 106 H Respiratory Rate 18 18 Blood Pressure 137/63 137/93 H Pulse Oximetry 96 97 07/14/18 11:58 Temperature 97.7 F Pulse Rate 68 Respiratory Rate 18 Blood Pressure 140/65 Pulse Oximetry 96 Intake & Output 07/13/18 07/14/18 07/14/18 18:59 06:59 18:59 Intake Total 240 / 240 Output Total 200 / 200 Balance 240 / 240 -200 / -200 Weight 68.039 kg 66.2 kg Intake: Oral 240 / 240 Output: Urine 200 / 200 Other: Date of Last Bowel Movement 07/10/18 07/10/18 07/10/18 Narrative: CONSTITUTIONAL/GENERAL: Elderly and frail male in no acute distress. CARDIOVASCULAR: Normal rate and regular rhythm without significant murmurs RESPIRATORY/CHEST: Symmetric, unlabored respirations. Breath sounds equal and clear to auscultation bilaterally. GASTROINTESTINAL: Abdomen soft, non-tender, non-distended. MUSCULOSKELETAL: Extremities without clubbing, cyanosis, or edema. Complaint of tenderness to palpation over the right cervical paraspinal muscles and lumbar paraspinal muscles bilaterally. NEUROLOGICAL: Awake and alert. Generalized weakness. Afocal. PSYCHIATRIC: No obvious mood problems. No apparent hallucinations or other psychotic thought process. Results - Labs CBC & Chem 7: 07/14/18 07:02 07/14/18 07:02 Laboratory Results - last 24 hr 07/13/18 07/13/18 07/13/18 11:15 17:24 21:06 WBC RBC Hgb Hct MCV MCH MCHC RDW Plt Count MPV Neut % (Auto) Lymph % (Auto) [place] % (Auto) Eos % (Auto) Baso % (Auto) Neut # (Auto) Lymph # (Auto) [place] # (Auto) Eos # (Auto) Baso # (Auto) WBC Differential Differential Comment Sodium Potassium Chloride Carbon Dioxide Anion Gap BUN Creatinine Estimated GFR POC Glucose 134 H 197 H Random Glucose Calcium Vitamin B12 1596 H TSH 0.410 07/14/18 07/14/18 07/14/18 07:02 07:02 07:32 WBC 10.2 RBC 3.70 L Hgb 11.4 L Hct 33.2 L MCV 89.7 MCH 30.9 MCHC 34.5 RDW 14.0 Plt Count 163 MPV 9.6 Neut % (Auto) 79.4 H Lymph % (Auto) 9.0 [place] % (Auto) 10.3 H Eos % (Auto) 1.0 Baso % (Auto) 0.3 Neut # (Auto) 8.1 H Lymph # (Auto) 0.9 L [place] # (Auto) 1.0 H Eos # (Auto) 0.1 Baso # (Auto) 0.0 WBC Differential . Differential Comment Auto diff final Sodium 140 Potassium 3.4 L Chloride 100 Carbon Dioxide 30.9 Anion Gap 9 BUN 20 H Creatinine 1.24 Estimated GFR 57 L POC Glucose 182 H Random Glucose 158 H Calcium 9.1 Vitamin B12 TSH 07/14/18 12:01 WBC RBC Hgb Hct MCV MCH MCHC RDW Plt Count MPV Neut % (Auto) Lymph % (Auto) [place] % (Auto) Eos % (Auto) Baso % (Auto) Neut # (Auto) Lymph # (Auto) [place] # (Auto) Eos # (Auto) Baso # (Auto) WBC Differential Differential Comment Sodium Potassium Chloride Carbon Dioxide Anion Gap BUN Creatinine Estimated GFR POC Glucose 199 H Random Glucose Calcium Vitamin B12 TSH Assessment and Plan - Assessment (1) Spinal stenosis in cervical region Code(s): M48.02 - Spinal stenosis, cervical region Status: Acute (2) Generalized weakness Code(s): R53.1 - Weakness Status: Acute (3) CHF (congestive heart failure) Code(s): I50.9 - Heart failure, unspecified Status: Acute (4) Diabetes Code(s): E11.9 - Type 2 diabetes mellitus without complications Status: Acute (5) Cognitive dysfunction Code(s): F09 - Unspecified mental disorder due to known physiological condition Status: Acute - Plan 73-year-old male admitted with profound weakness and inability to ambulate. Cervical imaging studies concerning for spinal stenosis. Cervical and lumbar spinal stenosis/physical deconditioning: -I do not believe he would be a surgical candidate if indicated. - Appreciate Neurology input - Physical therapy assisting. Appreciate input. Need Rehab. Pain control with [place] as needed. -Case management consulted. Patient would benefit from [facility] facility placement. [facility] Diabetes: Patient's reports his blood glucose high at home has been in the 200-300s. Glucose in the ED acceptable. - Accu-Cheks with sliding scale insulin. - Check hemoglobin A1c. - Appetite fluctuate. Chronic systolic heart failure: - Continue Entresto, Lopressor. Continue to hold spironolactone and Lasix for now to ensure his blood pressure can tolerate. Cognitive dysfunction/memory impairment: His reports this has been progressive. - May have early dementia. Recommend outpatient testing. Neurology input is appreciated. Atrial fibrillation: -Rate controlled. Continue Lopressor and Eliquis. GI prophylaxis: Stool softener PRN constipation. DVT PPx: On Eliquis Discharge Planning: [facility] (3) CHF (congestive heart failure) Qualifiers: Heart failure type: systolic Heart failure chronicity: acute on chronic Qualified Code(s): I50.23 - Acute on chronic systolic (congestive) heart failure
--- NOTE | 2018-07-14 14:50 | ECG ---
Date Performed: 07/13/2018 Time Performed: 11:24:46 PTAGE: 73 years EKG: ATRIAL FIBRILLATION INFERIOR MYOCARDIAL INFARCTION ABNORMAL ECG PREVIOUS TRACING : 06/28/2018 04.05 Since the previous tracing, no significant change noted DOCTOR: Pedro Pablo Beck Interpretating Date/Time 07/14/2018 14:49:14
--- NOTE | 2018-07-14 15:59 | P.CODE44 ---
Code 44 - Inpatient to Obs - Code 44 - Inpatient to Obs Statement: A clinical review of the case has been conducted by a member of the Utilization Review Committee. The findings indicate the patient meets criteria for observation status. The information and decision has been discussed with the attending physician iPotr Meyers MD and physician provider Emiliano Starr MD.
[2018-07-14 16:53] LABS: Hemoglobin A1c 10.2 % (4.3-6.0)
[2018-07-15 06:43] LABS: Hematocrit 32.2 % (39.0-51.0); Hemoglobin 10.8 gm/dL (13.0-17.0); Mean Corpuscular HGB Conc 33.4 % (32.0-36.0); Mean Corpuscular Hemoglobin 30.5 pg (27.0-34.0); Mean Corpuscular Volume 91.4 fL (80.0-100.0); Mean Platelet Volume 8.7 fL (7.0-11.0); Platelet Count 166 th/mm3 (150-450); Red Blood Count 3.52 mil/mm3 (4.50-5.90); Red Cell Distribution Width 14.1 % (11.6-17.2); White Blood Count 9.3 th/mm3 (4.0-11.0)
[2018-07-15 07:11] LABS: Calcium 9.2 mg/dL (8.5-10.1); Carbon Dioxide 31.4 meq/L (21.0-32.0); Potassium 3.7 meq/L (3.5-5.1)
[2018-07-15] MEDS: Metoprolol Tartrate 50 MG Tablet PO SCH (08:13)
[2018-07-15] MEDS: Ferrous Sulfate 325 MG Tablet PO SCH (08:14)
[2018-07-15] MEDS: Insulin NovoLOG Aspart Correctional Sugar Inj SQ SCH ×2 (08:15→12:15)
--- NOTE | 2018-07-15 08:15 | P.PNNEU ---
Subjective Subjective Comments: No cp, no dyspnea, no [place]o, no focal weakness, no vision loss. Patient complains of neck pain and low back pain can disturb his sleep. Active Medications: Active Medications Hydrocodone Bitart/Acetaminophen ([place] 5/325) 1 tab PO Q6H PRN PRN Reason: PAIN SCALE 6 TO 10 Last Admin: 07/15/18 04:59 Dose: 1 tab Al Hydroxide/Mg Hydroxide (Milk Of Magnesia Liq) 30 ml PO Q12H PRN PRN Reason: Mild Constipation Apixaban (Eliquis) 5 mg PO BID [facility] Last Admin: 07/14/18 21:26 Dose: 5 mg Atorvastatin Calcium (Lipitor) 40 mg PO DAILY [facility] Last Admin: 07/14/18 08:57 Dose: 40 mg Bisacodyl (Dulcolax Supp) 10 mg RECTAL DAILY PRN PRN Reason: SEVERE CONSITIPATION Cyanocobalamin (Vitamin B12) 1,000 mcg PO DAILY [facility] Last Admin: 07/14/18 08:59 Dose: 1,000 mcg Dextrose (D50w Vial) 50 ml IV.PUSH UNSCH PRN PRN Reason: PER HYPOGLYCEMIA PROTOCOL Ferrous Sulfate (Ferosul) 325 mg PO DAILY [facility] Last Admin: 07/14/18 08:56 Dose: 325 mg Glucagon (Glucagon Inj) 1 mg OTHER PRN PRN PRN Reason: for Hypoglycemia Protocol Insulin Aspart (Novolog Insulin [place]al Sugar Inj) 0 unit SQ [facility]; Protocol Last Admin: 07/14/18 21:26 Dose: Not Given Lactulose (Lactulose Liq) 30 ml PO DAILY PRN PRN Reason: SEVERE CONSITIPATION Last Admin: 07/14/18 06:11 Dose: 30 ml Metoprolol Tartrate (Lopressor) 75 mg PO BID [facility] Last Admin: 07/14/18 21:25 Dose: 75 mg Miscellaneous (Pill Splitter) 1 each OTHER UNSCH PRN PRN Reason: SEE LABEL COMMENTS Ondansetron HCl (Zofran Inj) 4 mg IV.PUSH Q6H PRN PRN Reason: NAUSEA OR VOMITING Sacubitril/Valsartan (Entresto 24 Mg/26 Mg Tablet) 1 tab PO BID [facility] Last Admin: 07/14/18 21:26 Dose: 1 tab Sennosides (Senokot) 17.2 mg PO Q12H PRN PRN Reason: Moderate Constipation Tamsulosin HCl (Flomax) 0.4 mg PO DAILY [facility] Last Admin: 07/14/18 08:59 Dose: 0.4 mg Allergies/Adverse Reactions: Allergies Allergy/AdvReac Type Severity Reaction Status Date / Time No Known Allergies Allergy Verified 07/13/18 10:23 Review of Systems All other systems reviewed negative except as stated in HPI Physical Exam Vital signs: Vital Signs 07/14/18 11:58 07/14/18 14:57 07/14/18 16:00 Temperature 97.7 F 97.7 F Pulse Rate 68 84 68 Respiratory Rate 18 18 Blood Pressure 140/65 136/62 Pulse Oximetry 96 96 07/14/18 20:00 07/15/18 00:00 07/15/18 04:00 Temperature 97.2 F L 98.1 F 97.7 F Pulse Rate 64 66 94 H Respiratory Rate 16 18 18 Blood Pressure 137/61 126/60 177/80 H Pulse Oximetry 97 96 96 07/15/18 07:43 Temperature 98.2 F Pulse Rate 83 Respiratory Rate 18 Blood Pressure 137/62 Pulse Oximetry 96 Intake & Output 07/14/18 07/15/18 07/15/18 18:59 06:59 18:59 Weight 65.8 kg Other: Date of Last Bowel Movement 07/14/18 07/15/18 Narrative: CONSTITUTIONAL/GENERAL: in no acute distress. CARDIOVASCULAR: Normal rate and regular rhythm RESPIRATORY/CHEST: Symmetric, unlabored respirations. GASTROINTESTINAL: Abdomen soft, non-tender, non-distended. MUSCULOSKELETAL: Extremities without clubbing, cyanosis, or edema. NEUROLOGICAL: Awake and alert. Oriented x3, extraocular is intact no facial asymmetry tongue midline able raise all 4 extremity to gravity with mild distal foot weakness stocking glove distribution reduced reduction pinprick light touch generalized weakness. Afocal. PSYCHIATRIC: Calm appropriate, pleasant monotone speech - Constitutional no acute distress - Routine HEENT Exam Head: Present: normocephalic Eye: Present: EOMI Objective Laboratory Results - last 24 hr 07/14/18 07/14/18 07/14/18 07:02 07:02 07:02 WBC 10.2 RBC 3.70 L Hgb 11.4 L Hct 33.2 L MCV 89.7 MCH 30.9 MCHC 34.5 RDW 14.0 Plt Count 163 MPV 9.6 Neut % (Auto) 79.4 H Lymph % (Auto) 9.0 [place] % (Auto) 10.3 H Eos % (Auto) 1.0 Baso % (Auto) 0.3 Neut # (Auto) 8.1 H Lymph # (Auto) 0.9 L [place] # (Auto) 1.0 H Eos # (Auto) 0.1 Baso # (Auto) 0.0 WBC Differential . Differential Comment Auto diff final Sodium 140 Potassium 3.4 L Chloride 100 Carbon Dioxide 30.9 Anion Gap 9 BUN 20 H Creatinine 1.24 Estimated GFR 57 L POC Glucose Random Glucose 158 H Hemoglobin A1c 10.2 H Calcium 9.1 07/14/18 07/14/18 07/14/18 12:01 16:23 21:22 WBC RBC Hgb Hct MCV MCH MCHC RDW Plt Count MPV Neut % (Auto) Lymph % (Auto) [place] % (Auto) Eos % (Auto) Baso % (Auto) Neut # (Auto) Lymph # (Auto) [place] # (Auto) Eos # (Auto) Baso # (Auto) WBC Differential Differential Comment Sodium Potassium Chloride Carbon Dioxide Anion Gap BUN Creatinine Estimated GFR POC Glucose 199 H 223 H 145 H Random Glucose Hemoglobin A1c Calcium 07/15/18 07/15/18 07/15/18 06:26 06:26 07:35 WBC 9.3 RBC 3.52 L Hgb 10.8 L Hct 32.2 L MCV 91.4 MCH 30.5 MCHC 33.4 RDW 14.1 Plt Count 166 MPV 8.7 Neut % (Auto) Lymph % (Auto) [place] % (Auto) Eos % (Auto) Baso % (Auto) Neut # (Auto) Lymph # (Auto) [place] # (Auto) Eos # (Auto) Baso # (Auto) WBC Differential Differential Comment Sodium 141 Potassium 3.7 Chloride 103 Carbon Dioxide 31.4 Anion Gap 7 BUN 19 H Creatinine 1.04 Estimated GFR 70 L POC Glucose 135 H Random Glucose 130 H Hemoglobin A1c Calcium 9.2 Microbiology 07/15/18 05:40 Stool Occult Blood (NANDO) - Final Stool Hemoccult negative Review/Management - Diagnosis (1) Lumbar spinal stenosis Code(s): M48.061 - Spinal stenosis, lumbar region without neurogenic claudication Status: Acute Current Visit: Yes (2) Generalized weakness Code(s): R53.1 - Weakness Status: Acute Current Visit: No (3) CHF (congestive heart failure) Code(s): I50.9 - Heart failure, unspecified Status: Acute Current Visit: No (4) Spinal stenosis in cervical region Code(s): M48.02 - Spinal stenosis, cervical region Status: Acute Current Visit: Yes (5) Diabetic peripheral neuropathy Code(s): E11.42 - Type 2 diabetes mellitus with diabetic polyneuropathy Status : Acute Current Visit: Yes - Review/Management Plan: Chronic cervical lumbar pain appears related to spondylosis, stenosis. Weakness and imbalance may be from a combination of both. In addition has diabetic peripheral neuropathy which is further causing gait imbalance Moderate cervical and lumbar spinal canal stenosis on CT scan. Unable to get MRI scan due to pacemaker. CK level 58 Recommendations Neuro stable We will add Zoloft 25 mg p.o. daily. May help pain also appears to be mildly depressed. Discussed the patient agrees to treatment Soft cervical collar to wear at night as needed to help with some of his neck pain Pain inpatient therapy and rehabilitation Discussed with RN (3) CHF (congestive heart failure) Qualifiers: Heart failure type: systolic Heart failure chronicity: acute on chronic Qualified Code(s): I50.23 - Acute on chronic systolic (congestive) heart failure
[2018-07-15] MEDS ORDERED: Sertraline 50 MG Tablet PO SCH (09:00)
--- NOTE | 2018-07-15 10:59 | P.DS ---
Date of admission: 07/13/18 13:47 Primary care physician: Rayshawn Vázquez MD Brief History from admission: 73-year-old male with a medical history significant for congestive heart failure , diabetes, atrial fibrillation, hypertension who presented to the hospital with complaints of worsening neck pain, low back pain, generalized weakness and malaise. The patient's at bedside provided the history. She reports that she has been having issues controlling his blood glucose for the past couple of weeks ranging from 200-300s. Glipizide has been increased up to 10 mg daily without improvement. Over the past couple of days the patient has been complaining of neck and back pain. He also has become profoundly weak to the point where he is unable to ambulate. He reports right-sided neck and back pain. Patient denies any fevers or chills. No dysuria. Per the patient's , he has been declining over the past year. He has significant heart failure with EF of 15%. His memory has been declining as well. She has MS and she does not believe she can no longer care for him at home. Workup in the emergency room is concerning for cervical spinal stenosis. Patient update on day of discharge: Patient reports the weakness is about the same. Pain medication helping with his neck and back. DS: Diagnosis - Discharge Diagnosis (1) Spinal stenosis in cervical region Status: Acute (2) Generalized weakness Status: Acute (3) CHF (congestive heart failure) Status: Acute (4) Diabetes Status: Acute (5) Cognitive dysfunction Status: Acute DS: Medications - Discharge Medications Prescriptions: hydrocodone-acetaminophen 1 tab PO Q6H PRN #12 tab PRN Reason: Pain Scale 6 To 10 sertraline [Zoloft] 25 mg PO DAILY #30 tab DS: Summary Hospital Course: 73-year-old male admitted with profound weakness and inability to ambulate. Cervical imaging studies concerning for spinal stenosis. Evaluation and treatment course detailed below: Cervical and lumbar spinal stenosis/physical deconditioning: -I do not believe he would be a surgical candidate and the patient and his explicitly stated they would not want surgery. - Appreciate Neurology input. Patient is to continue with physical therapy. Pain control. -He is discharged to a alf facility at the [facility]. Diabetes: Patient's reports his blood glucose high at home has been in the 200-300s. Glucose in the ED acceptable. - Accu-Cheks with sliding scale insulin. -Hemoglobin A1c of 10 - Appetite fluctuate. He will need to be followed closely to ensure he is on the right regiment per his diet habit. For now he can continue home dose glipizide. Chronic systolic heart failure: - Continue Entresto, Lopressor. Spironolactone and Lasix were held because his blood pressure would not tolerate. This was discontinued on discharge. Cognitive dysfunction/memory impairment/depression: His reports this has been progressive. - May have early dementia. Recommend outpatient testing. Neurology input is appreciated. - Patient started on Zoloft for depression. Atrial fibrillation: -Rate controlled. Continue Lopressor and Eliquis. - Time Spent with Patient Total time spent providing and/or coordinating discharge services: Greater than 30 minutes - Quality: VTE Deep Vein Thrombosis/Pulmonary Embolism Present on Admission: No Exam Vital signs: Vital Signs 07/14/18 11:58 07/14/18 14:57 07/14/18 16:00 Temperature 97.7 F 97.7 F Pulse Rate 68 84 68 Respiratory Rate 18 18 Blood Pressure 140/65 136/62 Pulse Oximetry 96 96 07/14/18 20:00 07/15/18 00:00 07/15/18 04:00 Temperature 97.2 F L 98.1 F 97.7 F Pulse Rate 64 66 94 H Respiratory Rate 16 18 18 Blood Pressure 137/61 126/60 177/80 H Pulse Oximetry 97 96 96 07/15/18 07:43 Temperature 98.2 F Pulse Rate 83 Respiratory Rate 18 Blood Pressure 137/62 Pulse Oximetry 96 Intake & Output 07/14/18 07/15/18 07/15/18 18:59 06:59 18:59 Weight 65.8 kg Other: Date of Last Bowel Movement 07/14/18 07/15/18 07/14/18 Narrative: CONSTITUTIONAL/GENERAL: Elderly and frail male in no acute distress. CARDIOVASCULAR: Normal rate and regular rhythm without significant murmurs RESPIRATORY/CHEST: Symmetric, unlabored respirations. Breath sounds equal and clear to auscultation bilaterally. GASTROINTESTINAL: Abdomen soft, non-tender, non-distended. MUSCULOSKELETAL: Extremities without clubbing, cyanosis, or edema. Complaint of tenderness to palpation over the right cervical paraspinal muscles and lumbar paraspinal muscles bilaterally. NEUROLOGICAL: Awake and alert. Generalized weakness. Afocal. PSYCHIATRIC: No obvious mood problems. No apparent hallucinations or other psychotic thought process. Results Procedures completed during hospitalization: None Labs on day of discharge: Labs from last 24 hours 07/15/18 07/15/18 07/15/18 07:35 06:26 06:26 WBC RBC Hgb Hct MCV MCH MCHC RDW Plt Count MPV ESR 60 H Sodium Potassium Chloride Carbon Dioxide Anion Gap BUN Creatinine Estimated GFR POC Glucose 135 H Random Glucose Hemoglobin A1c Calcium C-Reactive Protein 8.60 H 07/15/18 07/15/18 07/14/18 06:26 06:26 21:22 WBC 9.3 RBC 3.52 L Hgb 10.8 L Hct 32.2 L MCV 91.4 MCH 30.5 MCHC 33.4 RDW 14.1 Plt Count 166 MPV 8.7 ESR Sodium 141 Potassium 3.7 Chloride 103 Carbon Dioxide 31.4 Anion Gap 7 BUN 19 H Creatinine 1.04 Estimated GFR 70 L POC Glucose 145 H Random Glucose 130 H Hemoglobin A1c Calcium 9.2 C-Reactive Protein 07/14/18 07/14/18 07/14/18 16:23 12:01 07:02 WBC RBC Hgb Hct MCV MCH MCHC RDW Plt Count MPV ESR Sodium Potassium Chloride Carbon Dioxide Anion Gap BUN Creatinine Estimated GFR POC Glucose 223 H 199 H Random Glucose Hemoglobin A1c 10.2 H Calcium C-Reactive Protein - Impressions ITS Impressions Cervical Spine CT 07/13/18 10:40 CONCLUSION: 1. Advanced multilevel degenerative spondylosis of the cervical spine most prominently at C5-6 and C6-7 with mild to moderate central canal narrowing and bilateral moderate bony neural foraminal stenosis. Chest X-Ray 07/13/18 10:40 CONCLUSION: 1. No acute abnormality or significant interval change. Head CT 07/13/18 10:40 CONCLUSION: 1. Stable senescent findings without acute intracranial abnormality. . Lumbar Spine CT 07/13/18 10:40 CONCLUSION: 1. Stable mild compression fracture of the L2 superior endplate. 2. Advanced multilevel degenerative spondylosis of the lumbar spine most prominently at L3-4 and L4-5 with resultant moderate to severe central canal narrowing at L4-5. 3. Moderate right neural foraminal narrowing at L4-5. Discharge Plan - Discharge Disposition Patient Disposition: Discharge to SNF - Discharge Condition Condition: Stable - Discharge Order Discharge Orders: Discharge Order (Routine); Ordered 07/15/18 Ordered By: Piotr Meyers - Physicians Team Primary Care Provider: Rayshawn Vázquez Attending Provider: Piotr Meyers Other Providers: Benigno Olson MD ; Julieth Clancy
== END 2018-07-15 15:00 ==
LOC: NEPD 08:46 → NEDA 13:47 → INTOOBSV 13:47 → N05 17:18
PROVIDERS: ADMIT Family Medicine; ATTEND Family Medicine